=== PATIENT | male | born 1950 | race Caucasian/White ===

== ENCOUNTER 2016-12-01 10:43 | Emergency (ER) | payer OTHER ==
[~2016-12-01] VITALS: Ht 172.7 cm; Wt 110.0 kg
[~2016-12-01 10:43] MED LIST: ASCO250C3 PO; ASPI-232 PO; ATOR-26 PO; CARV6.252 PO; DILT120C PO; FOLI1TAB7 PO; FRS/40 PO; GLYB5TAB8 PO; INSUINJ12 SQ; LOSA50TA6 PO; MAGN400T6 PO; METF1000 PO; POTA20TA16 PO; SPIR25TA89 PO; THIA100T11 PO
[2016-12-01 10:53] VITALS: TEMP 36.8; Ht 172.7 cm; Wt 110.0 kg
[2016-12-01 11:17] VITALS: O2SAT 93
[2016-12-01] MEDS ORDERED: INSDGI SC (11:22)
[2016-12-01 11:32] LABS: ISTAT CREATININE 1.3 mg/dl (0.6-1.3); ISTAT HEMOGLOBIN 15.6 g/dl (14.0-18.0); ISTAT IONIZED CALCIUM 1.16 mmol/l (1.12-1.32)
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
[2016-12-01] MEDS ORDERED: KETOROLAC TROMETHAMINE 30 MG/ML VIAL IV STA (13:02)
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
[2016-12-01 13:41] VITALS: BP 159/108; PULSE 108; O2SAT 92
== END 2016-12-01 13:45 | disposition home or self-care (01) ==
LOC: C.EDB 10:44 → C.EDA 13:45
DX: S20.20XA Contusion of thorax, unspecified, initial encounter (principal); V86.59XA Driver of other special all-terrain or other off-road motor vehicle injured in nontraffic accident, initial encounter; I25.10 Atherosclerotic heart disease of native coronary artery without angina pectoris; N18.3 Chronic kidney disease, stage 3 (moderate); E11.9 Type 2 diabetes mellitus without complications; E78.5 Hyperlipidemia, unspecified; I10 Essential (primary) hypertension; E66.9 Obesity, unspecified; Z82.49 Family history of ischemic heart disease and other diseases of the circulatory system; Z79.82 Long term (current) use of aspirin; Z79.4 Long term (current) use of insulin

== ENCOUNTER 2017-02-07 16:11 | Inpatient (IN) | payer OTHER ==
[2017-02-07] VITALS (7 sets, daily range): BP systolic 129–165; BP diastolic 88–108; PULSE 109–112; TEMP 36.5; O2SAT 93–98; Ht 172.7 cm; Wt 101.0 kg
[~2017-02-07] VITALS: Ht 172.7 cm; Wt 101.0 kg
[~2017-02-07 16:11] MED LIST changes: +INSDGI SC; -INSUINJ12 SQ
[2017-02-07] MEDS ORDERED: SODIUM CHLORIDE 0.9% 1000ML 2,000 ML IV STA ×2 (16:22→18:49)
--- NOTE | 2017-02-07 16:57 | EMERGENCY ROOM VISIT NOTE ---
History Report prepared by Kar: An Julien Under the Supervision of: Dr. J Carlos Max D.O. First contact with patient: 16:11 Chief Complaint: HYPERGLYCEMIA Stated Complaint: AMS, HYPERGLYCEMIA History of Present Illness The patient is a 66 year old male who presents to the Emergency Room with complaints of constant altered mental status beginning today. Per EMS, the patient lives with his brother and was found today laying sideways on his bed with altered mental status. They report that he was covered in stool and after testing his blood sugar it said that it was "high". They note that the patient had a doctors appointment recently that he skipped because he was not feeling well. The patient complains of increasing weakness, right toe necrosis, and right foot redness that began a couple of days ago. He denies any abdominal pain and chest pain. Source of History: patient Onset: today Position: other (global) Quality: other (AMS) Timing: constant Associated Symptoms: + weakness, No chest pain, No abdominal pain Note: The patient complains of right toe necrosis and right foot redness that began a couple of days ago. Review of Systems See HPI for pertinent positives & negatives. A total of 10 systems reviewed and were otherwise negative. Past Medical & Surgical Medical Problems: (1) CAD (coronary artery disease) (2) CKD (chronic kidney disease) stage 3, GFR 30-59 ml/min (3) Decubitus ulcer (4) Diabetes mellitus type 2 in obese (5) Dyslipidemia (6) H/O CHF (7) HTN (hypertension) (8) Obesity (9) Pancreatitis Surgical Problems: (1) H/O pericardiectomy (2) History of total knee arthroplasty (3) S/P CABG x 4 Family History No pertinent family history stated. Social History Marital Status: single Housing Status: lives with family Current/Historical Medications Scheduled Ascorbic Acid (Vitamin C), 250 MG PO DAILY Aspirin (Aspir-81), 2 TAB PO DAILY Atorvastatin (Lipitor), 80 MG PO DAILY Carvedilol (Coreg), 3.125 MG PO Q12 Diltiazem Hcl Coated Beads (Diltiazem Hcl Er), 60 MG PO UD Folic Acid (Folvite), 1 MG PO DAILY Furosemide (Lasix), 120 MG PO DAILY Glyburide (Micronase), 10 MG PO BID Insulin Glargine (Lantus), 50 UNIT SC QPM Losartan Potassium (Cozaar), 50 MG PO DAILY Magnesium Oxide (Mag-Ox), 400 MG PO DAILY Metformin Hcl (Glucophage), 1,000 MG PO BID Potassium Ext Rel (Klor-Con), 20 MEQ PO DAILY Spironolactone (Aldactone), 25 MG PO DAILY Thiamine Hcl (Vitamin B-1), 100 MG PO DAILY Allergies Coded Allergies: JET Inhibitors (Verified Allergy, Unknown, 02/07/17) Penicillins (Verified Allergy, Unknown, RASH A CHILD, 02/07/17) Physical Exam Vital Signs Date Time Temp Pulse Resp B/P (MAP) Pulse Ox O2 Delivery O2 Flow Rate FiO2 02/07/17 20:01 110 22 140/101 94 Room Air 02/07/17 19:53 Room Air 02/07/17 19:34 114 20 146/103 96 Room Air 02/07/17 19:01 167 24 130/101 94 02/07/17 18:56 166 24 95 02/07/17 18:51 168 21 95 02/07/17 18:46 175 12 95 02/07/17 18:41 119 18 94 02/07/17 18:36 170 12 96 02/07/17 18:31 169 22 126/91 94 02/07/17 18:30 118/93 02/07/17 18:26 117 23 96 02/07/17 18:21 142 25 02/07/17 17:56 114 21 96 02/07/17 17:51 116 22 96 02/07/17 17:46 172 21 97 02/07/17 17:41 115 22 98 02/07/17 17:38 148/107 02/07/17 17:36 114 22 02/07/17 17:31 116 02/07/17 17:31 116 21 02/07/17 16:39 36.5 121 20 132/94 96 Room Air 02/07/17 16:14 132/94 Physical Exam GENERAL: stool covered, ill appearing, laying in bed, disheveled EYE EXAM: normal conjunctiva OROPHARYNX: no exudate, no erythema, lips, buccal mucosa, and tongue normal and mucous membranes are moist NECK: supple, no nuchal rigidity, no adenopathy, non-tender LUNGS: Clear to auscultation. Normal chest wall mechanics HEART: tachycardic, no murmurs, S1 normal and S2 normal ABDOMEN: abdomen soft, non-tender, normo-active bowel sounds, no masses, no rebound or guarding. BACK: Back is symmetrical on inspection and there is no deformity, no midline tenderness, no CVA tenderness. SKIN: no rashes and no bruising UPPER EXTREMITIES: upper extremities are grossly normal. LOWER EXTREMITIES: Erythema in right lower extremity tracking through the ankle , blanching, necrotic second digit with purulent discharge underneath, purulent drainage from the medial aspect of the third digit. Ulcer at the base of the first MTP, fluid filled with black necrotic area underneath. Abrasion to the left williamson, abrasion to the distal knee. NEURO EXAM: Awake, alert, oriented, following commands, no focal deficit. Medical Decision & Procedures ER Provider Diagnostic Interpretation: Radiology results as stated below per my review and the radiologist's interpretation: CHEST ONE VIEW PORTABLE FINDINGS: Cardiac silhouette is mildly enlarged. Prior median sternotomy. No pneumothorax, pleural effusion or focal airspace consolidation. There is improved aeration of the right lung base. The bones are grossly intact. IMPRESSION: No acute cardiopulmonary process. The above report was generated using voice recognition software. It may contain grammatical, syntax or spelling errors. Electronically signed by: Lan García M.D. 02/07/2017 5:45 PM Dictated Date/Time: 02/07/2017 5:44 PM HEAD WITHOUT CONTRAST (CT) FINDINGS: No acute intracranial hemorrhage, midline shift, mass, large territorial ischemia or abnormal extra-axial collection. Mild atrophy with ex vacuo ventriculomegaly and mild background chronic microvascular ischemic changes The calvarium is intact. The paranasal sinuses, mastoid air cells, and middle ear cavities are clear. IMPRESSION: No acute intracranial abnormality. The above report was generated using voice recognition software. It may contain grammatical, syntax or spelling errors. Electronically signed by: Lan García M.D. 02/07/2017 6:25 PM Dictated Date/Time: 02/07/2017 6:23 PM Laboratory Results 02/07/17 17:07 Red Blood Count 4.57, Mean Corpuscular Volume 94.1, Mean Corpuscular Hemoglobin 31.1, Mean Corpuscular Hemoglobin Concent 33.0, Mean Platelet Volume 9.9, Neutrophils (%) (Auto) 91.5, Lymphocytes (%) (Auto) 5.3, Monocytes (%) (Auto) 2.4, Eosinophils (%) (Auto) 0.0, Basophils (%) (Auto) 0.1, Neutrophils # (Auto) 25.98, Lymphocytes # (Auto) 1.49, Monocytes # (Auto) 0.67, Eosinophils # (Auto) 0.00, Basophils # (Auto) 0.03 02/07/17 17:09 Test 02/07/17 17:04 02/07/17 17:07 02/07/17 17:09 02/07/17 17:10 Bedside Hemoglobin 15.0 g/dl (14.0-18.0) Bedside Hematocrit 44 % (42-52) Bedside Sodium 134 mEq/L (135-144) Bedside Potassium 5.1 mEq/L (3.3-5.0) Bedside Chloride 107 mEq/L (101-112) Bedside Total CO2 10 mEq/l (24-31) Bedside Blood Urea Nitrogen 47 mg/dl (7-18) Bedside Creatinine 2.1 mg/dl (0.6-1.3) Bedside Glucose (other) 681 mg/dl (70-99) Bedside Ionized Calcium (Marta) 1.03 mmol/l (1.12-1.32) White Blood Count 28.36 K/uL (4.8-10.8) Red Blood Count 4.57 M/uL (4.7-6.1) Hemoglobin 14.2 g/dL (14.0-18.0) Hematocrit 43.0 % (42-52) Mean Corpuscular Volume 94.1 fL (80-100) Mean Corpuscular Hemoglobin 31.1 pg (25-34) Mean Corpuscular Hemoglobin Concent 33.0 g/dl (32-36) Platelet Count 728 K/uL (130-400) Mean Platelet Volume 9.9 fL (7.4-10.4) Neutrophils (%) (Auto) 91.5 % Lymphocytes (%) (Auto) 5.3 % Monocytes (%) (Auto) 2.4 % Eosinophils (%) (Auto) 0.0 % Basophils (%) (Auto) 0.1 % Neutrophils # (Auto) 25.98 K/uL (1.4-6.5) Lymphocytes # (Auto) 1.49 K/uL (1.2-3.4) Monocytes # (Auto) 0.67 K/uL (0.11-0.59) Eosinophils # (Auto) 0.00 K/uL (0-0.5) Basophils # (Auto) 0.03 K/uL (0-0.2) RDW Standard Deviation 47.6 fL (36.4-46.3) RDW Coefficient of Variation 13.9 % (11.5-14.5) Immature Granulocyte % (Auto) 0.7 % Immature Granulocyte # (Auto) 0.19 K/uL (0.00-0.02) Prothrombin Time 16.4 SECONDS (9.0-12.0) Prothromb Time International Ratio 1.5 (0.9-1.1) Venous Blood pH 7.26 (7.36-7.41) Venous Blood Partial Pressure CO2 28 mmHg (38.0-50.0) Venous Blood Partial Pressure O2 42 mmHg Venous Blood HCO3 12 mmol/L Venous Blood Oxygen Saturation 69.4 % Venous Blood Base Excess -13.2 mEq/L Anion Gap 25.0 mmol/L (3-11) Est Creatinine Clear Calc Drug Dose 32.5 ml/min Estimated GFR () 27.6 Estimated GFR (Non- 23.8 BUN/Creatinine Ratio 18.7 (10-20) Calcium Level 9.9 mg/dl (8.5-10.1) Magnesium Level 2.8 mg/dl (1.8-2.4) Total Bilirubin 0.5 mg/dl (0.2-1) Direct Bilirubin 0.2 mg/dl (0-0.2) Aspartate Amino Transf (AST/SGOT) 19 U/L (15-37) Alanine Aminotransferase (ALT/SGPT) 13 U/L (12-78) Alkaline Phosphatase 146 U/L (45-117) Total Protein 8.7 gm/dl (6.4-8.2) Albumin 2.1 gm/dl (3.4-5.0) Beta-Hydroxybutyric Acid 116.18 mg/dL (0.2-2.81) Bedside Lactic Acid Venous 2.67 mmol/L (0.90-1.70) Test 02/07/17 19:19 02/07/17 19:41 Hepatitis C Antibody Screen NEG (NEG) Bedside Glucose 582 mg/dl (70-99) Laboratory results per my review. Medications Administered Medications (Trade) Dose Ordered Sig/Estee Route Start Time Stop Time Status Last Admin Dose Admin Sodium Chloride 2,000 ml @ 999 mls/hr Q2H1M STAT IV 02/07/17 16:22 02/07/17 18:22 DC 02/07/17 16:22 999 MLS/HR Miscellaneous (Insulin Protocol Severe Stress) 1 ea ONE ONCE N/A 02/07/17 17:15 02/07/17 17:18 DC 02/07/17 17:15 1 EA Ceftriaxone Sodium (Rocephin Inj) 1 gm NOW STAT IV 02/07/17 17:15 02/07/17 17:18 DC 02/07/17 17:15 1 GM Vancomycin HCl 2000 mg/Sodium Chloride 540 ml @ 200 mls/hr NOW STAT IV 02/07/17 17:30 02/07/17 20:11 DC 02/07/17 19:00 200 MLS/HR Insulin Human Regular 250 units/ Sodium Chloride 252.5 ml @ 0 mls/hr DAILY@1130 IV 02/07/17 17:56 02/08/17 11:29 02/07/17 18:26 4 MLS/HR Insulin Human Regular (novoLIN-R U-100 PER UNIT) 4 units STK-MED ONCE .ROUTE 02/07/17 17:54 02/07/17 17:55 DC 02/07/17 18:00 4 UNITS Sodium Chloride 2,000 ml @ 999 mls/hr Q2H1M STAT IV 02/07/17 18:49 02/07/17 20:50 DC 02/07/17 18:49 999 MLS/HR ECG Indication: altered mental status Rate (beats per minute): 116 Rhythm: sinus tachycardia Findings: 1st degree AV block, Q waves (Inferior), RBBB, left axis deviation Change: EKG #2: Wide complex tachycardia, 116, RBBB, Left [place], Inferior Q Waves. ED Course ED COURSE: Vital signs were reviewed and showed tachycardia The patients medical record was reviewed The above diagnostic studies were performed and reviewed. ED treatments and interventions as stated above. 1611: The patient was evaluated in room B2. A complete history and physical examination was performed. 1622: Sodium Chloride 2000 ml @ 999 mls/hr IV. 1713: I reevaluated and updated the patient. 1715: Rocephin Inj 1gm IV, Insulin Protocol Severe Stress 1 ea N/A, Insulin Protocol DKA Goal Range 1 ea N/A. 1720: Insulin Human Regular 1 ea N/A. 1730: Vancomycin HCl 2000mg/Sodium Chloride 540 ml @ 200mls.hr IV. 1754: Insulin Human Regular 4 units. 1756: Insulin Human Regular 250 units/Sodium Chloride 252.5 ml @ 0mls/hr IV. 1800: Glucagon 1 mg PRN SQ hypoglycemia protocol, Dextrose 50ml PRN IV hypoglycemia protocol, Glucose 1 tab PRN PO. 1849: Sodium Chloride 2000 ml @ 999 mls/hr IV. 1900: Insulin Aspart Sliding Scale SC. 190: I reviewed the patient's case with Dr. Cunha of [facility]. He will evaluate the patient for further management. 1923: Upon reevaluation, the patient is doing well.I discussed my findings with the patient and he understands and agrees with the treatment plan. Based on the patients age, coexisting illnesses, exam and lab findings the decision to treat as an inpatient was made. The patient remained stable while under my care. The patient will be evaluated for further management. 2001: The patient's insulin was increased to 6 units per hour. Medical Decision Differential diagnoses includes but is not limited to toxic, metabolic, infectious, traumatic, cardiac, neurologic, hematologic, psychiatric and inflammatory etiologies. Patient is a 66-year-old male who presents to ER brought in by ALS who I took medical command call for altered mental status. He was brought in covered in stool. He is slightly confused. Labs were obtained and show a leukocytosis of 28,000. Blood sugar was 700 with a bicarbonate of 10. Patient is in DKA likely subsequent to sepsis from his right lower extremity which has a necrotic toe and surrounding cellulitis. Troponin was elevated at 2.7 which I favor is demand. INR was 1.5. PH was 7.26. Chest x-ray was unremarkable. Patient was given 3 L normal saline. IV Rocephin and vancomycin was given secondary to the infection in his right lower leg. CT head was negative. Patient was placed on the insulin drip and bolus. Insulin drip was titrated up from 4 to 6. Discussed with internal medicine who discussed case with the supervisor fabrication. Medication Reconcilliation Current Medication List: was personally reviewed by me Blood Pressure Screening Patient's blood pressure: Elevated blood pressure Blood pressure disposition: Elevated BP felt to be situational Consults Time Called: 1899 Consulting Physician: Dr. Alphonse Ellis Returned Call: 1905 I reviewed the patient's case with Dr. Childress. He will evaluate the patient for further management. Impression Primary Impression: Sepsis Additional Impression: DKA (diabetic ketoacidoses) Critical Care I have personally spent 75 minutes of critical care time in the direct management of this patient. This includes bedside care, interpretation of diagnostic studies, and testing, discussion with consultants, patient, and family members, and other required patient management activities. This 75 minutes is in excess of all separately billable procedures. Scribe Attestation The scribe's documentation has been prepared under my direction and personally reviewed by me in its entirety. I confirm that the note above accurately reflects all work, treatment, procedures, and medical decision making performed by me. Departure Information Dispostion Being Evaluated By Hospitalist Patient Instructions My [facility] Problem Qualifiers Primary Impression: Sepsis Sepsis type: sepsis due to unspecified organism Qualified Codes: A41.9 - Sepsis, unspecified organism Additional Impression: DKA (diabetic ketoacidoses) Diabetes mellitus type: other specified (including THOMAS) Diabetes mellitus complication detail: without coma Qualified Codes: E13.10 - Other specified diabetes mellitus with ketoacidosis without coma
[2017-02-07] MEDS ORDERED: VANCOMYCIN INJ 2,000 MG in SODIUM CHLORIDE 0.9% 250ML 250 ML IV STA (17:15)
[2017-02-07] MEDS ORDERED: CEFTRIAXONE SOD INJ 1 GM ADDVIAL IV STA (17:15)
[2017-02-07] MEDS ORDERED: INSULIN IV INFUSION PROTOCOL STA ×2 (17:15→19:43)
[2017-02-07] MEDS ORDERED: SEVERE STRESS LEVEL ONE ×2 (17:15→19:45)
[2017-02-07] MEDS ORDERED: DKA GOAL RANGE 150-250 mg/dl 1 EA ONE ×2 (17:15→19:45)
[2017-02-07 17:18] LABS: ISTAT CREATININE 2.1 mg/dl (0.6-1.3); ISTAT IONIZED CALCIUM 1.03 mmol/l (1.12-1.32)
[2017-02-07 17:18] LABS: MEAN CELL VOLUME 94.1 fL (80-100); MEAN CORPUSCULAR HEMOGLOBIN 31.1 pg (25-34); MEAN PLATELET VOLUME 9.9 fL (7.4-10.4); PLATELET COUNT 728 K/uL (130-400); RED BLOOD COUNT 4.57 M/uL (4.7-6.1); WHITE BLOOD COUNT 28.36 K/uL (4.8-10.8)
[2017-02-07] MEDS ORDERED: INSULIN IV INFUSION PROTOCOL SCH (17:20)
[2017-02-07 17:21] LABS: VEN BLD GAS O2 SATURATION 69.4 %; VEN BLOOD GAS BASE EXCESS -13.2 mEq/L
[2017-02-07 17:26] LABS: INR 1.5 (0.9-1.1); PROTHROMBIN TIME (PATIENT) 16.4 SECONDS (9.0-12.0)
[2017-02-07] MEDS ORDERED: VANCOMYCIN INJ 2,000 MG in SODIUM CHLORIDE 0.9% 500ML 500 ML IV STA (17:30)
[2017-02-07 17:42] LABS: BASO % 0.1 %; BASO ABS # 0.03 K/uL (0-0.2); COMPLETE YES; IG% 0.7 %; LYMPH % 5.3 %; LYMPH ABS # 1.49 K/uL (1.2-3.4); MONO % 2.4 %; NEUT % 91.5 %
[2017-02-07 17:44] LABS: BUN/CREATININE RATIO 18.7 (10-20); CALCIUM 9.9 mg/dl (8.5-10.1); CKMB/CK RATIO 12.8 (0-3.0); CREATININE 2.7 mg/dl (0.60-1.40); MAGNESIUM 2.8 mg/dl (1.8-2.4); POTASSIUM 4.8 mmol/L (3.5-5.1)
--- NOTE | 2017-02-07 17:47 | DIAGNOSTIC IMAGING REPORT ---
CHEST ONE VIEW PORTABLE HISTORY: 66 years-old Male fever acute fever with altered mental status COMPARISON: Chest radiograph 12/01/2016 TECHNIQUE: Portable upright AP view of the chest FINDINGS: Cardiac silhouette is mildly enlarged. Prior median sternotomy. No pneumothorax, pleural effusion or focal airspace consolidation. There is improved aeration of the right lung base. The bones are grossly intact. IMPRESSION: No acute cardiopulmonary process. The above report was generated using voice recognition software. It may contain grammatical, syntax or spelling errors. Electronically signed by: Lan García M.D. 02/07/2017 5:45 PM Dictated Date/Time: 02/07/2017 5:44 PM
[2017-02-07] MEDS ORDERED: NovoLIN-R INSULIN PER UNIT CHARGE ONE (17:54)
[2017-02-07] MEDS ORDERED: GLUCOSE 10 TABS/TUBE PO PRN (18:00)
[2017-02-07] MEDS ORDERED: GLUCAGON FOR INJ 1 MG VIAL SQ PRN (18:00)
[2017-02-07] MEDS ORDERED: DEXTROSE 50% 50 ML SYR IV PRN (18:00)
[2017-02-07] MEDS ORDERED: GLUCOSE 40% GEL 15 GM TUBE PO PRN (18:00)
[2017-02-07] MEDS ORDERED: INSULIN HUMAN REGULAR IV BOLUS 4 UNIT in SYRINGE 0 ML IV SCH (18:00)
[2017-02-07 18:18] LABS: BETA-HYDROXYBUTYRATE 116.18 mg/dL (0.2-2.81)
[2017-02-07] MEDS: INSULIN REGULAR 250 UNITS in SODIUM CHLORIDE 0.9% 250ML 250 ML IV SCH ×2 (18:26→21:56)
--- NOTE | 2017-02-07 18:27 | DIAGNOSTIC IMAGING REPORT ---
HEAD WITHOUT CONTRAST (CT) CLINICAL HISTORY: 66 years-old Male with ams . Acute altered mental status with hyperglycemia TECHNIQUE: Multiple axial CT images of the head were obtained without contrast. A dose lowering technique was utilized adhering to the principles of ALARA. CT DOSE: 614.27 mGy.cm COMPARISON: CT head 12/01/2016. FINDINGS: No acute intracranial hemorrhage, midline shift, mass, large territorial ischemia or abnormal extra-axial collection. Mild atrophy with ex vacuo ventriculomegaly and mild background chronic microvascular ischemic changes The calvarium is intact. The paranasal sinuses, mastoid air cells, and middle ear cavities are clear. IMPRESSION: No acute intracranial abnormality. The above report was generated using voice recognition software. It may contain grammatical, syntax or spelling errors. Electronically signed by: Lan García M.D. 02/07/2017 6:25 PM Dictated Date/Time: 02/07/2017 6:23 PM
[2017-02-07] MEDS ORDERED: INSULIN ASPART 100 UNITS/ML 3 ML PEN SC SCH (19:00)
[2017-02-07] MEDS ORDERED: SODIUM CHLORIDE 0.9% 1000ML 1,000 ML IV SCH (19:43)
[2017-02-07] MEDS ORDERED: LORAZEPAM 2 MG/ML 1 ML VIAL IV PRN ×2 (19:45→20:15)
[2017-02-07] MEDS ORDERED: ONDANSETRON INJ 2 MG/ML 2 ML VIAL IV PRN (19:45)
[2017-02-07] MEDS ORDERED: CONSULT PHARMACY STA ×2 (20:11→20:27)
--- NOTE | 2017-02-07 20:41 | History and Physical ---
History & Physical Date & Time of Service: Feb 07, 2017 at 20:18 Chief Complaint: Ams, Hyperglycemia Primary Care Physician: Dionicio Emmanuel DO History of Present Illness Source: patient, clinic records, hospital records 66 yo alcoholic diabetic presents to the ER via EMS after he was found at home lying on his bed somewhat altered and covered in feces. Although the patient is able answer questions appropriately he cannot tell me what happened at home and has low stamina for answering questions at this time. Per records, the patient lives with his brother and was found by him appearing confused and prompting the 911 call. Per the records, the patient was complaining of weakness, R foot redness that began a couple of days ago. He was unable to give me the history of how long his foot has been a problem. He admits to being a beer drinker, cannot quantify amount. He otherwise denies any fevers, chills, chest pain, shortness of breath, abdominal pain, nausea, vomiting, diarrhea, numbness or pain in his R foot. He states that although he hasn't been eating much, he has been compliant with all of his PO meds and insulin. Past Medical/Surgical History Medical Problems: (1) Alcohol abuse Status: Chronic (2) Atrial fibrillation Status: Chronic (3) CAD (coronary artery disease) Permanent Comment: s/p CABG in 2011 Status: Chronic (4) CKD (chronic kidney disease) stage 3, GFR 30-59 ml/min Status: Chronic (5) Decubitus ulcer Permanent Comment: R buttock Status: Chronic (6) Diabetes mellitus type 2 in obese Status: Chronic (7) Dyslipidemia Status: Chronic (8) H/O CHF Permanent Comment: systolic 2* CAD Status: Chronic (9) HTN (hypertension) Status: Chronic (10) Obesity Status: Chronic (11) RBBB Status: Chronic Surgical Problems: (1) H/O pericardiectomy Permanent Comment: 2011 Status: Resolved (2) History of total knee arthroplasty Permanent Comment: Left Status: Resolved (3) S/P CABG x 4 Permanent Comment: 2011 Status: Resolved Family History FHx: heart disease Social History Smoking Status: Unknown if Ever Smoked Smokeless Tobacco Use: Unknown Alcohol Use: heavy Drug Use: none Marital Status: single Housing status: lives with family (lives wtih brother) Occupational Status: disabled Immunizations History of Influenza Vaccine: No Influenza Vaccine Date: Jul 01, 2011 History of Tetanus Vaccine?: No History of Pneumococcal: No Pneumococcal Date: Jul 01, 2011 History of Hepatitis B Vaccine: No Multi-Drug Resistant Organisms History of MDRO: No Allergies Coded Allergies: JET Inhibitors (Verified Allergy, Unknown, 02/07/17) Penicillins (Verified Allergy, Unknown, RASH A CHILD, 02/07/17) Home Medications Scheduled Ascorbic Acid (Vitamin C), 250 MG PO DAILY Aspirin (Aspir-81), 2 TAB PO DAILY Atorvastatin (Lipitor), 80 MG PO DAILY Carvedilol (Coreg), 3.125 MG PO Q12 Diltiazem Hcl Coated Beads (Diltiazem Hcl Er), 60 MG PO UD Folic Acid (Folvite), 1 MG PO DAILY Furosemide (Lasix), 120 MG PO DAILY Glyburide (Micronase), 10 MG PO BID Insulin Glargine (Lantus), 50 UNIT SC QPM Losartan Potassium (Cozaar), 50 MG PO DAILY Magnesium Oxide (Mag-Ox), 400 MG PO DAILY Metformin Hcl (Glucophage), 1,000 MG PO BID Potassium Ext Rel (Klor-Con), 20 MEQ PO DAILY Spironolactone (Aldactone), 25 MG PO DAILY Thiamine Hcl (Vitamin B-1), 100 MG PO DAILY Review of Systems History and ROS was somewhat limited 2/2 the patient's fatigue level and decreased stamina, however, at least ten systems were reviewed and negative except as otherwise indicated in HPI. Physical Exam Vital Signs Date Time Temp Pulse Resp B/P (MAP) Pulse Ox O2 Delivery O2 Flow Rate FiO2 02/07/17 20:01 110 22 140/101 94 Room Air 02/07/17 19:34 114 20 146/103 96 Room Air 02/07/17 19:01 167 24 130/101 94 02/07/17 18:56 166 24 95 02/07/17 18:51 168 21 95 02/07/17 18:46 175 12 95 02/07/17 18:41 119 18 94 02/07/17 18:36 170 12 96 02/07/17 18:31 169 22 126/91 94 02/07/17 18:30 118/93 02/07/17 18:26 117 23 96 02/07/17 18:21 142 25 02/07/17 17:56 114 21 96 02/07/17 17:51 116 22 96 02/07/17 17:46 172 21 97 02/07/17 17:41 115 22 98 02/07/17 17:38 148/107 02/07/17 17:36 114 22 02/07/17 17:31 116 02/07/17 17:31 116 21 02/07/17 16:39 36.5 121 20 132/94 96 Room Air 02/07/17 16:14 132/94 General Appearance: no apparent distress, + obese, + pertinent finding ( covered in feces-on face and everywhere. ) Head: normocephalic, atraumatic Eyes: normal inspection, PERRL, sclerae normal ENT: hearing grossly normal, pharynx normal Neck: supple, trachea midline Respiratory/Chest: lungs clear, normal breath sounds, no respiratory distress, no accessory muscle use Cardiovascular: regular rate, rhythm, no edema, no gallop, normal peripheral pulses, + systolic murmur Abdomen/GI: normal bowel sounds, non tender, soft Back: normal inspection Extremities/Musculoskelatal: + pertinent finding (RLE cellulitis with 2nd right toe completely necrotic. Entire foot is red and warm to touch. No draining wounds. Skin is dry and flaky, nails are unkempt.) Neurologic/Psych: no motor/sensory deficits, alert, normal mood/affect, + disoriented (disoriented to time) Skin: normal color, warm/dry, + pertinent finding (wound as above. ) Diagnostics Laboratory Results 02/07/17 17:07 Red Blood Count 4.57, Mean Corpuscular Volume 94.1, Mean Corpuscular Hemoglobin 31.1, Mean Corpuscular Hemoglobin Concent 33.0, Mean Platelet Volume 9.9, Neutrophils (%) (Auto) 91.5, Lymphocytes (%) (Auto) 5.3, Monocytes (%) (Auto) 2.4, Eosinophils (%) (Auto) 0.0, Basophils (%) (Auto) 0.1, Neutrophils # (Auto) 25.98, Lymphocytes # (Auto) 1.49, Monocytes # (Auto) 0.67, Eosinophils # (Auto) 0.00, Basophils # (Auto) 0.03 02/07/17 17:09 Test 02/07/17 17:04 02/07/17 17:07 02/07/17 17:09 02/07/17 17:10 Bedside Hemoglobin 15.0 g/dl (14.0-18.0) Bedside Hematocrit 44 % (42-52) Bedside Sodium 134 mEq/L (135-144) Bedside Potassium 5.1 mEq/L (3.3-5.0) Bedside Chloride 107 mEq/L (101-112) Bedside Total CO2 10 mEq/l (24-31) Bedside Blood Urea Nitrogen 47 mg/dl (7-18) Bedside Creatinine 2.1 mg/dl (0.6-1.3) Bedside Glucose (other) 681 mg/dl (70-99) Bedside Ionized Calcium (Marta) 1.03 mmol/l (1.12-1.32) White Blood Count 28.36 K/uL (4.8-10.8) Red Blood Count 4.57 M/uL (4.7-6.1) Hemoglobin 14.2 g/dL (14.0-18.0) Hematocrit 43.0 % (42-52) Mean Corpuscular Volume 94.1 fL (80-100) Mean Corpuscular Hemoglobin 31.1 pg (25-34) Mean Corpuscular Hemoglobin Concent 33.0 g/dl (32-36) Platelet Count 728 K/uL (130-400) Mean Platelet Volume 9.9 fL (7.4-10.4) Neutrophils (%) (Auto) 91.5 % Lymphocytes (%) (Auto) 5.3 % Monocytes (%) (Auto) 2.4 % Eosinophils (%) (Auto) 0.0 % Basophils (%) (Auto) 0.1 % Neutrophils # (Auto) 25.98 K/uL (1.4-6.5) Lymphocytes # (Auto) 1.49 K/uL (1.2-3.4) Monocytes # (Auto) 0.67 K/uL (0.11-0.59) Eosinophils # (Auto) 0.00 K/uL (0-0.5) Basophils # (Auto) 0.03 K/uL (0-0.2) RDW Standard Deviation 47.6 fL (36.4-46.3) RDW Coefficient of Variation 13.9 % (11.5-14.5) Immature Granulocyte % (Auto) 0.7 % Immature Granulocyte # (Auto) 0.19 K/uL (0.00-0.02) Prothrombin Time 16.4 SECONDS (9.0-12.0) Prothromb Time International Ratio 1.5 (0.9-1.1) Venous Blood pH 7.26 (7.36-7.41) Venous Blood Partial Pressure CO2 28 mmHg (38.0-50.0) Venous Blood Partial Pressure O2 42 mmHg Venous Blood HCO3 12 mmol/L Venous Blood Oxygen Saturation 69.4 % Venous Blood Base Excess -13.2 mEq/L Anion Gap 25.0 mmol/L (3-11) Est Creatinine Clear Calc Drug Dose 32.5 ml/min Estimated GFR () 27.6 Estimated GFR (Non- 23.8 BUN/Creatinine Ratio 18.7 (10-20) Calcium Level 9.9 mg/dl (8.5-10.1) Magnesium Level 2.8 mg/dl (1.8-2.4) Total Bilirubin 0.5 mg/dl (0.2-1) Direct Bilirubin 0.2 mg/dl (0-0.2) Aspartate Amino Transf (AST/SGOT) 19 U/L (15-37) Alanine Aminotransferase (ALT/SGPT) 13 U/L (12-78) Alkaline Phosphatase 146 U/L (45-117) Total Protein 8.7 gm/dl (6.4-8.2) Albumin 2.1 gm/dl (3.4-5.0) Beta-Hydroxybutyric Acid 116.18 mg/dL (0.2-2.81) Bedside Lactic Acid Venous 2.67 mmol/L (0.90-1.70) Test 02/07/17 19:19 02/07/17 21:04 02/07/17 21:05 02/07/17 21:30 Hepatitis C Antibody Screen NEG (NEG) Bedside Glucose 525 mg/dl (70-99) Lactic Acid Level 1.8 mmol/L (0.4-2.0) Total Creatine Kinase 132 U/L (39-308) Creatine Kinase MB 11.7 ng/ml (0.5-3.6) Creatine Kinase MB Ratio 8.9 (0-3.0) Troponin I 2.420 ng/ml (0-0.045) Date/Time Source Procedure Growth Status 02/07/17 21:19 Blood Blood Culture Pending Received 02/07/17 21:30 Nasal MRSA DNA Surveillance Screen Pending Received Results Past 24 Hours Test 02/07/17 16:22 02/07/17 16:29 02/07/17 17:00 02/07/17 17:04 Range/Units Bedside Glucose > 600 70-99 mg/dl Bedside Lactic Acid Venous 2.21 0.90-1.70 mmol/L Bedside Hemoglobin 15.0 14.0-18.0 g/dl Bedside Hematocrit 44 42-52 % Bedside Sodium 134 135-144 mEq/L Bedside Potassium 5.1 3.3-5.0 mEq/L Bedside Chloride 107 101-112 mEq/L Bedside Total CO2 10 24-31 mEq/l Anion Gap 24.0 16-25 mmol/L Bedside Blood Urea Nitrogen 47 7-18 mg/dl Bedside Creatinine 2.1 0.6-1.3 mg/dl Bedside Glucose (other) 681 70-99 mg/dl Bedside Ionized Calcium (Marta) 1.03 1.12-1.32 mmol/l Test 02/07/17 17:07 02/07/17 17:09 02/07/17 17:10 02/07/17 18:58 Range/Units White Blood Count 28.36 4.8-10.8 K/uL Red Blood Count 4.57 4.7-6.1 M/uL Hemoglobin 14.2 14.0-18.0 g/dL Hematocrit 43.0 42-52 % Mean Corpuscular Volume 94.1 80-100 fL Mean Corpuscular Hemoglobin 31.1 25-34 pg Mean Corpuscular Hemoglobin Concent 33.0 32-36 g/dl Platelet Count 728 130-400 K/uL Mean Platelet Volume 9.9 7.4-10.4 fL Neutrophils (%) (Auto) 91.5 % Lymphocytes (%) (Auto) 5.3 % Monocytes (%) (Auto) 2.4 % Eosinophils (%) (Auto) 0.0 % Basophils (%) (Auto) 0.1 % Neutrophils # (Auto) 25.98 1.4-6.5 K/uL Lymphocytes # (Auto) 1.49 1.2-3.4 K/uL Monocytes # (Auto) 0.67 0.11-0.59 K/uL Eosinophils # (Auto) 0.00 0-0.5 K/uL Basophils # (Auto) 0.03 0-0.2 K/uL RDW Standard Deviation 47.6 36.4-46.3 fL RDW Coefficient of Variation 13.9 11.5-14.5 % Immature Granulocyte % (Auto) 0.7 % Immature Granulocyte # (Auto) 0.19 0.00-0.02 K/uL Prothrombin Time 16.4 9.0-12.0 SECONDS Prothromb Time International Ratio 1.5 0.9-1.1 Venous Blood pH 7.26 7.36-7.41 Venous Blood Partial Pressure CO2 28 38.0-50.0 mmHg Venous Blood Partial Pressure O2 42 mmHg Venous Blood HCO3 12 mmol/L Venous Blood Oxygen Saturation 69.4 % Venous Blood Base Excess -13.2 mEq/L Sodium Level 135 136-145 mmol/L Potassium Level 4.8 3.5-5.1 mmol/L Chloride Level 98 98-107 mmol/L Carbon Dioxide Level 12 21-32 mmol/L Anion Gap 25.0 3-11 mmol/L Blood Urea Nitrogen 51 7-18 mg/dl Creatinine 2.70 0.60-1.40 mg/dl Est Creatinine Clear Calc Drug Dose 32.5 ml/min Estimated GFR () 27.6 Estimated GFR (Non- 23.8 BUN/Creatinine Ratio 18.7 10-20 Random Glucose 659 70-99 mg/dl Calcium Level 9.9 8.5-10.1 mg/dl Magnesium Level 2.8 1.8-2.4 mg/dl Total Bilirubin 0.5 0.2-1 mg/dl Direct Bilirubin 0.2 0-0.2 mg/dl Aspartate Amino Transf (AST/SGOT) 19 15-37 U/L Alanine Aminotransferase (ALT/SGPT) 13 12-78 U/L Alkaline Phosphatase 146 45-117 U/L Total Creatine Kinase 95 39-308 U/L Creatine Kinase MB 12.2 0.5-3.6 ng/ml Creatine Kinase MB Ratio 12.8 0-3.0 Troponin I 2.740 0-0.045 ng/ml Total Protein 8.7 6.4-8.2 gm/dl Albumin 2.1 3.4-5.0 gm/dl Beta-Hydroxybutyric Acid 116.18 0.2-2.81 mg/dL Bedside Lactic Acid Venous 2.67 0.90-1.70 mmol/L Bedside Glucose 599 70-99 mg/dl Test 02/07/17 19:19 02/07/17 19:41 Range/Units Bedside Glucose 582 70-99 mg/dl Microbiology Results 02/07/17 Blood Culture, Ordered Pending 02/07/17 Blood Culture, Ordered Pending Diagnostic Radiology HEAD WITHOUT CONTRAST (CT) CLINICAL HISTORY: 66 years-old Male with ams . Acute altered mental status with hyperglycemia TECHNIQUE: Multiple axial CT images of the head were obtained without contrast. A dose lowering technique was utilized adhering to the principles of ALARA. CT DOSE: 614.27 mGy.cm COMPARISON: CT head 12/01/2016. FINDINGS: No acute intracranial hemorrhage, midline shift, mass, large territorial ischemia or abnormal extra-axial collection. Mild atrophy with ex vacuo ventriculomegaly and mild background chronic microvascular ischemic changes The calvarium is intact. The paranasal sinuses, mastoid air cells, and middle ear cavities are clear. IMPRESSION: No acute intracranial abnormality. HEAD WITHOUT CONTRAST (CT) CLINICAL HISTORY: 66 years-old Male with ams . Acute altered mental status with hyperglycemia TECHNIQUE: Multiple axial CT images of the head were obtained without contrast. A dose lowering technique was utilized adhering to the principles of ALARA. CT DOSE: 614.27 mGy.cm COMPARISON: CT head 12/01/2016. FINDINGS: No acute intracranial hemorrhage, midline shift, mass, large territorial ischemia or abnormal extra-axial collection. Mild atrophy with ex vacuo ventriculomegaly and mild background chronic microvascular ischemic changes The calvarium is intact. The paranasal sinuses, mastoid air cells, and middle ear cavities are clear. IMPRESSION: No acute intracranial abnormality. EKG ST 116, LAD, RBBB--aside from tachycardia, not much change from prior EKGs on file. Impression Assessment and Plan 66 yo M with RLE wound including necrotic toe found altered 2/2 DKA and sepsis 1. Sepsis 2/2 RLE with area of necrosis-suspect osteomyelitis and need empiric coverage for pseudomonas in this diabetic wound. Broad spectrum abx with Vanc and Imipenem. CT scan of LE to look for abscess or osteo. Defer further imaging to Ortho who is consulted. Resuscitated with 3L IVF in the ER. Trend lactate. Admitted to ICU. Wound care also consulted. 2. DKA 2/2 sepsis and possible noncompliance with insulin-insulin drip, NSS, ICU admission. PRP q4h and adjust insulin drip based on hourly glucose monitoring. Cont per protocol overnight. Work on infection control. NPO. Home regimen including Lantus, Glyburide and Metformin all held while patient is NPO 3. Alcohol abuse-unknown habits regarding regular quantity of alcohol consumed. Thiamine given in preparation for poss D5 later tonight, cont daily ( and he takes it a home reportedly). [place] ativan use per protocol with more if needed. 4. CAD s/p stents and CABG in the past-reports compliance with ASA, Lipitor 80 , Coreg 3.125, Cozaar 50. Held as patient is currently NPO. Would add back when tolerating PO 5. HTN-controlled, in addition to Coreg and Cozaar above, he is also on spironolactone 25 daily and Lasix 120mg daily. NPO so these were held. Monitor pressure overnight. 6. CB likely 2/2 dehydration from DKA-cont with IVF and trending PRP. 7. Atrial fibrillation-was on coumadin in the past but was taken off 2/2 compliance issues. Rate control with diltiazem. DVT proph-heparin Full Code Dispo-to ICU, case was discussed with Dr. Lyman (ICU attending). Tried to contact brother but he was unavailable. Dorothy Amato DO [facility] Level of Care Critical Care Resuscitation Status FULL RESUSCITATION VTE Prophylaxis VTE Risk Assessment Done? Y/N: Yes Risk Level: High Given or contraindicated: Unfractionated heparin SQ
[2017-02-07] MEDS ORDERED: VANCOMYCIN CONSULT ACTIVE PRN (20:45)
[2017-02-07] MEDS ORDERED: IMIPENEM/CILASTATIN CONSULT ACTIVE PRN (20:45)
[2017-02-07] MEDS ORDERED: IMIPENEM/CILASTATIN IV 500 MG in D5W 100ML IV SCH (21:00)
[2017-02-07] MEDS ORDERED: THIAMINE HCL INJ 100 MG in SYRINGE 9 ML IV SCH (21:00)
[2017-02-07] MEDS: INSULIN ASPART 100 UNITS/ML 3 ML PEN SC SCH (21:00)
[2017-02-07] MEDS ORDERED: LORAZEPAM INJ 1 MG in SYRINGE 0.5 ML IV PRN (21:15)
--- NOTE | 2017-02-07 21:28 | Pharmacy Progress Note ---
Pharmacy Antibiotic Consult Date of Service: Feb 07, 2017. Pharmacy Dosing Scope Pharmacy is consulted to initiate vancomycin and imipenem IV dosing therapy, order appropriate labs and adjust drug dose/frequency. Subjective The patient is a 66 year old male admitted on Feb 07, 2017 at 20:10 with DKA, severe sepsis, probable diabetic foot infection. Objective Height (Feet): 5 Height (Inches): 8.00 Weight (Kilograms): 105.200 Lab Results (24hrs): Test 02/07/17 16:22 02/07/17 17:00 02/07/17 17:04 02/07/17 17:07 Bedside Lactic Acid Venous 2.21 mmol/L (0.90-1.70) Bedside Hemoglobin 15.0 g/dl (14.0-18.0) Bedside Hematocrit 44 % (42-52) Bedside Sodium 134 mEq/L (135-144) Bedside Potassium 5.1 mEq/L (3.3-5.0) Bedside Chloride 107 mEq/L (101-112) Bedside Total CO2 10 mEq/l (24-31) Anion Gap 24.0 mmol/L (16-25) Bedside Blood Urea Nitrogen 47 mg/dl (7-18) Bedside Creatinine 2.1 mg/dl (0.6-1.3) Bedside Glucose (other) 681 mg/dl (70-99) Bedside Ionized Calcium (Marta) 1.03 mmol/l (1.12-1.32) White Blood Count 28.36 K/uL (4.8-10.8) Red Blood Count 4.57 M/uL (4.7-6.1) Hemoglobin 14.2 g/dL (14.0-18.0) Hematocrit 43.0 % (42-52) Mean Corpuscular Volume 94.1 fL (80-100) Mean Corpuscular Hemoglobin 31.1 pg (25-34) Mean Corpuscular Hemoglobin Concent 33.0 g/dl (32-36) Platelet Count 728 K/uL (130-400) Mean Platelet Volume 9.9 fL (7.4-10.4) Neutrophils (%) (Auto) 91.5 % Lymphocytes (%) (Auto) 5.3 % Monocytes (%) (Auto) 2.4 % Eosinophils (%) (Auto) 0.0 % Basophils (%) (Auto) 0.1 % Neutrophils # (Auto) 25.98 K/uL (1.4-6.5) Lymphocytes # (Auto) 1.49 K/uL (1.2-3.4) Monocytes # (Auto) 0.67 K/uL (0.11-0.59) Eosinophils # (Auto) 0.00 K/uL (0-0.5) Basophils # (Auto) 0.03 K/uL (0-0.2) RDW Standard Deviation 47.6 fL (36.4-46.3) RDW Coefficient of Variation 13.9 % (11.5-14.5) Immature Granulocyte % (Auto) 0.7 % Immature Granulocyte # (Auto) 0.19 K/uL (0.00-0.02) Prothrombin Time 16.4 SECONDS (9.0-12.0) Prothromb Time International Ratio 1.5 (0.9-1.1) Venous Blood pH 7.26 (7.36-7.41) Venous Blood Partial Pressure CO2 28 mmHg (38.0-50.0) Venous Blood Partial Pressure O2 42 mmHg Venous Blood HCO3 12 mmol/L Venous Blood Oxygen Saturation 69.4 % Venous Blood Base Excess -13.2 mEq/L Test 02/07/17 17:09 02/07/17 17:10 02/07/17 18:58 02/07/17 19:19 Sodium Level 135 mmol/L (136-145) Potassium Level 4.8 mmol/L (3.5-5.1) Chloride Level 98 mmol/L (98-107) Carbon Dioxide Level 12 mmol/L (21-32) Anion Gap 25.0 mmol/L (3-11) Blood Urea Nitrogen 51 mg/dl (7-18) Creatinine 2.70 mg/dl (0.60-1.40) Est Creatinine Clear Calc Drug Dose 32.5 ml/min Estimated GFR () 27.6 Estimated GFR (Non- 23.8 BUN/Creatinine Ratio 18.7 (10-20) Random Glucose 659 mg/dl (70-99) Calcium Level 9.9 mg/dl (8.5-10.1) Magnesium Level 2.8 mg/dl (1.8-2.4) Total Bilirubin 0.5 mg/dl (0.2-1) Direct Bilirubin 0.2 mg/dl (0-0.2) Aspartate Amino Transf (AST/SGOT) 19 U/L (15-37) Alanine Aminotransferase (ALT/SGPT) 13 U/L (12-78) Alkaline Phosphatase 146 U/L (45-117) Total Creatine Kinase 95 U/L (39-308) Creatine Kinase MB 12.2 ng/ml (0.5-3.6) Creatine Kinase MB Ratio 12.8 (0-3.0) Troponin I 2.740 ng/ml (0-0.045) Total Protein 8.7 gm/dl (6.4-8.2) Albumin 2.1 gm/dl (3.4-5.0) Beta-Hydroxybutyric Acid 116.18 mg/dL (0.2-2.81) Bedside Lactic Acid Venous 2.67 mmol/L (0.90-1.70) Bedside Glucose 599 mg/dl (70-99) Test 02/07/17 19:41 02/07/17 21:05 Bedside Glucose 582 mg/dl (70-99) Micro Results: 02/07 blood x2 pending Recent Pertinent Medications Item Value Date Time Imipenem/ 110 ml @ 110 mls/hr 02/07/17 2100 Cilastatin Sodium TODAY@2100/IV 500 mg/Dextrose Vancomycin HCl 540 ml @ 200 mls/hr 02/07/17 1730 2000 mg/Sodium NOW STAT/IV 02/07/17 1900 Chloride Ceftriaxone Sodium 1 gm 02/07/17 1715 (Rocephin Inj) NOW STAT/IV 02/07/17 1715 Assessment & Plan Modified loading dose: vancomycin 2000 mg IV X 1 dose (~19 mg/kg) then: will check random vanco level in am, reassess renal function, and calculate ongoing dose. Goal trough level estimate: between 15-20 mcg/mL. Random level has been ordered for: 02/08/17 with am labs. Imipenem-cilastatin 500 mg x1 loading dose, then 250 mg q6h for CrCl 10-50 ml/ min Pharmacy will continue to follow and will adjust dose/frequency as necessary. Thank you
[2017-02-07] MEDS ORDERED: INFLUENZA VIRUS QUAD VACCINE 0.5 ML SYR IM. ONE (21:30)
[2017-02-07] MEDS ORDERED: PNEUMOCOCCAL ADMINISTRATION CHARGE ONE (21:30)
[2017-02-07] MEDS ORDERED: INFLUENZA ADMINISTRATION CHARGE ONE (21:30)
[2017-02-07] MEDS ORDERED: PNEUMOCOCCAL POLYSACCHARIDES 25 MCG/0.5 ML VIAL/SYR IM. ONE (21:30)
[2017-02-07 21:47] LABS: CKMB/CK RATIO 8.9 (0-3.0)
[2017-02-07 21:51] LABS: URINE APPEARANCE CLEAR (CLEAR); URINE BILIRUBIN NEG (NEG); URINE COLOR YELLOW; URINE NITRITE NEG (NEG); UROBILINOGEN NEG (NEG); ZZUR CULT IF INDIC CLEAN CATCH NO
[2017-02-07 21:57] LABS: MANUAL MICROSCOPIC REQUIRED? NO; REVIEW REQ? NO
[2017-02-07] MEDS: HEPARIN SOD 5000 UNIT/0.5 ML CARP SQ SCH (22:02)
[2017-02-07 22:18] LABS: BENZODIAZEPINE, URINE NEG (NEG); COCAINE,URINE NEG (NEG); PHENCYCLIDINE, URINE NEG (NEG)
[2017-02-07 23:58] LABS: VEN BLOOD GAS BASE EXCESS -3.6 mEq/L; VENOUS BLOOD GAS PCO2 43 mmHg (38.0-50.0); VENOUS BLOOD GAS PO2 32 mmHg
[2017-02-07 23:59] LABS: VEN BLD GAS O2 SATURATION < 60.0 %
[2017-02-08] VITALS (19 sets, daily range): BP systolic 101–143; BP diastolic 66–92; PULSE 96–171; TEMP 36.6–37; O2SAT 90–100
[2017-02-08] LABS: BUN/CREATININE RATIO 22.3 (10-20); CALCIUM 8.9 mg/dl (8.5-10.1); CREATININE 2.2 mg/dl (0.60-1.40)
[2017-02-08 00:25] LABS: BETA-HYDROXYBUTYRATE 36.84 mg/dL (0.2-2.81)
[2017-02-08 03:18] LABS: BASO % 0.1 %; BASO ABS # 0.02 K/uL (0-0.2); COMPLETE YES; EOS % 0.1 %; HEMATOCRIT 37.6 % (42-52); IG% 0.3 %; LYMPH % 5.2 %; LYMPH ABS # 0.96 K/uL (1.2-3.4); MEAN CELL VOLUME 90.2 fL (80-100); MEAN CORPUSCULAR HEMOGLOBIN 31.2 pg (25-34); MEAN CORPUSCULAR HGB CONC 34.6 g/dl (32-36); MEAN PLATELET VOLUME 9.3 fL (7.4-10.4); MONO % 4.4 %; NEUT % 89.9 %; PLATELET COUNT 593 K/uL (130-400); RED BLOOD COUNT 4.17 M/uL (4.7-6.1); WHITE BLOOD COUNT 18.48 K/uL (4.8-10.8)
[2017-02-08 03:24] LABS: VEN BLOOD GAS BASE EXCESS -0.3 mEq/L; VENOUS BLOOD GAS PCO2 46 mmHg (38.0-50.0); VENOUS BLOOD GAS PO2 30 mmHg
[2017-02-08 03:26] LABS: INR 1.5 (0.9-1.1); PROTHROMBIN TIME (PATIENT) 15.9 SECONDS (9.0-12.0); VEN BLD GAS O2 SATURATION < 60.0 %
[2017-02-08] MEDS ORDERED: D5NSS + 20MEQ KCL 1,000 ML IV SCH (03:30)
[2017-02-08] MEDS: IMIPENEM-CILASTATIN 250 MG in DEXTROSE 5% 100ML 100 ML IV SCH ×2 (03:36→12:03)
[2017-02-08 03:57] LABS: BUN/CREATININE RATIO 21.5 (10-20); CALCIUM 9.1 mg/dl (8.5-10.1); CKMB/CK RATIO 10.7 (0-3.0); CREATININE 2.1 mg/dl (0.60-1.40); MAGNESIUM 2.6 mg/dl (1.8-2.4); PHOSPHORUS 1.5 mg/dl (2.5-4.9); POTASSIUM 3.4 mmol/L (3.5-5.1)
[2017-02-08] MEDS ORDERED: DILTIAZEM HCL 5 MG/ML 5 ML VIAL ONE (04:11)
[2017-02-08] MEDS ORDERED: DILTIAZEM HCL 5 MG/ML 5 ML VIAL IV STA ×2 (04:12→05:03)
[2017-02-08] MEDS ORDERED: POTASSIUM PHOSPHATE INJ 30 MMOL in SODIUM CHLORIDE 0.9% 500ML 500 ML IV SCH ×2 (04:15→10:00)
[2017-02-08] MEDS ORDERED: DILTIAZEM BOLUS / DRIP IV STA (04:43)
[2017-02-08] MEDS ORDERED: DILTIAZEM HCL INJ 125 MG in DEXTROSE 5% 100ML IV PRN (05:00)
[2017-02-08] MEDS: HEPARIN SOD 5000 UNIT/0.5 ML CARP SQ SCH (06:49)
--- NOTE | 2017-02-08 07:24 | DIAGNOSTIC IMAGING REPORT ---
R LOWER EXTREMITY WITHOUT CLINICAL HISTORY: 66 years-old Male presenting with need to image lower leg and foot-abscess?osteo?. TECHNIQUE: Multidetector CT of the right ankle through the foot was performed without the use of intravenous contrast. IV contrast: None. A dose lowering technique was used consistent with the principles of ALARA (as low as reasonably achievable). COMPARISON: None. CT DOSE (mGy.cm): The estimated cumulative dose is 395.69 mGy.cm. FINDINGS: [employer] topogram: Unremarkable. Soft tissue emphysema noted along the second toe extending approximately along the plantar aspect of the second metatarsal and tracking along the plantar flexor compartment. Soft tissue emphysema extends along the flexor digitorum longus and flexor hallucis longus to the level of the ankle mortise. Extensive subcutaneous edema noted throughout the foot. Subcutaneous calcification noted along the distal anterior tibia may relate to prior injury or venous stasis. Gas noted within the distal and middle phalanges of the second toe extending to the proximal interphalangeal joint. No gas within the proximal phalanx of the second toe. Given the presence of intraosseous gas, evaluation for osseous erosion is difficult but suspected. No periosteal reaction. No sheryl evidence of a fracture plane. IMPRESSION: Findings highly concerning for necrotizing fasciitis of the second toe extending along the flexor compartment of the foot to the level of the ankle mortise tracking along the flexor tendons as described above. No focal fluid collection to suggest abscess. Intraosseous gas within the distal and middle phalanges of the second toe also highly concerning for gas-forming organisms within the bone/osteomyelitis. The report will be called/faxed according to standard departmental protocol. Electronically signed by: Taz Ruiz M.D. 02/08/2017 7:22 AM Dictated Date/Time: 02/08/2017 7:15 AM
[2017-02-08 07:28] LABS: VEN BLD GAS O2 SATURATION 62.2 %; VEN BLOOD GAS BASE EXCESS 0.5 mEq/L
[2017-02-08] MEDS: INSULIN ASPART 100 UNITS/ML 3 ML PEN SC SCH ×2 (07:51→12:00)
[2017-02-08] MEDS ORDERED: CLINDAMYCIN IV 600 MG in DEXTROSE 5% 50ML 50 ML IV SCH (08:15)
--- NOTE | 2017-02-08 08:19 | Progress Note ---
Internal Med Progress Note Date of Service: Feb 08, 2017. Provider Documentation: SUBJECTIVE: patient seen and examined in the ICU. he is awake and speaking in full sentences on room air. patient does not recall what happened at home before coming to hospital but is oriented that he is hospitalized. Denies chest pain or shortness of breath. Denies palpitations but had tachycardia in the hospital and on rate control with drip medications. Has midline scar in chest secondary to heart surgery according to documentation of medical history but patient does not recall the surgery type. Patient reports being off of home insulin for 3 days and is aware of the the blackened discoloration of second toe of right foot that he reports has been an ongoing problem for 2 to 3 weeks OBJECTIVE: Heart rate around 100 bpm General Appearance: no apparent distress, + obese Head: normocephalic, atraumatic Eyes: normal inspection, ENT: hearing grossly normal, pharynx normal Neck: supple, trachea midline Respiratory/Chest: lungs clear, normal breath sounds, no respiratory distress, no accessory muscle use Cardiovascular: regular rate, rhythm, no edema, no gallop, normal peripheral pulses Abdomen/GI: normal bowel sounds, non tender, soft Back: normal inspection Extremities: RLE cellulitis with 2nd right toe dark, black color, necrotic Neurologic: is able to move upper extremities well, lower extremities in soft boots and able to wiggle toes on left foot when asked but not able to move affected toe of right foot ASSESSMENT & PLAN: Sepsis 2/2 RLE with area of necrosis CT lower extremity, right leg "Findings highly concerning for necrotizing fasciitis of the second toe extending along the flexor compartment of the foot to the level of the ankle mortise tracking along the flexor tendons as described above. No focal fluid collection to suggest abscess. Intraosseous gas within the distal and middle phalanges of the second toe also highly concerning for gas-forming organisms within the bone/ osteomyelitis" - on imipenem and vancomycin - will need orthopedics to perform surgery such as amputation / debridement DKA 2/2 sepsis and possible noncompliance with insulin -insulin drip, NSS, ICU further management, PRP q4h and adjust insulin drip based on hourly glucose monitoring. Cont per protocol overnight. Work on infection control. NPO. Home regimen including Lantus, Glyburide and Metformin all held while patient is NPO Atrial fibrillation-was on coumadin in the past but was taken off 2/2 compliance issues. Rate control with diltiazem. On drip for rate control. heart rate this morning in 100 bpm -patient's rate control requirements may increase with potential surgery -defer to ICU physician for further management of heart rate CAD s/p stents and CABG in the past-reports compliance with ASA, Lipitor 80, Coreg 3.125, Cozaar 50. Was held as patient is currently NPO. restart when needed as per ICU physician HTN: home medication of Coreg and Cozaar, spironolactone 25 daily and Lasix 120mg daily. NPO so these were held. restart when needed as per ICU physician CB likely 2/2 dehydration from DKA-cont with IVF and trending PRP. Alcohol abuse - thiamine and benzodiazepines DISPOSITION in the care of medical ICU and likely will need surgery for necrotic toe on right foot Vital Signs: Date Time Temp Pulse Resp B/P (MAP) Pulse Ox O2 Delivery O2 Flow Rate FiO2 02/08/17 07:00 101 25 120/78 (92) 92 Oxymask 2.0 02/08/17 06:01 104 23 132/84 (100) 99 Oxymask 4.0 02/08/17 05:01 96 22 125/92 (103) 98 Oxymask 4.0 02/08/17 04:57 156 22 120/77 (91) 100 Oxymask 4.0 02/08/17 04:33 152 24 113/82 (92) 100 Oxymask 4.0 02/08/17 04:11 162 20 110/80 (90) 92 Room Air 02/08/17 04:02 170 34 109/74 (86) 90 Room Air 02/08/17 04:01 36.6 171 25 101/66 (78) Room Air 02/08/17 04:00 97 Oxymask 4.0 02/08/17 03:01 112 20 129/78 (95) 92 Room Air 02/08/17 02:01 107 19 141/84 (103) 95 Room Air 02/08/17 01:01 108 21 127/79 (95) 95 Room Air 02/08/17 00:01 36.8 107 17 134/88 (103) 97 Room Air 02/08/17 00:01 97 Room Air 02/07/17 23:01 109 21 130/93 (105) 93 Room Air 02/07/17 22:01 112 20 129/88 (102) 95 Room Air 02/07/17 21:01 109 18 153/108 (123) 96 Room Air 02/07/17 20:53 111 27 138/90 (106) Room Air 02/07/17 20:35 97 Room Air 02/07/17 20:32 109 20 157/101 (119) 97 Room Air 02/07/17 20:32 110 20 157/101 97 02/07/17 20:31 36.5 109 19 165/106 (125) 98 Room Air 02/07/17 20:01 110 22 140/101 94 Room Air 02/07/17 19:53 Room Air 02/07/17 19:34 114 20 146/103 96 Room Air 02/07/17 19:01 167 24 130/101 94 02/07/17 18:56 166 24 95 02/07/17 18:51 168 21 95 02/07/17 18:46 175 12 95 02/07/17 18:41 119 18 94 02/07/17 18:36 170 12 96 02/07/17 18:31 169 22 126/91 94 02/07/17 18:30 118/93 02/07/17 18:26 117 23 96 02/07/17 18:21 142 25 02/07/17 17:56 114 21 96 02/07/17 17:51 116 22 96 02/07/17 17:46 172 21 97 02/07/17 17:41 115 22 98 02/07/17 17:38 148/107 02/07/17 17:36 114 22 02/07/17 17:31 116 02/07/17 17:31 116 21 02/07/17 16:39 36.5 121 20 132/94 96 Room Air 02/07/17 16:14 132/94 Lab Results: Results Past 24 Hours Test 02/07/17 16:29 02/07/17 17:00 02/07/17 17:04 02/07/17 17:07 Range/Units Bedside Glucose > 600 70-99 mg/dl Bedside Lactic Acid Venous 2.21 0.90-1.70 mmol/L Bedside Hemoglobin 15.0 14.0-18.0 g/dl Bedside Hematocrit 44 42-52 % Bedside Sodium 134 135-144 mEq/L Bedside Potassium 5.1 3.3-5.0 mEq/L Bedside Chloride 107 101-112 mEq/L Bedside Total CO2 10 24-31 mEq/l Anion Gap 24.0 16-25 mmol/L Bedside Blood Urea Nitrogen 47 7-18 mg/dl Bedside Creatinine 2.1 0.6-1.3 mg/dl Bedside Glucose (other) 681 70-99 mg/dl Bedside Ionized Calcium (Marta) 1.03 1.12-1.32 mmol/l White Blood Count 28.36 4.8-10.8 K/uL Red Blood Count 4.57 4.7-6.1 M/uL Hemoglobin 14.2 14.0-18.0 g/dL Hematocrit 43.0 42-52 % Mean Corpuscular Volume 94.1 80-100 fL Mean Corpuscular Hemoglobin 31.1 25-34 pg Mean Corpuscular Hemoglobin Concent 33.0 32-36 g/dl Platelet Count 728 130-400 K/uL Mean Platelet Volume 9.9 7.4-10.4 fL Neutrophils (%) (Auto) 91.5 % Lymphocytes (%) (Auto) 5.3 % Monocytes (%) (Auto) 2.4 % Eosinophils (%) (Auto) 0.0 % Basophils (%) (Auto) 0.1 % Neutrophils # (Auto) 25.98 1.4-6.5 K/uL Lymphocytes # (Auto) 1.49 1.2-3.4 K/uL Monocytes # (Auto) 0.67 0.11-0.59 K/uL Eosinophils # (Auto) 0.00 0-0.5 K/uL Basophils # (Auto) 0.03 0-0.2 K/uL RDW Standard Deviation 47.6 36.4-46.3 fL RDW Coefficient of Variation 13.9 11.5-14.5 % Immature Granulocyte % (Auto) 0.7 % Immature Granulocyte # (Auto) 0.19 0.00-0.02 K/uL Prothrombin Time 16.4 9.0-12.0 SECONDS Prothromb Time International Ratio 1.5 0.9-1.1 Venous Blood pH 7.26 7.36-7.41 Venous Blood Partial Pressure CO2 28 38.0-50.0 mmHg Venous Blood Partial Pressure O2 42 mmHg Venous Blood HCO3 12 mmol/L Venous Blood Oxygen Saturation 69.4 % Venous Blood Base Excess -13.2 mEq/L Test 02/07/17 17:09 02/07/17 17:10 02/07/17 18:58 02/07/17 19:19 Range/Units Sodium Level 135 136-145 mmol/L Potassium Level 4.8 3.5-5.1 mmol/L Chloride Level 98 98-107 mmol/L Carbon Dioxide Level 12 21-32 mmol/L Anion Gap 25.0 3-11 mmol/L Blood Urea Nitrogen 51 7-18 mg/dl Creatinine 2.70 0.60-1.40 mg/dl Est Creatinine Clear Calc Drug Dose 32.5 ml/min Estimated GFR () 27.6 Estimated GFR (Non- 23.8 BUN/Creatinine Ratio 18.7 10-20 Random Glucose 659 70-99 mg/dl Calcium Level 9.9 8.5-10.1 mg/dl Magnesium Level 2.8 1.8-2.4 mg/dl Total Bilirubin 0.5 0.2-1 mg/dl Direct Bilirubin 0.2 0-0.2 mg/dl Aspartate Amino Transf (AST/SGOT) 19 15-37 U/L Alanine Aminotransferase (ALT/SGPT) 13 12-78 U/L Alkaline Phosphatase 146 45-117 U/L Total Creatine Kinase 95 39-308 U/L Creatine Kinase MB 12.2 0.5-3.6 ng/ml Creatine Kinase MB Ratio 12.8 0-3.0 Troponin I 2.740 0-0.045 ng/ml Total Protein 8.7 6.4-8.2 gm/dl Albumin 2.1 3.4-5.0 gm/dl Beta-Hydroxybutyric Acid 116.18 0.2-2.81 mg/dL Bedside Lactic Acid Venous 2.67 0.90-1.70 mmol/L Bedside Glucose 599 70-99 mg/dl Hepatitis C Antibody Screen NEG NEG Test 02/07/17 19:41 02/07/17 20:23 02/07/17 21:04 02/07/17 21:05 Range/Units Bedside Glucose 582 516 525 70-99 mg/dl Lactic Acid Level 1.8 0.4-2.0 mmol/L Total Creatine Kinase 132 39-308 U/L Creatine Kinase MB 11.7 0.5-3.6 ng/ml Creatine Kinase MB Ratio 8.9 0-3.0 Troponin I 2.420 0-0.045 ng/ml Test 02/07/17 21:30 02/07/17 22:11 02/07/17 23:02 02/07/17 23:18 Range/Units Urine Color YELLOW Urine Appearance CLEAR CLEAR Urine pH 5.0 4.5-7.5 Urine Specific [place] 1.010 1.000-1.030 Urine Protein 2+ NEG Urine Glucose (UA) 3+ NEG Urine Ketones 3+ NEG Urine Occult Blood 1+ NEG Urine Nitrite NEG NEG Urine Bilirubin NEG NEG Urine Urobilinogen NEG NEG Urine Leukocyte Esterase NEG NEG Urine WBC (Auto) 1-5 0-5 /hpf Urine RBC (Auto) 0-4 0-4 /hpf Urine Hyaline Casts (Auto) 5-10 0-5 /lpf Urine Epithelial Cells (Auto) 10-20 0-5 /lpf Urine Bacteria (Auto) NEG NEG Urine Opiates Screen NEG NEG Urine Methadone, Qualitative NEG NEG Urine Barbiturates NEG NEG Urine Phencyclidine (PCP) Level NEG NEG Ur Amphetamine/Methamphetamine NEG NEG MDMA (Ecstasy) Screen NEG NEG Urine Benzodiazepines Screen NEG NEG Urine Cocaine Metabolite NEG NEG Urine Marijuana (THC) NEG NEG Bedside Glucose 400 405 70-99 mg/dl Venous Blood pH 7.33 7.36-7.41 Venous Blood Partial Pressure CO2 43 38.0-50.0 mmHg Venous Blood Partial Pressure O2 32 mmHg Venous Blood HCO3 22 mmol/L Venous Blood Oxygen Saturation < 60.0 % Venous Blood Base Excess -3.6 mEq/L Sodium Level 145 136-145 mmol/L Potassium Level 4.0 3.5-5.1 mmol/L Chloride Level 111 98-107 mmol/L Carbon Dioxide Level 20 21-32 mmol/L Anion Gap 14.0 3-11 mmol/L Blood Urea Nitrogen 49 7-18 mg/dl Creatinine 2.20 0.60-1.40 mg/dl Est Creatinine Clear Calc Drug Dose 39.9 ml/min Estimated GFR () 35.4 Estimated GFR (Non- 30.5 BUN/Creatinine Ratio 22.3 10-20 Random Glucose 424 70-99 mg/dl Calcium Level 8.9 8.5-10.1 mg/dl Beta-Hydroxybutyric Acid 36.84 0.2-2.81 mg/dL Test 02/07/17 23:59 02/08/17 01:03 10/8/17 01:57 02/08/17 02:52 Range/Units Bedside Glucose 373 326 327 70-99 mg/dl White Blood Count 18.48 4.8-10.8 K/uL Red Blood Count 4.17 4.7-6.1 M/uL Hemoglobin 13.0 14.0-18.0 g/dL Hematocrit 37.6 42-52 % Mean Corpuscular Volume 90.2 80-100 fL Mean Corpuscular Hemoglobin 31.2 25-34 pg Mean Corpuscular Hemoglobin Concent 34.6 32-36 g/dl Platelet Count 593 130-400 K/uL Mean Platelet Volume 9.3 7.4-10.4 fL Neutrophils (%) (Auto) 89.9 % Lymphocytes (%) (Auto) 5.2 % Monocytes (%) (Auto) 4.4 % Eosinophils (%) (Auto) 0.1 % Basophils (%) (Auto) 0.1 % Neutrophils # (Auto) 16.62 1.4-6.5 K/uL Lymphocytes # (Auto) 0.96 1.2-3.4 K/uL Monocytes # (Auto) 0.81 0.11-0.59 K/uL Eosinophils # (Auto) 0.01 0-0.5 K/uL Basophils # (Auto) 0.02 0-0.2 K/uL RDW Standard Deviation 45.2 36.4-46.3 fL RDW Coefficient of Variation 13.7 11.5-14.5 % Immature Granulocyte % (Auto) 0.3 % Immature Granulocyte # (Auto) 0.06 0.00-0.02 K/uL Prothrombin Time 15.9 9.0-12.0 SECONDS Prothromb Time International Ratio 1.5 0.9-1.1 Venous Blood pH 7.36 7.36-7.41 Venous Blood Partial Pressure CO2 46 38.0-50.0 mmHg Venous Blood Partial Pressure O2 30 mmHg Venous Blood HCO3 26 mmol/L Venous Blood Oxygen Saturation < 60.0 % Venous Blood Base Excess -0.3 mEq/L Sodium Level 147 136-145 mmol/L Potassium Level 3.4 3.5-5.1 mmol/L Chloride Level 113 98-107 mmol/L Carbon Dioxide Level 25 21-32 mmol/L Anion Gap 9.0 3-11 mmol/L Blood Urea Nitrogen 45 7-18 mg/dl Creatinine 2.10 0.60-1.40 mg/dl Est Creatinine Clear Calc Drug Dose 41.8 ml/min Estimated GFR () 37.4 Estimated GFR (Non- 32.3 BUN/Creatinine Ratio 21.5 10-20 Random Glucose 281 70-99 mg/dl Calcium Level 9.1 8.5-10.1 mg/dl Phosphorus Level 1.5 2.5-4.9 mg/dl Magnesium Level 2.6 1.8-2.4 mg/dl Total Creatine Kinase 92 39-308 U/L Creatine Kinase MB 9.8 0.5-3.6 ng/ml Creatine Kinase MB Ratio 10.7 0-3.0 Troponin I 2.050 0-0.045 ng/ml Random Vancomycin Level 18.7 mcg/ml Test 02/08/17 03:00 02/08/17 04:19 02/08/17 05:20 02/08/17 06:20 Range/Units Bedside Glucose 240 242 236 211 70-99 mg/dl Test 02/08/17 07:07 Range/Units Venous Blood pH 7.37 7.36-7.41 Venous Blood Partial Pressure CO2 46 38.0-50.0 mmHg Venous Blood Partial Pressure O2 34 mmHg Venous Blood HCO3 26 mmol/L Venous Blood Oxygen Saturation 62.2 % Venous Blood Base Excess 0.5 mEq/L Microbiology Results 02/07/17 Blood Culture, Received Pending 02/07/17 Blood Culture, Received Pending 02/07/17 MRSA DNA Surveillance Screen - Final, Complete Specimen Negative for MRSA by DNA Probe
[2017-02-08 08:22] LABS: BLOOD UREA NITROGEN 37 mg/dl (7-18); BUN/CREATININE RATIO 20.7 (10-20); CALCIUM 9.4 mg/dl (8.5-10.1); CARBON DIOXIDE 26 mmol/L (21-32); CHLORIDE 113 mmol/L (98-107); GLUCOSE 219 mg/dl (70-99); PHOSPHORUS 2.3 mg/dl (2.5-4.9); SODIUM 146 mmol/L (136-145)
[2017-02-08] MEDS ORDERED: CLINDAMYCIN IV 900 MG in DEXTROSE 5% 100ML 100 ML IV STA (08:25)
--- NOTE | 2017-02-08 08:43 | Critical Care Consultation ---
Critical Care Consultation Date of Consultation: Feb 08, 2017. Attending Physician: Michi Hummel M.D. Reason for Consultation: DKA, necrotizing fasciitis of the foot History of Present Illness I personally examined this patient, and his clinical and laboratory data, to protect his chest x-ray, CT scan of the foot and for mood further plan of care. In summary, the patient is a 66 year old man with alcohol abuse, diabetes mellitus, atherosclerosis, CABG was found by his brother lethargic and covered with feces. Patient was brought to [facility]. He was Found to be in DKA. His right foot second toe was black with whole foot inflamed, swollen with malodorous smell. He denies having any shortness of breath, cough , fever, abdominal pain or chills Patient was given vancomycin, Rocephin and transferred critically ill to the surgical intensive care unit for further management. Past Medical/Surgical History ASCVD Status post PCI of the LAD with a bare metal stent in 2008. 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 Postoperative complications included anemia, atrial fibrillation, and urinary retention [place] [employer] Class III, AHA Stage C CHF with past LVEF of 35%, normalization of function on follow-up echocardiography Right bundle branch block CKD stage 3 Uncontrolled type II diabetes mellitus Paroxysmal atrial fibrillation observed in March 2015 while hospitalized with cellulitis Hypertension Dyslipidemia Iron deficiency anemia Gastric ulcer by endoscopy Morbid obesity Erectile dysfunction. External hemorrhoids Left total knee arthroplasty Diverticulosis Alcohol abuse Family History FHx: heart disease Social History Smoking Status: Unknown if Ever Smoked Smokeless Tobacco Use: Unknown Alcohol Use: heavy Drug Use: none Marital Status: single Housing Status: lives with family Occupation Status: disabled Allergies Coded Allergies: JET Inhibitors (Verified Allergy, Unknown, 02/07/17) Penicillins (Verified Allergy, Unknown, RASH A CHILD, 02/07/17) Home Medications Scheduled Ascorbic Acid (Vitamin C), 250 MG PO DAILY Aspirin (Aspir-81), 2 TAB PO DAILY Atorvastatin (Lipitor), 80 MG PO DAILY Carvedilol (Coreg), 3.125 MG PO Q12 Diltiazem Hcl Coated Beads (Diltiazem Hcl Er), 60 MG PO UD Folic Acid (Folvite), 1 MG PO DAILY Furosemide (Lasix), 120 MG PO DAILY Glyburide (Micronase), 10 MG PO BID Insulin Glargine (Lantus), 50 UNIT SC QPM Losartan Potassium (Cozaar), 50 MG PO DAILY Magnesium Oxide (Mag-Ox), 400 MG PO DAILY Metformin Hcl (Glucophage), 1,000 MG PO BID Potassium Ext Rel (Klor-Con), 20 MEQ PO DAILY Spironolactone (Aldactone), 25 MG PO DAILY Thiamine Hcl (Vitamin B-1), 100 MG PO DAILY Current Inpatient Medications Current Inpatient Medications Medications (Trade) Dose Ordered Sig/Estee Route Start Time Stop Time Status Last Admin Dose Admin Insulin Human Regular 250 units/ Sodium Chloride 252.5 ml @ 0 mls/hr DAILY@1130 IV 02/07/17 17:56 02/08/17 11:29 02/07/17 21:56 7.2 MLS/HR Glucose (Glucose 40% Gel) UD PRN PO 02/07/17 18:00 03/09/17 17:59 Glucose (Glucose Chew Tab) 1 tabs UD PRN PO 02/07/17 18:00 03/09/17 17:59 Dextrose (Dextrose 50% 50ML Syringe) 50 ml UD PRN IV 02/07/17 18:00 03/09/17 17:59 Glucagon (Glucagon Inj) 1 mg UD PRN SQ 02/07/17 18:00 03/09/17 17:59 Heparin Sodium (Porcine) (Heparin Sq 5000 Unit/0.5ml) 5,000 unit Q8H SQ 02/07/17 22:00 03/09/17 21:59 02/08/17 06:49 5,000 UNIT Lorazepam (Ativan Inj) 1 mg Q4H PRN IV 02/07/17 19:45 03/09/17 19:44 Ondansetron HCl (Zofran Inj) 4 mg Q6H PRN IV 02/07/17 19:45 03/09/17 19:44 Pantoprazole Sodium 40 mg/ Syringe 10 ml @ 5 mls/min DAILY IV 02/08/17 09:00 03/10/17 08:59 Insulin Human Regular 250 units/ Sodium Chloride 252.5 ml @ 0 mls/hr DAILY@1130 IV 02/08/17 11:30 03/10/17 11:29 Thiamine HCl 100 mg/Syringe 10 ml @ 2 mls/min Q24H IV 02/07/17 21:00 03/09/17 20:59 02/07/17 22:00 2 MLS/MIN Lorazepam (Ativan Inj) 1 mg ONE PRN IV 02/07/17 20:15 Insulin Aspart (novoLOG ASPART) SLIDING SCALE PCHS SC 02/07/17 21:00 03/09/17 20:59 Imipenem/ Cilastatin Sodium (Consult) 1 ea UD PRN N/A 02/07/17 20:45 03/09/17 20:44 Vancomycin HCl (Consult) 1 ea UD PRN N/A 02/07/17 20:45 03/09/17 20:44 Lorazepam 1 mg/ Syringe 1 ml @ 1 mls/min Q4H PRN IV 02/07/17 21:15 03/09/17 21:14 Imipenem/ Cilastatin Sodium 250 mg/Dextrose 110 ml @ 100 mls/hr Q6H IV 02/08/17 04:00 02/18/17 03:59 02/08/17 03:36 100 MLS/HR Potassium Chloride/Dextrose/ Sod Cl 1,000 ml @ 75 mls/hr [id number] IV 02/08/17 03:30 03/10/17 03:29 02/08/17 03:35 150 MLS/HR Potassium Phosphate 30 mmol/ Sodium Chloride 510 ml @ 125 mls/hr Q4H5M IV 02/08/17 04:15 02/08/17 08:19 02/08/17 04:30 125 MLS/HR Diltiazem HCl 125 mg/Dextrose 125 ml @ 0 mls/hr Q0M PRN IV 02/08/17 05:00 03/10/17 04:59 02/08/17 04:56 5 MLS/HR Review of Systems Constitutional: + fatigue Musculoskeletal: + problem reported (right lower extremity swelling, redness, malodorous smell, black second toe) Physical Exam Date Time Temp Pulse Resp B/P (MAP) Pulse Ox O2 Delivery O2 Flow Rate FiO2 02/08/17 06:01 104 23 132/84 (100) 99 Oxymask 4.0 02/08/17 05:01 96 22 125/92 (103) 98 Oxymask 4.0 02/08/17 04:57 156 22 120/77 (91) 100 Oxymask 4.0 02/08/17 04:33 152 24 113/82 (92) 100 Oxymask 4.0 02/08/17 04:11 162 20 110/80 (90) 92 Room Air 02/08/17 04:02 170 34 109/74 (86) 90 Room Air 02/08/17 04:01 36.6 171 25 101/66 (78) Room Air 02/08/17 04:00 97 Oxymask 4.0 02/08/17 03:01 112 20 129/78 (95) 92 Room Air 02/08/17 02:01 107 19 141/84 (103) 95 Room Air 02/08/17 01:01 108 21 127/79 (95) 95 Room Air 02/08/17 00:01 36.8 107 17 134/88 (103) 97 Room Air 02/08/17 00:01 97 Room Air 02/07/17 23:01 109 21 130/93 (105) 93 Room Air 02/07/17 22:01 112 20 129/88 (102) 95 Room Air 02/07/17 21:01 109 18 153/108 (123) 96 Room Air 02/07/17 20:53 111 27 138/90 (106) Room Air 02/07/17 20:35 97 Room Air 02/07/17 20:32 109 20 157/101 (119) 97 Room Air 02/07/17 20:32 110 20 157/101 97 02/07/17 20:31 36.5 109 19 165/106 (125) 98 Room Air 02/07/17 20:01 110 22 140/101 94 Room Air 02/07/17 19:53 Room Air 02/07/17 19:34 114 20 146/103 96 Room Air 02/07/17 19:01 167 24 130/101 94 02/07/17 18:56 166 24 95 02/07/17 18:51 168 21 95 02/07/17 18:46 175 12 95 02/07/17 18:41 119 18 94 02/07/17 18:36 170 12 96 02/07/17 18:31 169 22 126/91 94 02/07/17 18:30 118/93 02/07/17 18:26 117 23 96 02/07/17 18:21 142 25 02/07/17 17:56 114 21 96 02/07/17 17:51 116 22 96 02/07/17 17:46 172 21 97 02/07/17 17:41 115 22 98 02/07/17 17:38 148/107 02/07/17 17:36 114 22 02/07/17 17:31 116 02/07/17 17:31 116 21 02/07/17 16:39 36.5 121 20 132/94 96 Room Air 02/07/17 16:14 132/94 General Appearance: mild distress, obese Head: normocephalic, atraumatic Eyes: PERRLA, EOMI, sclerae normal, conjunctivae normal ENT: normal ear exam, normal nasal exam Neck: normal range of motion, no tenderness, trachea midline Respiratory: breath sounds normal, clear to auscultation Cardiovasular: regular rate/rhythm, normal S1S2, other (well-healed midsternotomy scar) Abdomen: non tender, normal bowel sounds, no rebound, no masses, no guarding, no organomegaly, normal rectal exam, no hemorrhoids Genitourinary - Male: external genitalia normal Back: normal inspection, no midline tenderness, no CVA tenderness Lower Extremities: other (right foot swollen, red, with malodorous smell and. The second toe is black.) Neuro: alert, oriented x 3, normal motor exam Psychiatric: normal affect Laboratory Results Last 24 Hours Test 02/07/17 16:29 02/07/17 17:00 02/07/17 17:04 02/07/17 17:07 Bedside Glucose > 600 mg/dl Bedside Lactic Acid Venous 2.21 mmol/L Bedside Hemoglobin 15.0 g/dl Bedside Hematocrit 44 % Bedside Sodium 134 mEq/L Bedside Potassium 5.1 mEq/L Bedside Chloride 107 mEq/L Bedside Total CO2 10 mEq/l Anion Gap 24.0 mmol/L Bedside Blood Urea Nitrogen 47 mg/dl Bedside Creatinine 2.1 mg/dl Bedside Glucose (other) 681 mg/dl Bedside Ionized Calcium (Marta) 1.03 mmol/l White Blood Count 28.36 K/uL Red Blood Count 4.57 M/uL Hemoglobin 14.2 g/dL Hematocrit 43.0 % Mean Corpuscular Volume 94.1 fL Mean Corpuscular Hemoglobin 31.1 pg Mean Corpuscular Hemoglobin Concent 33.0 g/dl Platelet Count 728 K/uL Mean Platelet Volume 9.9 fL Neutrophils (%) (Auto) 91.5 % Lymphocytes (%) (Auto) 5.3 % Monocytes (%) (Auto) 2.4 % Eosinophils (%) (Auto) 0.0 % Basophils (%) (Auto) 0.1 % Neutrophils # (Auto) 25.98 K/uL Lymphocytes # (Auto) 1.49 K/uL Monocytes # (Auto) 0.67 K/uL Eosinophils # (Auto) 0.00 K/uL Basophils # (Auto) 0.03 K/uL RDW Standard Deviation 47.6 fL RDW Coefficient of Variation 13.9 % Immature Granulocyte % (Auto) 0.7 % Immature Granulocyte # (Auto) 0.19 K/uL Prothrombin Time 16.4 SECONDS Prothromb Time International Ratio 1.5 Venous Blood pH 7.26 Venous Blood Partial Pressure CO2 28 mmHg Venous Blood Partial Pressure O2 42 mmHg Venous Blood HCO3 12 mmol/L Venous Blood Oxygen Saturation 69.4 % Venous Blood Base Excess -13.2 mEq/L Test 02/07/17 17:09 02/07/17 17:10 02/07/17 18:58 02/07/17 19:19 Sodium Level 135 mmol/L Potassium Level 4.8 mmol/L Chloride Level 98 mmol/L Carbon Dioxide Level 12 mmol/L Anion Gap 25.0 mmol/L Blood Urea Nitrogen 51 mg/dl Creatinine 2.70 mg/dl Est Creatinine Clear Calc Drug Dose 32.5 ml/min Estimated GFR () 27.6 Estimated GFR (Non- 23.8 BUN/Creatinine Ratio 18.7 Random Glucose 659 mg/dl Calcium Level 9.9 mg/dl Magnesium Level 2.8 mg/dl Total Bilirubin 0.5 mg/dl Direct Bilirubin 0.2 mg/dl Aspartate Amino Transf (AST/SGOT) 19 U/L Alanine Aminotransferase (ALT/SGPT) 13 U/L Alkaline Phosphatase 146 U/L Total Creatine Kinase 95 U/L Creatine Kinase MB 12.2 ng/ml Creatine Kinase MB Ratio 12.8 Troponin I 2.740 ng/ml Total Protein 8.7 gm/dl Albumin 2.1 gm/dl Beta-Hydroxybutyric Acid 116.18 mg/dL Bedside Lactic Acid Venous 2.67 mmol/L Bedside Glucose 599 mg/dl Hepatitis C Antibody Screen NEG Test 02/07/17 19:41 02/07/17 20:23 02/07/17 21:04 02/07/17 21:05 Bedside Glucose 582 mg/dl 516 mg/dl 525 mg/dl Lactic Acid Level 1.8 mmol/L Total Creatine Kinase 132 U/L Creatine Kinase MB 11.7 ng/ml Creatine Kinase MB Ratio 8.9 Troponin I 2.420 ng/ml Test 02/07/17 21:30 02/07/17 22:11 02/07/17 23:02 02/07/17 23:18 Urine Color YELLOW Urine Appearance CLEAR Urine pH 5.0 Urine Specific [place] 1.010 Urine Protein 2+ Urine Glucose (UA) 3+ Urine Ketones 3+ Urine Occult Blood 1+ Urine Nitrite NEG Urine Bilirubin NEG Urine Urobilinogen NEG Urine Leukocyte Esterase NEG Urine WBC (Auto) 1-5 /hpf Urine RBC (Auto) 0-4 /hpf Urine Hyaline Casts (Auto) 5-10 /lpf Urine Epithelial Cells (Auto) 10-20 /lpf Urine Bacteria (Auto) NEG Urine Opiates Screen NEG Urine Methadone, Qualitative NEG Urine Barbiturates NEG Urine Phencyclidine (PCP) Level NEG Ur Amphetamine/Methamphetamine NEG MDMA (Ecstasy) Screen NEG Urine Benzodiazepines Screen NEG Urine Cocaine Metabolite NEG Urine Marijuana (THC) NEG Bedside Glucose 400 mg/dl 405 mg/dl Venous Blood pH 7.33 Venous Blood Partial Pressure CO2 43 mmHg Venous Blood Partial Pressure O2 32 mmHg Venous Blood HCO3 22 mmol/L Venous Blood Oxygen Saturation < 60.0 % Venous Blood Base Excess -3.6 mEq/L Sodium Level 145 mmol/L Potassium Level 4.0 mmol/L Chloride Level 111 mmol/L Carbon Dioxide Level 20 mmol/L Anion Gap 14.0 mmol/L Blood Urea Nitrogen 49 mg/dl Creatinine 2.20 mg/dl Est Creatinine Clear Calc Drug Dose 39.9 ml/min Estimated GFR () 35.4 Estimated GFR (Non- 30.5 BUN/Creatinine Ratio 22.3 Random Glucose 424 mg/dl Calcium Level 8.9 mg/dl Beta-Hydroxybutyric Acid 36.84 mg/dL Test 02/07/17 23:59 02/08/17 01:03 02/08/17 01:57 02/08/17 02:52 Bedside Glucose 373 mg/dl 326 mg/dl 327 mg/dl White Blood Count 18.48 K/uL Red Blood Count 4.17 M/uL Hemoglobin 13.0 g/dL Hematocrit 37.6 % Mean Corpuscular Volume 90.2 fL Mean Corpuscular Hemoglobin 31.2 pg Mean Corpuscular Hemoglobin Concent 34.6 g/dl Platelet Count 593 K/uL Mean Platelet Volume 9.3 fL Neutrophils (%) (Auto) 89.9 % Lymphocytes (%) (Auto) 5.2 % Monocytes (%) (Auto) 4.4 % Eosinophils (%) (Auto) 0.1 % Basophils (%) (Auto) 0.1 % Neutrophils # (Auto) 16.62 K/uL Lymphocytes # (Auto) 0.96 K/uL Monocytes # (Auto) 0.81 K/uL Eosinophils # (Auto) 0.01 K/uL Basophils # (Auto) 0.02 K/uL RDW Standard Deviation 45.2 fL RDW Coefficient of Variation 13.7 % Immature Granulocyte % (Auto) 0.3 % Immature Granulocyte # (Auto) 0.06 K/uL Prothrombin Time 15.9 SECONDS Prothromb Time International Ratio 1.5 Venous Blood pH 7.36 Venous Blood Partial Pressure CO2 46 mmHg Venous Blood Partial Pressure O2 30 mmHg Venous Blood HCO3 26 mmol/L Venous Blood Oxygen Saturation < 60.0 % Venous Blood Base Excess -0.3 mEq/L Sodium Level 147 mmol/L Potassium Level 3.4 mmol/L Chloride Level 113 mmol/L Carbon Dioxide Level 25 mmol/L Anion Gap 9.0 mmol/L Blood Urea Nitrogen 45 mg/dl Creatinine 2.10 mg/dl Est Creatinine Clear Calc Drug Dose 41.8 ml/min Estimated GFR () 37.4 Estimated GFR (Non- 32.3 BUN/Creatinine Ratio 21.5 Random Glucose 281 mg/dl Calcium Level 9.1 mg/dl Phosphorus Level 1.5 mg/dl Magnesium Level 2.6 mg/dl Total Creatine Kinase 92 U/L Creatine Kinase MB 9.8 ng/ml Creatine Kinase MB Ratio 10.7 Troponin I 2.050 ng/ml Random Vancomycin Level 18.7 mcg/ml Test 02/08/17 03:00 02/08/17 04:19 02/08/17 05:20 02/08/17 06:20 Bedside Glucose 240 mg/dl 242 mg/dl 236 mg/dl 211 mg/dl Test 02/08/17 07:07 Venous Blood pH 7.37 Venous Blood Partial Pressure CO2 46 mmHg Venous Blood Partial Pressure O2 34 mmHg Venous Blood HCO3 26 mmol/L Venous Blood Oxygen Saturation 62.2 % Venous Blood Base Excess 0.5 mEq/L Assessment & Plan 1. Sepsis from foot infection. CT scan of the right foot revealed necrotizing fasciitis extending along the flexor compartment of the foot, second toe ostial myelitis with gas-forming bacteria. Patient was discussed with orthopedic surgery. We will obtain MRI of the foot urgently in order to determine the extent of surgical intervention. From ID perspective patient is already covered with imipenem and vancomycin. I will add clindamycin while awaiting for cultures. 2. DKA. We'll continue with aggressive volume resuscitation, titrate insulin for blood sugars 140-180, replace electrolytes appropriately. 3. Cardiovascular: History of coronary artery disease and CABGx 4 vessels. EKG revealed sinus tachycardia, left axis deviation, right bundle branch block which is chronic. Echocardiography from 08/17 revealed EF 40-45%, mild global hypokinesis, basal inferior wall akinesis. Troponin elevation is likely from demand ischemia in the setting of tachycardia and renal dysfunction. We repeat echocardiography and cardiology consultation as patient may require surgical intervention. We will change carvedilol to IV metoprolol, hold aspirin preoperatively. 4. Respiratory: Chest x-ray revealed clear lungs. 2 L oxygen requirement. Incense from it before atelectasis prevention. 5. Chronic kidney disease. Creatinine 1.8, mild hyponatremia. We'll change IV fluids to D5 lactated Ringer's we'll replace electrolytes including low phosphorus and potassium. 6. GI: Nothing by mouth for now. 7. Hematology: Thrombocytosis likely reactive. Coagulation profile in normal range. 8. Neurologically, metabolic encephalopathy improved significantly. Nonfocal exam. 9. Heparin subcutaneous prophylaxis. 10. Alcoholism. We'll watch for signs of alcohol withdrawal, thiamine and folic acid for nutritional deficiencies. P.S. No foot/ankle surgical aide was available for surgical treatment of necrotizing fasciitis, so patient will be transferred to [facility] on emergent basis. CCT 75 min.
--- NOTE | 2017-02-08 08:55 | Pharmacy Progress Note ---
Pharmacy Antibiotic Prog Note Date of Service Feb 08, 2017. Subjective The patient is currently receiving vancomycin prn levels. The patient is currently on day # 2 of vancomycin IV therapy. Objective Height (Feet): 5 Height (Inches): 8.00 Weight (Kilograms): 101.000 Lab Results (24hrs): Test 02/07/17 17:00 02/07/17 17:04 02/07/17 17:07 02/07/17 17:09 Bedside Lactic Acid Venous 2.21 mmol/L (0.90-1.70) Bedside Hemoglobin 15.0 g/dl (14.0-18.0) Bedside Hematocrit 44 % (42-52) Bedside Sodium 134 mEq/L (135-144) Bedside Potassium 5.1 mEq/L (3.3-5.0) Bedside Chloride 107 mEq/L (101-112) Bedside Total CO2 10 mEq/l (24-31) Bedside Blood Urea Nitrogen 47 mg/dl (7-18) Bedside Creatinine 2.1 mg/dl (0.6-1.3) Bedside Glucose (other) 681 mg/dl (70-99) Bedside Ionized Calcium (Marta) 1.03 mmol/l (1.12-1.32) White Blood Count 28.36 K/uL (4.8-10.8) Red Blood Count 4.57 M/uL (4.7-6.1) Hemoglobin 14.2 g/dL (14.0-18.0) Hematocrit 43.0 % (42-52) Mean Corpuscular Volume 94.1 fL (80-100) Mean Corpuscular Hemoglobin 31.1 pg (25-34) Mean Corpuscular Hemoglobin Concent 33.0 g/dl (32-36) Platelet Count 728 K/uL (130-400) Mean Platelet Volume 9.9 fL (7.4-10.4) Neutrophils (%) (Auto) 91.5 % Lymphocytes (%) (Auto) 5.3 % Monocytes (%) (Auto) 2.4 % Eosinophils (%) (Auto) 0.0 % Basophils (%) (Auto) 0.1 % Neutrophils # (Auto) 25.98 K/uL (1.4-6.5) Lymphocytes # (Auto) 1.49 K/uL (1.2-3.4) Monocytes # (Auto) 0.67 K/uL (0.11-0.59) Eosinophils # (Auto) 0.00 K/uL (0-0.5) Basophils # (Auto) 0.03 K/uL (0-0.2) RDW Standard Deviation 47.6 fL (36.4-46.3) RDW Coefficient of Variation 13.9 % (11.5-14.5) Immature Granulocyte % (Auto) 0.7 % Immature Granulocyte # (Auto) 0.19 K/uL (0.00-0.02) Prothrombin Time 16.4 SECONDS (9.0-12.0) Prothromb Time International Ratio 1.5 (0.9-1.1) Magnesium Level 2.8 mg/dl (1.8-2.4) Total Bilirubin 0.5 mg/dl (0.2-1) Direct Bilirubin 0.2 mg/dl (0-0.2) Aspartate Amino Transf (AST/SGOT) 19 U/L (15-37) Alanine Aminotransferase (ALT/SGPT) 13 U/L (12-78) Alkaline Phosphatase 146 U/L (45-117) Total Protein 8.7 gm/dl (6.4-8.2) Albumin 2.1 gm/dl (3.4-5.0) Beta-Hydroxybutyric Acid 116.18 mg/dL (0.2-2.81) Test 02/07/17 17:10 02/07/17 19:19 02/07/17 21:05 02/07/17 21:30 Bedside Lactic Acid Venous 2.67 mmol/L (0.90-1.70) Hepatitis C Antibody Screen NEG (NEG) Lactic Acid Level 1.8 mmol/L (0.4-2.0) Total Creatine Kinase 132 U/L (39-308) Creatine Kinase MB 11.7 ng/ml (0.5-3.6) Creatine Kinase MB Ratio 8.9 (0-3.0) Troponin I 2.420 ng/ml (0-0.045) Urine Color YELLOW Urine Appearance CLEAR (CLEAR) Urine pH 5.0 (4.5-7.5) Urine Specific [place] 1.010 (1.000-1.030) Urine Protein 2+ (NEG) Urine Glucose (UA) 3+ (NEG) Urine Ketones 3+ (NEG) Urine Occult Blood 1+ (NEG) Urine Nitrite NEG (NEG) Urine Bilirubin NEG (NEG) Urine Urobilinogen NEG (NEG) Urine Leukocyte Esterase NEG (NEG) Urine WBC (Auto) 1-5 /hpf (0-5) Urine RBC (Auto) 0-4 /hpf (0-4) Urine Hyaline Casts (Auto) 5-10 /lpf (0-5) Urine Epithelial Cells (Auto) 10-20 /lpf (0-5) Urine Bacteria (Auto) NEG (NEG) Urine Opiates Screen NEG (NEG) Urine Methadone, Qualitative NEG (NEG) Urine Barbiturates NEG (NEG) Urine Phencyclidine (PCP) Level NEG (NEG) Ur Amphetamine/Methamphetamine NEG (NEG) MDMA (Ecstasy) Screen NEG (NEG) Urine Benzodiazepines Screen NEG (NEG) Urine Cocaine Metabolite NEG (NEG) Urine Marijuana (THC) NEG (NEG) Test 02/07/17 23:18 02/08/17 02:52 02/08/17 06:20 02/08/17 07:07 Beta-Hydroxybutyric Acid 36.84 mg/dL (0.2-2.81) White Blood Count 18.48 K/uL (4.8-10.8) Red Blood Count 4.17 M/uL (4.7-6.1) Hemoglobin 13.0 g/dL (14.0-18.0) Hematocrit 37.6 % (42-52) Mean Corpuscular Volume 90.2 fL (80-100) Mean Corpuscular Hemoglobin 31.2 pg (25-34) Mean Corpuscular Hemoglobin Concent 34.6 g/dl (32-36) Platelet Count 593 K/uL (130-400) Mean Platelet Volume 9.3 fL (7.4-10.4) Neutrophils (%) (Auto) 89.9 % Lymphocytes (%) (Auto) 5.2 % Monocytes (%) (Auto) 4.4 % Eosinophils (%) (Auto) 0.1 % Basophils (%) (Auto) 0.1 % Neutrophils # (Auto) 16.62 K/uL (1.4-6.5) Lymphocytes # (Auto) 0.96 K/uL (1.2-3.4) Monocytes # (Auto) 0.81 K/uL (0.11-0.59) Eosinophils # (Auto) 0.01 K/uL (0-0.5) Basophils # (Auto) 0.02 K/uL (0-0.2) RDW Standard Deviation 45.2 fL (36.4-46.3) RDW Coefficient of Variation 13.7 % (11.5-14.5) Immature Granulocyte % (Auto) 0.3 % Immature Granulocyte # (Auto) 0.06 K/uL (0.00-0.02) Prothrombin Time 15.9 SECONDS (9.0-12.0) Prothromb Time International Ratio 1.5 (0.9-1.1) Venous Blood pH 7.36 (7.36-7.41) 7.37 (7.36-7.41) Venous Blood Partial Pressure CO2 46 mmHg (38.0-50.0) 46 mmHg (38.0-50.0) Venous Blood Partial Pressure O2 30 mmHg 34 mmHg Venous Blood HCO3 26 mmol/L 26 mmol/L Venous Blood Oxygen Saturation < 60.0 % 62.2 % Venous Blood Base Excess -0.3 mEq/L 0.5 mEq/L Sodium Level 147 mmol/L (136-145) 146 mmol/L (136-145) Chloride Level 113 mmol/L (98-107) 113 mmol/L (98-107) Carbon Dioxide Level 25 mmol/L (21-32) 26 mmol/L (21-32) Anion Gap 9.0 mmol/L (3-11) 6.0 mmol/L (3-11) Blood Urea Nitrogen 45 mg/dl (7-18) 37 mg/dl (7-18) Creatinine 2.10 mg/dl (0.60-1.40) 1.80 mg/dl (0.60-1.40) Est Creatinine Clear Calc Drug Dose 41.8 ml/min 47.8 ml/min Estimated GFR () 37.4 45.1 Estimated GFR (Non- 32.3 38.9 BUN/Creatinine Ratio 21.5 (10-20) 20.7 (10-20) Random Glucose 281 mg/dl (70-99) 219 mg/dl (70-99) Calcium Level 9.1 mg/dl (8.5-10.1) 9.4 mg/dl (8.5-10.1) Phosphorus Level 1.5 mg/dl (2.5-4.9) 2.3 mg/dl (2.5-4.9) Magnesium Level 2.6 mg/dl (1.8-2.4) Total Creatine Kinase 92 U/L (39-308) Creatine Kinase MB 9.8 ng/ml (0.5-3.6) Creatine Kinase MB Ratio 10.7 (0-3.0) Troponin I 2.050 ng/ml (0-0.045) Random Vancomycin Level 18.7 mcg/ml Bedside Glucose 211 mg/dl (70-99) Potassium Level mmol/L (3.5-5.1) Test 02/08/17 08:22 02/08/17 08:23 Bedside Glucose 169 mg/dl (70-99) Assessment & Plan Assessment * 66 yo M admitted 2nd AMS, diagnosed with sepsis 2nd foot infection and DKA * Patient remains in ICU * Imaging concerning for necrotizing fasciitis. * Rule out osteomyelitis. * Clindamycin added to regimen of imipenem and vancomycin for antitoxin effect. * ID consulted, recommendations pending. * Renal function rapidly improving * Baseline SCr ~ 1.1 mg/dL * SCr trending down rapidly, most recently 1.8 mg/dL * Goal vancomycin trough 15-20 mcg/mL * Random level of 18.7 mcg/mL this AM therapeutic (drawn 8 hr after 19 mg/kg loading dose) Plan * Vancomycin 2000 mg IV x1 now * Check SCr at 1500 to determine ongoing vancomycin plan Pharmacy will continue to follow and will adjust dose/frequency as necessary. Thank you
[2017-02-08] MEDS ORDERED: VANCOMYCIN INJ 2,000 MG in SODIUM CHLORIDE 0.9% 500ML 500 ML IV ONE (09:00)
[2017-02-08] MEDS ORDERED: PANTOprazole INJ 40 MG in SYRINGE 0 ML IV SCH (09:00)
[2017-02-08] MEDS ORDERED: POTASSIUM PHOS 3 MMOL/1 ML INFUSION IV STA (09:09)
--- NOTE | 2017-02-08 10:17 | ORTHOPEDIC CONSULTATION ---
DATE OF CONSULTATION: 02/08/2017 HISTORY OF PRESENT ILLNESS: The patient is a 66-year-old male who is diabetic and alcoholic. According to his history and physical, he was found at home lying on his bed in altered state, covered in feces. He apparently complained of right foot redness. He was admitted to the hospital in diabetic ketoacidosis. When I asked him about his right foot, he said he has been having this problem for a month now and when I asked him who is taking care of his foot and he said he is taking care of it himself. PAST MEDICAL HISTORY: Positive for alcohol abuse, atrial fibrillation, coronary artery disease, chronic kidney disease, chronic decubitus ulcer, diabetes mellitus type 2, obesity, dyslipidemia, CHF, hypertension, and right bundle branch block. PAST SURGICAL HISTORY: Pericardiectomy, total knee arthroplasty, and CABG x4. SOCIAL HISTORY: Lives with a brother and has heavy alcohol use. ALLERGIES: PENICILLIN, JET INHIBITORS. MEDICATIONS: On admission were vitamin C, aspirin, Lipitor, Coreg, diltiazem, folic acid, Lasix, Micronase, Lantus, Cozaar, magnesium oxide, Glucophage, potassium, Aldactone, and vitamin D. PHYSICAL EXAMINATION: GENERAL: Demonstrates that he is lying in ICU bed. EXTREMITIES: He has pillow boots on both of his feet for decubitus protection. His right foot demonstrates he has a necrotic second toe that extends up to the metatarsophalangeal joint and just slightly proximal to that. He has red erythematous type foot. He has good capillary refill in his big toe and on the other toes. He has some tenderness along the plantar fascia area of his foot. there is some purplish discoloration under first mcpj area possible early necrosis.He does not have any marked pain. I asked him if he could feel me touching his foot, he said he could feel me touching his foot, but he has better feeling in his opposite foot than his right foot at this time. RADIOLOGICAL FINDINGS: He has a CAT scan that I reviewed, which demonstrates around the necrotic second toe marked gas pattern around that toe and there is gas in the soft tissues extending up in what appears to be the flexor hallucis longus tendon sheath up to the posterior medial ankle, at the level of the ankle joint already. Radiologist reading was concerning for necrotizing fasciitis. ASSESSMENT AND PLAN: Gangrene second toe, serious foot infection, likely septic flexor tenosynovitis at least. He may have necrotizing fasciitis potentially. I discussed with the film vault supervisor that this is a serious infection which he is aware of and that an MRI done urgently would help to discern the extent of pus extending proximally; however, I think he is going to need an urgent below knee amputation to manage the condition. This needs to be performed by surgeon who does amputations on a regular basis and/or a foot and ankle specialist. Discussed with him, I tried to contact our foot and ankle specialist, but if he is not available then he is going to need to consult vascular surgery or transfer him to a tertiary care center today. JESSICA
--- NOTE | 2017-02-08 10:18 | CARDIOLOGY CONSULTATION ---
DATE OF CONSULTATION: 02/08/2017 CONSULTATION REQUESTED BY: Dr. Leblanc. REASON FOR CONSULTATION: Preop risk assessment. HISTORY OF PRESENT ILLNESS: Mr. Kwon is a very cardiovascularly complex 66-year-old gentleman who presented to [facility] on 02/07/2017 after being found by his brother to be semiconscious and covered in feces. The patient was subsequently found to be in DKA and appropriate treatment was started. He was then found to have a significantly gangrenous right toe with possible necrotizing fasciitis and it was decided the patient should undergo likely BKA. Cardiology was asked to see the patient due to his complex history and for preop risk assessment. Currently, the patient is awake and alert, responding appropriately and states that he does not have any problems at all. He denies any chest pain, shortness of breath, palpitations, lightheadedness, dizziness or syncope. However, the patient does not appear to be mentating appropriately and the remainder of the history was obtained through review of medical records. PAST SURGICAL HISTORY: 1. Coronary artery bypass grafting surgery x4 in 2011 with a BRINK to the LAD, vein graft to the posterior lateral, vein graft to the diagonal and vein graft to an OM with concomitant extensive pericardectomy. 2. PCI to the LAD with a bare metal stent in 2008. 3. Knee surgery. 4. Soft tumor excision. 5. Colonoscopy. 6. Circumcision. 7. Upper endoscopy. MEDICAL ILLNESSES: 1. Coronary artery disease, status post CABG and PCI. 2. Ischemic cardiomyopathy, EF between 35% and 45%. 3. Medical noncompliance. 4. Diabetes. 5. Atrial fibrillation. 6. Chronic right bundle branch block. 7. Chronic kidney disease. 8. Hypertension. 9. Dyslipidemia. 10. Anemia. 11. Morbid obesity. FAMILY HISTORY: Remarkable for both mother and father developed coronary artery disease. SOCIAL HISTORY: No tobacco use history. History of alcoholism. No recreational drug use. He lives at home with his brother. He does not work. 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 REVIEW OF SYSTEMS: As per HPI. All other review of systems reviewed and negative at this time. ALLERGIES: 1. JET INHIBITOR. 2. PENICILLIN. MEDICATIONS AN OUTPATIENT: 1. Aspirin 81 mg daily. 2. Losartan 50 mg daily. 3. Potassium chloride 20 mEq daily. 4. Lasix 40 mg 3 times a day. 5. Coreg 3.125 mg b.i.d. 6. Diltiazem 60 mg t.i.d. 7. Atorvastatin 80 mg daily. 8. Insulin as directed. 9. Metformin b.i.d. 10. Spironolactone 25 mg daily. PHYSICAL EXAMINATION: VITALS: Temperature 37, pulse 99, respiratory rate 12, and blood pressure 129/78. GENERAL: Awake, alert, and oriented x3, in no acute distress. HEENT: Normocephalic and atraumatic. Pupils equal, round, and reactive to light and accommodation. Extraocular muscles intact. Anicteric sclerae. Moist mucous membranes. NECK: No JVD and no bruit. CARDIOVASCULAR: Irregularly irregular. Unable to appreciate any murmurs, rubs or gallops. PULMONARY: Poor air movement bilaterally, but clear. No rales, rhonchi, or wheezing. ABDOMEN: Bowel sounds x4. Soft. No rebound, guarding, or tenderness. No organomegaly. EXTREMITIES: Chronic appearing right third toe, malodorous, gangrenous in appearance. +1 bilateral lower extremity pitting edema. Unable to appreciate pedal pulses. TEST RESULTS: A 12-lead EKG performed today independently reviewed at this time shows sinus tachycardia at 103 beats per minute with occasional premature atrial complexes, underlying right bundle branch block, old inferior and lateral infarct patterns. No significant change compared to previous studies. Most recent echocardiogram in August 2015 showed EF 40%-45% with the basal inferior wall being akinetic with otherwise mild global hypokinesis, moderate aortic valve sclerosis without stenosis, and severe left atrial enlargement. IMPRESSION: 1. Necrotizing fasciitis of the right lower extremity, necessitating amputation along with osteomyelitis. 2. Coronary artery disease and ischemic cardiomyopathy. 3. Paroxysmal atrial fibrillation, currently in normal sinus rhythm. 4. History of medical noncompliance. 5. Diabetes. 6. Morbid obesity. RECOMMENDATIONS: It is my pleasure to see Mr. Kwon in consultation today. I spoke to both the patient and his son and his brother, Walter by phone. I explained to both that given his longstanding cardiac history that I would place him at a high risk for any adverse perioperative cardiovascular event with his risk being greater than 5%. It was further explained that no further cardiac testing or intervention would further lower that risk and also that timing is of the essence given the findings of the CAT scan. They both state that they understand. They are accepting of that risk and wish to proceed with surgery at this point. He was on beta bubba as an outpatient and he has been switched from Coreg p.o. to Lopressor IV, which I agree with given the fact he is n.p.o. for surgery. No other medication changes will be made at this time. It will be my pleasure to follow him with you during his hospitalization. JESSICA
[2017-02-08] MEDS ORDERED: INSULIN REGULAR 250 UNITS in SODIUM CHLORIDE 0.9% 250ML 250 ML IV SCH (11:30)
--- NOTE | 2017-02-08 11:38 | Discharge Summary ---
Discharge Summary Date of Service Feb 08, 2017. Discharge Summary Admission Date: Feb 07, 2017 at 20:10 Discharge Date: Feb 08, 2017 Discharge Disposition: Acute care facility (transfer to [facility] in [place]) Principal Diagnosis: Diabetic ketoacidosis, atrial fibrillation with RVR, right lower extremity gangrene/osteomyelitis/necrotizing fascitis, coronary artery disease with history of coronary artery bypass Procedures: CHEST ONE VIEW PORTABLE HISTORY: 66 years-old Male fever acute fever with altered mental status COMPARISON: Chest radiograph 12/01/2016 TECHNIQUE: Portable upright AP view of the chest FINDINGS: Cardiac silhouette is mildly enlarged. Prior median sternotomy. No pneumothorax , pleural effusion or focal airspace consolidation. There is improved aeration of the right lung base. The bones are grossly intact. IMPRESSION: No acute cardiopulmonary process. HEAD WITHOUT CONTRAST (CT) CLINICAL HISTORY: 66 years-old Male with ams . Acute altered mental status with hyperglycemia TECHNIQUE: Multiple axial CT images of the head were obtained without contrast. A dose lowering technique was utilized adhering to the principles of ALARA. CT DOSE: 614.27 mGy.cm COMPARISON: CT head 12/01/2016. FINDINGS: No acute intracranial hemorrhage, midline shift, mass, large territorial ischemia or abnormal extra-axial collection. Mild atrophy with ex vacuo ventriculomegaly and mild background chronic microvascular ischemic changes The calvarium is intact. The paranasal sinuses, mastoid air cells, and middle ear cavities are clear. IMPRESSION: No acute intracranial abnormality. R LOWER EXTREMITY WITHOUT CLINICAL HISTORY: 66 years-old Male presenting with need to image lower leg and foot-abscess?osteo?. TECHNIQUE: Multidetector CT of the right ankle through the foot was performed without the use of intravenous contrast. IV contrast: None. A dose lowering technique was used consistent with the principles of ALARA (as low as reasonably achievable). COMPARISON: None. CT DOSE (mGy.cm): The estimated cumulative dose is 395.69 mGy.cm. FINDINGS: Video Game Producer topogram: Unremarkable. Soft tissue emphysema noted along the second toe extending approximately along the plantar aspect of the second metatarsal and tracking along the plantar flexor compartment. Soft tissue emphysema extends along the flexor digitorum longus and flexor hallucis longus to the level of the ankle mortise. Extensive subcutaneous edema noted throughout the foot. Subcutaneous calcification noted along the distal anterior tibia may relate to prior injury or venous stasis. Gas noted within the distal and middle phalanges of the second toe extending to the proximal interphalangeal joint. No gas within the proximal phalanx of the second toe. Given the presence of intraosseous gas, evaluation for osseous erosion is difficult but suspected. No periosteal reaction. No sheryl evidence of a fracture plane. IMPRESSION: Findings highly concerning for necrotizing fasciitis of the second toe extending along the flexor compartment of the foot to the level of the ankle mortise tracking along the flexor tendons as described above. No focal fluid collection to suggest abscess. Intraosseous gas within the distal and middle phalanges of the second toe also highly concerning for gas-forming organisms within the bone/ osteomyelitis. MRI lower extremity, reports pending Consultations: Orthopedics consulted: unable to perform procedure at [facility] Vascular Surgery unavailable General Surgery reports that area of left leg involvement is outside their expertise Cardiology RECOMMENDATIONS: high risk for any adverse perioperative cardiovascular event with his risk being greater than 5%. was on beta bubba as an outpatient and he has been switched from Coreg p.o. to Lopressor IV Admission Information HPI (per Admitting provider): 66 yo alcoholic diabetic presents to the ER via EMS after he was found at home lying on his bed somewhat altered and covered in feces. Although the patient is able answer questions appropriately he cannot tell me what happened at home and has low stamina for answering questions at this time. Per records, the patient lives with his brother and was found by him appearing confused and prompting the 911 call. Per the records, the patient was complaining of weakness, R foot redness that began a couple of days ago. He was unable to give me the history of how long his foot has been a problem. He admits to being a beer drinker, cannot quantify amount. He otherwise denies any fevers, chills, chest pain, shortness of breath, abdominal pain, nausea, vomiting, diarrhea, numbness or pain in his R foot. He states that although he hasn't been eating much, he has been compliant with all of his PO meds and insulin. Physical Exam (per Admitting): General Appearance: no apparent distress, + obese, + pertinent finding ( covered in feces-on face and everywhere. ) Head: normocephalic, atraumatic Eyes: normal inspection, PERRL, sclerae normal ENT: hearing grossly normal, pharynx normal Neck: supple, trachea midline Respiratory/Chest: lungs clear, normal breath sounds, no respiratory distress, no accessory muscle use Cardiovascular: regular rate, rhythm, no edema, no gallop, normal peripheral pulses, + systolic murmur Abdomen/GI: normal bowel sounds, non tender, soft Back: normal inspection Extremities/Musculoskelatal: + pertinent finding (RLE cellulitis with 2nd right toe completely necrotic. Entire foot is red and warm to touch. No draining wounds. Skin is dry and flaky, nails are unkempt.) Neurologic/Psych: no motor/sensory deficits, alert, normal mood/affect, + disoriented (disoriented to time) Skin: normal color, warm/dry, + pertinent finding (wound as above. ) Hospital Course INTERNAL MEDICINE ASSESSMENT AND PLAN IN THE AM of 02/08/17 "Sepsis 2/2 RLE with area of necrosis CT lower extremity, right leg "Findings highly concerning for necrotizing fasciitis of the second toe extending along the flexor compartment of the foot to the level of the ankle mortise tracking along the flexor tendons as described above. No focal fluid collection to suggest abscess. Intraosseous gas within the distal and middle phalanges of the second toe also highly concerning for gas-forming organisms within the bone/ osteomyelitis" - on imipenem and vancomycin - will need orthopedics to perform surgery such as amputation / debridement DKA 2/2 sepsis and possible noncompliance with insulin -insulin drip, NSS, ICU further management, PRP q4h and adjust insulin drip based on hourly glucose monitoring. Cont per protocol overnight. Work on infection control. NPO. Home regimen including Lantus, Glyburide and Metformin all held while patient is NPO Atrial fibrillation-was on coumadin in the past but was taken off 2/2 compliance issues. Rate control with diltiazem. On drip for rate control. heart rate this morning in 100 bpm -patient's rate control requirements may increase with potential surgery -defer to ICU physician for further management of heart rate CAD s/p stents and CABG in the past-reports compliance with ASA, Lipitor 80, Coreg 3.125, Cozaar 50. Was held as patient is currently NPO. restart when needed as per ICU physician HTN: home medication of Coreg and Cozaar, spironolactone 25 daily and Lasix 120mg daily. NPO so these were held. restart when needed as per ICU physician CB likely 2/2 dehydration from DKA-cont with IVF and trending PRP. Alcohol abuse - thiamine and benzodiazepines DISPOSITION in the care of medical ICU and likely will need surgery for necrotic toe on right foot" Subsequent assessment by ICU physician "1. Sepsis from foot infection. CT scan of the right foot revealed necrotizing fasciitis extending along the flexor compartment of the foot, second toe ostial myelitis with gas-forming bacteria. Patient was discussed with orthopedic surgery. We will obtain MRI of the foot urgently in order to determine the extent of surgical intervention. From ID perspective patient is already covered with imipenem and vancomycin. I will add clindamycin while awaiting for cultures. 2. DKA. We'll continue with aggressive volume resuscitation, titrate insulin for blood sugars 140-180, replace electrolytes appropriately. 3. Cardiovascular: History of coronary artery disease and CABGx 4 vessels. EKG revealed sinus tachycardia, left axis deviation, right bundle branch block which is chronic. Echocardiography from 08/17 revealed EF 40-45%, mild global hypokinesis, basal inferior wall akinesis. Troponin elevation is likely from demand ischemia in the setting of tachycardia and renal dysfunction. We repeat echocardiography and cardiology consultation as patient may require surgical intervention. We will change carvedilol to IV metoprolol, hold aspirin preoperatively. 4. Respiratory: Chest x-ray revealed clear lungs. 2 L oxygen requirement. Incense from it before atelectasis prevention. 5. Chronic kidney disease. Creatinine 1.8, mild hyponatremia. We'll change IV fluids to D5 lactated Ringer's we'll replace electrolytes including low phosphorus and potassium. 6. GI: Nothing by mouth for now. 7. Hematology: Thrombocytosis likely reactive. Coagulation profile in normal range. 8. Neurologically, metabolic encephalopathy improved significantly. Nonfocal exam. 9. Heparin subcutaneous prophylaxis. 10. Alcoholism. We'll watch for signs of alcohol withdrawal, thiamine and folic acid for nutritional deficiencies." Total time spent on discharge = 60 This includes examination of the patient, discharge planning, medication reconciliation, and communication with other providers. Discharge Instructions Transfer to [facility] in [place] under medicine service Dr. Llamas for SCU level of care and their orthopedic service Dr. Ospina also aware Transfer to this tertiary center unless patient disagrees
[2017-02-08] MEDS ORDERED: METOPROLOL TARTRATE 1 MG/ML VIAL IV. SCH (12:00)
--- NOTE | 2017-02-08 12:01 | Medical Consult ---
Consultation Date of Consultation: Feb 08, 2017. Attending Physician: Michi Hummel M.D. Reason for Consultation: Primaxin use History of Present Illness 66-year-old male with history of diabetes mellitus, coronary artery disease status post CABG, alcohol abuse, who was admitted after being found at home by his brother confused and lying in feces. He was found to have gangrenous right 2nd toe with foul-smelling drainage, and subsequent radiologic studies have suggested the presence of probable necrotizing fasciitis. Patient also with DKA. He has been started empirically on vancomycin, imipenem, and clindamycin. Plans are now for transfer [facility] management. No report of significant fever, chills, or other obvious systemic complaints. Past Medical/Surgical History Medical Problems: (1) Chest wall contusion Status: Acute (2) DKA (diabetic ketoacidoses) Status: Acute (3) Sepsis Status: Acute Medical Problems: (1) Alcohol abuse (2) Atrial fibrillation (3) CAD (coronary artery disease) (4) CKD (chronic kidney disease) stage 3, GFR 30-59 ml/min (5) Decubitus ulcer (6) Diabetes mellitus type 2 in obese (7) Dyslipidemia (8) H/O CHF (9) HTN (hypertension) (10) Obesity (11) Pancreatitis (12) RBBB Surgical Problems: (1) H/O pericardiectomy (2) History of total knee arthroplasty (3) S/P CABG x 4 Family History FHx: heart disease Social History Smoking Status: Unknown if Ever Smoked Smokeless Tobacco Use: Unknown Alcohol Use: heavy Drug Use: none Marital Status: single Housing Status: lives with family Occupation Status: disabled Allergies Coded Allergies: JET Inhibitors (Verified Allergy, Unknown, 02/07/17) Penicillins (Verified Allergy, Unknown, RASH A CHILD, 02/07/17) Current Inpatient Medications Current Inpatient Medications Medications (Trade) Dose Ordered Sig/Estee Route Start Time Stop Time Status Last Admin Dose Admin Glucose (Glucose 40% Gel) UD PRN PO 02/07/17 18:00 03/09/17 17:59 Glucose (Glucose Chew Tab) 1 tabs UD PRN PO 02/07/17 18:00 03/09/17 17:59 Dextrose (Dextrose 50% 50ML Syringe) 50 ml UD PRN IV 02/07/17 18:00 03/09/17 17:59 Glucagon (Glucagon Inj) 1 mg UD PRN SQ 02/07/17 18:00 03/09/17 17:59 Heparin Sodium (Porcine) (Heparin Sq 5000 Unit/0.5ml) 5,000 unit Q8H SQ 02/07/17 22:00 03/09/17 21:59 02/08/17 06:49 5,000 UNIT Lorazepam (Ativan Inj) 1 mg Q4H PRN IV 02/07/17 19:45 03/09/17 19:44 Ondansetron HCl (Zofran Inj) 4 mg Q6H PRN IV 02/07/17 19:45 03/09/17 19:44 Pantoprazole Sodium 40 mg/ Syringe 10 ml @ 5 mls/min DAILY IV 02/08/17 09:00 03/10/17 08:59 02/08/17 08:15 5 MLS/MIN Insulin Human Regular 250 units/ Sodium Chloride 252.5 ml @ 0 mls/hr DAILY@1130 IV 02/08/17 11:30 03/10/17 11:29 Thiamine HCl 100 mg/Syringe 10 ml @ 2 mls/min Q24H IV 02/07/17 21:00 03/09/17 20:59 02/07/17 22:00 2 MLS/MIN Lorazepam (Ativan Inj) 1 mg ONE PRN IV 02/07/17 20:15 Insulin Aspart (novoLOG ASPART) SLIDING SCALE [facility] 02/07/17 21:00 03/09/17 20:59 Imipenem/ Cilastatin Sodium (Consult) 1 ea UD PRN N/A 02/07/17 20:45 03/09/17 20:44 Vancomycin HCl (Consult) 1 ea UD PRN N/A 02/07/17 20:45 03/09/17 20:44 Lorazepam 1 mg/ Syringe 1 ml @ 1 mls/min Q4H PRN IV 02/07/17 21:15 03/09/17 21:14 Imipenem/ Cilastatin Sodium 250 mg/Dextrose 110 ml @ 100 mls/hr Q6H IV 02/08/17 04:00 02/18/17 03:59 02/08/17 03:36 100 MLS/HR Potassium Chloride/Dextrose/ Sod Cl 1,000 ml @ 75 mls/hr [id number] IV 02/08/17 03:30 03/10/17 03:29 02/08/17 03:35 150 MLS/HR Clindamycin Phosphate 900 mg/ Dextrose 106 ml @ 106 mls/hr Q8@0000,0800,1600 IV 02/08/17 16:00 02/10/17 15:59 Metoprolol Tartrate (Lopressor Iv) 2.5 mg Q4 IV. 02/08/17 12:00 03/10/17 11:59 Potassium Phosphate 30 mmol/ Sodium Chloride 510 ml @ 88 mls/hr TODAY@1000 IV 02/08/17 10:00 02/08/17 15:48 Review of Systems Constitutional: + weakness, No fever Eyes: No problem reported ENT: No problem reported Respiratory: No problem reported Cardiovascular: No problem reported Abdomen: No problem reported Musculoskeletal: + problem reported ( See HPI) Genitourinary - Male: No problem reported Neurologic: + weakness Psychiatric: No problem reported Endocrine: + fatigue Hematologic / Lymphatic: No problem reported Integumentary: + new/changing skin lesions Allergic / Immunologic: No problem reported Physical Exam Date Time Temp Pulse Resp B/P (MAP) Pulse Ox O2 Delivery O2 Flow Rate FiO2 02/08/17 09:00 99 23 129/78 (95) 98 Nasal Cannula 2.0 02/08/17 08:00 Nasal Cannula 02/08/17 08:00 97 Nasal Cannula 2.0 02/08/17 08:00 37.0 101 23 114/70 (85) 98 Oxymask 2.0 02/08/17 07:00 101 25 120/78 (92) 92 Oxymask 2.0 02/08/17 06:01 104 23 132/84 (100) 99 Oxymask 4.0 02/08/17 05:01 96 22 125/92 (103) 98 Oxymask 4.0 02/08/17 04:57 156 22 120/77 (91) 100 Oxymask 4.0 02/08/17 04:33 152 24 113/82 (92) 100 Oxymask 4.0 02/08/17 04:11 162 20 110/80 (90) 92 Room Air 02/08/17 04:02 170 34 109/74 (86) 90 Room Air 02/08/17 04:01 36.6 171 25 101/66 (78) Room Air 02/08/17 04:00 97 Oxymask 4.0 02/08/17 03:01 112 20 129/78 (95) 92 Room Air 02/08/17 02:01 107 19 141/84 (103) 95 Room Air 02/08/17 01:01 108 21 127/79 (95) 95 Room Air 02/08/17 00:01 36.8 107 17 134/88 (103) 97 Room Air 02/08/17 00:01 97 Room Air 02/07/17 23:01 109 21 130/93 (105) 93 Room Air 02/07/17 22:01 112 20 129/88 (102) 95 Room Air 02/07/17 21:01 109 18 153/108 (123) 96 Room Air 02/07/17 20:53 111 27 138/90 (106) Room Air 02/07/17 20:35 97 Room Air 02/07/17 20:32 109 20 157/101 (119) 97 Room Air 02/07/17 20:32 110 20 157/101 97 02/07/17 20:31 36.5 109 19 165/106 (125) 98 Room Air 02/07/17 20:01 110 22 140/101 94 Room Air 02/07/17 19:53 Room Air 02/07/17 19:34 114 20 146/103 96 Room Air 02/07/17 19:01 167 24 130/101 94 02/07/17 18:56 166 24 95 02/07/17 18:51 168 21 95 02/07/17 18:46 175 12 95 02/07/17 18:41 119 18 94 02/07/17 18:36 170 12 96 02/07/17 18:31 169 22 126/91 94 02/07/17 18:30 118/93 02/07/17 18:26 117 23 96 02/07/17 18:21 142 25 02/07/17 17:56 114 21 96 02/07/17 17:51 116 22 96 02/07/17 17:46 172 21 97 02/07/17 17:41 115 22 98 02/07/17 17:38 148/107 02/07/17 17:36 114 22 02/07/17 17:31 116 02/07/17 17:31 116 21 02/07/17 16:39 36.5 121 20 132/94 96 Room Air 02/07/17 16:14 132/94 General Appearance: WD/WN, + mild distress, + obese Head: normocephalic, atraumatic Eyes: normal inspection, EOMI, sclerae normal ENT: normal ENT inspection, pharynx normal Neck: supple, no adenopathy, thyroid normal, trachea midline Respiratory/Chest: chest non-tender, lungs clear, normal breath sounds, no respiratory distress Cardiovascular: regular rate, rhythm, no gallop, no murmur Abdomen/GI: normal bowel sounds, non tender, soft, no organomegaly Back: normal inspection, no CVA tenderness Extremities/Musculoskelatal: no calf tenderness, + inflammation ( right foot), + swelling ( right foot) Neurologic/Psych: alert, oriented x 3 Skin: normal color, no rash, + pertinent finding ( necrotic right 2nd toe with erythema and swelling of foot) Lymphatic: no adenopathy Laboratory Results Date/Time Source Procedure Growth Status 02/07/17 21:19 Blood Blood Culture Pending Received 02/07/17 21:05 Blood Blood Culture Pending Received 02/07/17 21:30 Nasal MRSA DNA Surveillance Screen - Final Specimen Negative for MRSA by DNA Probe Complete Last 24 Hours Test 02/07/17 16:29 02/07/17 17:00 02/07/17 17:04 02/07/17 17:07 Bedside Glucose > 600 mg/dl Bedside Lactic Acid Venous 2.21 mmol/L Bedside Hemoglobin 15.0 g/dl Bedside Hematocrit 44 % Bedside Sodium 134 mEq/L Bedside Potassium 5.1 mEq/L Bedside Chloride 107 mEq/L Bedside Total CO2 10 mEq/l Anion Gap 24.0 mmol/L Bedside Blood Urea Nitrogen 47 mg/dl Bedside Creatinine 2.1 mg/dl Bedside Glucose (other) 681 mg/dl Bedside Ionized Calcium (Marta) 1.03 mmol/l White Blood Count 28.36 K/uL Red Blood Count 4.57 M/uL Hemoglobin 14.2 g/dL Hematocrit 43.0 % Mean Corpuscular Volume 94.1 fL Mean Corpuscular Hemoglobin 31.1 pg Mean Corpuscular Hemoglobin Concent 33.0 g/dl Platelet Count 728 K/uL Mean Platelet Volume 9.9 fL Neutrophils (%) (Auto) 91.5 % Lymphocytes (%) (Auto) 5.3 % Monocytes (%) (Auto) 2.4 % Eosinophils (%) (Auto) 0.0 % Basophils (%) (Auto) 0.1 % Neutrophils # (Auto) 25.98 K/uL Lymphocytes # (Auto) 1.49 K/uL Monocytes # (Auto) 0.67 K/uL Eosinophils # (Auto) 0.00 K/uL Basophils # (Auto) 0.03 K/uL RDW Standard Deviation 47.6 fL RDW Coefficient of Variation 13.9 % Immature Granulocyte % (Auto) 0.7 % Immature Granulocyte # (Auto) 0.19 K/uL Prothrombin Time 16.4 SECONDS Prothromb Time International Ratio 1.5 Venous Blood pH 7.26 Venous Blood Partial Pressure CO2 28 mmHg Venous Blood Partial Pressure O2 42 mmHg Venous Blood HCO3 12 mmol/L Venous Blood Oxygen Saturation 69.4 % Venous Blood Base Excess -13.2 mEq/L Test 02/07/17 17:09 02/07/17 17:10 02/07/17 18:58 02/07/17 19:19 Sodium Level 135 mmol/L Potassium Level 4.8 mmol/L Chloride Level 98 mmol/L Carbon Dioxide Level 12 mmol/L Anion Gap 25.0 mmol/L Blood Urea Nitrogen 51 mg/dl Creatinine 2.70 mg/dl Est Creatinine Clear Calc Drug Dose 32.5 ml/min Estimated GFR () 27.6 Estimated GFR (Non- 23.8 BUN/Creatinine Ratio 18.7 Random Glucose 659 mg/dl Calcium Level 9.9 mg/dl Magnesium Level 2.8 mg/dl Total Bilirubin 0.5 mg/dl Direct Bilirubin 0.2 mg/dl Aspartate Amino Transf (AST/SGOT) 19 U/L Alanine Aminotransferase (ALT/SGPT) 13 U/L Alkaline Phosphatase 146 U/L Total Creatine Kinase 95 U/L Creatine Kinase MB 12.2 ng/ml Creatine Kinase MB Ratio 12.8 Troponin I 2.740 ng/ml Total Protein 8.7 gm/dl Albumin 2.1 gm/dl Beta-Hydroxybutyric Acid 116.18 mg/dL Bedside Lactic Acid Venous 2.67 mmol/L Bedside Glucose 599 mg/dl Hepatitis C Antibody Screen NEG Test 02/07/17 19:41 02/07/17 20:23 02/07/17 21:04 02/07/17 21:05 Bedside Glucose 582 mg/dl 516 mg/dl 525 mg/dl Lactic Acid Level 1.8 mmol/L Total Creatine Kinase 132 U/L Creatine Kinase MB 11.7 ng/ml Creatine Kinase MB Ratio 8.9 Troponin I 2.420 ng/ml Test 02/07/17 21:30 02/07/17 22:11 02/07/17 23:02 02/07/17 23:18 Urine Color YELLOW Urine Appearance CLEAR Urine pH 5.0 Urine Specific [place] 1.010 Urine Protein 2+ Urine Glucose (UA) 3+ Urine Ketones 3+ Urine Occult Blood 1+ Urine Nitrite NEG Urine Bilirubin NEG Urine Urobilinogen NEG Urine Leukocyte Esterase NEG Urine WBC (Auto) 1-5 /hpf Urine RBC (Auto) 0-4 /hpf Urine Hyaline Casts (Auto) 5-10 /lpf Urine Epithelial Cells (Auto) 10-20 /lpf Urine Bacteria (Auto) NEG Urine Opiates Screen NEG Urine Methadone, Qualitative NEG Urine Barbiturates NEG Urine Phencyclidine (PCP) Level NEG Ur Amphetamine/Methamphetamine NEG MDMA (Ecstasy) Screen NEG Urine Benzodiazepines Screen NEG Urine Cocaine Metabolite NEG Urine Marijuana (THC) NEG Bedside Glucose 400 mg/dl 405 mg/dl Venous Blood pH 7.33 Venous Blood Partial Pressure CO2 43 mmHg Venous Blood Partial Pressure O2 32 mmHg Venous Blood HCO3 22 mmol/L Venous Blood Oxygen Saturation < 60.0 % Venous Blood Base Excess -3.6 mEq/L Sodium Level 145 mmol/L Potassium Level 4.0 mmol/L Chloride Level 111 mmol/L Carbon Dioxide Level 20 mmol/L Anion Gap 14.0 mmol/L Blood Urea Nitrogen 49 mg/dl Creatinine 2.20 mg/dl Est Creatinine Clear Calc Drug Dose 39.9 ml/min Estimated GFR () 35.4 Estimated GFR (Non- 30.5 BUN/Creatinine Ratio 22.3 Random Glucose 424 mg/dl Calcium Level 8.9 mg/dl Beta-Hydroxybutyric Acid 36.84 mg/dL Test 02/07/17 23:59 02/08/17 01:03 02/08/17 01:57 02/08/17 02:52 Bedside Glucose 373 mg/dl 326 mg/dl 327 mg/dl White Blood Count 18.48 K/uL Red Blood Count 4.17 M/uL Hemoglobin 13.0 g/dL Hematocrit 37.6 % Mean Corpuscular Volume 90.2 fL Mean Corpuscular Hemoglobin 31.2 pg Mean Corpuscular Hemoglobin Concent 34.6 g/dl Platelet Count 593 K/uL Mean Platelet Volume 9.3 fL Neutrophils (%) (Auto) 89.9 % Lymphocytes (%) (Auto) 5.2 % Monocytes (%) (Auto) 4.4 % Eosinophils (%) (Auto) 0.1 % Basophils (%) (Auto) 0.1 % Neutrophils # (Auto) 16.62 K/uL Lymphocytes # (Auto) 0.96 K/uL Monocytes # (Auto) 0.81 K/uL Eosinophils # (Auto) 0.01 K/uL Basophils # (Auto) 0.02 K/uL RDW Standard Deviation 45.2 fL RDW Coefficient of Variation 13.7 % Immature Granulocyte % (Auto) 0.3 % Immature Granulocyte # (Auto) 0.06 K/uL Prothrombin Time 15.9 SECONDS Prothromb Time International Ratio 1.5 Venous Blood pH 7.36 Venous Blood Partial Pressure CO2 46 mmHg Venous Blood Partial Pressure O2 30 mmHg Venous Blood HCO3 26 mmol/L Venous Blood Oxygen Saturation < 60.0 % Venous Blood Base Excess -0.3 mEq/L Sodium Level 147 mmol/L Potassium Level 3.4 mmol/L Chloride Level 113 mmol/L Carbon Dioxide Level 25 mmol/L Anion Gap 9.0 mmol/L Blood Urea Nitrogen 45 mg/dl Creatinine 2.10 mg/dl Est Creatinine Clear Calc Drug Dose 41.8 ml/min Estimated GFR () 37.4 Estimated GFR (Non- 32.3 BUN/Creatinine Ratio 21.5 Random Glucose 281 mg/dl Calcium Level 9.1 mg/dl Phosphorus Level 1.5 mg/dl Magnesium Level 2.6 mg/dl Total Creatine Kinase 92 U/L Creatine Kinase MB 9.8 ng/ml Creatine Kinase MB Ratio 10.7 Troponin I 2.050 ng/ml Random Vancomycin Level 18.7 mcg/ml Test 02/08/17 03:00 02/08/17 04:19 02/08/17 05:20 02/08/17 06:20 Bedside Glucose 240 mg/dl 242 mg/dl 236 mg/dl 211 mg/dl Test 02/08/17 07:07 02/08/17 08:22 02/08/17 08:53 02/08/17 11:00 Venous Blood pH 7.37 Venous Blood Partial Pressure CO2 46 mmHg Venous Blood Partial Pressure O2 34 mmHg Venous Blood HCO3 26 mmol/L Venous Blood Oxygen Saturation 62.2 % Venous Blood Base Excess 0.5 mEq/L Sodium Level 146 mmol/L Potassium Level mmol/L 3.6 mmol/L Chloride Level 113 mmol/L Carbon Dioxide Level 26 mmol/L Anion Gap 6.0 mmol/L Blood Urea Nitrogen 37 mg/dl Creatinine 1.80 mg/dl Est Creatinine Clear Calc Drug Dose 47.8 ml/min Estimated GFR () 45.1 Estimated GFR (Non- 38.9 BUN/Creatinine Ratio 20.7 Random Glucose 219 mg/dl Calcium Level 9.4 mg/dl Phosphorus Level 2.3 mg/dl Bedside Glucose 169 mg/dl Patient Name: MERYL BURKS Unit Number: [id number] Dictated: 02/08/17714 Transcribed: 02/08/17714 PBS Printed Date/Time: [~ rep prt dt]/[~ rep prt tm] [~ rep ct labl] - [~ rep ct ivnm] [facility] Radiology Department [place] [id number] Dictated: 02/08/17714 Transcribed: 02/08/17714 PBS Printed Date/Time: [~ rep prt dt]/[~ rep prt tm] [~ rep ct labl] - [~ rep ct ivnm] [~ rep ct add3]] R LOWER EXTREMITY WITHOUT CLINICAL HISTORY: 66 years-old Male presenting with need to image lower leg and foot-abscess?osteo?. TECHNIQUE: Multidetector CT of the right ankle through the foot was performed without the use of intravenous contrast. IV contrast: None. A dose lowering technique was used consistent with the principles of ALARA (as low as reasonably achievable). COMPARISON: None. CT DOSE (mGy.cm): The estimated cumulative dose is 395.69 mGy.cm. 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 Soft tissue emphysema noted along the second toe extending approximately along the plantar aspect of the second metatarsal and tracking along the plantar flexor compartment. Soft tissue emphysema extends along the flexor digitorum longus and flexor hallucis longus to the level of the ankle mortise. Extensive subcutaneous edema noted throughout the foot. Subcutaneous calcification noted along the distal anterior tibia may relate to prior injury or venous stasis. Gas noted within the distal and middle phalanges of the second toe extending to the proximal interphalangeal joint. No gas within the proximal phalanx of the second toe. Given the presence of intraosseous gas, evaluation for osseous erosion is difficult but suspected. No periosteal reaction. No sheryl evidence of a fracture plane. IMPRESSION: Findings highly concerning for necrotizing fasciitis of the second toe extending along the flexor compartment of the foot to the level of the ankle mortise tracking along the flexor tendons as described above. No focal fluid collection to suggest abscess. Intraosseous gas within the distal and middle phalanges of the second toe also highly concerning for gas-forming organisms within the bone/osteomyelitis. The report will be called/faxed according to standard departmental protocol. Electronically signed by: Taz Ruiz M.D. 02/08/2017 7:22 AM Dictated Date/Time: 02/08/2017 7:15 AM The status of this report is Signed. Draft = Not yet reviewed or approved by Radiologist. Signed = Reviewed and approved by Radiologist. <AttendingPhy>Michi Hummel M.D.</AttendingPhy> <FamilyPhy>No Doctor, Assigned< /FamilyPhy> <PrimaryPhy>No Doctor, Assigned</PrimaryPhy> <UnitNumber>[id number]< /UnitNumber> <VisitNumber>[id number]</VisitNumber> <PatientName>VITALIYMERYL</PatientName> <DateOfBirth>1950</DateOfBirth> <Location>[facility]</ Location> <ServiceDate>02/07/17</ServiceDate> <MNE>ESINDI</MNE> <OrderingPhy> Dorothy Amato DO</OrderingPhy> <OrderingPhyMNE>f rep ord dr lucio</ OrderingPhyMNE> <DictatingPhyMNE>f rep dict dr lucio</DictatingPhyMNE> <CCListMNE> f rep ct khadijah</CCListMNE> <AdmittingPhyMNE>f pt admit dr lucio</AdmittingPhyMNE> < AttendingPhyMNE>f pt attend dr lucio</AttendingPhyMNE> <ConsultingPhyMNE>f pt consult dr lucio</ConsultingPhyMNE> <FamilyPhyMNE>f pt fam dr lucio</FamilyPhyMNE> <OtherPhyMNE>f pt other dr lucio</OtherPhyMNE> < PrimaryPhyMNE>f pt prim care dr lucio</PrimaryPhyMNE> <ReferringPhyMNE>f pt referring dr lucio</ReferringPhyMNE> Assessment & Plan necrotizing fasciitis of the right foot in the setting of diabetic ketoacidosis , with need for urgent surgical intervention and probable BKA. Agree with transfer to tertiary care center, current therapy with vancomycin, imipenem, and clindamycin appropriate for now.
--- NOTE | 2017-02-08 12:36 | DIAGNOSTIC IMAGING REPORT ---
R LOWER EXT NONJOINT W/O CLINICAL HISTORY: 66 years-old Male presenting with DKA, necrotizing fasciitis. TECHNIQUE: Multisequence, multiplanar MR imaging of the right foot was performed without the use of intravenous contrast. IV contrast: None. COMPARISON: CT performed earlier the same day. FINDINGS: Localizer images: Unremarkable. A soft tissue defect in the cutis is noted along the dorsum of the distal forefoot overlying the second metatarsophalangeal joint. Diffuse T2 hyperintensity of the flexor compartment with multifocal regions of susceptibility consistent with gas tracking along the second toe to the dorsum of the foot at the level of the metatarsophalangeal joints and the flexor compartment along the entire length of the foot to the level of the ankle mortise. T2 hyperintensity within the head of the second metatarsal with mild decreased T1 signal intensity in the marrow at this level. Similar changes evident at the base of the proximal phalanx of the second toe. The distal and middle phalanges of the second toe poorly evaluated secondary to the presence of gas within the bone. No other sites of bone marrow signal abnormality. IMPRESSION: Findings of extensive necrotizing fasciitis from the second toe to the ankle. Bone marrow signal intensity changes within the base of the proximal phalanx of the second toe and head of the second metatarsal concerning for osteomyelitis/septic arthritis. Intraosseous gas within the distal and middle phalanges of the second toe indicating infection better appreciated on prior CT. Electronically signed by: Taz Ruiz M.D. 02/08/2017 12:35 PM Dictated Date/Time: 02/08/2017 12:27 PM
--- NOTE | 2017-02-08 12:42 | DIAGNOSTIC IMAGING REPORT ---
LOWER EXT NONJOINT W/O CLINICAL HISTORY: 66 years-old Male presenting with r/o necrotizing faciitis . TECHNIQUE: Multisequence, multiplanar MR imaging of the right lower leg was performed without the use of intravenous contrast. IV contrast: None. COMPARISON: MR from 01/23/2013. FINDINGS: Localizer images: Unremarkable. T2 hyperintensity in the deep musculature and superficial soft tissues at the level of the ankle mortise primarily along the medial and posterior aspects correlating with the proximal extent of necrotizing fasciitis. T2 hyperintensity of the distal gastrocnemius as well as more proximally in the medial gastrocnemius noted. Interfascial T2 hyperintensity also noted both in the anterior and posterior compartments. Heterogeneity of bone marrow signal intensity within the posterior medial proximal tibial metaphysis may represent reactive changes. Minimal decreased T1 signal intensity in this region. Knee joint effusion noted. IMPRESSION: Evidence of myositis in the gastrocnemius. Interfascial edema in the anterior and posterior compartments of the lower leg could suggest proximal tracking of necrotizing fasciitis. The presence of gas is not well appreciated on MR. Minimal bone marrow signal intensity changes in the posterior medial tibia and the proximal metaphysis may be reactive bony edema given the presence of adjacent interfascial edema. No convincing evidence of osteomyelitis. Knee joint effusion. Electronically signed by: Taz Ruiz M.D. 02/08/2017 12:41 PM Dictated Date/Time: 02/08/2017 12:35 PM
[2017-02-08] MEDS ORDERED: CLINDAMYCIN IV 900 MG in DEXTROSE 5% 100ML 100 ML IV SCH (16:00)
== END 2017-02-08 13:56 | disposition short-term general hospital (02) | DRG 871 ==
LOC: EDBD 16:11 → C.EDB 16:15 → C.MSICU 20:10 → ENRESERV 20:16
PROVIDERS: ADMIT Hospitalist; ATTEND Hospitalist
DX: A41.9 Sepsis, unspecified organism (principal); M72.6 Necrotizing fasciitis; G93.41 Metabolic encephalopathy; E11.10 Type 2 diabetes mellitus with ketoacidosis without coma; M86.9 Osteomyelitis, unspecified; N17.9 Acute kidney failure, unspecified; E87.1 Hypo-osmolality and hyponatremia; E11.52 Type 2 diabetes mellitus with diabetic peripheral angiopathy with gangrene; I96 Gangrene, not elsewhere classified; E86.0 Dehydration; E83.30 Disorder of phosphorus metabolism, unspecified; E87.6 Hypokalemia; D47.3 Essential (hemorrhagic) thrombocythemia; E11.69 Type 2 diabetes mellitus with other specified complication; I12.9 Hypertensive chronic kidney disease with stage 1 through stage 4 chronic kidney disease, or unspecified chronic kidney disease; E11.22 Type 2 diabetes mellitus with diabetic chronic kidney disease; N18.9 Chronic kidney disease, unspecified; T38.3X6A Underdosing of insulin and oral hypoglycemic [antidiabetic] drugs, initial encounter; Z91.14 Patient's other noncompliance with medication regimen; I48.91 Unspecified atrial fibrillation; I45.10 Unspecified right bundle-branch block; I25.10 Atherosclerotic heart disease of native coronary artery without angina pectoris; F10.20 Alcohol dependence, uncomplicated; E66.01 Morbid (severe) obesity due to excess calories; Z68.35 Body mass index [BMI] 35.0-35.9, adult; Z95.1 Presence of aortocoronary bypass graft; Z95.5 Presence of coronary angioplasty implant and graft; Z96.652 Presence of left artificial knee joint; Z79.82 Long term (current) use of aspirin; Z79.4 Long term (current) use of insulin; Z79.899 Other long term (current) drug therapy

== ENCOUNTER 2017-02-19 17:11 | Emergency (ER) | payer OTHER ==
[~2017-02-19] VITALS: Ht 172.7 cm; Wt 103.8 kg
[2017-02-19 17:14] VITALS: TEMP 37.2; Ht 172.7 cm; Wt 103.8 kg
--- NOTE | 2017-02-19 17:46 | DIAGNOSTIC IMAGING REPORT ---
SINGLE VIEW CHEST CLINICAL HISTORY: Generalized abdominal pain. FINDINGS: An AP, portable, upright chest radiograph is compared to study dated 02/07/2017. The examination is degraded by portable technique, large body habitus, and patient rotation. A right PICC line is new from previous. The tip projects over the cavoatrial junction. The patient is status post midline sternotomy. The heart is enlarged. The pulmonary vasculature is noncongested. No airspace consolidation or large pleural effusion is seen. No pneumothorax is identified. The bony thorax is grossly intact. IMPRESSION: 1. Cardiomegaly with no acute cardiopulmonary abnormality. 2. A right-sided PICC line is new from previous. Electronically signed by: Kit Delong M.D. 02/19/2017 5:44 PM Dictated Date/Time: 02/19/2017 5:43 PM
--- NOTE | 2017-02-19 17:48 | DIAGNOSTIC IMAGING REPORT ---
RIGHT FOOT 3 VIEWS CLINICAL HISTORY: Right foot pain. FINDINGS: 3 portable views of the right foot are correlated with CT scan of the right foot dated 02/08/2017. The skeletal structures are osteopenic. There has been amputation of the second toe at the level of the distal metatarsal shaft. Overlying soft tissue edema is noted. No periostitis or bony erosion is seen. No acute fracture is identified. Mild arthritic change is present the first metatarsophalangeal joint. Large dorsal and plantar calcaneal enthesophytes are observed. Generalized spurring seen along the dorsal aspect of the tarsal bones. Diffuse soft tissue edema is present throughout the foot. Heterogeneous and possibly gas containing material at the resection margin marrow likely represents packing material. IMPRESSION: 1. Diffuse soft tissue edema with no acute bony abnormality seen in the right foot. 2. There has interval amputation of the second toe as compared to 02/08/2017. 3. Packing material is suggested at the resection site. Clinical correlation will be required. Electronically signed by: Kit Delong M.D. 02/19/2017 5:47 PM Dictated Date/Time: 02/19/2017 5:44 PM
--- NOTE | 2017-02-19 18:05 | EMERGENCY ROOM VISIT NOTE ---
History Report prepared by Kar: Taran Joshi Under the Supervision of: Dr. Anmol Urias D.O. First contact with patient: 17:13 Chief Complaint: OTHER COMPLAINT History of Present Illness The patient is a 66 year old male who presents to the Emergency Room with complaints of possible constant poor circulation to his second right toe that began two days ago. The patient states that he had his second toe on his right foot removed three days ago at [facility]. He reports that he currently resides at [facility], where he has been residing since his surgery, and they were worried that he was not getting enough circulation to his first right toe. 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 He was put on Rocephin through his PICC IV following surgery. The [facility] staff called [facility] due to their concerns of poor circulation and [facility] told them to bring the patient to the ED. The patient reports that he is currently not in any pain. He admits that he has a history of Diabetes Mellitus and an irregular heartbeat. The patient denies that he takes blood thinners and has a history of a heart murmur. Source of History: patient Onset: two days ago Position: toe(s) (right second toe) Quality: other (global) Timing: constant Modifying Factors (Worsening): other (global) Review of Systems See HPI for pertinent positives & negatives. A total of 10 systems reviewed and were otherwise negative. Past Medical & Surgical Medical Problems: (1) Alcohol abuse (2) Atrial fibrillation (3) CAD (coronary artery disease) (4) CKD (chronic kidney disease) stage 3, GFR 30-59 ml/min (5) Decubitus ulcer (6) Diabetes mellitus type 2 in obese (7) Dyslipidemia (8) H/O CHF (9) HTN (hypertension) (10) Obesity (11) Pancreatitis (12) RBBB Surgical Problems: (1) H/O pericardiectomy (2) History of total knee arthroplasty (3) S/P CABG x 4 Family History FHx: heart disease Social History Smoking Status: Unknown if Ever Smoked Alcohol Use: other Drug Use: none Marital Status: single Housing Status: lives with family Occupation Status: disabled Current/Historical Medications Scheduled Ascorbic Acid (Vitamin C), 250 MG PO DAILY Aspirin (Aspir-81), 2 TAB PO DAILY Atorvastatin (Lipitor), 80 MG PO DAILY Carvedilol (Coreg), 3.125 MG PO Q12 Ceftriaxone Sod (Rocephin), 1 GM IV DAILY Diltiazem Hcl Coated Beads (Diltiazem Hcl Er), 60 MG PO UD Folic Acid (Folvite), 1 MG PO DAILY Furosemide (Lasix), 40 MG PO DAILY Glyburide (Micronase), 10 MG PO BID Insulin Aspart (Novolog Flexpen), 8 UNITS SQ TIDM Insulin Glargine (Lantus), 35 UNIT SC QPM Losartan Potassium (Cozaar), 50 MG PO DAILY Magnesium Chloride (Slow-Mag Tab), 64 MG PO DAILY Metformin Hcl (Glucophage), 1,000 MG PO BID Metronidazole (Flagyl), 500 MG PO TID Potassium Ext Rel (Klor-Con), 20 MEQ PO DAILY Spironolactone (Aldactone), 25 MG PO DAILY Thiamine Hcl (Vitamin B-1), 100 MG PO DAILY Allergies Coded Allergies: JET Inhibitors (Verified Allergy, Unknown, 02/07/17) Penicillins (Verified Allergy, Unknown, RASH A CHILD, 02/07/17) Physical Exam Vital Signs Date Time Temp Pulse Resp B/P (MAP) Pulse Ox O2 Delivery O2 Flow Rate FiO2 02/20/17 00:30 79 20 123/84 98 Room Air 02/19/17 21:19 73 20 132/76 96 Room Air 02/19/17 20:45 77 16 141/79 95 Room Air 02/19/17 19:06 81 10 135/75 90 Room Air 02/19/17 17:14 37.2 79 15 133/76 94 Room Air Physical Exam GENERAL: Patient is awake, alert, and in no acute distress. Patient is resting comfortably and showing no signs of anxiety EYES: The conjunctivae are clear. The pupils are round and reactive. EARS, NOSE, MOUTH AND THROAT: The nose is without any evidence of any deformity. Mucous membranes are moist tongue is midline NECK: The neck is nontender and supple. RESPIRATORY: Normal respiratory effort is noted there is no evidence of wheezing rhonchi or rales CARDIOVASCULAR: Regular rate and rhythm noted. Systolic murmur noted. GASTROINTESTINAL: The abdomen is soft. Bowel sounds are present in all quadrants. Abdomen is nontender MUSCULOSKELETAL/EXTREMITIES: There is no evidence of gross deformity full range of motion is noted in the hips and shoulders SKIN: Surgical site of right second toe with recent second ray amputation. Skin is warm and dry. Capillary refill in right toe is delayed. Good healing noted over dorsum and plantar surface of the foot. Swelling noted. Groin pulses symmetric. Pedal edema noted bilaterally with the right greater than the left. NEUROLOGIC: Patient is awake alert and oriented x3. Medical Decision & Procedures ER Provider Diagnostic Interpretation: Radiology results as stated below per my review and radiologist interpretation: SINGLE VIEW CHEST CLINICAL HISTORY: Generalized abdominal pain. FINDINGS: An AP, portable, upright chest radiograph is compared to study dated 02/07/2017. The examination is degraded by portable technique, large body habitus, and patient rotation. A right PICC line is new from previous. The tip projects over the cavoatrial junction. The patient is status post midline sternotomy. The heart is enlarged. The pulmonary vasculature is noncongested. No airspace consolidation or large pleural effusion is seen. No pneumothorax is identified. The bony thorax is grossly intact. IMPRESSION: 1. Cardiomegaly with no acute cardiopulmonary abnormality. 2. A right-sided PICC line is new from previous. Electronically signed by: Kit Delong M.D. 02/19/2017 5:44 PM Dictated Date/Time: 02/19/2017 5:43 PM RIGHT FOOT 3 VIEWS CLINICAL HISTORY: Right foot pain. FINDINGS: 3 portable views of the right foot are correlated with CT scan of the right foot dated 02/08/2017. The skeletal structures are osteopenic. There has been amputation of the second toe at the level of the distal metatarsal shaft. Overlying soft tissue edema is noted. No periostitis or bony erosion is seen. No acute fracture is identified. Mild arthritic change is present the first metatarsophalangeal joint. Large dorsal and plantar calcaneal enthesophytes are observed. Generalized spurring seen along the dorsal aspect of the tarsal bones. Diffuse soft tissue edema is present throughout the foot. Heterogeneous and possibly gas containing material at the resection margin marrow likely represents packing material. IMPRESSION: 1. Diffuse soft tissue edema with no acute bony abnormality seen in the right foot. 2. There has interval amputation of the second toe as compared to 02/08/2017. 3. Packing material is suggested at the resection site. Clinical correlation will be required. Electronically signed by: Kit Delong M.D. 02/19/2017 5:47 PM Dictated Date/Time: 02/19/2017 5:44 PM RIGHT LOWER EXTREMITY ARTERIAL DOPPLER ULTRASOUND CLINICAL HISTORY: Right lower extremity swelling. COMPARISON STUDY: Right lower extremity arterial Doppler ultrasound January 23, 2013. FINDINGS: The right ankle to brachial index measures 1.33 when using posterior tibial artery and 1.16 when using the dorsalis pedis. The left ankle to brachial index measures 1.26 when using the posterior tibial artery and 1.17 when using the dorsalis pedis. Mild atherosclerotic plaque within the right lower extremity is noted. No elevated velocities were identified. There was biphasic and triphasic flow within the right common femoral, superficial femoral, popliteal, anterior tibial, posterior tibial, peroneal and dorsalis pedis vessels. IMPRESSION: 1. Mild atherosclerotic plaque within the right lower extremity without evidence of a hemodynamically significant stenosis. 2. Normal bilateral ankle to brachial indices. Electronically signed by: Nemesio Lopez M.D. 02/19/2017 7:13 PM Dictated Date/Time: 02/19/2017 7:11 PM ULTRASOUND RIGHT LOWER EXTREMITY VENOUS CLINICAL HISTORY: Right leg swelling. COMPARISON STUDY: Bilateral lower extremity venous ultrasound dated 03/02/2015. TECHNIQUE: Real-time, grayscale, and color Doppler sonography of the deep veins of the right lower extremity was performed from the inguinal crease to the calf. Compression and augmentation were utilized. FINDINGS: There is no sonographic evidence of deep venous thrombosis identified in the right lower extremity. The common femoral, superficial femoral, and popliteal veins are patent and normally compressible. The greater saphenous vein and the profunda femoris vein at the junction with the common femoral vein are clear. The visualized calf veins are patent. IMPRESSION: There is no sonographic evidence of deep venous thrombosis identified in the right lower extremity. Electronically signed by: Kit Delong M.D. 02/19/2017 7:07 PM Dictated Date/Time: 02/19/2017 7:06 PM Laboratory Results 02/19/17 17:58 Red Blood Count 3.67, Mean Corpuscular Volume 87.5, Mean Corpuscular Hemoglobin 30.0, Mean Corpuscular Hemoglobin Concent 34.3, Mean Platelet Volume 9.4, Neutrophils (%) (Auto) 81.8, Lymphocytes (%) (Auto) 11.1, Monocytes (%) (Auto) 5.5, Eosinophils (%) (Auto) 1.1, Basophils (%) (Auto) 0.2, Neutrophils # (Auto) 9.27, Lymphocytes # (Auto) 1.26, Monocytes # (Auto) 0.62, Eosinophils # (Auto) 0.12, Basophils # (Auto) 0.02 02/19/17 17:58 Test 02/19/17 17:58 White Blood Count 11.32 K/uL (4.8-10.8) Red Blood Count 3.67 M/uL (4.7-6.1) Hemoglobin 11.0 g/dL (14.0-18.0) Hematocrit 32.1 % (42-52) Mean Corpuscular Volume 87.5 fL (80-100) Mean Corpuscular Hemoglobin 30.0 pg (25-34) Mean Corpuscular Hemoglobin Concent 34.3 g/dl (32-36) Platelet Count 462 K/uL (130-400) Mean Platelet Volume 9.4 fL (7.4-10.4) Neutrophils (%) (Auto) 81.8 % Lymphocytes (%) (Auto) 11.1 % Monocytes (%) (Auto) 5.5 % Eosinophils (%) (Auto) 1.1 % Basophils (%) (Auto) 0.2 % Neutrophils # (Auto) 9.27 K/uL (1.4-6.5) Lymphocytes # (Auto) 1.26 K/uL (1.2-3.4) Monocytes # (Auto) 0.62 K/uL (0.11-0.59) Eosinophils # (Auto) 0.12 K/uL (0-0.5) Basophils # (Auto) 0.02 K/uL (0-0.2) RDW Standard Deviation 44.0 fL (36.4-46.3) RDW Coefficient of Variation 13.6 % (11.5-14.5) Immature Granulocyte % (Auto) 0.3 % Immature Granulocyte # (Auto) 0.03 K/uL (0.00-0.02) Prothrombin Time 13.0 SECONDS (9.0-12.0) Prothromb Time International Ratio 1.2 (0.9-1.1) Activated Partial Thromboplast Time 32.5 SECONDS (21.0-31.0) Partial Thromboplastin Ratio 1.3 Anion Gap 7.0 mmol/L (3-11) Est Creatinine Clear Calc Drug Dose 78.5 ml/min Estimated GFR () 80.9 Estimated GFR (Non- 69.8 BUN/Creatinine Ratio 6.9 (10-20) Calcium Level 8.0 mg/dl (8.5-10.1) Total Bilirubin 0.2 mg/dl (0.2-1) Direct Bilirubin < 0.1 mg/dl (0-0.2) Aspartate Amino Transf (AST/SGOT) 12 U/L (15-37) Alanine Aminotransferase (ALT/SGPT) 12 U/L (12-78) Alkaline Phosphatase 108 U/L (45-117) Total Creatine Kinase 58 U/L (39-308) Creatine Kinase MB 0.9 ng/ml (0.5-3.6) Creatine Kinase MB Ratio 1.6 (0-3.0) Troponin I 0.029 ng/ml (0-0.045) Total Protein 7.2 gm/dl (6.4-8.2) Albumin 1.5 gm/dl (3.4-5.0) Lipase 257 U/L (73-393) Laboratory results per my review. ECG Indication: other Rate (beats per minute): 79 Rhythm: normal sinus Findings: RBBB, no ectopy, other (No ST segments noted) Comparison ECG Date: 02/08/17 Change: no significant change ED Course 3: The patient was evaluated in room A11B. A complete history and physical examination were performed. 2047: I discussed the patient's case with Dr. Martin, [facility]. He suggest that the patient continues antibiotic therapy and follows up with him. 2200: Upon reevaluation, the patient is resting comfortably. I discussed the results and treatment plan with the patient. He verbalized agreement of the treatment plan. The patient was discharged home. Medical Decision Prior records reviewed and summarized above. Triage Nursing notes reviewed. Additional history obtained from the patient. The patient's history was concerning for swelling and pain in the leg. Differential diagnosis: Etiologies such as DVT, musculoskeletal, infection, joint effusion, trauma, lymphedema, idiopathic, CHF, as well as others were entertained.. The patient is a 66-year-old male who presented to the emergency department for an evaluation of right foot problems. The patient had a recent infection in his right foot which was felt to be significant and he was transferred to [facility]. He had resection of his second ray at that time. The patient was transferred back home on IV antibiotics which she continues to receive via PICC line. The patient started to have cyanosis to his right great toe. He was sent to the emergency department for further evaluation. At this time I do feel this could be from progression of his right foot infection. I discussed HIS laboratory radiographic studies with the orthopedic team at [facility]. The patient is currently scheduled for a follow-up of this foot infection and I do that he continue IV antibiotic therapy for pursuing any further surgical intervention. This plan was also outlined by the orthopedic group that I discussed his case with his. The patient was encouraged to continue all medications as prescribed. There are also encouraged at the skilled nursing to send patient back to our emergency department for any further recent symptoms such as fever severe pain redness drainage or if need arises. Medication Reconcilliation Current Medication List: was personally reviewed by me Blood Pressure Screening Patient's blood pressure: Elevated blood pressure Blood pressure disposition: Elevated BP felt to be situational Consults Time Called: 2047 Consulting Physician: Dr. Martin [facility] Returned Call: 2047 I discussed the patient's case with Dr[facility]. He suggest that the patient continues antibiotic therapy and follows up with him. Impression Primary Impression: Right foot infection Scribe Attestation The scribe's documentation has been prepared under my direction and personally reviewed by me in its entirety. I confirm that the note above accurately reflects all work, treatment, procedures, and medical decision making performed by me. Departure Information Dispostion Home / Self-Care Referrals No Doctor, Assigned (PCP) Forms HOME CARE DOCUMENTATION FORM, IMPORTANT VISIT INFORMATION, WORK / SCHOOL INSTRUCTIONS Patient Instructions Cellulitis Carlitos, My [facility] Additional Instructions Continue all medications as prescribed. Follow-up with the orthopedist from [facility] as scheduled. Continue to do wound dressings as scheduled.
[2017-02-19] MEDS ORDERED: METR-163 PO (18:07)
[2017-02-19] MEDS ORDERED: SLWMEC PO (18:07)
[2017-02-19] MEDS ORDERED: NVLGI/PEN SQ (18:07)
[2017-02-19] MEDS ORDERED: CEFT1INJ57 IV (18:07)
[2017-02-19 18:13] LABS: BASO % 0.2 %; BASO ABS # 0.02 K/uL (0-0.2); COMPLETE YES; EOS % 1.1 %; HEMATOCRIT 32.1 % (42-52); IG% 0.3 %; LYMPH % 11.1 %; LYMPH ABS # 1.26 K/uL (1.2-3.4); MEAN CELL VOLUME 87.5 fL (80-100); MEAN CORPUSCULAR HGB CONC 34.3 g/dl (32-36); MEAN PLATELET VOLUME 9.4 fL (7.4-10.4); MONO % 5.5 %; NEUT % 81.8 %; PLATELET COUNT 462 K/uL (130-400); RED BLOOD COUNT 3.67 M/uL (4.7-6.1); WHITE BLOOD COUNT 11.32 K/uL (4.8-10.8)
[2017-02-19 18:21] LABS: INR 1.2 (0.9-1.1); PARTIAL THROMBOPLASTIN RATIO 1.3
[2017-02-19 18:37] LABS: ALT/SGPT 12 U/L (12-78); AST/SGOT 12 U/L (15-37); BLOOD UREA NITROGEN 8 mg/dl (7-18); BUN/CREATININE RATIO 6.9 (10-20); CARBON DIOXIDE 28 mmol/L (21-32); CHLORIDE 101 mmol/L (98-107); CREATININE 1.11 mg/dl (0.60-1.40); GLUCOSE 208 mg/dl (70-99); POTASSIUM 3.6 mmol/L (3.5-5.1); SODIUM 136 mmol/L (136-145)
[2017-02-19 18:42] LABS: ALKALINE PHOSPHATASE 108 U/L (45-117); CKMB/CK RATIO 1.6 (0-3.0)
--- NOTE | 2017-02-19 19:08 | DIAGNOSTIC IMAGING REPORT ---
ULTRASOUND RIGHT LOWER EXTREMITY VENOUS CLINICAL HISTORY: Right leg swelling. COMPARISON STUDY: Bilateral lower extremity venous ultrasound dated 03/02/2015. TECHNIQUE: Real-time, grayscale, and color Doppler sonography of the deep veins of the right lower extremity was performed from the inguinal crease to the calf. Compression and augmentation were utilized. FINDINGS: There is no sonographic evidence of deep venous thrombosis identified in the right lower extremity. The common femoral, superficial femoral, and popliteal veins are patent and normally compressible. The greater saphenous vein and the profunda femoris vein at the junction with the common femoral vein are clear. The visualized calf veins are patent. IMPRESSION: There is no sonographic evidence of deep venous thrombosis identified in the right lower extremity. Electronically signed by: Kit Delong M.D. 02/19/2017 7:07 PM Dictated Date/Time: 02/19/2017 7:06 PM
--- NOTE | 2017-02-19 19:14 | DIAGNOSTIC IMAGING REPORT ---
RIGHT LOWER EXTREMITY ARTERIAL DOPPLER ULTRASOUND CLINICAL HISTORY: Right lower extremity swelling. COMPARISON STUDY: Right lower extremity arterial Doppler ultrasound January 23, 2013. FINDINGS: The right ankle to brachial index measures 1.33 when using posterior tibial artery and 1.16 when using the dorsalis pedis. The left ankle to brachial index measures 1.26 when using the posterior tibial artery and 1.17 when using the dorsalis pedis. Mild atherosclerotic plaque within the right lower extremity is noted. No elevated velocities were identified. There was biphasic and triphasic flow within the right common femoral, superficial femoral, popliteal, anterior tibial, posterior tibial, peroneal and dorsalis pedis vessels. IMPRESSION: 1. Mild atherosclerotic plaque within the right lower extremity without evidence of a hemodynamically significant stenosis. 2. Normal bilateral ankle to brachial indices. Electronically signed by: Nemesio Lopez M.D. 02/19/2017 7:13 PM Dictated Date/Time: 02/19/2017 7:11 PM
[2017-02-20 00:30] VITALS: BP 123/84; PULSE 79; O2SAT 98
== END 2017-02-20 01:39 | disposition home or self-care (01) ==
LOC: EDBD 17:11 → C.EDA 17:14
DX: L08.9 Local infection of the skin and subcutaneous tissue, unspecified (principal); E11.22 Type 2 diabetes mellitus with diabetic chronic kidney disease; N18.3 Chronic kidney disease, stage 3 (moderate); I12.9 Hypertensive chronic kidney disease with stage 1 through stage 4 chronic kidney disease, or unspecified chronic kidney disease; I48.91 Unspecified atrial fibrillation; F10.10 Alcohol abuse, uncomplicated; I25.10 Atherosclerotic heart disease of native coronary artery without angina pectoris; E78.5 Hyperlipidemia, unspecified; E66.9 Obesity, unspecified; I45.10 Unspecified right bundle-branch block; Z89.421 Acquired absence of other right toe(s); Z96.659 Presence of unspecified artificial knee joint; Z95.1 Presence of aortocoronary bypass graft; Z79.82 Long term (current) use of aspirin; Z79.4 Long term (current) use of insulin; Z79.84 Long term (current) use of oral hypoglycemic drugs

== ENCOUNTER 2017-04-10 11:55 | Inpatient (IN) | payer OTHER ==
[~2017-04-10] VITALS: Ht 172.7 cm; Wt 99.9 kg
[~2017-04-10 11:55] MED LIST changes: +CEFT1INJ57 IV; -FOLI1TAB7 PO; +FOLI1TAB8 PO; -MAGN400T6 PO; +METR-163 PO; +NVLGI/PEN SQ; +SLWMEC PO
[2017-04-10 13:00] LABS: BASO % 0.2 %; BASO ABS # 0.02 K/uL (0-0.2); EOS % 2.2 %; HEMOGLOBIN 12.8 g/dL (14.0-18.0); IG# 0.03 K/uL (0.00-0.02); LYMPH % 14.2 %; MEAN CELL VOLUME 86.1 fL (80-100); MEAN CORPUSCULAR HEMOGLOBIN 30.6 pg (25-34); MEAN CORPUSCULAR HGB CONC 35.6 g/dl (32-36); MEAN PLATELET VOLUME 9.2 fL (7.4-10.4); MONO % 8.5 %; MONO ABS # 0.78 K/uL (0.11-0.59); NEUT % 74.6 %; NEUT ABS # 6.85 K/uL (1.4-6.5); PLATELET COUNT 364 K/uL (130-400); RED CELL DISTRIBUTION WIDTH CV 14.4 % (11.5-14.5); RED CELL DISTRIBUTION WIDTH SD 45.5 fL (36.4-46.3); WHITE BLOOD COUNT 9.18 K/uL (4.8-10.8)
[2017-04-10 13:17] LABS: ALBUMIN 2.9 gm/dl (3.4-5.0); POTASSIUM 3.5 mmol/L (3.5-5.1)
[2017-04-10] MEDS ORDERED: ERGO500037 PO (13:23)
[2017-04-10] MEDS ORDERED: CHOL1000 PO (13:23)
[2017-04-10] MEDS ORDERED: NVLG SC (13:23)
[2017-04-10] MEDS ORDERED: GLIP10TA3 PO (13:23)
--- NOTE | 2017-04-10 13:40 | DIAGNOSTIC IMAGING REPORT ---
R FOOT MIN 3 VIEWS ROUTINE CLINICAL HISTORY: R foot infection. 2nd toe excision 3 weeks ago. COMPARISON: 02/19/2017 DISCUSSION: Evidence for resection of the phalanges of the second toe as well as the distal aspect of the second metatarsal. The residual proximal second metatarsal shows evidence for callus formation and potential early destructive changes involving the medial aspect of the residual distal shaft. Moderate soft tissue edema with radiopaque densities are identified overlying the first metatarsophalangeal joint. It well-defined obstructive process at that site is not seen. Components of this potentially relate to debris or antibiotic pellets in the bony space. Lateral projection appear to confirm this finding. The third fourth and fifth toes show no acute abnormality. IMPRESSION: 1. Postoperative changes second toe as described. 2. Potential early osteomyelitis involving the residual second metatarsal as discussed. 3. Plantar soft tissue ulceration with radiopaque densities within the wound as discussed above. This is immediately ventral to the first metatarsophalangeal joint The above report was generated using voice recognition software. It may contain grammatical, syntax or spelling errors. Electronically signed by: Ever Jovel M.D. 04/10/2017 1:39 PM Dictated Date/Time: 04/10/2017 1:36 PM
[2017-04-10] MEDS ORDERED: CEFEPIME IV 2,000 MG in SYRINGE 7.5 ML IV STA (13:55)
[2017-04-10] MEDS ORDERED: VANCOMYCIN INJ 2,250 MG in SODIUM CHLORIDE 0.9% 500ML 500 ML IV STA (13:56)
[2017-04-10] MEDS ORDERED: INSULIN HUMAN REGULAR PER UNIT 5 UNITS in SYRINGE 4.95 ML IV STA (13:59)
[2017-04-10] MEDS ORDERED: CLINDAMYCIN IV 900 MG in DEXTROSE 5% 100ML 100 ML IV STA (14:36)
[2017-04-10] MEDS ORDERED: GLUCOSE 10 TABS/TUBE PO PRN (15:30)
[2017-04-10] MEDS ORDERED: GLUCOSE 40% GEL 15 GM TUBE PO PRN (15:30)
[2017-04-10] MEDS ORDERED: GLUCAGON FOR INJ 1 MG VIAL SQ PRN (15:30)
[2017-04-10] MEDS ORDERED: ACETAMINOPHEN 325 MG TAB PO PRN (15:30)
[2017-04-10] MEDS ORDERED: DEXTROSE 50% 50 ML SYR IV PRN (15:30)
[2017-04-10] MEDS ORDERED: PHARMACY GLYCEMIC MGMT CONSULT PRN (15:37)
--- NOTE | 2017-04-10 15:58 | History and Physical ---
History & Physical Date & Time of Service: Apr 10, 2017 at 15:43 Chief Complaint: Bad Toe Primary Care Physician: Dionicio Emmanuel D.O. History of Present Illness Source: patient, clinic records, hospital records This is a 66yo M with a PMH of uncontrolled DM II, PVD, CAD (s/p CABG x 4 in 2011), paroxysmal A Fib, alcohol abuse, systolic HF and recently amputated R 2nd toe who presents for evaluation of R foot. Patient was transferred from [facility] to [facility] on 02/08-02/18 for amputation of right 2nd toe 2/2 necrotizing fasciitis and gangrene. Transferred to [facility] from 02/18-03/26 for IV antibiotics (rocephin and flagyl) and wound care. Was discharged home with brother and home health. Had a follow-up wound care appointment in [place] on 04/07 as well as an appt [place] the [place] on 04/08 and did not go to either appointment. Has not been changing dressing on his R foot. States that his foot has been discolored since the procedure in [place]. Was evaluated by home health today, who examined his wound and then sent him into ER for further evaluation. Denies any fever, chills, CP, SOB, abdominal pain, nausea, vomiting, LE swelling. Denies any numbness or pain in R foot. Denies any purulent drainage or odor. Has uncontrolled diabetes and has not been checking BS due to glucometer being out of batteries. Manages his own medications and ambulates without assistive devices. Is followed by [facility] case management and has recently been offered assisted living at [facility] and patient declined. Past Medical/Surgical History Medical Problems: (1) Alcohol abuse Status: Chronic (2) Atrial fibrillation Status: Chronic (3) CAD (coronary artery disease) Permanent Comment: s/p CABG in 2011 Status: Chronic (4) CKD (chronic kidney disease) stage 3, GFR 30-59 ml/min Status: Chronic (5) Decubitus ulcer Permanent Comment: R buttock Status: Chronic (6) Diabetes mellitus type 2 in obese Status: Chronic (7) Dyslipidemia Status: Chronic (8) H/O CHF Permanent Comment: systolic 2* CAD Status: Chronic (9) HTN (hypertension) Status: Chronic (10) Obesity Status: Chronic (11) RBBB Status: Chronic Surgical Problems: (1) H/O pericardiectomy Permanent Comment: 2012 Status: Resolved (2) History of total knee arthroplasty Permanent Comment: Left Status: Resolved (3) S/P CABG x 4 Permanent Comment: 2011 Status: Resolved Family History FH: HTN (hypertension) FH: diabetes mellitus FHx: heart disease Social History Smoking Status: Never Smoker Alcohol Use: heavy (H/o alcohol abuse. States that last drink was a week ago. ) Drug Use: none Marital Status: single Housing status: lives with family Occupational Status: disabled Immunizations History of Influenza Vaccine: No Influenza Vaccine Date: Jul 01, 2011 History of Tetanus Vaccine?: No History of Pneumococcal: No Pneumococcal Date: Jul 01, 2011 History of Hepatitis B Vaccine: No Multi-Drug Resistant Organisms History of MDRO: No Allergies Coded Allergies: JET Inhibitors (Verified Allergy, Unknown, 04/10/17) Penicillins (Verified Allergy, Unknown, RASH A CHILD, 04/10/17) Home Medications Scheduled Ascorbic Acid (Vitamin C), 250 MG PO BID Aspirin (Aspirin Chewable), 81 MG PO DAILY Atorvastatin (Lipitor), 80 MG PO DAILY Carvedilol (Coreg), 0.5 TAB PO BID Cholecalciferol (Vitamin D3), 1 TAB PO DAILY Diltiazem Hcl Coated Beads (Diltiazem Hcl Er), 60 MG PO Q8 Ergocalciferol (Vitamin D 51662 Unit), 50,000 UNIT PO Thursday Folic Acid (Folvite), 1 MG PO DAILY Furosemide (Lasix), 40 MG PO DAILY Glipizide (Glucotrol), 10 MG PO BID Insulin Aspart (Novolog Flexpen), 8 UNITS SQ LUNCH Insulin Aspart (Novolog), 10 UNITS SC BREAKFAST Insulin Glargine (Lantus), 40 UNITS SC HS Losartan Potassium (Cozaar), 50 MG PO DAILY Magnesium Chloride (Slow-Mag Tab), 535 MG PO DAILY Metformin Hcl (Glucophage), 1,000 MG PO BID Potassium Ext Rel (Klor-Con), 20 MEQ PO BID Spironolactone (Aldactone), 25 MG PO DAILY Thiamine Hcl (Vitamin B-1), 100 MG PO DAILY Review of Systems Ten systems reviewed and negative except as noted in the HPI. Physical Exam Vital Signs Date Time Temp Pulse Resp B/P (MAP) Pulse Ox O2 Delivery O2 Flow Rate FiO2 04/10/17 15:21 86 20 105/66 95 Room Air 04/10/17 13:49 78 20 166/74 96 Room Air 04/10/17 12:01 36.3 89 18 121/79 96 Room Air General Appearance: no apparent distress, + pertinent finding (disheveled appearance) Head: normocephalic, atraumatic Eyes: normal inspection, PERRL, sclerae normal ENT: normal ENT inspection, hearing grossly normal, pharynx normal Neck: supple, thyroid normal, trachea midline Respiratory/Chest: chest non-tender, lungs clear, normal breath sounds, no respiratory distress, no accessory muscle use Cardiovascular: regular rate, rhythm, normal peripheral pulses, + systolic murmur Abdomen/GI: non tender, soft, no organomegaly Back: normal inspection Extremities/Musculoskelatal: no calf tenderness, no pedal edema, + pertinent finding (R foot with eschar/necrosis on plantar aspect of great toe. Deeply ulcerated area of metatarsal near amputation site of 2nd toe. Purulant drainage. R foot erythematous, warm to touch. Bilateral LE with evidence of venous stasis, excoriated skin. ) Neurologic/Psych: no motor/sensory deficits, alert, normal mood/affect, oriented x 3, + depressed affect Skin: normal color, warm/dry Diagnostics Laboratory Results Results Past 24 Hours Test 04/10/17 12:39 04/10/17 13:07 04/10/17 15:21 Range/Units White Blood Count 9.18 4.8-10.8 K/uL Red Blood Count 4.18 4.7-6.1 M/uL Hemoglobin 12.8 14.0-18.0 g/dL Hematocrit 36.0 42-52 % Mean Corpuscular Volume 86.1 80-100 fL Mean Corpuscular Hemoglobin 30.6 25-34 pg Mean Corpuscular Hemoglobin Concent 35.6 32-36 g/dl Platelet Count 364 130-400 K/uL Mean Platelet Volume 9.2 7.4-10.4 fL Neutrophils (%) (Auto) 74.6 % Lymphocytes (%) (Auto) 14.2 % Monocytes (%) (Auto) 8.5 % Eosinophils (%) (Auto) 2.2 % Basophils (%) (Auto) 0.2 % Neutrophils # (Auto) 6.85 1.4-6.5 K/uL Lymphocytes # (Auto) 1.30 1.2-3.4 K/uL Monocytes # (Auto) 0.78 0.11-0.59 K/uL Eosinophils # (Auto) 0.20 0-0.5 K/uL Basophils # (Auto) 0.02 0-0.2 K/uL RDW Standard Deviation 45.5 36.4-46.3 fL RDW Coefficient of Variation 14.4 11.5-14.5 % Immature Granulocyte % (Auto) 0.3 % Immature Granulocyte # (Auto) 0.03 0.00-0.02 K/uL Sodium Level 133 136-145 mmol/L Potassium Level 3.5 3.5-5.1 mmol/L Chloride Level 97 98-107 mmol/L Carbon Dioxide Level 29 21-32 mmol/L Anion Gap 7.0 3-11 mmol/L Blood Urea Nitrogen 12 7-18 mg/dl Creatinine 1.00 0.60-1.40 mg/dl Est Creatinine Clear Calc Drug Dose 83.8 ml/min Estimated GFR () 91.8 Estimated GFR (Non- 79.2 BUN/Creatinine Ratio 12.0 10-20 Random Glucose 278 70-99 mg/dl Calcium Level 9.0 8.5-10.1 mg/dl Total Bilirubin 0.9 0.2-1 mg/dl Aspartate Amino Transf (AST/SGOT) 8 15-37 U/L Alanine Aminotransferase (ALT/SGPT) 13 12-78 U/L Alkaline Phosphatase 106 45-117 U/L Total Protein 8.0 6.4-8.2 gm/dl Albumin 2.9 3.4-5.0 gm/dl Globulin 5.1 2.5-4.0 gm/dl Albumin/Globulin Ratio 0.6 0.9-2 Bedside Lactic Acid Venous 1.21 0.90-1.70 mmol/L Microbiology Results 04/10/17 Blood Culture, Received Pending 04/10/17 Blood Culture, Received Pending 04/10/17 Gram Stain, Nesha Batch Pending 04/10/17 Wound Culture, Nesha Batch Pending Diagnostic Radiology R foot XR: IMPRESSION: 1. Postoperative changes second toe as described. 2. Potential early osteomyelitis involving the residual second metatarsal as discussed. 3. Plantar soft tissue ulceration with radiopaque densities within the wound as discussed above. This is immediately ventral to the first metatarsophalangeal joint CXR normal Impression Assessment and Plan This is a 66yo M with a PMH of uncontrolled DM II, PVD, CAD (s/p CABG x 4 in 2011), paroxysmal A Fib, alcohol abuse, systolic HF and recently amputated R 2nd toe who presents for evaluation of R foot. R foot osteomyelitis: -Foot XR with possible evolving osteo of residual 2nd metatarsal -S/p 2nd toe amputation 02/09 at [facility] 2/2 nec fasc/gangrene -Did not attend follow up appointments -Sent over by home health for evaluation of possible necrosis of R great toe -Ortho, ID, wound provider consulted -R foot MRI ordered -Blood and wound cultures pending -Broad spectrum abx coverage (cefepime, vancomycin, clindamycin) DM II: -Uncontrolled -Hgb a1c of 10.9 in Feb 2017 -BG 278 on arrival -Held home agents -Basal/bolus regimen initiated -Glycemic consult CAD (s/p CABG x 4 in 2011): -Stable. Denies CP, SOB -EKG pending - Cont aspirin, statin, coreg Chronic systolic HF: -Compensated -CXR wnl -Echo (2015) with EF 40-45%, septal motion consistent with conduction abn -Continue lasix, spironolactone, coreg, losartan H/o paroxysmal A Fib: -Sinus rhythm -EKG pending -Cont diltiazem H/o alcohol abuse: -Last reported drink 1 week ago -Withdrawal protocol ordered as a precaution -Cont home dose thiamine, folic acid DVT Ppx: Heparin SQ Code status: FULL PCP: Shunk Dispo: Admitted to [facility]. Discharge planning ordered due to patient receiving home health Patient seen in collaboration with Dr. Duarte. Please see addendum. ATTENDING ADDENDUM : pt seen and examined , care co ordinated with Dee Carias PA-C 66 yo male with multiple co morbidities including CAD s/p CABG , type 2 DM , poorly compliant presents with non healing diabetic foot /wound infection pt is s/p recent amputation of rt 2nd toe in [place] due to infected , gangrenous toe was in [facility] for [facility] briefly has not been following with wound care presents with foul smelling , large purulent open wound at rt 2nd inter digit space , Xray of rt foot shows osteomyelitis pt appears to be very indifferent regarding his disease process INFECTED DIABETIC FOOT WOUND : no evidence of sepsis -vitals stable, normal white count ,no fever wound and blood cultures ordered empiric Abx with Cefepime , vancomycin , Clindamycin -ID eval MRI Of rt foot with contrast wound care consult Ortho eval requested , pt may need transmetatarsal amputation TYPE 2 DM : poorly controlled BSG elevated in setting of infected wound /questionable compliance for diabetic meds insulin SSI /Lantus pharmacy consulted for glycemic management FULL CODE DVT PROPHYLAXIS : moderate to high risk sub q heparin please refer to documentation of Dee Carias PA-C for further discussion of other issues Samantha Duarte MD Level of Care Med/Surg Resuscitation Status FULL RESUSCITATION VTE Prophylaxis VTE Risk Assessment Done? Y/N: Yes Risk Level: Moderate Given or contraindicated: Unfractionated heparin SQ Social Service Consult Receiving Home Health
[2017-04-10] MEDS ORDERED: GABAPENTIN 600 MG TAB PO SCH (16:00)
[2017-04-10] MEDS ORDERED: LORAZEPAM 1 MG TAB PO PRN (16:00)
[2017-04-10 16:04] LABS: INR 1.1 (0.9-1.1); PTT PATIENT 29.6 SECONDS (21.0-31.0)
[2017-04-10] MEDS ORDERED: LOSA50TA6 PO (16:04)
[2017-04-10] MEDS ORDERED: ASPCH81X PO (16:04)
[2017-04-10] MEDS ORDERED: FURO40TA3 PO (16:04)
[2017-04-10] MEDS ORDERED: SLWMEC PO (16:04)
--- NOTE | 2017-04-10 16:41 | DIAGNOSTIC IMAGING REPORT ---
CHEST ONE VIEW PORTABLE CLINICAL HISTORY: History of congestive heart failure. COMPARISON STUDY: Chest radiograph February 19, 2017. FINDINGS: There are median sternotomy wires and clips from bypass grafting. There is no pneumothorax. Pulmonary vascularity is normal. No pleural effusion is identified. Moderate cardiomegaly is unchanged. No consolidation is identified to suggest pneumonia. IMPRESSION: No acute cardiopulmonary findings. Stable cardiomegaly without evidence of pulmonary edema. Electronically signed by: Nemesio Lopez M.D. 04/10/2017 4:39 PM Dictated Date/Time: 04/10/2017 4:37 PM
--- NOTE | 2017-04-10 17:54 | EMERGENCY ROOM VISIT NOTE ---
ED Visit Note First contact with patient: 17:50 I did evaluate and examine this patient myself. I did guide management for the patient. I agree with the APC's assessment as discussed. Please see the APC's dictation for further details. I did independently review the x-rays and blood work. The patient has osteomyelitis and will be admitted to the hospital.
[2017-04-10 18:15] VITALS: BP 121/71; PULSE 85; TEMP 36.5; O2SAT 96
[2017-04-10] MEDS ORDERED: CARV6.252 PO (18:33)
[2017-04-10] MEDS ORDERED: GABAPENTIN 1200MG LOADING DOSE PO SCH (20:00)
[2017-04-10] MEDS: INSULIN ASPART 100 UNITS/ML 3 ML PEN SC SCH ×2 (20:05→21:57)
--- NOTE | 2017-04-10 20:51 | EMERGENCY ROOM VISIT NOTE ---
History First contact with patient: 12:36 Chief Complaint: TOE PAIN, INJURY Stated Complaint: TOE OSTEOMYELITIS, RIGHT History of Present Illness The patient is a 66 year old male who presents to the Emergency Room via private vehicle referred by nurse with complaints of "bad toe". The patient states that he has diabetes, and recently had to have a extraction/surgical removal of the right second digit. This is of the foot. This is about 2-3 weeks ago performed at [facility]. He states that since then he notes the foot does not look any different but was evaluated today by a nurse who felt as though it may be infected therefore sent him here. There has been drainage. He has been walking on it unbandaged foot. He denies any fevers or chills. He denies any pain. Review of Systems A complete 10-point Review of Systems was discussed with the patient, with pertinent positives and negatives listed in the History of Present Illness. All remaining Review of Systems questions can be considered negative unless otherwise specified. Past Medical/Surgical History Medical Problems: (1) Alcohol abuse (2) Atrial fibrillation (3) CAD (coronary artery disease) (4) CKD (chronic kidney disease) stage 3, GFR 30-59 ml/min (5) Decubitus ulcer (6) Diabetes mellitus type 2 in obese (7) Dyslipidemia (8) H/O CHF (9) HTN (hypertension) (10) Obesity (11) RBBB Surgical Problems: (1) H/O pericardiectomy (2) History of total knee arthroplasty (3) S/P CABG x 4 Social History Problems: (1) Pancreatitis Family History FH: HTN (hypertension) FH: diabetes mellitus FHx: heart disease Social History Smoking Status: Never Smoker Alcohol Use: other Drug Use: none Marital Status: single Housing Status: lives with family Occupation Status: disabled Current/Historical Medications Scheduled Ascorbic Acid (Vitamin C), 250 MG PO BID Aspirin (Aspirin Chewable), 81 MG PO DAILY Atorvastatin (Lipitor), 80 MG PO DAILY Carvedilol (Coreg), 0.5 TAB PO BID Cholecalciferol (Vitamin D3), 1 TAB PO DAILY Diltiazem Hcl Coated Beads (Diltiazem Hcl Er), 60 MG PO Q8 Ergocalciferol (Vitamin D 70224 Unit), 50,000 UNIT PO Thursday Folic Acid (Folvite), 1 MG PO DAILY Furosemide (Lasix), 40 MG PO DAILY Glipizide (Glucotrol), 10 MG PO BID Insulin Aspart (Novolog Flexpen), 8 UNITS SQ LUNCH Insulin Aspart (Novolog), 10 UNITS SC BREAKFAST Insulin Glargine (Lantus), 40 UNITS SC HS Losartan Potassium (Cozaar), 50 MG PO DAILY Magnesium Chloride (Slow-Mag Tab), 535 MG PO DAILY Metformin Hcl (Glucophage), 1,000 MG PO BID Potassium Ext Rel (Klor-Con), 20 MEQ PO BID Spironolactone (Aldactone), 25 MG PO DAILY Thiamine Hcl (Vitamin B-1), 100 MG PO DAILY Physical Exam Vital Signs Date Time Temp Pulse Resp B/P (MAP) Pulse Ox O2 Delivery O2 Flow Rate FiO2 04/10/17 13:49 78 20 166/74 96 Room Air 04/10/17 12:01 36.3 89 18 121/79 96 Room Air Physical Exam VITAL SIGNS - Vital signs and nursing notes were reviewed. Stable. GENERAL - 66-year-old male appearing his stated age who is in no acute distress. Communicates well with provider and answers questions appropriately. SKIN - the right foot has a serious wound. There is black necrosis looking tissue overlying the lateral aspect of the right first/great toe, and in the region where the second toe was removed and there is a large divot of tissue exposing a yellowish brown discharge. This is foul-smelling. EXTREMITIES - No clubbing or peripheral cyanosis. No pretibial edema present. Skin noted above. Medical Decision & Procedures ER Provider Diagnostic Interpretation: R FOOT MIN 3 VIEWS ROUTINE CLINICAL HISTORY: R foot infection. 2nd toe excision 3 weeks ago. COMPARISON: 02/19/2017 DISCUSSION: Evidence for resection of the phalanges of the second toe as well as the distal aspect of the second metatarsal. The residual proximal second metatarsal shows evidence for callus formation and potential early destructive changes involving the medial aspect of the residual distal shaft. Moderate soft tissue edema with radiopaque densities are identified overlying the first metatarsophalangeal joint. It well-defined obstructive process at that site is not seen. Components of this potentially relate to debris or antibiotic pellets in the bony space. Lateral projection appear to confirm this finding. The third fourth and fifth toes show no acute abnormality. IMPRESSION: 1. Postoperative changes second toe as described. 2. Potential early osteomyelitis involving the residual second metatarsal as discussed. 3. Plantar soft tissue ulceration with radiopaque densities within the wound as discussed above. This is immediately ventral to the first metatarsophalangeal joint The above report was generated using voice recognition software. It may contain grammatical, syntax or spelling errors. Electronically signed by: Ever Jovel M.D. 04/10/2017 1:39 PM Dictated Date/Time: 04/10/2017 1:36 PM Laboratory Results Test 04/10/17 12:39 04/10/17 13:07 Immature Granulocyte % (Auto) 0.3 % White Blood Count 9.18 K/uL (4.8-10.8) Red Blood Count 4.18 M/uL (4.7-6.1) Hemoglobin 12.8 g/dL (14.0-18.0) Hematocrit 36.0 % (42-52) Mean Corpuscular Volume 86.1 fL (80-100) Mean Corpuscular Hemoglobin 30.6 pg (25-34) Mean Corpuscular Hemoglobin Concent 35.6 g/dl (32-36) Platelet Count 364 K/uL (130-400) Mean Platelet Volume 9.2 fL (7.4-10.4) Neutrophils (%) (Auto) 74.6 % Lymphocytes (%) (Auto) 14.2 % Monocytes (%) (Auto) 8.5 % Eosinophils (%) (Auto) 2.2 % Basophils (%) (Auto) 0.2 % Neutrophils # (Auto) 6.85 K/uL (1.4-6.5) Lymphocytes # (Auto) 1.30 K/uL (1.2-3.4) Monocytes # (Auto) 0.78 K/uL (0.11-0.59) Eosinophils # (Auto) 0.20 K/uL (0-0.5) Basophils # (Auto) 0.02 K/uL (0-0.2) Immature Granulocyte # (Auto) 0.03 K/uL (0.00-0.02) Prothrombin Time 11.3 SECONDS (9.0-12.0) Prothromb Time International Ratio 1.1 (0.9-1.1) Activated Partial Thromboplast Time 29.6 SECONDS (21.0-31.0) Partial Thromboplastin Ratio 1.1 Total Bilirubin 0.9 mg/dl (0.2-1) Aspartate Amino Transf (AST/SGOT) 8 U/L (15-37) Alanine Aminotransferase (ALT/SGPT) 13 U/L (12-78) Alkaline Phosphatase 106 U/L (45-117) Total Protein 8.0 gm/dl (6.4-8.2) Albumin 2.9 gm/dl (3.4-5.0) Globulin 5.1 gm/dl (2.5-4.0) Albumin/Globulin Ratio 0.6 (0.9-2) Bedside Lactic Acid Venous 1.21 mmol/L (0.90-1.70) Medications Administered Medications (Trade) Dose Ordered Sig/Estee Route Start Time Stop Time Status Last Admin Dose Admin Cefepime HCl 2000 mg/Syringe 20 ml @ 5 mls/min NOW STAT IV 04/10/17 13:55 04/10/17 13:58 DC 04/10/17 14:48 5 MLS/MIN Vancomycin HCl 2250 mg/Sodium Chloride 545 ml @ 200 mls/hr NOW STAT IV 04/10/17 13:56 04/10/17 16:39 DC 04/10/17 14:52 200 MLS/HR Insulin Human Regular 5 units/ Syringe 5 ml @ 30 mls/min NOW STAT IV 04/10/17 13:59 04/10/17 14:00 DC 04/10/17 14:50 30 MLS/MIN Clindamycin Phosphate 900 mg/ Dextrose 106 ml @ 100 mls/hr NOW STAT IV 04/10/17 14:36 04/10/17 15:39 DC 04/10/17 14:51 100 MLS/HR Medical Decision Patient was seen and evaluated as above. He presents to us today with questionable osteomyelitis of his right foot as verified by x-ray performed here today. He is well on exam however I am concerned that he potentially could be septic therefore blood cultures were drawn. This was based solely on the clinical picture of his foot which appears to be severely infected. He was given vancomycin, cefepime and clindamycin. There is no significant leukocytosis. Hemoglobin of 12.8. Coags normal. Patient's metabolic panel reveals hyponatremia, okay kidney function and hyperglycemia at 278. Insulin given. Patient case was discussed with the attending physician, and subsequently the hospitalist. Please refer to further documentation regarding his stay. In evaluation treatment this patient following differential diagnoses were entertained: Osteomyelitis, necrotizing fasciitis, sepsis, infection, among others. Impression Primary Impression: Toe osteomyelitis, right Additional Impression: Hyperglycemia Departure Information Dispostion Admitted as an inpatient Condition FAIR Referrals Dionicio Emmanuel D.O. (PCP) Forms WORK / SCHOOL INSTRUCTIONS, HOME CARE DOCUMENTATION FORM, IMPORTANT VISIT INFORMATION Patient Instructions [facility] Problem Qualifiers
[2017-04-10 21:00] VITALS: Ht 172.7 cm; Wt 99.9 kg
[2017-04-10] MEDS ORDERED: CARVEDILOL 6.25 MG TAB PO SCH (21:00)
[2017-04-10] MEDS ORDERED: CARVEDILOL 3.125 MG TAB PO SCH (21:00)
[2017-04-10] MEDS ORDERED: GADAVIST IV PRN (21:00)
[2017-04-10] MEDS ORDERED: INSULIN GLARGINE SOLOSTAR 100 UNITS/ML 3 ML PEN SC SCH (21:00)
[2017-04-10] MEDS: CARVEDILOL 6.25 MG TAB PO SCH (21:42)
[2017-04-10] MEDS: POTASSIUM CHLORIDE 20 MEQ TABCR PO SCH (21:44)
[2017-04-10] MEDS: DILTIAZEM HCL 60 MG TAB PO SCH (21:48)
[2017-04-10] MEDS: ASCORBIC ACID 500 MG TAB PO SCH (21:49)
--- NOTE | 2017-04-10 21:52 | DIAGNOSTIC IMAGING REPORT ---
LOWER EXT NONJOINT COMBO HISTORY: 66 years-old Male Osteomyelitis of R foot follow-up study in a patient with right second digit osteomyelitis COMPARISON: Right foot radiographs 02/19/2017 and 04/10/2017, right foot MRI and right foot CT 02/08/2017. TECHNIQUE: Multiplanar multisequence MRI of the right foot was obtained both with and without the use of 9.5 mL Gadavist. FINDINGS: Several of the sequences are severely motion degraded which limits the study. Postoperative changes compatible with prior amputation of the second digit at the level of the distal diaphyseal second metatarsal. Erosive changes with decreased T1 and increased T2/STIR signal of the second metatarsal are noted extending to the proximal metaphyseal portion of the metatarsal, 1.2 cm from the articular base as seen on image 15 series 3. Periostitis with cortical destruction noted within this distribution. Moderate periostitis is noted along the lateral margin of the first metatarsal as seen on image 25 series 8, also present on comparison radiographs of same day. There is moderate patchy bone marrow edema throughout the first metatarsal without evidence of cortical destruction or significant decreased T1 marrow signal at this time. Moderate bone marrow edema of the third metatarsal phalangeal joint, proximal and middle phalanges noted with mild periostitis noted along the medial margin of the third metatarsal near the distal metaphysis. Mild bone marrow edema of the fourth and fifth metatarsals and phalanges likely reactive. Scattered moderate bone marrow edema throughout the midfoot and hindfoot is also noted, likely reactive. Moderate muscular atrophy. There is severe intramuscular enhancing edema throughout the lower leg and foot. Moderate subcutaneous edema also noted. No definite acute fracture. Thickening of the proximal plantar fascia is only partially imaged suggesting chronic plantar fasciitis. There is a peripherally enhancing complex collection along the plantar surface of the foot at the level of the midshaft metatarsals extending from the first webspace to the fourth metatarsal measuring 5.1 x 3.4 x 1.4 cm nicely seen on image 37 series 9 and image 28 series 12. Mild fluid surrounding the adjacent flexor tendon suggests associated infectious tenosynovitis. Ulcer along the medial plantar surface of the first digit near the metatarsal phalangeal joint is noted with micrometallic artifact. IMPRESSION: 1. Prior partial amputation of the second digit at the level of the distal diaphyseal second metatarsal. There is now acute extensive osteomyelitis involving the majority of the second metatarsal extending within 1.2 cm of the metatarsal base. 2. Moderate bone marrow edema with periostitis involving the first and third metatarsals is noted in addition to moderate bone marrow edema of the first and third proximal middle and phalanges suggesting reactive changes or early acute osteomyelitis. Follow-up recommended. 3. Extensive cellulitis with severe and extensive diffuse myositis throughout the foot. Peripherally enhancing 5.1 cm collection along the plantar surface of the foot extending from the first webspace to the fourth metatarsal suggests abscess. 4. Medial plantar ulcer of the first digit adjacent to the metatarsal phalangeal joint is noted with associated micrometallic artifact correlating with radiodense debris noted on comparison radiographs. 5. Motion degraded study. The above report was generated using voice recognition software. It may contain grammatical, syntax or spelling errors. Electronically signed by: Lan García M.D. 04/10/2017 9:51 PM Dictated Date/Time: 04/10/2017 9:18 PM
[2017-04-10] MEDS: HEPARIN SOD 5000 UNIT/0.5 ML CARP SQ SCH (21:58)
[2017-04-10] MEDS: SPIRONOLACTONE 25 MG TAB PO SCH (22:24)
[2017-04-10] MEDS: THIAMINE HCL 100 MG TAB PO SCH (22:25)
[2017-04-10] MEDS: ATORVASTATIN 40 MG TAB PO SCH (22:25)
[2017-04-10 23:02] VITALS: BP 130/81; PULSE 96; TEMP 36.7; O2SAT 95
[2017-04-11] MEDS: GABAPENTIN 600MG Q6H DOSE PO SCH ×2 (02:29→09:10)
[2017-04-11 06:28] LABS: HEMATOCRIT 34.1 % (42-52); HEMOGLOBIN 11.8 g/dL (14.0-18.0); MEAN CELL VOLUME 87.7 fL (80-100); MEAN CORPUSCULAR HEMOGLOBIN 30.3 pg (25-34); MEAN CORPUSCULAR HGB CONC 34.6 g/dl (32-36); MEAN PLATELET VOLUME 9.3 fL (7.4-10.4); PLATELET COUNT 336 K/uL (130-400); RED CELL DISTRIBUTION WIDTH CV 14.5 % (11.5-14.5); RED CELL DISTRIBUTION WIDTH SD 46.1 fL (36.4-46.3); WHITE BLOOD COUNT 6.06 K/uL (4.8-10.8)
[2017-04-11 07:01] LABS: CALCIUM 8.5 mg/dl (8.5-10.1); CREATININE 0.88 mg/dl (0.60-1.40); POTASSIUM 3.1 mmol/L (3.5-5.1)
[2017-04-11 07:25] LABS: HEMOGLOBIN A1C 7.1 % (4.5-5.6)
[2017-04-11 07:57] VITALS: BP 115/72; PULSE 87; TEMP 37; O2SAT 91
[2017-04-11] MEDS ORDERED: INSULIN GLARGINE SOLOSTAR 100 UNITS/ML 3 ML PEN SC SCH (09:00)
[2017-04-11] MEDS ORDERED: CEFEPIME IV 2,000 MG in DEXTROSE 5% 100ML 100 ML IV SCH (09:00)
[2017-04-11] MEDS: CEFEPIME IV 2,000 MG in SYRINGE 7.5 ML IV SCH ×2 (09:11→21:25)
[2017-04-11] MEDS: SPIRONOLACTONE 25 MG TAB PO SCH (09:13)
[2017-04-11] MEDS: DILTIAZEM HCL 60 MG TAB PO SCH ×3 (09:13→20:59)
[2017-04-11] MEDS: CARVEDILOL 6.25 MG TAB PO SCH ×2 (09:15→21:01)
[2017-04-11] MEDS: LOSARTAN POTASSIUM 50 MG TAB PO SCH (09:15)
[2017-04-11] MEDS: ASPIRIN 81 MG ECTAB PO SCH (09:15)
[2017-04-11] MEDS: FUROSEMIDE 40 MG TAB PO SCH (09:16)
[2017-04-11] MEDS: POTASSIUM CHLORIDE 20 MEQ TABCR PO SCH ×2 (09:16→20:59)
[2017-04-11] MEDS: ATORVASTATIN 40 MG TAB PO SCH (09:16)
[2017-04-11] MEDS: MAGNESIUM CHLORIDE 64MG DELAYED REL TAB PO SCH (09:17)
[2017-04-11] MEDS: THIAMINE HCL 100 MG TAB PO SCH (09:17)
[2017-04-11] MEDS: CHOLECALCIFEROL 1000 INTER.UNIT TAB PO SCH (09:17)
[2017-04-11] MEDS: ASCORBIC ACID 500 MG TAB PO SCH ×2 (09:18→21:00)
[2017-04-11] MEDS: HEPARIN SOD 5000 UNIT/0.5 ML CARP SQ SCH (09:28)
[2017-04-11] MEDS: INSULIN ASPART 100 UNITS/ML 3 ML PEN SC SCH ×4 (09:29→21:19)
[2017-04-11] MEDS ORDERED: VANCOMYCIN INJ 2,000 MG in SODIUM CHLORIDE 0.9% 500ML 500 ML IV ONE (09:30)
[2017-04-11] MEDS ORDERED: VANCOMYCIN CONSULT ACTIVE PRN (09:45)
[2017-04-11] MEDS ORDERED: CLINDAMYCIN IV 300 MG in DEXTROSE 5% 50ML 50 ML IV SCH (12:00)
[2017-04-11 13:45] VITALS: BP 105/68; PULSE 74; TEMP 36.5; O2SAT 94
--- NOTE | 2017-04-11 14:00 | ORTHOPEDIC CONSULTATION ---
DATE OF CONSULTATION: 04/11/2017 HISTORY OF PRESENT ILLNESS: The patient is seen in consultation by request of Dr. Duarte and Dr. Leonardo for right foot osteomyelitis and gangrene. Apparently, the patient had a previous admission to [facility] in February with evaluation by Dr. Eli from orthopedics. CT scan positive for gas in the tissues of the second toe and foot with tracking into the flexor hallucis longus at the level of the ankle. The patient was transferred to [facility] for an amputation and partial ray resection of the second toe and partial metatarsal. He was treated for necrotizing fasciitis and gangrene. The patient was then discharged to [facility] from February 18 to March 26 for IV antibiotics, Rocephin, Flagyl, and wound care. He was discharged home with his brother and home health. The patient had a followup wound care appointment in [place] on March 08 and did not go to the appointment. The [place] the [place] 09 and did not go to that appointment. He has been changing his dressings on his right foot on his own. He states that the foot has been discolored since the procedure in [place]. Home health and agency nurse saw his wound and then sent him to the ER at [facility] for further evaluation. The patient denies any fevers, chills, nausea, vomiting, chest pain or any other constitutional symptoms. He has limited if any sensation that he can account for in his feet. He has had diabetes mellitus for approximately 5 years. He has been treated for approximately the last 3 years. PAST MEDICAL HISTORY: Diabetes mellitus type 2, peripheral vascular disease, coronary artery disease, paroxysmal AFib, alcohol abuse, systolic heart failure, recent amputation of his right second toe and partial second ray. Chronic kidney disease stage III, decubitus ulcer on his right buttock, dyslipidemia, history of CHF, hypertension, mild obesity, right bundle-branch block. PAST SURGICAL HISTORY: History of left total knee arthroplasty, history of pericardiectomy, CABG x4 in 2011, amputation of the right second toe with partial ray resection in February 2017. ALLERGIES: JET INHIBITORS, PENICILLIN. MEDICATIONS: Please note the extensive list provided in the medical record in addition to IV antibiotics as listed. 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 He denies cigarette use; however, he did use lip tobacco for many years. He quit when he had his CABG. He drinks alcohol regularly. Denies drug use. He is single, has no children, lives with his brother. PHYSICAL EXAMINATION: GENERAL: This is a 66-year-old gentleman lying supine in his hospital room bed. He is alert and oriented x3. His speech is clear and fluent. EXTREMITIES: Examination of the lower extremities demonstrates multiple excoriations in bilateral lower extremities. No calf tenderness. He has right foot with necrotic features and gangrene of the plantar and distal aspect of the right great toe. He has an open wound of the mid foot extending distally along the second ray at the site of previous partial ray resection. He has a foul odor and purulent discharge from the incision site and also the distal plantar foot. He has mild erythema on the right foot. He has bilateral venous stasis changes with palpable pulses 1+/4 bilaterally for dorsalis pedis and posterior tibial pulses. He has limited sensation from the hindfoot extending distally for both feet; however, it is more profoundly affected on the right and the left with diminished sensation on the right. He has scant hair growth in the bilateral lower extremities. The feet are in room temperature with palpation. LABORATORIES: Reviewed. Radiographs demonstrate partial second ray amputation, osteopenia and degenerative changes throughout the forefoot and midfoot. MRI demonstrates likely abscess collection in the plantar mid foot extending along the flexor tendon sheath of the flexor compartment with a partial second ray resection and features suggesting osteomyelitis or at least periostitis of the first metatarsophalangeal region as well as the residual second metatarsal. IMPRESSION: 1. Right great toe distal gangrene. 2. Plantar abscess, right foot with suppurative flexor tenosynovitis. 3. Possible osteomyelitis of the first ray and peripheral vascular disease and diabetic neuropathy. RECOMMENDATION: We will review arterial and venous Doppler studies of the right lower extremity with ankle brachial indices to determine if surgical course would be more appropriate for I&D with evacuation of abscess versus transmetatarsal amputation versus a below-knee amputation based upon vascular perfusion of the right lower extremity. We will follow with you, maintain nonweightbearing, maintain daily dressing changes. [facility]
[2017-04-11] MEDS ORDERED: VANCOMYCIN INJ 1,500 MG in SODIUM CHLORIDE 0.9% 500ML 500 ML IV SCH (14:45)
--- NOTE | 2017-04-11 15:29 | Pharmacy Progress Note ---
Pharmacy Glycemic Short Note 2 Date of Service Apr 11, 2017. OUTPATIENT ANTIDIABETIC REGIMEN: * Lantus 40 units SQ HS * Novolog 10 units with breakfast and 8 units with lunch * Glipizide 10 mg BID + metformin 1000 mg BID * A1c 7.1% (04/11/17) ASSESSMENT: * 66 yr old T2DM male admitted with right foot osteomyelitis and gangrene. * Patient takes basal insulin once daily at HS. Basal insulin was split into BID dosing yesterday for easier titration incase patient would require surgery. * Fasting BSG elevated today at 225 mg/dL (likely due to basal insulin deficiency) - will give a one time Lantus dose based on wt/stress 3 this morning. * Prandial BSGs are also elevated - will tighten CR/CR PLAN FOR INPATIENT GLYCEMIC CONTROL: * Hold outpatient oral diabetes medications * Basal insulin - increase * Lantus 25 units SQ this am, then 16-20 units SQ BID * 16 units for BSG less than 160 mg/dL * 20 units for BSG 160 mg/dl or more * Bolus insulin - tighten * NovoLog per scale ACHS or Q6hrs while NPO * Goal Range: Low 110 mg/dL - High 140 mg/dL * Correction Factor: 15 mg/dL/unit * Nutritional / Prandial insulin per carb ratio of 1 unit per 6 grams CHO consumed Thank you.
[2017-04-11 15:36] VITALS: BP 105/71; PULSE 67; TEMP 36.4; O2SAT 93
--- NOTE | 2017-04-11 16:48 | Pharmacy Progress Note ---
Pharmacy Abx Initial Consult Date of Service Apr 11, 2017. Pharmacy Dosing Scope Date of Consult: 04/11/17 Consultation requested by: Dr. Duarte Pharmacy is consulted to initiate Vancomycin IV dosing therapy, order appropriate labs and adjust drug dose/frequency. Subjective The patient is a 66 year old male admitted on Apr 10, 2017 at 15:16. Objective Height (Feet): 5 Height (Inches): 8.00 Weight (Kilograms): 95.900 Vital Signs (Past 12Hrs) Vital Signs Past 12 Hours Date Time Temp Pulse Resp B/P (MAP) Pulse Ox O2 Delivery O2 Flow Rate FiO2 04/11/17 15:36 36.4 67 16 105/71 (82) 93 Room Air 04/11/17 13:45 36.5 74 16 105/68 (80) 94 Room Air 04/11/17 08:00 Room Air 04/11/17 07:57 37.0 87 17 115/72 (86) 91 Room Air Lab Results (24Hrs) Item Value Date Time Creatinine 0.88 mg/dl 04/11/1731 Est Creatinine Clear Calc Drug Dose 95.2 ml/min 04/11/17 0531 Estimated GFR () 105.2 04/11/17 0531 Estimated GFR (Non- 90.8 04/11/17 0531 Laboratory Tests (24 Hours) Test 04/11/17 05:31 04/11/17 06:27 White Blood Count 6.06 K/uL (4.8-10.8) Erythrocyte Sedimentation Rate 70 mm/hr (0-14) H Lactic Acid Level 0.9 mmol/L (0.4-2.0) Procalcitonin < 0.05 ng/ml (0-0.5) Micro Results Date/Time Source Procedure Growth Status 04/10/17 12:56 Blood Blood Culture Pending Received 04/10/17 12:39 Blood Blood Culture Pending Received 04/10/17 14:00 Drainage - Surface Toe Right 2 Gram Stain - Final Resulted 04/10/17 14:00 Wound Culture - Preliminary Staphylococcus Aureus Group B Beta Strep Resulted Risk Factors for Resistance * Resident in a senior living or extended-care facility -Stay at [facility] for IV antibiotics (Rocephin/Flagyl) s/p amputation of r toe * Hospitalization for 48 hours or more within the past 90 days * Antimicrobial use within the last 90 days Assessment & Plan Assessment 66 year old male with a PMH of uncontrolled DM II, PVD, CAD (s/p CABG x 4 in 2011), paroxysmal A Fib, alcohol abuse, systolic HF and recently amputated R 2nd toe who presents for evaluation of R foot. R foot osteomyelitis: -Foot XR with possible evolving osteo of residual 2nd metatarsal -S/p 2nd toe amputation 02/09 at [facility] [place] 2/2 nec fasc/gangrene -Did not attend follow up appointments -Sent over by home health for evaluation of possible necrosis of R great toe -Ortho, ID, wound provider consulted -R foot MRI ordered -Blood and wound cultures pending -Broad spectrum abx coverage (cefepime, vancomycin, clindamycin) Plan Vancomycin for treatment of right toe wound with possible osteomyelitis. Patient received vancomycin 2,250mg IV x 1 in the ED 04/10/17 @14:52 which was 23.5mg/kg loading dose. More than a dosing interval had passed since loading dose so patient was given an additional loading dose of vancomycin 2,000mg IV x 1 04/11/17 @09:30 which was 20.8mg/kg. Patient is also receiving clindamycin 300mg IV q 8hrs and cefepime 2 grams IV q 12 hours. Pharmacy suggested clindamycin be increased to 600mg IV q 8 hrs. Vancomycin IV * Maintenance dose: 1500 mg IV (15.6 mg/kg) every 12 hours * Goal trough level for skin/soft tissue/osteomyeliltis : 15 to 20 mcg/mL * Trough/Random level ordered for 04/12/17 @ 09:30 * A less than traditional dose and/or extended dosing interval has/have been selected due to likelihood of drug accumulation in obese patient Pharmacy will continue to follow and will adjust dose/frequency as necessary. Thank you.
--- NOTE | 2017-04-11 17:21 | Progress Note ---
Medicine Progress Note Date & Time of Visit: Apr 11, 2017 at 15:10 . Subjective No fever. No foot pain. No chest pain. No cough or SOB. No nausea, vomiting, diarrhea. No urinary symptoms. . Objective Last 8 Hrs Date Time Temp Pulse Resp B/P (MAP) Pulse Ox O2 Delivery O2 Flow Rate FiO2 04/11/17 15:36 36.4 67 16 105/71 (82) 93 Room Air 04/11/17 13:45 36.5 74 16 105/68 (80) 94 Room Air Physical Exam: General- no distress Neck- no JVD Lungs- clear to auscultation; no respiratory distress Heart- RRR, IV/ systolic murmur at base, no gallop Abdomen- + BS, soft, nontender Extremities- no pretibial edema or calf tenderness; right foot bandaged Neuro- alert . Laboratory Results: Last 24 Hours Test 04/10/17 18:53 04/10/17 21:20 04/11/17 05:31 04/11/17 06:27 Bedside Glucose 177 mg/dl 191 mg/dl Ethyl Alcohol mg/dL < 3.0 mg/dl White Blood Count 6.06 K/uL Red Blood Count 3.89 M/uL Hemoglobin 11.8 g/dL Hematocrit 34.1 % Mean Corpuscular Volume 87.7 fL Mean Corpuscular Hemoglobin 30.3 pg Mean Corpuscular Hemoglobin Concent 34.6 g/dl RDW Standard Deviation 46.1 fL RDW Coefficient of Variation 14.5 % Platelet Count 336 K/uL Mean Platelet Volume 9.3 fL Sodium Level 137 mmol/L Potassium Level 3.1 mmol/L Chloride Level 102 mmol/L Carbon Dioxide Level 29 mmol/L Anion Gap 6.0 mmol/L Blood Urea Nitrogen 10 mg/dl Creatinine 0.88 mg/dl Est Creatinine Clear Calc Drug Dose 95.2 ml/min Estimated GFR () 105.2 Estimated GFR (Non- 90.8 BUN/Creatinine Ratio 11.8 Random Glucose 194 mg/dl Estimated Average Glucose 157 mg/dl Hemoglobin A1c 7.1 % Calcium Level 8.5 mg/dl Erythrocyte Sedimentation Rate 70 mm/hr Lactic Acid Level 0.9 mmol/L Procalcitonin < 0.05 ng/ml Test 04/11/17 08:07 04/11/17 11:58 Bedside Glucose 225 mg/dl 232 mg/dl Assessment & Plan OSTEOMYELITIS S/P amputation right second toe. MRI 04/10 demonstrated extensive osteomyelitis left second metatarsal, possible osteomyelitis first and third metatarsals, extensive cellulitis and myositis. Receiving IV vancomycin, clindamycin, cefepime. Wound culture from 04/10 growing Staph aureus and group B beta Strep. ID and Orthopedics consulted. CORONARY ARTERY DISEASE S/P PCI LAD 209 and subsequent CABG x 4 2011. No anginal symptoms. Continue aspirin, carvedilol, diltiazem, statin. CHF Chronic left ventricular systolic heart failure secondary to ischemic heart disease. LVEF 40-45% 08/23/15. Compensated. Continue losartan, carvedilol, furosemide, spironolactone. SYSTOLIC MURMUR Echo 08/23/15 demonstrated moderate aortic sclerosis without significant stenosis. PAROXYSMAL ATRIAL FIBRILLATION Currently in NSR. Continue carvedilol, diltiazem. HYPERTENSION Continue carvedilol, diltiazem. DM TYPE 2 Not well controlled, but Hgb A1C has improved from 10.9 on 02/07 to 7.1. Random glucose on admission was 278. Pharmacy consulted for glycemic management. Hold metformin during hospital stay. Lantus / NovoLog per protocol. FBS today = 225. ALCOHOL USE Patient states that last consumption was about 1 week ago. Monitor for symptoms / signs of withdrawal. VTE PROPHYLAXIS SQ heparin. DISPOSITION To be determined. Primary Care follow-up with Dr. Emmanuel. . Current Inpatient Medications: Current Inpatient Medications Medications (Trade) Dose Ordered Sig/Estee Route Start Time Stop Time Status Last Admin Dose Admin Acetaminophen (Tylenol Tab) 650 mg Q4H PRN PO 04/10/17 15:30 05/10/17 15:29 Heparin Sodium (Porcine) (Heparin Sq 5000 Unit/0.5ml) 5,000 unit Q12 SQ 04/10/17 21:00 05/10/17 20:59 04/11/17 09:28 5,000 UNIT Insulin Aspart (novoLOG ASPART) SLIDING SCALE If C... ACHS SC 04/10/17 16:00 05/10/17 15:59 04/11/17 13:13 18 UNITS Glucose (Glucose 40% Gel) 15-30 GRAMS 15 GRAMS... UD PRN PO 04/10/17 15:30 05/10/17 15:29 Glucose (Glucose Chew Tab) 4-8 Tablets 4 Tabl... UD PRN PO 04/10/17 15:30 05/10/17 15:29 Dextrose (Dextrose 50% 50ML Syringe) 25-50ML OF 50% DW IV FOR... UD PRN IV 04/10/17 15:30 05/10/17 15:29 Glucagon (Glucagon Inj) 1 mg UD PRN SQ 04/10/17 15:30 05/10/17 15:29 Miscellaneous Information (Consult Glycemic Management Pharmacy) 1 ea UD PRN N/A 04/10/17 15:37 05/10/17 15:36 Lorazepam (Ativan Tab) 1 mg ONE PRN PO 04/10/17 16:00 Aspirin (Ecotrin Tab) 81 mg DAILY PO 04/11/17 09:00 05/11/17 08:59 04/11/17 09:15 81 MG Atorvastatin Calcium (Lipitor Tab) 80 mg DAILY PO 04/11/17 09:00 05/11/17 08:59 04/11/17 09:16 80 MG Cholecalciferol (Vitamin D Tab) 1,000 inter.unit DAILY PO 04/11/17 09:00 05/11/17 08:59 04/11/17 09:17 1,000 INTER.UNIT Diltiazem HCl (Cardizem Tab) 60 mg TID PO 04/10/17 21:00 05/10/17 20:59 04/11/17 13:14 60 MG Folic Acid (Folvite Tab) 1 mg DAILY PO 04/11/17 09:00 05/11/17 08:59 04/11/17 09:15 1 MG Furosemide (Lasix Tab) 40 mg DAILY PO 04/11/17 09:00 05/11/17 08:59 04/11/17 09:16 40 MG Losartan Potassium (coZAAR TAB) 50 mg DAILY PO 04/11/17 09:00 05/11/17 08:59 04/11/17 09:15 50 MG Magnesium Chloride (Slow-Mag Tab) 512 mg DAILY PO 04/11/17 09:00 05/11/17 08:59 04/11/17 09:17 512 MG Potassium Chloride (Klor-Con Tab) 20 meq BID PO 04/10/17 21:00 1/7/18 20:59 04/11/17 09:16 20 MEQ Spironolactone (Aldactone Tab) 25 mg DAILY PO 04/11/17 09:00 05/11/17 08:59 04/11/17 09:13 25 MG Thiamine HCl (Vitamin B-1 Tab) 100 mg DAILY PO 04/11/17 09:00 05/11/17 08:59 04/11/17 09:17 100 MG Ascorbic Acid (Vitamin C Tab) 250 mg BID PO 04/10/17 21:00 05/10/17 20:59 04/11/17 09:18 250 MG Gabapentin (Neurontin Tab) 600 mg Q8H PO 04/11/17 16:00 04/12/17 08:01 Gabapentin (Neurontin Tab) 600 mg Q12H PO 04/12/17 20:00 04/13/17 08:01 Gabapentin (Neurontin Tab) 600 mg Q24H PO 04/13/17 20:00 04/13/17 20:01 Carvedilol (Coreg Tab) 3.125 mg BID PO 04/10/17 21:00 05/10/17 20:59 04/11/17 09:15 3.125 MG Gadobutrol (Gadavist) 9.5 mmol UD PRN IV 04/10/17 21:00 04/14/17 20:59 Clindamycin Phosphate 300 mg/ Dextrose 52 ml @ 100 mls/hr Q8H IV 04/11/17 12:00 04/21/17 11:59 04/11/17 13:14 100 MLS/HR Cefepime HCl 2000 mg/Syringe 20 ml @ 5 mls/min Q12 IV 04/11/17 08:30 04/21/17 08:29 04/11/17 09:11 5 MLS/MIN Vancomycin HCl (Consult) 1 ea UD PRN N/A 04/11/17 09:45 05/11/17 09:44 Vancomycin HCl 1500 mg/Sodium Chloride 530 ml @ 200 mls/hr Q12H IV 04/11/17 22:00 04/21/17 21:59 Insulin Glargine (Lantus Solostar Pen) SEE PROTOCOL TEXT Q12 SC 04/11/17 21:00 05/11/17 20:59
[2017-04-11] MEDS: GABAPENTIN 600MG Q8H DOSE PO SCH (17:22)
[2017-04-11] MEDS: CLINDAMYCIN IV 600 MG in DEXTROSE 5% 50ML 50 ML IV SCH (20:49)
--- NOTE | 2017-04-11 21:02 | Medical Consult ---
Consultation Date of Consultation: Apr 11, 2017. Attending Physician: Leo Leonardo M.D. Reason for Consultation: Osteomyelitis involving 2nd right metatarsal History of Present Illness 66-year-old male with history of diabetes mellitus, peripheral vascular disease , coronary artery disease, known to me from recent hospitalization when he presented with gangrene of his right 2nd toe. He was transferred to [facility] where he underwent partial amputation and was treated with course of IV antibiotics.He apparently was doing reasonably well, but was seen yesterday by his visiting nurse who felt wound was worsening and referred patient for admission to the hospital. He is found to have evidence of osteomyelitis in the surgical area on MRI scanning. He has been started empirically on vancomycin, cefepime, and clindamycin. Cultures are pending. Patient states the pain in his foot relatively minimal. Denies any fever or chills. Past Medical/Surgical History Medical Problems: (1) Chest wall contusion Status: Acute (2) Hyperglycemia Status: Acute (3) Right foot infection Status: Acute (4) Toe osteomyelitis, right Status: Acute Social History Problems: (1) DKA (diabetic ketoacidoses) Status: Acute Medical Problems: (1) Alcohol abuse (2) Atrial fibrillation (3) CAD (coronary artery disease) (4) CKD (chronic kidney disease) stage 3, GFR 30-59 ml/min (5) Decubitus ulcer (6) Diabetes mellitus type 2 in obese (7) Dyslipidemia (8) H/O CHF (9) HTN (hypertension) (10) Obesity (11) RBBB Surgical Problems: (1) H/O pericardiectomy (2) History of total knee arthroplasty (3) S/P CABG x 4 Social History Problems: (1) Pancreatitis Family History FH: HTN (hypertension) FH: diabetes mellitus FHx: heart disease Social History Smoking Status: Unknown if Ever Smoked Alcohol Use: heavy (H/o alcohol abuse. States that last drink was a week ago. ) Drug Use: none Marital Status: single Housing Status: lives with family Occupation Status: disabled Allergies Coded Allergies: JET Inhibitors (Verified Allergy, Unknown, 04/10/17) Penicillins (Verified Allergy, Unknown, RASH A CHILD, 04/10/17) Current Inpatient Medications Current Inpatient Medications Medications (Trade) Dose Ordered Sig/Estee Route Start Time Stop Time Status Last Admin Dose Admin Acetaminophen (Tylenol Tab) 650 mg Q4H PRN PO 04/10/17 15:30 05/10/17 15:29 Insulin Aspart (novoLOG ASPART) SLIDING SCALE If C... ACHS SC 04/10/17 16:00 05/10/17 15:59 04/11/17 18:43 13 UNITS Glucose (Glucose 40% Gel) 15-30 GRAMS 15 GRAMS... UD PRN PO 04/10/17 15:30 05/10/17 15:29 Glucose (Glucose Chew Tab) 4-8 Tablets 4 Tabl... UD PRN PO 04/10/17 15:30 05/10/17 15:29 Dextrose (Dextrose 50% 50ML Syringe) 25-50ML OF 50% DW IV FOR... UD PRN IV 04/10/17 15:30 05/10/17 15:29 Glucagon (Glucagon Inj) 1 mg UD PRN SQ 04/10/17 15:30 05/10/17 15:29 Miscellaneous Information (Consult Glycemic Management Pharmacy) 1 ea UD PRN N/A 04/10/17 15:37 05/10/17 15:36 Lorazepam (Ativan Tab) 1 mg ONE PRN PO 04/10/17 16:00 Aspirin (Ecotrin Tab) 81 mg DAILY PO 04/11/17 09:00 05/11/17 08:59 04/11/17 09:15 81 MG Atorvastatin Calcium (Lipitor Tab) 80 mg DAILY PO 04/11/17 09:00 05/11/17 08:59 04/11/17 09:16 80 MG Cholecalciferol (Vitamin D Tab) 1,000 inter.unit DAILY PO 04/11/17 09:00 05/11/17 08:59 04/11/17 09:17 1,000 INTER.UNIT Diltiazem HCl (Cardizem Tab) 60 mg TID PO 04/10/17 21:00 05/10/17 20:59 04/11/17 13:14 60 MG Folic Acid (Folvite Tab) 1 mg DAILY PO 04/11/17 09:00 05/11/17 08:59 04/11/17 09:15 1 MG Furosemide (Lasix Tab) 40 mg DAILY PO 04/11/17 09:00 05/11/17 08:59 04/11/17 09:16 40 MG Losartan Potassium (coZAAR TAB) 50 mg DAILY PO 04/11/17 09:00 05/11/17 08:59 04/11/17 09:15 50 MG Magnesium Chloride (Slow-Mag Tab) 512 mg DAILY PO 04/11/17 09:00 05/11/17 08:59 04/11/17 09:17 512 MG Potassium Chloride (Klor-Con Tab) 20 meq BID PO 04/10/17 21:00 05/10/17 20:59 04/11/17 09:16 20 MEQ Spironolactone (Aldactone Tab) 25 mg DAILY PO 04/11/17 09:00 05/11/17 08:59 04/11/17 09:13 25 MG Thiamine HCl (Vitamin B-1 Tab) 100 mg DAILY PO 04/11/17 09:00 05/11/17 08:59 04/11/17 09:17 100 MG Ascorbic Acid (Vitamin C Tab) 250 mg BID PO 04/10/17 21:00 05/10/17 20:59 04/11/17 09:18 250 MG Gabapentin (Neurontin Tab) 600 mg Q8H PO 04/11/17 16:00 04/12/17 08:01 04/11/17 17:22 600 MG Gabapentin (Neurontin Tab) 600 mg Q12H PO 04/12/17 20:00 04/13/17 08:01 Gabapentin (Neurontin Tab) 600 mg Q24H PO 04/13/17 20:00 04/13/17 20:01 Carvedilol (Coreg Tab) 3.125 mg BID PO 04/10/17 21:00 05/10/17 20:59 04/11/17 09:15 3.125 MG Gadobutrol (Gadavist) 9.5 mmol UD PRN IV 04/10/17 21:00 04/14/17 20:59 Cefepime HCl 2000 mg/Syringe 20 ml @ 5 mls/min Q12 IV 04/11/17 08:30 04/21/17 08:29 04/11/17 09:11 5 MLS/MIN Vancomycin HCl (Consult) 1 ea UD PRN N/A 04/11/17 09:45 05/11/17 09:44 Vancomycin HCl 1500 mg/Sodium Chloride 530 ml @ 200 mls/hr Q12H IV 04/11/17 22:00 04/21/17 21:59 Insulin Glargine (Lantus Solostar Pen) SEE PROTOCOL TEXT Q12 SC 04/11/17 21:00 05/11/17 20:59 Clindamycin Phosphate 600 mg/ Dextrose 54 ml @ 100 mls/hr Q8H IV 04/11/17 20:00 05/23/17 21:59 Enoxaparin Sodium (Lovenox Inj) 40 mg HS SQ 04/11/17 21:00 05/11/17 20:59 Review of Systems All systems were reviewed and are negative except as per HPI Physical Exam Date Time Temp Pulse Resp B/P (MAP) Pulse Ox O2 Delivery O2 Flow Rate FiO2 04/11/17 15:36 36.4 67 16 105/71 (82) 93 Room Air 04/11/17 13:45 36.5 74 16 105/68 (80) 94 Room Air 04/11/17 08:00 Room Air 04/11/17 07:57 37.0 87 17 115/72 (86) 91 Room Air 04/11/17 01:00 Room Air 04/10/17 23:02 36.7 96 17 130/81 (97) 95 Room Air 04/10/17 21:00 Room Air General Appearance: WD/WN, no apparent distress Head: normocephalic, atraumatic Eyes: normal inspection, EOMI, sclerae normal ENT: normal ENT inspection, hearing grossly normal, pharynx normal Neck: supple, no adenopathy, thyroid normal, trachea midline Respiratory/Chest: chest non-tender, lungs clear, normal breath sounds, no respiratory distress Cardiovascular: regular rate, rhythm, no gallop, + systolic murmur Abdomen/GI: normal bowel sounds, non tender, soft, no organomegaly Back: normal inspection, no CVA tenderness Extremities/Musculoskelatal: no calf tenderness, + slow capillary refill Neurologic/Psych: alert, oriented x 3 Skin: normal color, no rash, + pertinent finding (Ulceration right great toe, open wound at surgical site with purulent drainage, some surrounding erythema and increased warmth) Lymphatic: no adenopathy Laboratory Results RUN DATE: 04/11/17 [facility] LAB PAGE 1 RUN TIME: 1410 Specimen Inquiry PATIENT: MERYL BURKS LOC: [facility] U # : [id number] AGE/SX: 66/M ROOM: [facility] REG : 04/10/[address]: Leo Leonardo M.D. : 1950 BED: 2 DIS : STATUS: ADM IN TLOC: SPEC #: [id number] WINNIE: 04/10/17 STATUS: RES REQ #: [id number] RECD: 04/10/17-[address]: Aron Wilson PA -C SOURCE: DRAIN-SURF ENTR: 04/10/17-1525 [facility] DR: Jim Bowers D.O. SPDESC: TOE R2 David Fraser M.D. Martin, Jill ., P.ACarol Ann-Jennifer. Davis D.O. Shunk, Brian R., D.O. ORDERED: STEPHANIA BLANCO CU/RAVI COMMENTS: Has Specimen Been Obtained/Collected? Y Procedure Result Verified Site GRAM STAIN Final 04/11/17-50 RESULT MANY WBCs SEEN MANY GRAM POSITIVE COCCI SURFACE WOUND CULTURE Preliminary 04/11/17 Organism 1 STAPHYLOCOCCUS AUREUS QUANITY MANY SENS SENSITIVITY TO FOLLOW Organism 2 GROUP B BETA STREP QUANITY MODERATE SENS SENSITIVITY TO FOLLOW Last 24 Hours Test 04/10/17 21:20 04/11/17 05:31 04/11/17 06:27 04/11/17 08:07 Bedside Glucose 191 mg/dl 225 mg/dl White Blood Count 6.06 K/uL Red Blood Count 3.89 M/uL Hemoglobin 11.8 g/dL Hematocrit 34.1 % Mean Corpuscular Volume 87.7 fL Mean Corpuscular Hemoglobin 30.3 pg Mean Corpuscular Hemoglobin Concent 34.6 g/dl RDW Standard Deviation 46.1 fL RDW Coefficient of Variation 14.5 % Platelet Count 336 K/uL Mean Platelet Volume 9.3 fL Sodium Level 137 mmol/L Potassium Level 3.1 mmol/L Chloride Level 102 mmol/L Carbon Dioxide Level 29 mmol/L Anion Gap 6.0 mmol/L Blood Urea Nitrogen 10 mg/dl Creatinine 0.88 mg/dl Est Creatinine Clear Calc Drug Dose 95.2 ml/min Estimated GFR () 105.2 Estimated GFR (Non- 90.8 BUN/Creatinine Ratio 11.8 Random Glucose 194 mg/dl Estimated Average Glucose 157 mg/dl Hemoglobin A1c 7.1 % Calcium Level 8.5 mg/dl Erythrocyte Sedimentation Rate 70 mm/hr Lactic Acid Level 0.9 mmol/L Procalcitonin < 0.05 ng/ml Test 04/11/17 11:58 04/11/17 17:01 04/11/17 20:45 Bedside Glucose 232 mg/dl 139 mg/dl 257 mg/dl Patient Name: MERYL BURKS Unit Number: [id number] Dictated: 04/10/172117 Transcribed: 04/10/172123 JRB Printed Date/Time: [~ rep prt dt]/[~ rep prt tm] [~ rep ct labl] - [~ rep ct ivnm] [facility] [place] [place] [address] Dictated: 04/10/172117 Transcribed: 04/10/172123 JRB Printed Date/Time: [~ rep prt dt]/[~ rep prt tm] [~ rep ct labl] - [~ rep ct ivnm] LOWER EXT NONJOINT COMBO HISTORY: 66 years-old Male Osteomyelitis of R foot follow-up study in a patient with right second digit osteomyelitis COMPARISON: Right foot radiographs 02/19/2017 and 04/10/2017, right foot MRI and right foot CT 02/08/2017. TECHNIQUE: Multiplanar multisequence MRI of the right foot was obtained both with and without the use of 9.5 mL Gadavist. FINDINGS: Several of the sequences are severely motion degraded which limits the study. Postoperative changes compatible with prior amputation of the second digit at the level of the distal diaphyseal second metatarsal. Erosive changes with decreased T1 and increased T2/STIR signal of the second metatarsal are noted extending to the proximal metaphyseal portion of the metatarsal, 1.2 cm from the articular base as seen on image 15 series 3. Periostitis with cortical destruction noted within this distribution. Moderate periostitis is noted along the lateral margin of the first metatarsal as seen on image 25 series 8, also present on comparison radiographs of same day. There is moderate patchy bone marrow edema throughout the first metatarsal without evidence of cortical destruction or significant decreased T1 marrow signal at this time. Moderate bone marrow edema of the third metatarsal phalangeal joint, proximal and middle phalanges noted with mild periostitis noted along the medial margin of the third metatarsal near the distal metaphysis. Mild bone marrow edema of the fourth and fifth metatarsals and phalanges likely reactive. Scattered moderate bone marrow edema throughout the midfoot and hindfoot is also noted, likely reactive. Moderate muscular atrophy. There is severe intramuscular enhancing edema throughout the lower leg and foot. Moderate subcutaneous edema also noted. No definite acute fracture. Thickening of the proximal plantar fascia is only partially imaged suggesting chronic plantar fasciitis. There is a peripherally enhancing complex collection along the plantar surface of the foot at the level of the midshaft metatarsals extending from the first webspace to the fourth metatarsal measuring 5.1 x 3.4 x 1.4 cm nicely seen on image 37 series 9 and image 28 series 12. Mild fluid surrounding the adjacent flexor tendon suggests associated infectious tenosynovitis. Ulcer along the medial plantar surface of the first digit near the metatarsal phalangeal joint is noted with micrometallic artifact. IMPRESSION: 1. Prior partial amputation of the second digit at the level of the distal diaphyseal second metatarsal. There is now acute extensive osteomyelitis involving the majority of the second metatarsal extending within 1.2 cm of the metatarsal base. 2. Moderate bone marrow edema with periostitis involving the first and third metatarsals is noted in addition to moderate bone marrow edema of the first and third proximal middle and phalanges suggesting reactive changes or early acute osteomyelitis. Follow-up recommended. 3. Extensive cellulitis with severe and extensive diffuse myositis throughout the foot. Peripherally enhancing 5.1 cm collection along the plantar surface of the foot extending from the first webspace to the fourth metatarsal suggests abscess. 4. Medial plantar ulcer of the first digit adjacent to the metatarsal phalangeal joint is noted with associated micrometallic artifact correlating with radiodense debris noted on comparison radiographs. 5. Motion degraded study. The above report was generated using voice recognition software. It may contain grammatical, syntax or spelling errors. Electronically signed by: Lan García M.D. 04/10/2017 9:51 PM Dictated Date/Time: 04/10/2017 9:18 PM The status of this report is Signed. Draft = Not yet reviewed or approved by Radiologist. Signed = Reviewed and approved by Radiologist. <AttendingPhy>Leo Leonardo M.D.</AttendingPhy> <FamilyPhy>Dionicio Emmanuel D.O.</FamilyPhy> <PrimaryPhy>Dionicio Emmanuel D.O.</PrimaryPhy> <UnitNumber> [id number]</UnitNumber> <VisitNumber>[id number]</VisitNumber> <PatientName> MERYL BURKS</PatientName> <DateOfBirth>1950</DateOfBirth> <Location> [facility]</Location> <ServiceDate>04/10/17</ServiceDate> <MNE>ESINDI</MNE> < OrderingPhy>Dee Carias P.A.-C.</OrderingPhy> <OrderingPhyMNE>f rep ord dr lucio< /OrderingPhyMNE> <DictatingPhyMNE>f rep dict dr lucio</DictatingPhyMNE> <CCListMNE >f rep ct mne</CCListMNE> <AdmittingPhyMNE>f pt admit dr lucio</AdmittingPhyMNE> < AttendingPhyMNE>f pt attend dr lucio</AttendingPhyMNE> <ConsultingPhyMNE>f pt consult dr lucio</ConsultingPhyMNE> <FamilyPhyMNE>f pt fam dr lucio</FamilyPhyMNE> <OtherPhyMNE>f pt other dr lucio</OtherPhyMNE> < PrimaryPhyMNE>f pt prim care dr lucio</PrimaryPhyMNE> <ReferringPhyMNE>f pt referring dr lucio</ReferringPhyMNE> Assessment & Plan Probable residual osteomyelitis of the right foot involving the 2nd toe, with cultures positive for Staph aureus and group B Streptococcus. Current antibiotic therapy appropriate pending final culture results, likely can narrow if no g negatives identified. Patient will require further debridement and/or amputation. Will discuss with all involved. Will follow.
[2017-04-11] MEDS: INSULIN GLARGINE SOLOSTAR 100 UNITS/ML 3 ML PEN SC SCH (21:16)
[2017-04-11] MEDS: ENOXAPARIN 40 MG/0.4 ML SYR SQ SCH (21:20)
[2017-04-11] MEDS: VANCOMYCIN INJ 1,500 MG in SODIUM CHLORIDE 0.9% 500ML 500 ML IV SCH (21:25)
[2017-04-11] MEDS ORDERED: VANCOMYCIN INJ 1,500 MG in SODIUM CHLORIDE 0.9% 250ML 250 ML IV SCH (22:00)
[2017-04-11 22:56] VITALS: BP 114/73; PULSE 77; TEMP 36.5; O2SAT 97
[2017-04-12] VITALS (11 sets, daily range): BP systolic 100–175; BP diastolic 63–84; PULSE 69–115; TEMP 36.5–36.8; O2SAT 90–98
[2017-04-12] MEDS: GABAPENTIN 600MG Q8H DOSE PO SCH ×2 (00:08→08:00)
[2017-04-12] MEDS ORDERED: NURSING VERBAL MED ORDER ONE (00:45)
[2017-04-12] MEDS: INSULIN ASPART 100 UNITS/ML 3 ML PEN SC SCH ×5 (01:29→21:24)
[2017-04-12] MEDS: CLINDAMYCIN IV 600 MG in DEXTROSE 5% 50ML 50 ML IV SCH ×3 (04:03→20:52)
[2017-04-12] MEDS ORDERED: ONDANSETRON INJ 2 MG/ML 2 ML VIAL ONE (06:58)
[2017-04-12] MEDS ORDERED: MIDAZOLAM HCL 1 MG/ML 2ML VIAL ONE (06:58)
[2017-04-12] MEDS ORDERED: PROPOFOL IV EMULSION 10 MG/ML 20 ML VIAL IV ONE (06:58)
[2017-04-12] MEDS ORDERED: ROCURONIUM BROMIDE 10 MG/ML 5 ML VIAL IV ONE (06:58)
[2017-04-12] MEDS ORDERED: LIDOCAINE HCL 2% 2 ML VIAL (20MG/ML) ONE (06:58)
[2017-04-12] MEDS ORDERED: FENTANYL CITRATE INJ 50 MCG/1 ML 2 ML VIAL ONE ×2 (06:58→10:08)
[2017-04-12] MEDS ORDERED: VANCOMYCIN HCL 1000MG/20ML VIAL ONE ×2 (07:26→07:44)
[2017-04-12] MEDS ORDERED: BACITRACIN 50000 UNIT VIAL ONE (07:26)
[2017-04-12] MEDS ORDERED: GENTAMICIN SULFATE 40 MG/ML 2 ML VIAL ONE (07:26)
--- NOTE | 2017-04-12 08:00 | Orthopedic Progress Note ---
Orthopedic Progress Note Date of Service Apr 12, 2017. Subjective Reports: complaints (Right foot pain and odor. ), pain controlled w PO medications, Denies: chest pain, SOB, nausea / vomiting, light headedness, calf pain Objective calves soft nontender, A&O x3 Necrosis, gangrene great toe. Open wound dehiscence central dorsal second ray with purulent drainage. Necrosis and foul odor flexor sheath second ray. Foot swelling. Near complete loss of sensation stocking distribution bilateral feet. DP/PT 1+/4 B LE. Date Time Temp Pulse Resp B/P (MAP) Pulse Ox O2 Delivery O2 Flow Rate FiO2 04/12/17 06:24 36.5 69 15 100/63 (75) 90 Room Air 04/12/17 00:20 Room Air 04/11/17 22:56 36.5 77 16 114/73 (87) 97 Room Air 04/11/17 16:30 Room Air 04/11/17 15:36 36.4 67 16 105/71 (82) 93 Room Air 04/11/17 13:45 36.5 74 16 105/68 (80) 94 Room Air 04/11/17 08:00 Room Air 04/11/17 07:57 37.0 87 17 115/72 (86) 91 Room Air Assessment & Plan Assessment: Right foot great toe gangrene, Purulent abscess right foot with suppurative flexor tenosynovitis. Diabetic neuropathy right foot PVD Plan: NPO Consent on chart. To OR for I and D right foot and great toe. Possible TMA
[2017-04-12] MEDS: POTASSIUM CHLORIDE 20 MEQ TABCR PO SCH ×2 (08:18→21:13)
[2017-04-12] MEDS: SPIRONOLACTONE 25 MG TAB PO SCH (08:18)
[2017-04-12] MEDS: ASPIRIN 81 MG ECTAB PO SCH (08:18)
[2017-04-12] MEDS: CEFEPIME IV 2,000 MG in SYRINGE 7.5 ML IV SCH ×2 (08:18→21:16)
[2017-04-12] MEDS: DILTIAZEM HCL 60 MG TAB PO SCH ×3 (08:18→21:12)
[2017-04-12] MEDS: LOSARTAN POTASSIUM 50 MG TAB PO SCH (08:18)
[2017-04-12] MEDS: CARVEDILOL 6.25 MG TAB PO SCH ×2 (08:18→21:13)
[2017-04-12] MEDS: CHOLECALCIFEROL 1000 INTER.UNIT TAB PO SCH (08:19)
[2017-04-12] MEDS: INSULIN GLARGINE SOLOSTAR 100 UNITS/ML 3 ML PEN SC SCH ×2 (08:19→21:25)
[2017-04-12] MEDS: THIAMINE HCL 100 MG TAB PO SCH (08:19)
[2017-04-12] MEDS: ATORVASTATIN 40 MG TAB PO SCH (08:19)
[2017-04-12] MEDS: MAGNESIUM CHLORIDE 64MG DELAYED REL TAB PO SCH (08:19)
[2017-04-12] MEDS: FUROSEMIDE 40 MG TAB PO SCH (08:19)
[2017-04-12] MEDS: ASCORBIC ACID 500 MG TAB PO SCH ×2 (08:19→21:14)
[2017-04-12] MEDS ORDERED: SUCCINYLCHOLINE 100MG/5ML SYR IV ONE (08:20)
[2017-04-12] MEDS ORDERED: NEOSTIGMINE METHYLSULFATE 5 MG/5 ML SYR ONE (08:20)
[2017-04-12] MEDS ORDERED: ONDANSETRON INJ 2 MG/ML 2 ML VIAL IV PRN (09:15)
[2017-04-12] MEDS ORDERED: ATROPINE SULFATE 0.1 MG/ML 5ML SYR IV PRN (09:15)
[2017-04-12] MEDS ORDERED: EpHEDrine SULFATE INJ 50 MG/ML AMP IV PRN (09:15)
[2017-04-12] MEDS ORDERED: FENTANYL CITRATE INJ 50 MCG/1 ML 2 ML VIAL IV PRN (09:15)
[2017-04-12] MEDS ORDERED: BUPIVACAINE 0.5 % 5 MG/1 ML MPF 30ML VIAL ONE (09:22)
[2017-04-12] MEDS ORDERED: VANCOMYCIN TROUGH ONE (09:30)
[2017-04-12] MEDS ORDERED: GLYCOPYRROLATE INJ 0.2 MG/ML VIAL ONE (09:43)
[2017-04-12] MEDS: VANCOMYCIN INJ 1,500 MG in SODIUM CHLORIDE 0.9% 500ML 500 ML IV SCH ×2 (10:00→21:27)
--- NOTE | 2017-04-12 10:06 | [facility] Post Operative Brief Note ---
Immediate Operative Summary Operative Date Apr 12, 2017. Pre-Operative Diagnosis Right Foot Abcess, Necrotic Right Foot, Right Great Toe Osteomyelitis, Suppartive Flexor Tenosynovitis Flexor Digitorum Longus and Flexor Hallucis Longus, Peripherial Vascular Disease Post-Operative Diagnosis Right Foot Abcess, Necrotic Right Foot, Right Great Toe Osteomyelitis, Suppartive Flexor Tenosynovitis Flexor Digitorum Longus and Flexor Hallucis Longus, Peripherial Vascular Disease Procedure(s) Performed 1. Transmetatarsal Amputation 2. Incision and Drainage Right Foot Plantar Abcess 3. Debridement of Flexor Hallucis Longus and Flexor Digitorum Longus Tendons Surgeon Dr. Bowers Remotely Piloted Vehicle Controller Surgeon(s) Suhas Stein PA-C Estimated Blood Loss 4 ml Findings See dict Specimens A: Right foot transmetarsal amputation ( Right great toe, #3, #4, #5) Drains HV x 1 Anesthesia GLMA w/ partial ankle block Complication(s) None Disposition Recovery Room / PACU
--- NOTE | 2017-04-12 10:34 | Anesthesiology Progress Note ---
Anesthesia Post Op Note Date & Time Apr 12, 2017 at 10:34 Vital Signs Pain Intensity: 6 Vital Signs Past 12 Hours Date Time Temp Pulse Resp B/P (MAP) Pulse Ox O2 Delivery O2 Flow Rate FiO2 04/12/17 10:22 76 16 100 04/12/17 10:22 76 16 04/12/17 10:21 108/63 04/12/17 10:17 78 16 04/12/17 10:17 77 16 99 04/12/17 10:15 107/70 04/12/17 10:12 77 16 04/12/17 10:12 77 16 98 04/12/17 10:10 99/68 04/12/17 10:07 76 16 100 04/12/17 10:07 76 16 04/12/17 10:05 102/68 04/12/17 10:03 107/66 04/12/17 10:02 78 04/12/17 10:02 78 96 04/12/17 10:02 36.2 78 16 107/66 97 Oxymask 10 04/12/17 06:24 36.5 69 15 100/63 (75) 90 Room Air 04/12/17 00:20 Room Air 04/11/17 22:56 36.5 77 16 114/73 (87) 97 Room Air Notes Mental Status: alert / awake / arousable, participated in evaluation Pt Amnestic to Procedure: Yes Nausea / Vomiting: adequately controlled Pain: adequately controlled Airway Patency, RR, SpO2: stable & adequate BP & HR: stable & adequate Hydration State: stable & adequate Anesthetic Complications: no major complications apparent
--- NOTE | 2017-04-12 10:56 | DIAGNOSTIC IMAGING REPORT ---
R FOOT 2 VIEWS HISTORY: 66 years-old Male post-op postoperative exam. COMPARISON: Right foot radiographs 04/10/2017, right foot MRI 04/10/2017 TECHNIQUE: 2 views of the right foot FINDINGS: Fine bony detail is obscured by overlying casting material. Postoperative changes compatible with partial amputation of the forefoot at the level of the distal diaphyseal portions of the first through fifth metatarsals. The previously noted periostitis involving the first, second third metatarsals is now well-seen on this study. Expected postsurgical soft tissue swelling and deep tissue air about the surgical site. Joint space narrowing with marginal spurring of the talonavicular joint. Prominent spurring about the calcaneus with dystrophic calcifications of the plantar fascia. Peripheral vascular disease. Surgical drain in place. IMPRESSION: Status post partial amputation of the forefoot at the level of the distal diaphyseal metatarsals with expected postsurgical soft tissue swelling and deep tissue air with surgical drain in place. The above report was generated using voice recognition software. It may contain grammatical, syntax or spelling errors. Electronically signed by: Lan García M.D. 04/12/2017 10:54 AM Dictated Date/Time: 04/12/2017 10:50 AM
--- NOTE | 2017-04-12 11:46 | OPERATIVE REPORT ---
DATE OF OPERATION: 04/12/2017 PREOPERATIVE DIAGNOSES: 1. Right great toe osteomyelitis. 2. Suppurative flexor tenosynovitis of the flexor hallucis longus and flexor digitorum longus tendons. 3. Abscess, plantar right foot. 4. Necrosis of the right foot. 5. Peripheral vascular disease. POSTOPERATIVE DIAGNOSES: Same. PROCEDURE: 1. Right foot transmetatarsal amputation. 2. Incision and drainage, right foot plantar abscess. 3. Debridement of flexor hallucis longus and flexor digitorum longus tendons. SURGEON: Jim Bowers DO SHOP WORKER: Suhas Stein PA-C ANESTHESIA: General LMA with partial ankle block. SPECIMENS: Toes and residual forefoot of the right lower extremity. DRAINS: Hemovac x1. COMPLICATIONS: None. BLOOD LOSS: 4 mL PERTINENT HISTORY: This is a 66-year-old gentleman who had a history of abscess in the right foot with necrotizing fasciitis in February 2017. He was seen in [facility] and then transferred to [facility], at which point, he had a partial ray resection of his right second toe and right second metatarsal. He was then placed on IV antibiotics and [facility] where he continued to have IV antibiotics. He was then discharged home. Over the last several weeks, he has had difficulty with weightbearing and walking and increased swelling and pain, discharge, swelling and foul odor. Home-visiting wound care nurse then referred him to [facility] ER at which point he was admitted to the hospital and placed on IV antibiotics and orthopedics was consulted. He had a subsequent MRI, which demonstrated abscess deep within the foot as well as osteomyelitis of the great toe and appeared to be suppurative flexor tenosynovitis of the flexor hallucis longus and flexor digitorum longus. The patient was then scheduled for surgery as indicated. The patient also had referenced arterial brachial indices, venous Doppler and arterial Doppler, which suggested that he had peripheral vascular disease; however, would be able to support a transmetatarsal amputation. Surgical procedure was planned accordingly. All potential risks, benefits, complications, alternatives, rehab, potential for incomplete relief of symptoms, need for further surgery, DVT, PE, , persistent pain, swelling, scarring, weakness, neurovascular injury, wound complications and possibility of further amputation was discussed with the patient. The patient decided to proceed with this procedure as indicated with the initial understanding that it would be a minimum debridement and likely amputation of the great toe with possibility of further procedure including transmetatarsal amputation. The patient gave consent for the procedure. DESCRIPTION OF PROCEDURE: The patient was taken to the operative suite and placed supine on the operating room table. After review of the consent and identification of proper operative site, the patient was anesthetized, LMA was placed. Tourniquet was placed on the right thigh over cast padding. Right lower extremity was then sterilely prepped and draped in usual fashion, elevated and tourniquet inflated to 325 mmHg. There was no exsanguination performed due to the nature of the infection. Next, the 10-blade scalpel was then used to debride the necrotic tissue from the distal aspect of the great toe demonstrating through and through full thickness skin necrosis to the level of the bone. There was a dry gangrene of the flexor tendons all the way to the level of the interphalangeal joint of the great toe. At this point, there was noted also to be softening of the proximal phalanx of the great toe, thus confirming need for amputation of the great toe at the level of the first metatarsophalangeal joint. Next, based upon the wound necrosis and absence of a normal tissue flap due to the previous second ray resection with a central skin deficit and suppurative flexor tenosynovitis encountered in the flexor hallucis longus and the flexor digitorum longus, a decision was made to proceed with transmetatarsal amputation with a modified flap closure due to the skin loss and deficit of the central second ray and now the compromised noted and confirmed of the great toe with osteomyelitis. Next, the abscess was entered into the plantar aspect of the foot. This was adjacent to the flexor tendons. This was then evacuated and cleared with a curette. There was no significant wound necrosis on the plantar aspect of the foot. There was noted to be suppurative flexor tenosynovitis of the flexor hallucis longus and the flexor digitorum longus to the level of the distal mid foot. The tendons were then resected and debrided with a rongeur. Next, once this was cleared and there was no obvious necrotic tissue, a circumferential incision was made of the great toe preserving as much tissue as possible that needed to be rotated distally to cover the deficit in the second central ray. Next, the third, fourth and fifth toes were then incised dorsally at the distal extent of the tissue at the mid portion of the proximal phalanges to preserve as much tissue as possible and then a circumferential incision was made, preserving as much plantar tissues as possible. Next, the dissection was then deepened with a 10-blade scalpel through the extensor tendons and the dorsal capsule of the third, fourth and fifth toes. These were flexed plantarward and the collateral ligaments were sacrificed, 10-blade scalpel as well as the joint capsules. Next, the toes were then freed from the soft tissue envelope and passed off the third, fourth and fifth toes as a specimen. Next, the great toe was then further dissected into the first metatarsophalangeal joint. Dorsal extensor tendon was then incised and released as well as the collateral ligaments and the joint capsule flexed in the toe plantarward, amputation was then completed with a 10-blade scalpel cutting through the flexor tendons and the plantar plate resecting the sesamoid bones as well. These were passed off as specimen. A hemostat was used to grasp the flexor hallucis longus and then was dried distally out of the wound. There was noted to be some indication of tissue necrosis around the tendon. This was then transected and then the flexor tendon sheath was then opened and carefully debrided with a 10-blade scalpel and a rongeur. This was then followed by placing these flexor digitorum longus tendons on traction with a hemostat noting also necrosis and transecting the damaged portion of the tendons and allowed them to retract into the foot. The tendon sheath was opened and debrided with a rongeur. Next, the new 10-blade scalpel was then used to sharply debride the necrotic and questionable tissue in the distal aspect of the forefoot in the plantar pad thus resecting any necrotic tissue on the distal aspect of the right foot. Next, a fresh 10-blade scalpel then used to dissect around the distal aspect of the second, third and fourth metatarsals as well as around the first metatarsal. A sagittal saw was then used to perform a transmetatarsal amputation of the first, second, third, fourth and fifth metatarsals. The second metatarsal distal aspect had been noted to be softened and this damaged necrotic portion of the bone was then resected. After all debris and necrotic tissue had been excised from the foot, pulsatile lavage 6 liters of fluid with bacitracin was then used to cleanse the remaining foot. There was no evidence of purulence that were followed or noted. After this was completed, a 10-Mold[place] single lumen Hemovac drain was then placed deep within the foot and then exiting dorsolaterally through a small stab incision in the skin. It was then followed by tissue closure without tension using interrupted 3-0 nylon sutures. Well-approximated healthy appearing tissue was then noted to be well coapted with the sutures and then a partial ankle block was then performed with 0.5% Marcaine plain, approximately 30 mL. After this was completed, a sterile compressive dressing and a posterior Orthoglass splint was applied and held in neutral dorsiflexion. It was overwrapped with an Mark wrap. The tourniquet was released, the patient was awakened and taken to recovery in stable condition. I attest to the content of the Intraoperative Record and any orders documented therein. Any exception s are noted below.
[2017-04-12 12:06] LABS: HEMATOCRIT 34.6 % (42-52); HEMOGLOBIN 11.7 g/dL (14.0-18.0)
[2017-04-12 12:20] LABS: CALCIUM 8.9 mg/dl (8.5-10.1); CREATININE 0.95 mg/dl (0.60-1.40); POTASSIUM 3.9 mmol/L (3.5-5.1)
--- NOTE | 2017-04-12 13:29 | Pharmacy Progress Note ---
Pharmacy Glycemic Short Note 2 Date of Service Apr 12, 2017. OUTPATIENT ANTIDIABETIC REGIMEN: Lantus 40 units SQ HS * Novolog 10 units with breakfast and 8 units with lunch * Glipizide 10 mg BID + metformin 1000 mg BID * A1c 7.1% (04/11/17) ASSESSMENT: * 66 yr old T2DM male admitted with right foot osteomyelitis and gangrene. * Pt went to OR today for I&D of right foot abscess and transmetatarsal amputation. * Patient takes basal insulin once daily at HS. Basal insulin was split into BID dosing for easier titration. * Fasting BSG greatly improved * AM Lantus dose was omitted today because patient was off the floor, therefore partial dose of 10 units was ordered for lunchtime. * no futher changes to basal insulin today * Bolus insulin parameters were tightened yesterday. Prandial BSGs improved today. * Anticipate pt needing about 80-90 units of insulin per daily PLAN FOR INPATIENT GLYCEMIC CONTROL: * Hold outpatient oral diabetes medications * Basal insulin * Lantus 10 units SQ with lunch, then 16-20 units SQ BID * 16 units for BSG less than 160 mg/dL * 20 units for BSG 160 mg/dl or more * Bolus insulin * NovoLog per scale ACHS or Q6hrs while NPO * Goal Range: Low 110 mg/dL - High 140 mg/dL * Correction Factor: 15 mg/dL/unit (will change to 20 if BSG falls below 130 mg/dL) * Nutritional / Prandial insulin per carb ratio of 1 unit per 5 grams CHO consumed (will change to 7 if BSG falls below 130 mg/dL) PLAN FOR DISCHARGE: * Good outpatient glycemic control evidenced by A1c of 7.1 % * Recommend continuing outpatient regimen on discharge and titrate per PCP
[2017-04-12] MEDS ORDERED: INSULIN GLARGINE SOLOSTAR 100 UNITS/ML 3 ML PEN SC ONE (13:30)
--- NOTE | 2017-04-12 14:12 | Pharmacy Progress Note ---
Pharmacy Abx Dose Short Note Date of Service Apr 12, 2017. Assessment & Plan Assessment 66 year old male receiving Vancomycin, Cefepime and Clindamycin for treatment of right toe wound and osteomyelitis. Day # of antimicrobial therapy. Patient s/p OR Procedure: 1. Right foot transmetatarsal amputation. 2. Incision and drainage, right foot plantar abscess. 3. Debridement of flexor hallucis longus and flexor digitorum longus tendons. Vancomycin given during OR case and infusing when patient returned to the floor. Vancomycin trough on 04/12/17 @11:31 was drawn while antibiotic infusing therefore level of 39.5 is not a trough and is erroneous. Item Value Date Time Gram Stain - Final Resulted 04/10/17 1400 Drainage - Surface Toe Right 2 Blood Culture - Preliminary Resulted 04/10/17 1256 Blood NO GROWTH TO DATE. Blood Culture - Preliminary Resulted 04/10/17 1239 Blood NO GROWTH TO DATE. Staph aureus is reported as oxacillin sensitive from drainage culture. May consider narrowing coverage and discontinuing the vancomycin. Patient is receiving Clindamycin 600mg IV every 8 hours and Cefepime 2 grams IV every 12 hours. Plan Vancomycin * Trough level of 39.5 mcg/mL is erroneous drawn while drug infusing. * Continue dose of 1,500 mg IV every 12 hours * Goal trough level for Osteomyelitis : 15 to 20 mcg/mL * Trough level ordered for: 04/13/17 @ 09:30 Pharmacy will continue to follow and will adjust dose/frequency as necessary. Thank you.
--- NOTE | 2017-04-12 19:00 | Progress Note ---
Medicine Progress Note Date & Time of Visit: Apr 12, 2017 at 16:00 . Subjective Right transmetatarsal amputation performed this morning by Dr. Bowers. Doing well postoperatively. No chest pain. No cough or dyspnea. No nausea or vomiting. Postop pain well-controlled. . Objective Last 8 Hrs Date Time Temp Pulse Resp B/P (MAP) Pulse Ox O2 Delivery O2 Flow Rate FiO2 04/12/17 18:50 36.8 89 18 123/76 (92) 96 Nasal Cannula 2.0 04/12/17 16:30 Room Air 04/12/17 15:10 36.7 86 18 124/78 (93) 98 Nasal Cannula 2.0 04/12/17 14:22 82 18 113/77 (89) 04/12/17 12:58 36.5 85 18 108/69 (82) 97 Room Air 04/12/17 11:42 74 16 120/77 (91) 98 Nasal Cannula 3.0 Physical Exam: General- no distress Neck- no JVD Lungs- clear to auscultation; no respiratory distress Heart- RRR, IV/ systolic murmur at base, no gallop Abdomen- + BS, soft, nontender Extremities- no pretibial edema or calf tenderness; right foot bandaged Neuro- alert . Laboratory Results: Last 24 Hours Test 04/11/17 20:45 04/12/17 01:14 04/12/17 06:07 04/12/17 10:28 Bedside Glucose 257 mg/dl 164 mg/dl 101 mg/dl 134 mg/dl Test 04/12/17 11:31 04/12/17 12:02 04/12/17 17:05 04/12/17 17:30 Hemoglobin 11.7 g/dL Hematocrit 34.6 % Sodium Level 138 mmol/L Potassium Level 3.9 mmol/L Chloride Level 104 mmol/L Carbon Dioxide Level 29 mmol/L Anion Gap 6.0 mmol/L Blood Urea Nitrogen 12 mg/dl Creatinine 0.95 mg/dl Est Creatinine Clear Calc Drug Dose 88.2 ml/min Estimated GFR () 97.7 Estimated GFR (Non- 84.3 BUN/Creatinine Ratio 13.1 Random Glucose 130 mg/dl Calcium Level 8.9 mg/dl C-Reactive Protein 1.31 mg/dl Vancomycin Level Trough 39.5 mcg/ml Bedside Glucose 133 mg/dl 128 mg/dl Urine Color YELLOW Urine Appearance CLEAR Urine pH 5.0 Urine Specific [place] 1.019 Urine Protein 2+ Urine Glucose (UA) NEG Urine Ketones NEG Urine Occult Blood NEG Urine Nitrite NEG Urine Bilirubin NEG Urine Urobilinogen NEG Urine Leukocyte Esterase NEG Urine WBC (Auto) 1-5 /hpf Urine RBC (Auto) 0-4 /hpf Urine Hyaline Casts (Auto) 1-5 /lpf Urine Epithelial Cells (Auto) 20-30 /lpf Urine Bacteria (Auto) NEG Assessment & Plan OSTEOMYELITIS S/P amputation right second toe. MRI 04/10 demonstrated extensive osteomyelitis left second metatarsal, possible osteomyelitis first and third metatarsals, extensive cellulitis and myositis. Receiving IV vancomycin, clindamycin, cefepime. Wound culture from 04/10 growing Staph aureus (MSSA) and group B beta Strep. ID and Orthopedics consulted. Right transmetatarsal amputation performed. Continue IV antibiotics. CORONARY ARTERY DISEASE S/P PCI LAD 209 and subsequent CABG x 4 2011. No anginal symptoms. Continue aspirin, carvedilol, diltiazem, statin. CHF Chronic left ventricular systolic heart failure secondary to ischemic heart disease. LVEF 40-45% 08/23/15. Compensated. Continue losartan, carvedilol, furosemide, spironolactone. SYSTOLIC MURMUR Echo 08/23/15 demonstrated moderate aortic sclerosis without significant stenosis. PAROXYSMAL ATRIAL FIBRILLATION Currently in NSR. Continue carvedilol, diltiazem. HYPERTENSION Continue carvedilol, diltiazem. DM TYPE 2 Not well controlled, but Hgb A1C has improved from 10.9 on 02/07 to 7.1. Random glucose on admission was 278. Pharmacy consulted for glycemic management. Hold metformin during hospital stay. Lantus / NovoLog per protocol. FBS today = 101. ALCOHOL USE Patient states that last consumption was about 1 week ago. Monitor for symptoms / signs of withdrawal. VTE PROPHYLAXIS SQ heparin. DISPOSITION To be determined. Primary Care follow-up with Dr. Emmanuel. . Current Inpatient Medications: Current Inpatient Medications Medications (Trade) Dose Ordered Sig/Estee Route Start Time Stop Time Status Last Admin Dose Admin Acetaminophen (Tylenol Tab) 650 mg Q4H PRN PO 04/10/17 15:30 05/10/17 15:29 Glucose (Glucose 40% Gel) 15-30 GRAMS 15 GRAMS... UD PRN PO 04/10/17 15:30 05/10/17 15:29 Glucose (Glucose Chew Tab) 4-8 Tablets 4 Tabl... UD PRN PO 04/10/17 15:30 05/10/17 15:29 Dextrose (Dextrose 50% 50ML Syringe) 25-50ML OF 50% DW IV FOR... UD PRN IV 04/10/17 15:30 05/10/17 15:29 Glucagon (Glucagon Inj) 1 mg UD PRN SQ 04/10/17 15:30 05/10/17 15:29 Miscellaneous Information (Consult Glycemic Management Pharmacy) 1 ea UD PRN N/A 04/10/17 15:37 05/10/17 15:36 Lorazepam (Ativan Tab) 1 mg ONE PRN PO 04/10/17 16:00 Aspirin (Ecotrin Tab) 81 mg DAILY PO 04/11/17 09:00 05/11/17 08:59 04/11/17 09:15 81 MG Atorvastatin Calcium (Lipitor Tab) 80 mg DAILY PO 04/11/17 09:00 05/11/17 08:59 04/11/17 09:16 80 MG Cholecalciferol (Vitamin D Tab) 1,000 inter.unit DAILY PO 04/11/17 09:00 05/11/17 08:59 04/11/17 09:17 1,000 INTER.UNIT Diltiazem HCl (Cardizem Tab) 60 mg TID PO 04/10/17 21:00 05/10/17 20:59 04/12/17 13:12 60 MG Folic Acid (Folvite Tab) 1 mg DAILY PO 04/11/17 09:00 05/11/17 08:59 04/11/17 09:15 1 MG Furosemide (Lasix Tab) 40 mg DAILY PO 04/11/17 09:00 05/11/17 08:59 04/11/17 09:16 40 MG Losartan Potassium (coZAAR TAB) 50 mg DAILY PO 04/11/17 09:00 05/11/17 08:59 04/11/17 09:15 50 MG Magnesium Chloride (Slow-Mag Tab) 512 mg DAILY PO 04/11/17 09:00 05/11/17 08:59 04/11/17 09:17 512 MG Potassium Chloride (Klor-Con Tab) 20 meq BID PO 04/10/17 21:00 05/10/17 20:59 04/11/17 20:59 20 MEQ Spironolactone (Aldactone Tab) 25 mg DAILY PO 04/11/17 09:00 05/11/17 08:59 04/11/17 09:13 25 MG Thiamine HCl (Vitamin B-1 Tab) 100 mg DAILY PO 04/11/17 09:00 05/11/17 08:59 04/11/17 09:17 100 MG Ascorbic Acid (Vitamin C Tab) 250 mg BID PO 04/10/17 21:00 05/10/17 20:59 04/11/17 21:00 250 MG Gabapentin (Neurontin Tab) 600 mg Q12H PO 04/12/17 20:00 04/13/17 08:01 Gabapentin (Neurontin Tab) 600 mg Q24H PO 04/13/17 20:00 04/13/17 20:01 Carvedilol (Coreg Tab) 3.125 mg BID PO 04/10/17 21:00 05/10/17 20:59 04/11/17 21:01 3.125 MG Gadobutrol (Gadavist) 9.5 mmol UD PRN IV 04/10/17 21:00 04/14/17 20:59 Cefepime HCl 2000 mg/Syringe 20 ml @ 5 mls/min Q12 IV 04/11/17 08:30 04/21/17 08:29 04/11/17 21:25 5 MLS/MIN Vancomycin HCl (Consult) 1 ea UD PRN N/A 04/11/17 09:45 05/11/17 09:44 Vancomycin HCl 1500 mg/Sodium Chloride 530 ml @ 200 mls/hr Q12H IV 04/11/17 22:00 05/23/17 21:59 04/11/17 21:25 200 MLS/HR Insulin Glargine (Lantus Solostar Pen) SEE PROTOCOL TEXT Q12 SC 04/11/17 21:00 05/11/17 20:59 04/11/17 21:16 20 UNITS Clindamycin Phosphate 600 mg/ Dextrose 54 ml @ 100 mls/hr Q8H IV 04/11/17 20:00 05/23/17 21:59 04/12/17 13:12 100 MLS/HR Enoxaparin Sodium (Lovenox Inj) 40 mg HS SQ 04/11/17 21:00 05/11/17 20:59 04/11/17 21:20 40 MG Insulin Aspart (novoLOG ASPART) SLIDING SCALE If C... ACHS SC 04/12/17 17:15 05/12/17 17:14 04/12/17 18:23 10 UNITS
[2017-04-12] MEDS: GABAPENTIN 600MG Q12H DOSE PO SCH (21:15)
[2017-04-12] MEDS: ENOXAPARIN 40 MG/0.4 ML SYR SQ SCH (21:21)
[2017-04-13] VITALS (16 sets, daily range): BP systolic 87–140; BP diastolic 50–86; PULSE 57–116; TEMP 36.7–37.9; O2SAT 90–98
[2017-04-13] MEDS: CLINDAMYCIN IV 600 MG in DEXTROSE 5% 50ML 50 ML IV SCH (03:45)
[2017-04-13 06:12] LABS: HEMATOCRIT 33.7 % (42-52); HEMOGLOBIN 11.6 g/dL (14.0-18.0); MEAN CELL VOLUME 87.8 fL (80-100); MEAN CORPUSCULAR HEMOGLOBIN 30.2 pg (25-34); MEAN CORPUSCULAR HGB CONC 34.4 g/dl (32-36); MEAN PLATELET VOLUME 9.2 fL (7.4-10.4); PLATELET COUNT 343 K/uL (130-400); RED CELL DISTRIBUTION WIDTH CV 14.3 % (11.5-14.5); RED CELL DISTRIBUTION WIDTH SD 45.4 fL (36.4-46.3); WHITE BLOOD COUNT 9.45 K/uL (4.8-10.8)
[2017-04-13 06:52] LABS: CALCIUM 8.8 mg/dl (8.5-10.1); CREATININE 1.04 mg/dl (0.60-1.40); POTASSIUM 3.9 mmol/L (3.5-5.1)
[2017-04-13] MEDS: GABAPENTIN 600MG Q12H DOSE PO SCH (08:18)
[2017-04-13] MEDS: THIAMINE HCL 100 MG TAB PO SCH (08:19)
[2017-04-13] MEDS: LOSARTAN POTASSIUM 50 MG TAB PO SCH (08:19)
[2017-04-13] MEDS: ATORVASTATIN 40 MG TAB PO SCH (08:20)
[2017-04-13] MEDS: CARVEDILOL 6.25 MG TAB PO SCH ×2 (08:20→20:13)
[2017-04-13] MEDS: CHOLECALCIFEROL 1000 INTER.UNIT TAB PO SCH (08:20)
[2017-04-13] MEDS: ASPIRIN 81 MG ECTAB PO SCH (08:20)
[2017-04-13] MEDS: FUROSEMIDE 40 MG TAB PO SCH (08:21)
[2017-04-13] MEDS: DILTIAZEM HCL 60 MG TAB PO SCH ×3 (08:21→20:13)
[2017-04-13] MEDS: SPIRONOLACTONE 25 MG TAB PO SCH (08:22)
[2017-04-13] MEDS: POTASSIUM CHLORIDE 20 MEQ TABCR PO SCH ×2 (08:23→20:16)
[2017-04-13] MEDS: MAGNESIUM CHLORIDE 64MG DELAYED REL TAB PO SCH (08:24)
[2017-04-13] MEDS: ASCORBIC ACID 500 MG TAB PO SCH ×2 (08:25→20:15)
[2017-04-13] MEDS: CEFEPIME IV 2,000 MG in SYRINGE 7.5 ML IV SCH (08:29)
[2017-04-13] MEDS: INSULIN GLARGINE SOLOSTAR 100 UNITS/ML 3 ML PEN SC SCH ×2 (08:33→20:20)
[2017-04-13] MEDS: INSULIN ASPART 100 UNITS/ML 3 ML PEN SC SCH ×4 (08:34→20:19)
[2017-04-13] MEDS ORDERED: VANCOMYCIN TROUGH ONE (09:30)
--- NOTE | 2017-04-13 10:02 | Orthopedic Progress Note ---
Orthopedic Progress Note Date of Service Apr 13, 2017. Subjective Post OP Day: 1 Reports: feeling well, pain controlled w PO medications Additional Notes: Pt resting comfortably. No complaints presently. Pain controlled. Objective splint C/D/I, dressing C/D/I, A&O x3 Date Time Temp Pulse Resp B/P (MAP) Pulse Ox O2 Delivery O2 Flow Rate FiO2 04/13/17 09:48 36.7 103 24 122/72 (89) 95 Nasal Cannula 2.0 04/13/17 09:03 95 Nasal Cannula 2.0 04/13/17 08:55 37.9 109 24 140/82 (101) 95 Nasal Cannula 2.0 04/13/17 08:14 95 Nasal Cannula 2.0 04/13/17 08:10 37.7 111 24 136/86 (103) 90 Nasal Cannula 2.0 04/13/17 07:57 37.9 109 24 140/82 (101) 95 Nasal Cannula 2.0 04/13/17 03:37 37.3 116 18 134/81 (98) 92 Nasal Cannula 2.0 04/13/17 00:20 Room Air 04/12/17 22:51 36.8 108 18 153/84 (107) 96 Nasal Cannula 2.0 04/12/17 22:50 115 155/83 (107) 04/12/17 22:29 36.8 115 18 155/83 (107) 95 Nasal Cannula 2.0 04/12/17 21:00 85 175/67 (103) 04/12/17 18:50 36.8 89 18 123/76 (92) 96 Nasal Cannula 2.0 04/12/17 16:30 Room Air 04/12/17 15:10 36.7 86 18 124/78 (93) 98 Nasal Cannula 2.0 04/12/17 14:22 82 18 113/77 (89) 04/12/17 12:58 36.5 85 18 108/69 (82) 97 Room Air 04/12/17 11:42 74 16 120/77 (91) 98 Nasal Cannula 3.0 04/12/17 11:00 Nasal Cannula 3.0 04/12/17 11:00 36.5 71 16 111/72 (85) 93 Nasal Cannula 3.0 04/12/17 11:00 93 Nasal Cannula 3.0 04/12/17 10:51 77 16 1210/17 10:51 77 16 104/65 97 04/12/17 10:46 78 18 04/12/17 10:46 81 18 95 04/12/17 10:45 118/66 04/12/17 10:41 82 16 102/69 99 04/12/17 10:41 84 16 04/12/17 10:40 36.3 04/12/17 10:36 78 16 94 04/12/17 10:36 78 16 04/12/17 10:35 113/70 04/12/17 10:33 77 13 95 04/12/17 10:33 77 13 04/12/17 10:31 104/74 04/12/17 10:28 80 15 04/12/17 10:28 79 15 92 04/12/17 10:26 103/65 04/12/17 10:23 78 15 04/12/17 10:23 78 15 99 04/12/17 10:22 76 16 100 04/12/17 10:22 76 16 04/12/17 10:21 108/63 04/12/17 10:17 78 16 04/12/17 10:17 77 16 99 04/12/17 10:15 107/70 04/12/17 10:12 77 16 04/12/17 10:12 77 16 98 04/12/17 10:10 99/68 04/12/17 10:07 76 16 100 04/12/17 10:07 76 16 04/12/17 10:05 102/68 04/12/17 10:03 107/66 04/12/17 10:02 78 04/12/17 10:02 78 96 04/12/17 10:02 36.2 78 16 107/66 97 Oxymask 10 Laboratory Results 24 Hours: Test 04/12/17 11:31 04/13/17 05:54 Hematocrit 34.6 % 33.7 % Hemoglobin 11.7 g/dL 11.6 g/dL Additional Notes: RUN DATE: 04/12/17 [facility] LAB PAGE 1 RUN TIME: 1052 Specimen Inquiry PATIENT: MERYL BURKS LOC: [facility] U # : [id number] AGE/SX: 66/M ROOM: [facility] REG : 04/10/[address]: Leo Leonardo M.D. : 1950 BED: 2 DIS : STATUS: ADM IN TLOC: SPEC #: [id number] WINNIE: 04/10/17 STATUS: RES REQ #: [id number] RECD: 04/10/17-[address]: Aron Wilson PA -C SOURCE: DRAIN-SURF ENTR: 04/10/17 [facility] DR: Jim Bowers DCarol AnnOCarol Ann SPDESC: TOE R2 David Fraser M.D. Martin, Jill ., P.AJennifer. Jerome D.O. Shunk, Brian R., D.O. ORDERED: SURF WND [facility] COMMENTS: Has Specimen Been Obtained/Collected? Y Procedure Result Verified Site GRAM STAIN Final 04/11/17-8782 RESULT MANY WBCs SEEN MANY GRAM POSITIVE COCCI SURFACE WOUND CULTURE Preliminary 04/12/17-6860 Organism 1 STAPHYLOCOCCUS AUREUS QUANITY MANY SENS SENSITIVITY TO FOLLOW Organism 2 GROUP B BETA STREP QUANITY MODERATE SENS SENSITIVITY TO FOLLOW 1. STAPHYLOCOCCUS AUREUS Target Route Dose RX AB Cost M.I.C. IQ ------ ----- ------ -- ------ -------- - ------ TRIMET/SULFA S <=0.5/ 9.5 * OXACILLIN S <=0.25 VANCOMYCIN S 2 ERYTHROMYCIN S <=0.5 TETRACYCLINE S <=4 CLINDAMYCIN S <=0.5 DAPTOMYCIN S <=0.5 S = SENSITIVE I = INTERMEDIATE R = RESISTANT Assessment & Plan Assessment: POD 1 s/p 1. Transmetatarsal Amputation 2. Incision and Drainage Right Foot Plantar Abcess 3. Debridement of Flexor Hallucis Longus and Flexor Digitorum Longus Tendons Diabetic neuropathy right foot PVD Plan: Continue IV antibiotics Cx as noted above from wound surface Dressing change tomorrow May be up NWB on the affected extremity
--- NOTE | 2017-04-13 10:48 | Pharmacy Progress Note ---
Pharmacy Glycemic Short Note 2 Date of Service Apr 13, 2017. OUTPATIENT ANTIDIABETIC REGIMEN: * Lantus 40 units SQ HS * NovoLog with meals (8-10 units BIDM) * Glipizide 10mg PO BIDM * Metformin 1,000mg PO BIDM * A1c = 7.1% on 04/11/17 * Adequate degree of outpatient control. ASSESSMENT: * BSGs 101 - 182 mg/dl over the past 24hrs * Patient received 52 units of insulin over the past 24hrs * Lantus 10-16 units SQ BID * NovoLog ACHS per CF = 20 & CR = 7 * AM fasting BSG above goal range this AM at 182mg/dl * This is likely d/t basal insulin dose omitted prior to surgery yesterday AM. Reduced dose of basal insulin was given when patient returned from OR. AM fasting should improve with current dosing once Lantus re-reaches steady state. * Post-prandial BSGs are in goal range, no changes needed to CF/CR {was loosened yesterday} PLAN FOR INPATIENT GLYCEMIC CONTROL: * Hold outpatient oral diabetes medications * Basal insulin * Lantus 16-20 units SQ BID based on BSG/degree of hyperglycemia * Bolus insulin * NovoLog per scale ACHS or Q6hrs while NPO * Goal Range: Low 110 mg/dL - High 140 mg/dL * Correction Factor: 20 mg/dL/unit * Nutritional / Prandial insulin per carb ratio of 1 unit per 7 grams CHO consumed
[2017-04-13] MEDS ORDERED: MULTI-VITAMIN INFUSION INJ 10 ML, THIAMINE HCL INJ 100 MG, FoLIC ACID INJ 1 MG in SODIU... IV ONE (13:04)
[2017-04-13] MEDS ORDERED: LORAZEPAM 1 MG TAB PO PRN (13:15)
[2017-04-13] MEDS ORDERED: GABAPENTIN 600 MG TAB PO SCH (13:15)
[2017-04-13 13:58] LABS: ALBUMIN 2.5 gm/dl (3.4-5.0); TOTAL PROTEIN 7.3 gm/dl (6.4-8.2)
[2017-04-13] MEDS ORDERED: GABAPENTIN 1200MG LOADING DOSE PO SCH (14:00)
[2017-04-13 14:02] LABS: CKMB 0.6 ng/ml (0.5-3.6)
--- NOTE | 2017-04-13 14:07 | DIAGNOSTIC IMAGING REPORT ---
CHEST ONE VIEW PORTABLE CLINICAL HISTORY: fever COMPARISON STUDY: 04/10/2017 FINDINGS: There are postsurgical changes of a midline sternotomy. The heart remains enlarged. There is no failure. There is no focal pulmonary consolidation. There are no pleural effusions.[ IMPRESSION: Stable cardiomegaly. No acute findings. Electronically signed by: Stanley Salas M.D. 04/13/2017 2:06 PM Dictated Date/Time: 04/13/2017 2:05 PM
--- NOTE | 2017-04-13 14:52 | Infectious Disease Progress Nt ---
Progress Note Date of Service Apr 13, 2017. 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 Pain controlled. No fever. Cultures growing MSSA and group B Strep. Have changed to IV cefazolin. All Other Systems: Reviewed and Negative Medications Current Inpatient Medications Medications (Trade) Dose Ordered Sig/Estee Route Start Time Stop Time Status Last Admin Dose Admin Acetaminophen (Tylenol Tab) 650 mg Q4H PRN PO 04/10/17 15:30 05/10/17 15:29 04/13/17 08:19 650 MG Glucose (Glucose 40% Gel) 15-30 GRAMS 15 GRAMS... UD PRN PO 04/10/17 15:30 05/10/17 15:29 Glucose (Glucose Chew Tab) 4-8 Tablets 4 Tabl... UD PRN PO 04/10/17 15:30 05/10/17 15:29 Dextrose (Dextrose 50% 50ML Syringe) 25-50ML OF 50% DW IV FOR... UD PRN IV 04/10/17 15:30 05/10/17 15:29 Glucagon (Glucagon Inj) 1 mg UD PRN SQ 04/10/17 15:30 05/10/17 15:29 Miscellaneous Information (Consult Glycemic Management Pharmacy) 1 ea UD PRN N/A 04/10/17 15:37 05/10/17 15:36 Aspirin (Ecotrin Tab) 81 mg DAILY PO 04/11/17 09:00 05/11/17 08:59 04/13/17 08:20 81 MG Atorvastatin Calcium (Lipitor Tab) 80 mg DAILY PO 04/11/17 09:00 05/11/17 08:59 04/13/17 08:20 80 MG Cholecalciferol (Vitamin D Tab) 1,000 inter.unit DAILY PO 04/11/17 09:00 05/11/17 08:59 04/13/17 08:20 1,000 INTER.UNIT Diltiazem HCl (Cardizem Tab) 60 mg TID PO 04/10/17 21:00 05/10/17 20:59 04/13/17 14:33 60 MG Folic Acid (Folvite Tab) 1 mg DAILY PO 04/11/17 09:00 05/11/17 08:59 04/13/17 08:23 1 MG Furosemide (Lasix Tab) 40 mg DAILY PO 04/11/17 09:00 05/11/17 08:59 04/13/17 08:21 40 MG Losartan Potassium (coZAAR TAB) 50 mg DAILY PO 04/11/17 09:00 05/11/17 08:59 04/13/17 08:19 50 MG Magnesium Chloride (Slow-Mag Tab) 512 mg DAILY PO 04/11/17 09:00 05/11/17 08:59 04/13/17 08:24 512 MG Potassium Chloride (Klor-Con Tab) 20 meq BID PO 04/10/17 21:00 05/10/17 20:59 04/13/17 08:23 20 MEQ Spironolactone (Aldactone Tab) 25 mg DAILY PO 04/11/17 09:00 05/11/17 08:59 04/13/17 08:22 25 MG Thiamine HCl (Vitamin B-1 Tab) 100 mg DAILY PO 04/11/17 09:00 05/11/17 08:59 04/13/17 08:19 100 MG Ascorbic Acid (Vitamin C Tab) 250 mg BID PO 04/10/17 21:00 05/10/17 20:59 04/13/17 08:25 250 MG Gabapentin (Neurontin Tab) 600 mg Q24H PO 04/13/17 20:00 04/13/17 20:01 Carvedilol (Coreg Tab) 3.125 mg BID PO 04/10/17 21:00 05/10/17 20:59 04/13/17 08:20 3.125 MG Gadobutrol (Gadavist) 9.5 mmol UD PRN IV 04/10/17 21:00 04/14/17 20:59 Insulin Glargine (Lantus Solostar Pen) SEE PROTOCOL TEXT Q12 SC 04/11/17 21:00 05/11/17 20:59 04/13/17 08:33 20 UNITS Enoxaparin Sodium (Lovenox Inj) 40 mg HS SQ 04/11/17 21:00 05/11/17 20:59 04/12/17 21:21 40 MG Insulin Aspart (novoLOG ASPART) SLIDING SCALE If C... ACHS SC 04/12/17 17:15 05/12/17 17:14 04/13/17 12:46 5 UNITS Cefazolin Sodium 2000 mg/Syringe 10 ml @ 2.5 mls/min Q8 IV 04/13/17 14:00 05/25/17 13:59 Multivitamins 10 ml/Thiamine HCl 100 mg/Folic Acid 1 mg/Sodium Chloride 1,011.2 ml @ 250 mls/ hr Q4H3M ONCE IV 04/13/17 13:04 04/13/17 17:06 04/13/17 14:32 250 MLS/HR Lorazepam (Ativan Tab) PRN Dosing -Active Protocol UD PRN PO 04/13/17 13:15 05/13/17 13:14 Gabapentin (Neurontin Tab) 600 mg Q6H PO 04/13/17 20:00 04/14/17 02:01 Gabapentin (Neurontin Tab) 600 mg Q8H PO 04/14/17 14:00 04/15/17 06:01 Gabapentin (Neurontin Tab) 600 mg Q12H PO 04/15/17 18:00 04/16/17 06:01 Gabapentin (Neurontin Tab) 600 mg Q24H PO 04/17/17 06:00 04/17/17 06:01 Objective Vital Signs Date Time Temp Pulse Resp B/P (MAP) Pulse Ox O2 Delivery O2 Flow Rate FiO2 04/13/17 12:44 36.9 85 20 113/76 (88) 95 Nasal Cannula 2.0 04/13/17 12:00 97 Nasal Cannula 2.0 04/13/17 11:43 37.0 92 20 116/72 (87) 97 Nasal Cannula 2.0 04/13/17 11:21 36.7 103 24 95 2.0 04/13/17 09:48 36.7 103 24 122/72 (89) 95 Nasal Cannula 2.0 04/13/17 09:03 95 Nasal Cannula 2.0 04/13/17 08:55 37.9 109 24 140/82 (101) 95 Nasal Cannula 2.0 04/13/17 08:14 95 Nasal Cannula 2.0 04/13/17 08:10 37.7 111 24 136/86 (103) 90 Nasal Cannula 2.0 04/13/17 07:57 37.9 109 24 140/82 (101) 95 Nasal Cannula 2.0 04/13/17 07:30 Nasal Cannula 2.0 93 04/13/17 03:37 37.3 116 18 134/81 (98) 92 Nasal Cannula 2.0 04/13/17 00:20 Room Air 04/12/17 22:51 36.8 108 18 153/84 (107) 96 Nasal Cannula 2.0 04/12/17 22:50 115 155/83 (107) 04/12/17 22:29 36.8 115 18 155/83 (107) 95 Nasal Cannula 2.0 04/12/17 21:00 85 175/67 (103) 04/12/17 18:50 36.8 89 18 123/76 (92) 96 Nasal Cannula 2.0 04/12/17 16:30 Room Air 04/12/17 15:10 36.7 86 18 124/78 (93) 98 Nasal Cannula 2.0 Physical Exam General Appearance: WD/WN, no apparent distress Eyes: normal inspection, EOMI, sclerae normal ENT: normal ENT inspection, pharynx normal Neck: supple, no adenopathy, trachea midline Respiratory/Chest: chest non-tender, lungs clear, normal breath sounds, no respiratory distress Cardiovascular: regular rate, rhythm, no gallop, + systolic murmur Abdomen: normal bowel sounds, non tender, soft, no organomegaly Extremities: non-tender, no calf tenderness Neurologic/Psychiatric: alert, oriented x 3 Skin: normal color, no rash, + pertinent finding (dressing intact right foot) Lymphatic: no adenopathy Laboratory Results RUN DATE: 04/13/17 [facility] PAGE 1 RUN TIME: 1012 Specimen Inquiry PATIENT: MERYL BURKS LOC: IMMANUEL Zuñiga # : [id number] AGE/SX: 66/M ROOM: N383 REG : 04/10/[address]: Leo Leonardo M.D. : 1950 BED: 2 DIS : STATUS: ADM IN TLOC: SPEC #: [id number] WINNIE: 04/10/17 STATUS: COMP REQ #: [id number] RECD: 04/10/17-[address]: Aron Wilson PA -C SOURCE: DRAIN-SURF ENTR: 04/10/17-152 [facility] DR: Jim Bowers DEnio SPDESC: TOE R2 David Fraser M.D. Martin, Jill ., P.ACarol Ann-Jennifer. Davis D.O. Shunk, Brian R., D.O. ORDERED: SURF WND CU/RAVI COMMENTS: Has Specimen Been Obtained/Collected? Y Procedure Result Verified Site GRAM STAIN Final 04/11/17-0850 RESULT MANY WBCs SEEN MANY GRAM POSITIVE COCCI SURFACE WOUND CULTURE Final 04/13/17-1012 Organism 1 STAPHYLOCOCCUS AUREUS QUANITY MANY SENS SENSITIVITY TO FOLLOW Organism 2 GROUP B BETA STREP QUANITY MODERATE SENS SENSITIVITY TO FOLLOW STAPH AUR GBBS M.I.C. RX M.I.C. RX --------- ------ --------- ------ TRIMET/SULFA <=0.5/9.5 S AMPICILLIN 0.12 S * OXACILLIN <=0.25 S CEFOTAXIME <=0.25 S CEFTRIAXONE <=0.25 S CEFEPIME <=0.25 S CHLORAMPHENICOL 4 S VANCOMYCIN 2 S 0.5 S PENICILLIN 0.06 S ERYTHROMYCIN <=0.5 S 0.5 I TETRACYCLINE <=4 S CLINDAMYCIN <=0.5 S >0.5 R DAPTOMYCIN <=0.5 S AZITHROMYCIN >2 R 1. STAPHYLOCOCCUS AUREUS Target Route Dose RX AB Cost M.I.C. IQ ------ ----- ------ -- ------ -------- - ------ TRIMET/SULFA S <=0.5/ 9.5 * OXACILLIN S <=0.25 VANCOMYCIN S 2 ERYTHROMYCIN S <=0.5 TETRACYCLINE S <=4 CONTINUED ON NEXT PAGE RUN DATE: 04/13/17 [facility] PAGE 2 RUN TIME: 1012 Specimen Inquiry SPEC: [id number] PATIENT: MERYL BURKS [id number] ( Continued) Procedure Result Verified Site SURFACE WOUND CULTURE Final (continued) 04/13/17-1012 1. STAPHYLOCOCCUS AUREUS (continued) Target Route Dose RX AB Cost M.I.C. IQ ------ ----- ------ -- ------ -------- - ------ CLINDAMYCIN S <=0.5 DAPTOMYCIN S <=0.5 2. GROUP B BETA STREP Target Route Dose RX AB Cost M.I.C. IQ ------ ----- ------ -- ------ -------- - ------ AMPICILLIN S 0.12 CEFOTAXIME S <=0.25 CEFTRIAXONE S <=0.25 CEFEPIME S <=0.25 CHLORAMPHENICOL S 4 VANCOMYCIN S 0.5 PENICILLIN S 0.06 ERYTHROMYCIN I 0.5 CLINDAMYCIN R >0.5 AZITHROMYCIN R >2 S = SENSITIVE I = INTERMEDIATE R = RESISTANT Last 24 Hours Test 04/12/17 17:05 04/12/17 17:30 04/12/17 20:23 04/13/17 05:54 Bedside Glucose 128 mg/dl 155 mg/dl Urine Color YELLOW Urine Appearance CLEAR Urine pH 5.0 Urine Specific [place] 1.019 Urine Protein 2+ Urine Glucose (UA) NEG Urine Ketones NEG Urine Occult Blood NEG Urine Nitrite NEG Urine Bilirubin NEG Urine Urobilinogen NEG Urine Leukocyte Esterase NEG Urine WBC (Auto) 1-5 /hpf Urine RBC (Auto) 0-4 /hpf Urine Hyaline Casts (Auto) 1-5 /lpf Urine Epithelial Cells (Auto) 20-30 /lpf Urine Bacteria (Auto) NEG White Blood Count 9.45 K/uL Red Blood Count 3.84 M/uL Hemoglobin 11.6 g/dL Hematocrit 33.7 % Mean Corpuscular Volume 87.8 fL Mean Corpuscular Hemoglobin 30.2 pg Mean Corpuscular Hemoglobin Concent 34.4 g/dl RDW Standard Deviation 45.4 fL RDW Coefficient of Variation 14.3 % Platelet Count 343 K/uL Mean Platelet Volume 9.2 fL Sodium Level 135 mmol/L Potassium Level 3.9 mmol/L Chloride Level 100 mmol/L Carbon Dioxide Level 27 mmol/L Anion Gap 8.0 mmol/L Blood Urea Nitrogen 10 mg/dl Creatinine 1.04 mg/dl Est Creatinine Clear Calc Drug Dose 80.6 ml/min Estimated GFR () 87.5 Estimated GFR (Non- 75.5 BUN/Creatinine Ratio 9.7 Random Glucose 127 mg/dl Calcium Level 8.8 mg/dl Vancomycin Level Trough 24.2 mcg/ml Test 04/13/17 08:09 04/13/17 11:49 04/13/17 12:17 04/13/17 13:21 Bedside Glucose 182 mg/dl 229 mg/dl 213 mg/dl Magnesium Level 1.9 mg/dl Total Bilirubin 0.6 mg/dl Direct Bilirubin 0.2 mg/dl Aspartate Amino Transf (AST/SGOT) 14 U/L Alanine Aminotransferase (ALT/SGPT) 14 U/L Alkaline Phosphatase 89 U/L Ammonia 25.0 umol/L Total Creatine Kinase 24 U/L Creatine Kinase MB 0.6 ng/ml Creatine Kinase MB Ratio 2.5 Troponin I 0.060 ng/ml Total Protein 7.3 gm/dl Albumin 2.5 gm/dl Procalcitonin 0.16 ng/ml Test 04/13/17 13:22 04/13/17 14:29 Lactic Acid Level 1.2 mmol/L CLINICAL HISTORY: fever COMPARISON STUDY: 04/10/2017 FINDINGS: There are postsurgical changes of a midline sternotomy. The heart remains enlarged. There is no failure. There is no focal pulmonary consolidation. There are no pleural effusions.[ IMPRESSION: Stable cardiomegaly. No acute findings. Electronically signed by: Stanley Salas M.D. 04/13/2017 2:06 PM Dictated Date/Time: 04/13/2017 2:05 PM The status of this report is Signed. Draft = Not yet reviewed or approved by Radiologist. Signed = Reviewed and approved by Radiologist. <AttendingPhy>Leo Leonardo M.D.</AttendingPhy> <FamilyPhy>Dionicio Emmanuel D.O.</FamilyPhy> <PrimaryPhy>Dionicio Emmanuel D.O.</PrimaryPhy> <UnitNumber> [id number]</UnitNumber> <VisitNumber>[id number]</VisitNumber> <PatientName> VITALIY,MERYL</PatientName> <DateOfBirth>1950</DateOfBirth> <Location> C.2T</Location> <ServiceDate>04/10/17</ServiceDate> <MNE>ESINDI</MNE> < OrderingPhy>Leo Leonardo M.D.</OrderingPhy> <OrderingPhyMNE>f rep ord dr lucio</ OrderingPhyMNE> <DictatingPhyMNE>f rep dict dr lucio</DictatingPhyMNE> <CCListMNE> f rep ct khadijah</CCListMNE> <AdmittingPhyMNE>f pt admit dr lucio</AdmittingPhyMNE> < AttendingPhyMNE>f pt attend dr lucio</AttendingPhyMNE> <ConsultingPhyMNE>f pt consult dr lucio</ConsultingPhyMNE> <FamilyPhyMNE>f pt fam dr lucio</FamilyPhyMNE> <OtherPhyMNE>f pt other d Assessment and Plan Osteomyelitis of the right foot with plantar abscess s/p TMA, with cultures positive for Staph aureus and group B Streptococcus. Patient will be continued on IV cefazolin, with length of IV therapy to be determined by healing of surgical site. Will follow.
[2017-04-13] MEDS: CEFAZOLIN IV 2,000 MG in SYRINGE 0 ML IV SCH (18:17)
[2017-04-13 19:47] LABS: CKMB 0.7 ng/ml (0.5-3.6)
[2017-04-13] MEDS ORDERED: GABAPENTIN 600MG X1 DOSE PO SCH (20:00)
--- NOTE | 2017-04-13 20:08 | Progress Note ---
Medicine Progress Note Date & Time of Visit: Apr 13, 2017 at 10:30 . Subjective Low grade fever and tachycardia during the night. Had some tremors this morning. Received lorazepam per protocol. Somnolent at time of my assessment. Denies cough or SOB. No chest pain. No nausea, vomiting, diarrhea. No postop pain. . Objective Last 8 Hrs Date Time Temp Pulse Resp B/P (MAP) Pulse Ox O2 Delivery O2 Flow Rate FiO2 04/13/17 19:07 Nasal Cannula 2.0 04/13/17 16:00 98 Nasal Cannula 2.0 04/13/17 15:48 36.8 87 18 115/67 (83) 97 Nasal Cannula 2.0 04/13/17 12:44 36.9 85 20 113/76 (88) 95 Nasal Cannula 2.0 Physical Exam: General- no distress Neck- no JVD Lungs- clear to auscultation; no respiratory distress Heart- RRR, IV/ systolic murmur at base, no gallop Abdomen- + BS, soft, nontender Extremities- no pretibial edema or calf tenderness; right foot bandaged Neuro- somnolent . Laboratory Results: Last 24 Hours Test 04/12/17 20:23 04/13/17 05:54 04/13/17 08:09 04/13/17 11:49 Bedside Glucose 155 mg/dl 182 mg/dl 229 mg/dl White Blood Count 9.45 K/uL Red Blood Count 3.84 M/uL Hemoglobin 11.6 g/dL Hematocrit 33.7 % Mean Corpuscular Volume 87.8 fL Mean Corpuscular Hemoglobin 30.2 pg Mean Corpuscular Hemoglobin Concent 34.4 g/dl RDW Standard Deviation 45.4 fL RDW Coefficient of Variation 14.3 % Platelet Count 343 K/uL Mean Platelet Volume 9.2 fL Sodium Level 135 mmol/L Potassium Level 3.9 mmol/L Chloride Level 100 mmol/L Carbon Dioxide Level 27 mmol/L Anion Gap 8.0 mmol/L Blood Urea Nitrogen 10 mg/dl Creatinine 1.04 mg/dl Est Creatinine Clear Calc Drug Dose 80.6 ml/min Estimated GFR () 87.5 Estimated GFR (Non- 75.5 BUN/Creatinine Ratio 9.7 Random Glucose 127 mg/dl Calcium Level 8.8 mg/dl Vancomycin Level Trough 24.2 mcg/ml Test 04/13/17 12:17 04/13/17 13:21 04/13/17 13:22 04/13/17 14:45 Bedside Glucose 213 mg/dl Magnesium Level 1.9 mg/dl Total Bilirubin 0.6 mg/dl Direct Bilirubin 0.2 mg/dl Aspartate Amino Transf (AST/SGOT) 14 U/L Alanine Aminotransferase (ALT/SGPT) 14 U/L Alkaline Phosphatase 89 U/L Ammonia 25.0 umol/L Total Creatine Kinase 24 U/L Creatine Kinase MB 0.6 ng/ml Creatine Kinase MB Ratio 2.5 Troponin I 0.060 ng/ml Total Protein 7.3 gm/dl Albumin 2.5 gm/dl Procalcitonin 0.16 ng/ml Lactic Acid Level 1.2 mmol/L Urine Color YELLOW Urine Appearance CLEAR Urine pH 5.0 Urine Specific [place] 1.014 Urine Protein 1+ Urine Glucose (UA) NEG Urine Ketones NEG Urine Occult Blood NEG Urine Nitrite NEG Urine Bilirubin NEG Urine Urobilinogen NEG Urine Leukocyte Esterase NEG Urine WBC (Auto) 0 /hpf Urine RBC (Auto) 0-4 /hpf Urine Hyaline Casts (Auto) 0 /lpf Urine Epithelial Cells (Auto) 0-5 /lpf Urine Bacteria (Auto) NEG Test 04/13/17 16:23 04/13/17 19:12 Bedside Glucose 118 mg/dl Total Creatine Kinase 24 U/L Creatine Kinase MB 0.7 ng/ml Creatine Kinase MB Ratio 2.9 Troponin I 0.043 ng/ml Date/Time Source Procedure Growth Status 04/13/17 13:21 Blood Blood Culture Pending Received 04/13/17 13:15 Blood Blood Culture Pending Received Assessment & Plan OSTEOMYELITIS S/P prior amputation right second toe. MRI 04/10 demonstrated extensive osteomyelitis left second metatarsal, possible osteomyelitis first and third metatarsals, extensive cellulitis and myositis. Initially received IV vancomycin, clindamycin, cefepime. ID and Orthopedics consulted. Wound culture from 04/10 grew Staph aureus (MSSA) and group B beta Strep. Right transmetatarsal amputation performed 04/12. Antibiotic therapy changed to cefazolin per sensitivities. CORONARY ARTERY DISEASE S/P PCI LAD 209 and subsequent CABG x 4 2011. No anginal symptoms. Continue aspirin, carvedilol, diltiazem, statin. CHF Chronic left ventricular systolic heart failure secondary to ischemic heart disease. LVEF 40-45% 08/23/15. Compensated. Continue losartan, carvedilol, furosemide, spironolactone. SYSTOLIC MURMUR Echo 08/23/15 demonstrated moderate aortic sclerosis without significant stenosis. PAROXYSMAL ATRIAL FIBRILLATION Currently in NSR. Continue carvedilol, diltiazem. HYPERTENSION Continue carvedilol, diltiazem. DM TYPE 2 Not well controlled, but Hgb A1C has improved from 10.9 on 02/07 to 7.1. Random glucose on admission was 278. Pharmacy consulted for glycemic management. Hold metformin during hospital stay. FBS today = 182. Lantus / NovoLog per protocol. ALCOHOL USE Patient states that last consumption was about 1 week ago, but suspect that history may not be accurate. Appears to be having alcohol withdrawal symptoms. Alcohol withdrawal protocol initiated. Continue thiamine, MVI, etc. FEVER T max last night was 37.9. Check chest x-ray, UA, blood cultures. Incentive spirometry. VTE PROPHYLAXIS -S-Q- -j-v-n-a-r-i-n-.- SQ enoxaparin [error QUINTIN corrected 04/14/17 @ 02:56] DISPOSITION To be determined. Anticipated need for skilled care or rehab. Primary Care follow-up with Dr. Emmanuel. . Current Inpatient Medications: Current Inpatient Medications Medications (Trade) Dose Ordered Sig/Estee Route Start Time Stop Time Status Last Admin Dose Admin Acetaminophen (Tylenol Tab) 650 mg Q4H PRN PO 04/10/17 15:30 05/10/17 15:29 04/13/17 08:19 650 MG Glucose (Glucose 40% Gel) 15-30 GRAMS 15 GRAMS... UD PRN PO 04/10/17 15:30 05/10/17 15:29 Glucose (Glucose Chew Tab) 4-8 Tablets 4 Tabl... UD PRN PO 04/10/17 15:30 05/10/17 15:29 Dextrose (Dextrose 50% 50ML Syringe) 25-50ML OF 50% DW IV FOR... UD PRN IV 04/10/17 15:30 05/10/17 15:29 Glucagon (Glucagon Inj) 1 mg UD PRN SQ 04/10/17 15:30 05/10/17 15:29 Miscellaneous Information (Consult Glycemic Management Pharmacy) 1 ea UD PRN N/A 04/10/17 15:37 05/10/17 15:36 Aspirin (Ecotrin Tab) 81 mg DAILY PO 04/11/17 09:00 05/11/17 08:59 04/13/17 08:20 81 MG Atorvastatin Calcium (Lipitor Tab) 80 mg DAILY PO 04/11/17 09:00 05/11/17 08:59 04/13/17 08:20 80 MG Cholecalciferol (Vitamin D Tab) 1,000 inter.unit DAILY PO 04/11/17 09:00 05/11/17 08:59 04/13/17 08:20 1,000 INTER.UNIT Diltiazem HCl (Cardizem Tab) 60 mg TID PO 04/10/17 21:00 05/10/17 20:59 04/13/17 14:33 60 MG Folic Acid (Folvite Tab) 1 mg DAILY PO 04/11/17 09:00 05/11/17 08:59 04/13/17 08:23 1 MG Furosemide (Lasix Tab) 40 mg DAILY PO 04/11/17 09:00 05/11/17 08:59 04/13/17 08:21 40 MG Losartan Potassium (coZAAR TAB) 50 mg DAILY PO 04/11/17 09:00 05/11/17 08:59 04/13/17 08:19 50 MG Magnesium Chloride (Slow-Mag Tab) 512 mg DAILY PO 04/11/17 09:00 05/11/17 08:59 04/13/17 08:24 512 MG Potassium Chloride (Klor-Con Tab) 20 meq BID PO 04/10/17 21:00 05/10/17 20:59 04/13/17 08:23 20 MEQ Spironolactone (Aldactone Tab) 25 mg DAILY PO 04/11/17 09:00 05/11/17 08:59 04/13/17 08:22 25 MG Thiamine HCl (Vitamin B-1 Tab) 100 mg DAILY PO 04/11/17 09:00 05/11/17 08:59 04/13/17 08:19 100 MG Ascorbic Acid (Vitamin C Tab) 250 mg BID PO 04/10/17 21:00 05/10/17 20:59 04/13/17 08:25 250 MG Carvedilol (Coreg Tab) 3.125 mg BID PO 04/10/17 21:00 05/10/17 20:59 04/13/17 08:20 3.125 MG Gadobutrol (Gadavist) 9.5 mmol UD PRN IV 04/10/17 21:00 04/14/17 20:59 Insulin Glargine (Lantus Solostar Pen) SEE PROTOCOL TEXT Q12 SC 04/11/17 21:00 05/11/17 20:59 04/13/17 08:33 20 UNITS Enoxaparin Sodium (Lovenox Inj) 40 mg HS SQ 04/11/17 21:00 05/11/17 20:59 04/12/17 21:21 40 MG Insulin Aspart (novoLOG ASPART) SLIDING SCALE If C... ACHS SC 04/12/17 17:15 05/12/17 17:14 04/13/17 18:22 6 UNITS Cefazolin Sodium 2000 mg/Syringe 10 ml @ 2.5 mls/min Q8 IV 04/13/17 14:00 05/25/17 13:59 04/13/17 18:17 2.5 MLS/MIN Lorazepam (Ativan Tab) PRN Dosing -Active Protocol UD PRN PO 04/13/17 13:15 05/13/17 13:14 Gabapentin (Neurontin Tab) 600 mg Q6H PO 04/13/17 20:00 04/14/17 02:01 Gabapentin (Neurontin Tab) 600 mg Q8H PO 04/14/17 14:00 04/15/17 06:01 Gabapentin (Neurontin Tab) 600 mg Q12H PO 04/15/17 18:00 04/16/17 06:01 Gabapentin (Neurontin Tab) 600 mg Q24H PO 04/17/17 06:00 04/17/17 06:01
[2017-04-13] MEDS: GABAPENTIN 600MG Q6H DOSE PO SCH (20:14)
[2017-04-13] MEDS: ENOXAPARIN 40 MG/0.4 ML SYR SQ SCH (21:47)
[2017-04-14] VITALS (7 sets, daily range): BP systolic 103–130; BP diastolic 64–82; PULSE 71–92; TEMP 36.7–36.9; O2SAT 90–96
[2017-04-14] MEDS: CEFAZOLIN IV 2,000 MG in SYRINGE 0 ML IV SCH ×4 (01:43→22:01)
[2017-04-14] MEDS: GABAPENTIN 600MG Q6H DOSE PO SCH (01:44)
[2017-04-14 06:44] LABS: HEMATOCRIT 33.1 % (42-52); MEAN CORPUSCULAR HEMOGLOBIN 29.6 pg (25-34); MEAN CORPUSCULAR HGB CONC 33.2 g/dl (32-36); PLATELET COUNT 304 K/uL (130-400); RED CELL DISTRIBUTION WIDTH CV 14.5 % (11.5-14.5); RED CELL DISTRIBUTION WIDTH SD 47.5 fL (36.4-46.3); WHITE BLOOD COUNT 7.25 K/uL (4.8-10.8)
[2017-04-14 07:10] LABS: CALCIUM 8.9 mg/dl (8.5-10.1); CREATININE 0.91 mg/dl (0.60-1.40); POTASSIUM 4.1 mmol/L (3.5-5.1)
[2017-04-14] MEDS ORDERED: FoLIC ACID TAB 400 MCG TAB PO SCH (09:00)
[2017-04-14] MEDS: INSULIN ASPART 100 UNITS/ML 3 ML PEN SC SCH ×6 (09:51→23:54)
[2017-04-14] MEDS: ASCORBIC ACID 500 MG TAB PO SCH ×2 (09:52→22:00)
[2017-04-14] MEDS: MAGNESIUM CHLORIDE 64MG DELAYED REL TAB PO SCH (09:53)
[2017-04-14] MEDS: CHOLECALCIFEROL 1000 INTER.UNIT TAB PO SCH (09:54)
[2017-04-14] MEDS: POTASSIUM CHLORIDE 20 MEQ TABCR PO SCH ×2 (09:54→22:00)
[2017-04-14] MEDS: SPIRONOLACTONE 25 MG TAB PO SCH (09:54)
[2017-04-14] MEDS: THIAMINE HCL 100 MG TAB PO SCH (09:55)
[2017-04-14] MEDS: DILTIAZEM HCL 60 MG TAB PO SCH ×3 (09:56→22:01)
[2017-04-14] MEDS: FUROSEMIDE 40 MG TAB PO SCH (09:56)
[2017-04-14] MEDS: ATORVASTATIN 40 MG TAB PO SCH (09:56)
[2017-04-14] MEDS: CARVEDILOL 6.25 MG TAB PO SCH ×2 (09:57→22:01)
[2017-04-14] MEDS: ASPIRIN 81 MG ECTAB PO SCH (09:57)
[2017-04-14] MEDS: LOSARTAN POTASSIUM 50 MG TAB PO SCH (09:58)
[2017-04-14] MEDS: MULTIVITAMIN TAB PO SCH (10:02)
--- NOTE | 2017-04-14 11:19 | Pharmacy Progress Note ---
Pharmacy Glycemic Short Note 2 Date of Service Apr 14, 2017. OUTPATIENT ANTIDIABETIC REGIMEN: * Lantus 40 units SQ HS * NovoLog with meals (8-10 units BIDM) * Glipizide 10mg PO BIDM * Metformin 1,000mg PO BIDM * A1c = 7.1% on 04/11/17 (was 10.9% on 02/07/17) * Adequate degree of outpatient control. ASSESSMENT: * BSGs 04/13: 182, 231, 118, 198 * BSGs 04/14: 184 * Patient received 63 units of insulin over the past 24hrs * Lantus 20 units SQ BID (total dose of 40 units) * NovoLog ACHS per CF = 20 & CR = 7 (total dose of 23 units) * Patient with significant A1c improvement on outpatient regimen since February. Patient take Lantus once daily at HS but is ordered Lantus BID in house secondary to NPO status/OR on 02/12. Will start working back to Q24hrs dosing. * Total daily dose of insulin likely needs increased for better control while outpatient orals are on hold. However, working Lantus back to Q24hr dosing so there will be some overlapping of dosing. Will consider increasing dosing once new steady state is reached. PLAN FOR INPATIENT GLYCEMIC CONTROL: * Hold outpatient oral diabetes medications * Basal insulin: work back to Lantus 40 units SQ HS * Lantus 30 units SQ x 1 today with Lunch + Lantus 10 units SQ HS x 1 dose today. Then, * Lantus 40 units SQ x 1 dose tomorrow with dinner * Resume Lantus 40 units SQ HS 12/14 PM * Bolus insulin: tighten slightly for better post-prandial control * NovoLog per scale ACHS or Q6hrs while NPO * Goal Range: Low 110 mg/dL - High 140 mg/dL * Correction Factor: 20 mg/dL/unit * Nutritional / Prandial insulin per carb ratio of -1- -u-n-i-t- -p-e-r- -7- -g-r-a-m-s- -C-H-O- -o-g-q-s-u-m-e-d- - - ->- 1 unit per 6 grams CHO consumed
[2017-04-14] MEDS ORDERED: INSULIN GLARGINE SOLOSTAR 100 UNITS/ML 3 ML PEN SC SCH (12:00)
[2017-04-14] MEDS: GABAPENTIN 600MG Q8H DOSE PO SCH ×2 (12:33→22:01)
--- NOTE | 2017-04-14 13:09 | Orthopedic Progress Note ---
Orthopedic Progress Note Date of Service Apr 14, 2017. Subjective Post OP Day: 2 Reports: feeling well, Denies: complaints Additional Notes: No complaints at present time. No overt pain from the right foot. Moved to PCU last night. Objective dressings removed. Wound edges moist. One area of maceration near the central area of the wound/foot. Moderate drainage on dressing. Mild erythema noted. No purulent drainage. Moderate neuropathy. Date Time Temp Pulse Resp B/P (MAP) Pulse Ox O2 Delivery O2 Flow Rate FiO2 04/14/17 11:48 36.7 92 19 123/82 (96) 92 Room Air 04/14/17 08:00 90 Room Air 04/14/17 07:38 36.7 88 20 124/80 (95) 90 Room Air 04/14/17 04:00 Nasal Cannula 2.0 04/14/17 03:38 36.8 84 20 116/73 (87) 96 Nasal Cannula 2.0 04/14/17 00:01 Nasal Cannula 2.0 04/13/17 23:43 36.8 77 21 106/67 (80) 95 Nasal Cannula 2.0 04/13/17 20:11 98/60 (73) 04/13/17 20:02 36.7 57 20 88/50 (63) 97 Nasal Cannula 2.0 87/57 (67) 04/13/17 19:07 Nasal Cannula 2.0 04/13/17 16:00 98 Nasal Cannula 2.0 04/13/17 15:48 36.8 87 18 115/67 (83) 97 Nasal Cannula 2.0 Laboratory Results 24 Hours: Test 04/14/17 06:16 Hematocrit 33.1 % Hemoglobin 11.0 g/dL Additional Notes: RUN DATE: 04/13/17 [facility] PAGE 1 RUN TIME: 1012 Specimen Inquiry PATIENT: MERYL BURKS LOC: IMMANUEL Zuñiga # : [id number] AGE/SX: 66/M ROOM: N383 REG : 04/10/[address]: Leo Leonardo M.D. : 1950 BED: 2 DIS : STATUS: ADM IN TLOC: SPEC #: [id number] WINNIE: 04/10/17 STATUS: COMP REQ #: [id number] RECD: 04/10/17-[address]: Aron Wilson PA -C SOURCE: DRAIN-SURF ENTR: 04/10/17-[address] [facility] [address]: Jim Bowers DCarol AnnOCarol Ann SPDESC: TOE R2 David Fraser M.D. Martin, Jill ., P.ACarol Ann-Jennifer. Davis D.O. Shunk, Brian R., D.O. ORDERED: SURF [facility] COMMENTS: Has Specimen Been Obtained/Collected? Y Procedure Result Verified Site GRAM STAIN Final 04/11/17-0850 RESULT MANY WBCs SEEN MANY GRAM POSITIVE COCCI SURFACE WOUND CULTURE Final 04/13/17-1012 Organism 1 STAPHYLOCOCCUS AUREUS QUANITY MANY SENS SENSITIVITY TO FOLLOW Organism 2 GROUP B BETA STREP QUANITY MODERATE SENS SENSITIVITY TO FOLLOW STAPH AUR GBBS M.I.C. RX M.I.C. RX --------- ------ --------- ------ TRIMET/SULFA <=0.5/9.5 S AMPICILLIN 0.12 S * OXACILLIN <=0.25 S CEFOTAXIME <=0.25 S CEFTRIAXONE <=0.25 S CEFEPIME <=0.25 S CHLORAMPHENICOL 4 S VANCOMYCIN 2 S 0.5 S PENICILLIN 0.06 S ERYTHROMYCIN <=0.5 S 0.5 I TETRACYCLINE <=4 S CLINDAMYCIN <=0.5 S >0.5 R DAPTOMYCIN <=0.5 S AZITHROMYCIN >2 R 1. STAPHYLOCOCCUS AUREUS Target Route Dose RX AB Cost M.I.C. IQ ------ ----- ------ -- ------ -------- - ------ TRIMET/SULFA S <=0.5/ 9.5 * OXACILLIN S <=0.25 VANCOMYCIN S 2 ERYTHROMYCIN S <=0.5 TETRACYCLINE S <=4 CONTINUED ON NEXT PAGE RUN DATE: 04/13/17 [facility] PAGE 2 RUN TIME: 1012 Specimen Inquiry SPEC: [id number] PATIENT: MERYL BURKS [id number] ( Continued) Procedure Result Verified Site SURFACE WOUND CULTURE Final (continued) 04/13/17-1012 1. STAPHYLOCOCCUS AUREUS (continued) Target Route Dose RX AB Cost M.I.C. IQ ------ ----- ------ -- ------ -------- - ------ CLINDAMYCIN S <=0.5 DAPTOMYCIN S <=0.5 2. GROUP B BETA STREP Target Route Dose RX AB Cost M.I.C. IQ ------ ----- ------ -- ------ -------- - ------ AMPICILLIN S 0.12 CEFOTAXIME S <=0.25 CEFTRIAXONE S <=0.25 CEFEPIME S <=0.25 CHLORAMPHENICOL S 4 VANCOMYCIN S 0.5 PENICILLIN S 0.06 ERYTHROMYCIN I 0.5 CLINDAMYCIN R >0.5 AZITHROMYCIN R >2 S = SENSITIVE I = INTERMEDIATE R = RESISTANT Assessment & Plan Assessment: POD 2 s/p 1. Transmetatarsal Amputation 2. Incision and Drainage Right Foot Plantar Abcess 3. Debridement of Flexor Hallucis Longus and Flexor Digitorum Longus Tendons Diabetic neuropathy right foot PVD Plan: Continue IV antibiotics Cx as noted above from wound surface Dressing change daily May be up NWB on the affected extremity Inhouse Planning Pain Management: PO Tylenol
--- NOTE | 2017-04-14 15:54 | Progress Note ---
Medicine Progress Note Date & Time of Visit: Apr 14, 2017 at 14:12. Subjective 66 yoM presented with osteomyelitis of the R foot requiring further surgical amputation performed on 04/12. -pt reports no issues today -denies confusion (reported by nurse), pain, shortness of breath -tolerating PO and says he has a good appetite -continues to be NWB and has not gotten out of bed today -moving off telemetry as has been stable overnight and today -gabapentin protocol started yesterday to manage withdrawal symptoms. Objective Last 8 Hrs Date Time Temp Pulse Resp B/P (MAP) Pulse Ox O2 Delivery O2 Flow Rate FiO2 04/14/17 11:48 36.7 92 19 123/82 (96) 92 Room Air 04/14/17 08:00 90 Room Air 04/14/17 07:38 36.7 88 20 124/80 (95) 90 Room Air Physical Exam: GEN: WNWD, in no acute distress, alert and appropriate HEENT: NC/AT, normal sclerae, MMM CARDIO: reg rate, S1/2 heard without m/g/r LUNGS: CTA bilaterally, no crackles, rales or wheezes, good diaphragmatic excursion ABD: soft, non-tender, non-distended, no rebound or guarding, +BS EXTREMITY: extremities are warm and well-perfused, sensation intact, R midfoot amputation-this area is wrapped in JET wrap-no hemovac in place. NEURO: CN 2-12 grossly intact, sensation intact throughout, no asterixis or tremulous noted. MUSC: 5/5 strength throughout, no gross focal deficits SKIN: warm and dry Laboratory Results: 04/14/17 06:16 04/14/17 06:16 Test 04/10/17 12:39 04/10/17 13:07 04/10/17 18:53 04/11/17 05:31 Immature Granulocyte % (Auto) 0.3 % White Blood Count 9.18 K/uL (4.8-10.8) Red Blood Count 4.18 M/uL (4.7-6.1) Hemoglobin 12.8 g/dL (14.0-18.0) Hematocrit 36.0 % (42-52) Mean Corpuscular Volume 86.1 fL (80-100) Mean Corpuscular Hemoglobin 30.6 pg (25-34) Mean Corpuscular Hemoglobin Concent 35.6 g/dl (32-36) Platelet Count 364 K/uL (130-400) Mean Platelet Volume 9.2 fL (7.4-10.4) Neutrophils (%) (Auto) 74.6 % Lymphocytes (%) (Auto) 14.2 % Monocytes (%) (Auto) 8.5 % Eosinophils (%) (Auto) 2.2 % Basophils (%) (Auto) 0.2 % Neutrophils # (Auto) 6.85 K/uL (1.4-6.5) Lymphocytes # (Auto) 1.30 K/uL (1.2-3.4) Monocytes # (Auto) 0.78 K/uL (0.11-0.59) Eosinophils # (Auto) 0.20 K/uL (0-0.5) Basophils # (Auto) 0.02 K/uL (0-0.2) Immature Granulocyte # (Auto) 0.03 K/uL (0.00-0.02) Prothrombin Time 11.3 SECONDS (9.0-12.0) Prothromb Time International Ratio 1.1 (0.9-1.1) Activated Partial Thromboplast Time 29.6 SECONDS (21.0-31.0) Partial Thromboplastin Ratio 1.1 Globulin 5.1 gm/dl (2.5-4.0) Albumin/Globulin Ratio 0.6 (0.9-2) Bedside Lactic Acid Venous 1.21 mmol/L (0.90-1.70) Ethyl Alcohol mg/dL < 3.0 mg/dl (0-3) Estimated Average Glucose 157 mg/dl Hemoglobin A1c 7.1 % (4.5-5.6) Test 04/11/17 06:27 04/12/17 11:31 04/13/17 05:54 04/13/17 13:21 Erythrocyte Sedimentation Rate 70 mm/hr (0-14) C-Reactive Protein 1.31 mg/dl (0-0.29) Vancomycin Level Trough 24.2 mcg/ml (SEE COMMENT) Magnesium Level 1.9 mg/dl (1.8-2.4) Total Bilirubin 0.6 mg/dl (0.2-1) Direct Bilirubin 0.2 mg/dl (0-0.2) Aspartate Amino Transf (AST/SGOT) 14 U/L (15-37) Alanine Aminotransferase (ALT/SGPT) 14 U/L (12-78) Alkaline Phosphatase 89 U/L (45-117) Ammonia 25.0 umol/L (11-32) Total Protein 7.3 gm/dl (6.4-8.2) Albumin 2.5 gm/dl (3.4-5.0) Procalcitonin 0.16 ng/ml (0-0.5) Test 04/13/17 13:22 04/13/17 14:45 04/13/17 19:12 04/14/17 06:16 Lactic Acid Level 1.2 mmol/L (0.4-2.0) Urine Color YELLOW Urine Appearance CLEAR (CLEAR) Urine pH 5.0 (4.5-7.5) Urine Specific [place] 1.014 (1.000-1.030) Urine Protein 1+ (NEG) Urine Glucose (UA) NEG (NEG) Urine Ketones NEG (NEG) Urine Occult Blood NEG (NEG) Urine Nitrite NEG (NEG) Urine Bilirubin NEG (NEG) Urine Urobilinogen NEG (NEG) Urine Leukocyte Esterase NEG (NEG) Urine WBC (Auto) 0 /hpf (0-5) Urine RBC (Auto) 0-4 /hpf (0-4) Urine Hyaline Casts (Auto) 0 /lpf (0-5) Urine Epithelial Cells (Auto) 0-5 /lpf (0-5) Urine Bacteria (Auto) NEG (NEG) Total Creatine Kinase 24 U/L (39-308) Creatine Kinase MB 0.7 ng/ml (0.5-3.6) Creatine Kinase MB Ratio 2.9 (0-3.0) Troponin I 0.043 ng/ml (0-0.045) Red Blood Count 3.72 M/uL (4.7-6.1) Mean Corpuscular Volume 89.0 fL (80-100) Mean Corpuscular Hemoglobin 29.6 pg (25-34) Mean Corpuscular Hemoglobin Concent 33.2 g/dl (32-36) RDW Standard Deviation 47.5 fL (36.4-46.3) RDW Coefficient of Variation 14.5 % (11.5-14.5) Mean Platelet Volume 9.0 fL (7.4-10.4) Anion Gap 8.0 mmol/L (3-11) Est Creatinine Clear Calc Drug Dose 94.0 ml/min Estimated GFR () 102.9 Estimated GFR (Non- 88.8 BUN/Creatinine Ratio 13.8 (10-20) Calcium Level 8.9 mg/dl (8.5-10.1) Test 04/14/17 11:33 Bedside Glucose 181 mg/dl (70-99) Date/Time Source Procedure Growth Status 04/13/17 13:21 Blood Blood Culture Pending Received 04/10/17 14:00 Drainage - Surface Toe Right 2 Gram Stain - Final Complete 04/10/17 14:00 Wound Culture - Final Staphylococcus Aureus Group B Beta Strep Complete Last 24 Hours Test 04/13/17 14:45 04/13/17 16:23 04/13/17 19:12 04/13/17 20:00 Urine Color YELLOW Urine Appearance CLEAR Urine pH 5.0 Urine Specific [place] 1.014 Urine Protein 1+ Urine Glucose (UA) NEG Urine Ketones NEG Urine Occult Blood NEG Urine Nitrite NEG Urine Bilirubin NEG Urine Urobilinogen NEG Urine Leukocyte Esterase NEG Urine WBC (Auto) 0 /hpf Urine RBC (Auto) 0-4 /hpf Urine Hyaline Casts (Auto) 0 /lpf Urine Epithelial Cells (Auto) 0-5 /lpf Urine Bacteria (Auto) NEG Bedside Glucose 118 mg/dl 198 mg/dl Total Creatine Kinase 24 U/L Creatine Kinase MB 0.7 ng/ml Creatine Kinase MB Ratio 2.9 Troponin I 0.043 ng/ml Test 04/14/17 06:16 04/14/17 06:20 04/14/17 11:33 White Blood Count 7.25 K/uL Red Blood Count 3.72 M/uL Hemoglobin 11.0 g/dL Hematocrit 33.1 % Mean Corpuscular Volume 89.0 fL Mean Corpuscular Hemoglobin 29.6 pg Mean Corpuscular Hemoglobin Concent 33.2 g/dl RDW Standard Deviation 47.5 fL RDW Coefficient of Variation 14.5 % Platelet Count 304 K/uL Mean Platelet Volume 9.0 fL Sodium Level 137 mmol/L Potassium Level 4.1 mmol/L Chloride Level 102 mmol/L Carbon Dioxide Level 27 mmol/L Anion Gap 8.0 mmol/L Blood Urea Nitrogen 13 mg/dl Creatinine 0.91 mg/dl Est Creatinine Clear Calc Drug Dose 94.0 ml/min Estimated GFR () 102.9 Estimated GFR (Non- 88.8 BUN/Creatinine Ratio 13.8 Random Glucose 167 mg/dl Calcium Level 8.9 mg/dl Bedside Glucose 184 mg/dl 181 mg/dl Assessment & Plan 66 yoM presented with osteomyelitis of the R foot requiring further surgical amputation performed on 04/12. 1. Osteomyelitis-prior amputation of the R second toe. MRI on 04/10 showed extensive OM. He was initially on IV vancomycin, clindamycin, and cefepime. ID and Ortho were consulted. Wound cultures grew MSSA and GBS. Abx changed to Cefazolin. R transmetatarsal amputation performed 04/12. Pt is recovering well. Had some low grade fever yesterday and was moved to telemetry but has been very stable all day today, so moving him back to the third floor where the focus of his treatment will be post-op recovery. 2. h/o alcohol abuse-concern for withdrawal symptoms yesterday so patient was moved to telemetry and started on the gabapentin protocol for withdrawal management. He is currently doing well, alert and appropriate. Cont thiamine. 3. CAD s/p CABG and stents-denies chest pain or dyspnea. Cont medical management with ASA, carvedilol, statin 4. Chronic systolic heart failure 2/2 ischemic disease-compensated. Cont medical management with losartan, carvedilol, spironolactone and Lasix. 5. PAF- Cont carvedilol and diltiazem for rate control. 6. HTN-controlled, cont current meds. 7. DMII -around inpatient goals. Apprec glycemic pharmacist input. Holding metformin. Cont ISS with carb coverage and glargine. 8. Urinary incontinence-pt reports no issue unless he can't reach his urinal. UA was normal yesterday. DVT proph-Lovenox. Full Code Dispo-uncertain at this time. For now, he is NWB and will need to pass a trial of ambulation. Apprec Ortho recs as patient continues through the recovery process. DO Sydney Hairston Hospitalist Consultants: Ortho-Dr. Bowers Current Inpatient Medications: Current Inpatient Medications Medications (Trade) Dose Ordered Sig/Estee Route Start Time Stop Time Status Last Admin Dose Admin Acetaminophen (Tylenol Tab) 650 mg Q4H PRN PO 04/10/17 15:30 05/10/17 15:29 04/13/17 08:19 650 MG Glucose (Glucose 40% Gel) 15-30 GRAMS 15 GRAMS... UD PRN PO 04/10/17 15:30 05/10/17 15:29 Glucose (Glucose Chew Tab) 4-8 Tablets 4 Tabl... UD PRN PO 04/10/17 15:30 05/10/17 15:29 Dextrose (Dextrose 50% 50ML Syringe) 25-50ML OF 50% DW IV FOR... UD PRN IV 04/10/17 15:30 05/10/17 15:29 Glucagon (Glucagon Inj) 1 mg UD PRN SQ 04/10/17 15:30 05/10/17 15:29 Miscellaneous Information (Consult Glycemic Management Pharmacy) 1 ea UD PRN N/A 04/10/17 15:37 05/10/17 15:36 Aspirin (Ecotrin Tab) 81 mg DAILY PO 04/11/17 09:00 05/11/17 08:59 04/14/17 09:57 81 MG Atorvastatin Calcium (Lipitor Tab) 80 mg DAILY PO 04/11/17 09:00 05/11/17 08:59 04/14/17 09:56 80 MG Cholecalciferol (Vitamin D Tab) 1,000 inter.unit DAILY PO 04/11/17 09:00 05/11/17 08:59 04/14/17 09:54 1,000 INTER.UNIT Diltiazem HCl (Cardizem Tab) 60 mg TID PO 04/10/17 21:00 05/10/17 20:59 04/14/17 09:56 60 MG Folic Acid (Folvite Tab) 1 mg DAILY PO 04/11/17 09:00 05/11/17 08:59 04/14/17 09:55 1 MG Furosemide (Lasix Tab) 40 mg DAILY PO 04/11/17 09:00 05/11/17 08:59 04/14/17 09:56 40 MG Losartan Potassium (coZAAR TAB) 50 mg DAILY PO 04/11/17 09:00 05/11/17 08:59 04/14/17 09:58 50 MG Magnesium Chloride (Slow-Mag Tab) 512 mg DAILY PO 04/11/17 09:00 05/11/17 08:59 04/14/17 09:53 512 MG Potassium Chloride (Klor-Con Tab) 20 meq BID PO 04/10/17 21:00 05/10/17 20:59 04/14/17 09:54 20 MEQ Spironolactone (Aldactone Tab) 25 mg DAILY PO 04/11/17 09:00 05/11/17 08:59 04/14/17 09:54 25 MG Thiamine HCl (Vitamin B-1 Tab) 100 mg DAILY PO 04/11/17 09:00 05/11/17 08:59 04/14/17 09:55 100 MG Ascorbic Acid (Vitamin C Tab) 250 mg BID PO 04/10/17 21:00 05/10/17 20:59 04/14/17 09:52 250 MG Carvedilol (Coreg Tab) 3.125 mg BID PO 04/10/17 21:00 05/10/17 20:59 04/14/17 09:57 3.125 MG Gadobutrol (Gadavist) 9.5 mmol UD PRN IV 04/10/17 21:00 04/14/17 20:59 Enoxaparin Sodium (Lovenox Inj) 40 mg HS SQ 04/11/17 21:00 05/11/17 20:59 04/13/17 21:47 40 MG Insulin Aspart (novoLOG ASPART) SLIDING SCALE If C... ACHS SC 04/12/17 17:15 05/12/17 17:14 04/14/17 12:32 7 UNITS Cefazolin Sodium 2000 mg/Syringe 10 ml @ 2.5 mls/min Q8 IV 04/13/17 14:00 05/25/17 13:59 04/14/17 09:52 2.5 MLS/MIN Lorazepam (Ativan Tab) PRN Dosing -Active Protocol UD PRN PO 04/13/17 13:15 05/13/17 13:14 Gabapentin (Neurontin Tab) 600 mg Q8H PO 04/14/17 14:00 04/15/17 06:01 04/14/17 12:33 600 MG Gabapentin (Neurontin Tab) 600 mg Q12H PO 04/15/17 18:00 04/16/17 06:01 Gabapentin (Neurontin Tab) 600 mg Q24H PO 04/17/17 06:00 04/17/17 06:01 Multivitamins (Multivitamin Tab) 1 tab QAM PO 04/14/17 09:00 05/14/17 08:59 04/14/17 10:02 1 TAB Insulin Glargine (Lantus Solostar Pen) see protocol text TODAY@2100 ONCE [place] 04/14/17 21:00 04/14/17 21:01 Insulin Glargine (Lantus Solostar Pen) 40 units [facility] 04/15/17 16:45 05/15/17 16:44 Insulin Aspart (novoLOG ASPART) SLIDING SCALE If C... TODAY@0000,0400 [place] 04/15/17 00:00 04/15/17 04:01
[2017-04-14] MEDS ORDERED: INSULIN GLARGINE SOLOSTAR 100 UNITS/ML 3 ML PEN SC ONE (21:00)
[2017-04-14] MEDS: ENOXAPARIN 40 MG/0.4 ML SYR SQ SCH (22:02)
[2017-04-15] VITALS (9 sets, daily range): BP systolic 101–132; BP diastolic 64–90; PULSE 75–99; TEMP 36.4–36.9; O2SAT 90–98
[2017-04-15] MEDS: INSULIN ASPART 100 UNITS/ML 3 ML PEN SC SCH ×5 (03:39→21:47)
[2017-04-15] MEDS: CEFAZOLIN IV 2,000 MG in SYRINGE 0 ML IV SCH ×3 (05:45→21:48)
[2017-04-15] MEDS: GABAPENTIN 600MG Q8H DOSE PO SCH (05:46)
[2017-04-15 06:16] LABS: HEMATOCRIT 33.2 % (42-52); HEMOGLOBIN 11.4 g/dL (14.0-18.0); MEAN CELL VOLUME 88.1 fL (80-100); MEAN CORPUSCULAR HEMOGLOBIN 30.2 pg (25-34); MEAN CORPUSCULAR HGB CONC 34.3 g/dl (32-36); MEAN PLATELET VOLUME 9.2 fL (7.4-10.4); PLATELET COUNT 359 K/uL (130-400); RED CELL DISTRIBUTION WIDTH CV 14.2 % (11.5-14.5); RED CELL DISTRIBUTION WIDTH SD 45.5 fL (36.4-46.3); WHITE BLOOD COUNT 7.76 K/uL (4.8-10.8)
[2017-04-15 06:46] LABS: CALCIUM 9.1 mg/dl (8.5-10.1); CREATININE 0.89 mg/dl (0.60-1.40)
[2017-04-15] MEDS: SPIRONOLACTONE 25 MG TAB PO SCH (08:59)
[2017-04-15] MEDS: DILTIAZEM HCL 60 MG TAB PO SCH ×3 (09:00→21:43)
[2017-04-15] MEDS: LOSARTAN POTASSIUM 50 MG TAB PO SCH (09:01)
[2017-04-15] MEDS: CARVEDILOL 6.25 MG TAB PO SCH ×2 (09:01→21:43)
[2017-04-15] MEDS: POTASSIUM CHLORIDE 20 MEQ TABCR PO SCH ×2 (09:02→21:45)
[2017-04-15] MEDS: ASPIRIN 81 MG ECTAB PO SCH (09:02)
[2017-04-15] MEDS: FUROSEMIDE 40 MG TAB PO SCH (09:03)
[2017-04-15] MEDS: ATORVASTATIN 40 MG TAB PO SCH (09:03)
[2017-04-15] MEDS: MULTIVITAMIN TAB PO SCH (09:03)
[2017-04-15] MEDS: MAGNESIUM CHLORIDE 64MG DELAYED REL TAB PO SCH (09:04)
[2017-04-15] MEDS: CHOLECALCIFEROL 1000 INTER.UNIT TAB PO SCH (09:05)
[2017-04-15] MEDS: ASCORBIC ACID 500 MG TAB PO SCH ×2 (09:05→21:45)
[2017-04-15] MEDS: THIAMINE HCL 100 MG TAB PO SCH (09:05)
--- NOTE | 2017-04-15 13:11 | Progress Note ---
Medicine Progress Note Date & Time of Visit: Apr 15, 2017 at 13:06. Subjective 66 yoM presented with osteomyelitis of the R foot requiring further surgical amputation performed on 04/12. Pt is lying supine in bed in no acute distress, mentating well. Reports no complaints. Per Ortho, there was some wetness to the wound. They will be back to re-eval and redress later this afternoon. May require repeat washout. Otherwise, pt is tolerating PO and reports no pain. Objective Last 8 Hrs Date Time Temp Pulse Resp B/P (MAP) Pulse Ox O2 Delivery O2 Flow Rate FiO2 04/15/17 12:08 36.4 89 16 114/74 (87) 90 Room Air 04/15/17 08:58 99 117/78 (91) 04/15/17 08:25 91 Room Air 04/15/17 07:57 98 Room Air 04/15/17 07:33 36.9 86 17 106/68 (81) 90 Room Air 04/15/17 07:10 Room Air Physical Exam: GEN: WNWD, in no acute distress, alert and appropriate HEENT: NC/AT, normal sclerae, MMM CARDIO: reg rate, S1/2 heard without m/g/r LUNGS: CTA bilaterally, no crackles, rales or wheezes, good diaphragmatic excursion ABD: soft, non-tender, non-distended, no rebound or guarding, +BS EXTREMITY: extremities are warm and well-perfused, sensation intact, R midfoot amputation-this area is wrapped in JET wrap-no hemovac in place. NEURO: CN 2-12 grossly intact, sensation intact throughout, no tremulousness or anxiety noted. MUSC: 5/5 strength throughout, no gross focal deficits SKIN: warm and dry Laboratory Results: 04/15/17 05:36 04/15/17 05:36 Test 04/10/17 12:39 04/10/17 13:07 04/10/17 18:53 04/11/17 05:31 Immature Granulocyte % (Auto) 0.3 % White Blood Count 9.18 K/uL (4.8-10.8) Red Blood Count 4.18 M/uL (4.7-6.1) Hemoglobin 12.8 g/dL (14.0-18.0) Hematocrit 36.0 % (42-52) Mean Corpuscular Volume 86.1 fL (80-100) Mean Corpuscular Hemoglobin 30.6 pg (25-34) Mean Corpuscular Hemoglobin Concent 35.6 g/dl (32-36) Platelet Count 364 K/uL (130-400) Mean Platelet Volume 9.2 fL (7.4-10.4) Neutrophils (%) (Auto) 74.6 % Lymphocytes (%) (Auto) 14.2 % Monocytes (%) (Auto) 8.5 % Eosinophils (%) (Auto) 2.2 % Basophils (%) (Auto) 0.2 % Neutrophils # (Auto) 6.85 K/uL (1.4-6.5) Lymphocytes # (Auto) 1.30 K/uL (1.2-3.4) Monocytes # (Auto) 0.78 K/uL (0.11-0.59) Eosinophils # (Auto) 0.20 K/uL (0-0.5) Basophils # (Auto) 0.02 K/uL (0-0.2) Immature Granulocyte # (Auto) 0.03 K/uL (0.00-0.02) Prothrombin Time 11.3 SECONDS (9.0-12.0) Prothromb Time International Ratio 1.1 (0.9-1.1) Activated Partial Thromboplast Time 29.6 SECONDS (21.0-31.0) Partial Thromboplastin Ratio 1.1 Globulin 5.1 gm/dl (2.5-4.0) Albumin/Globulin Ratio 0.6 (0.9-2) Bedside Lactic Acid Venous 1.21 mmol/L (0.90-1.70) Ethyl Alcohol mg/dL < 3.0 mg/dl (0-3) Estimated Average Glucose 157 mg/dl Hemoglobin A1c 7.1 % (4.5-5.6) Test 04/11/17 06:27 04/12/17 11:31 04/13/17 05:54 04/13/17 13:21 Erythrocyte Sedimentation Rate 70 mm/hr (0-14) C-Reactive Protein 1.31 mg/dl (0-0.29) Vancomycin Level Trough 24.2 mcg/ml (SEE COMMENT) Magnesium Level 1.9 mg/dl (1.8-2.4) Total Bilirubin 0.6 mg/dl (0.2-1) Direct Bilirubin 0.2 mg/dl (0-0.2) Aspartate Amino Transf (AST/SGOT) 14 U/L (15-37) Alanine Aminotransferase (ALT/SGPT) 14 U/L (12-78) Alkaline Phosphatase 89 U/L (45-117) Ammonia 25.0 umol/L (11-32) Total Protein 7.3 gm/dl (6.4-8.2) Albumin 2.5 gm/dl (3.4-5.0) Procalcitonin 0.16 ng/ml (0-0.5) Test 04/13/17 13:22 04/13/17 14:45 04/13/17 19:12 04/15/17 05:36 Lactic Acid Level 1.2 mmol/L (0.4-2.0) Urine Color YELLOW Urine Appearance CLEAR (CLEAR) Urine pH 5.0 (4.5-7.5) Urine Specific Harriet 1.014 (1.000-1.030) Urine Protein 1+ (NEG) Urine Glucose (UA) NEG (NEG) Urine Ketones NEG (NEG) Urine Occult Blood NEG (NEG) Urine Nitrite NEG (NEG) Urine Bilirubin NEG (NEG) Urine Urobilinogen NEG (NEG) Urine Leukocyte Esterase NEG (NEG) Urine WBC (Auto) 0 /hpf (0-5) Urine RBC (Auto) 0-4 /hpf (0-4) Urine Hyaline Casts (Auto) 0 /lpf (0-5) Urine Epithelial Cells (Auto) 0-5 /lpf (0-5) Urine Bacteria (Auto) NEG (NEG) Total Creatine Kinase 24 U/L (39-308) Creatine Kinase MB 0.7 ng/ml (0.5-3.6) Creatine Kinase MB Ratio 2.9 (0-3.0) Troponin I 0.043 ng/ml (0-0.045) Red Blood Count 3.77 M/uL (4.7-6.1) Mean Corpuscular Volume 88.1 fL (80-100) Mean Corpuscular Hemoglobin 30.2 pg (25-34) Mean Corpuscular Hemoglobin Concent 34.3 g/dl (32-36) RDW Standard Deviation 45.5 fL (36.4-46.3) RDW Coefficient of Variation 14.2 % (11.5-14.5) Mean Platelet Volume 9.2 fL (7.4-10.4) Anion Gap 5.0 mmol/L (3-11) Est Creatinine Clear Calc Drug Dose 96.1 ml/min Estimated GFR () 104.7 Estimated GFR (Non- 90.4 BUN/Creatinine Ratio 15.2 (10-20) Calcium Level 9.1 mg/dl (8.5-10.1) Test 04/15/17 12:00 Bedside Glucose 220 mg/dl (70-99) Date/Time Source Procedure Growth Status 04/13/17 13:21 Blood Blood Culture - Preliminary NO GROWTH TO DATE. Resulted 04/10/17 14:00 Drainage - Surface Toe Right 2 Gram Stain - Final Complete 04/10/17 14:00 Wound Culture - Final Staphylococcus Aureus Group B Beta Strep Complete Last 24 Hours Test 04/14/17 15:59 04/14/17 17:15 04/14/17 21:03 04/14/17 23:45 Bedside Glucose 179 mg/dl 176 mg/dl 238 mg/dl 151 mg/dl Test 04/15/17 03:36 04/15/17 05:36 04/15/17 08:13 04/15/17 12:00 Bedside Glucose 133 mg/dl 127 mg/dl 220 mg/dl White Blood Count 7.76 K/uL Red Blood Count 3.77 M/uL Hemoglobin 11.4 g/dL Hematocrit 33.2 % Mean Corpuscular Volume 88.1 fL Mean Corpuscular Hemoglobin 30.2 pg Mean Corpuscular Hemoglobin Concent 34.3 g/dl RDW Standard Deviation 45.5 fL RDW Coefficient of Variation 14.2 % Platelet Count 359 K/uL Mean Platelet Volume 9.2 fL Sodium Level 134 mmol/L Potassium Level 4.0 mmol/L Chloride Level 100 mmol/L Carbon Dioxide Level 29 mmol/L Anion Gap 5.0 mmol/L Blood Urea Nitrogen 14 mg/dl Creatinine 0.89 mg/dl Est Creatinine Clear Calc Drug Dose 96.1 ml/min Estimated GFR () 104.7 Estimated GFR (Non- 90.4 BUN/Creatinine Ratio 15.2 Random Glucose 122 mg/dl Calcium Level 9.1 mg/dl Assessment & Plan 66 yoM presented with osteomyelitis of the R foot requiring further surgical amputation performed on 04/12. Pt is lying supine in bed in no acute distress, mentating well. Reports no complaints. Per Ortho, there was some wetness to the wound. They will be back to re-eval and redress later this afternoon. May require repeat washout. Otherwise, pt is tolerating PO and reports no pain. 1. Osteomyelitis-prior amputation of the R second toe. MRI on 04/10 showed extensive OM. He was initially on IV vancomycin, clindamycin, and cefepime. ID and Ortho were consulted. Wound cultures grew MSSA and GBS. Abx changed to Cefazolin. R transmetatarsal amputation performed 04/12. Pt is recovering well. Had some low grade fever and was moved to telemetry out of concern for developing sepsis vs withdrawal. However, he was stable and moved back to the floor on 04/14 and has been doing well. Wound as above and Ortho to cont to re- evaluate. May need repeat washout. Pt denies pain at this time. PT/OT ordered with NWB to that foot. 2. h/o alcohol abuse--concern for ETOH withdrawal. On gabapentin protocol and doing very well on this. 3. CAD s/p CABG and stents-denies chest pain or dyspnea. Cont medical management with ASA, carvedilol, statin 4. Chronic systolic heart failure 2/2 ischemic disease-compensated. Cont medical management with losartan, carvedilol, spironolactone and Lasix. 5. PAF- Cont carvedilol and diltiazem for rate control. 6. HTN-controlled, cont current meds. 7. DMII -around inpatient goals. Apprec glycemic pharmacist input. Holding metformin. Cont ISS with carb coverage and glargine. 8. Urinary incontinence-pt reports no issue unless he can't reach his urinal. UA was normal yesterday. DVT proph-Lovenox. Full Code Dispo-uncertain at this time. For now, he is NWB and will need to pass a trial of ambulation. Apprec Ortho recs as patient continues through the recovery process. DO Sydney Hairston Hospitalist Consultants: Ortho-Dr. Bowers Current Inpatient Medications: Current Inpatient Medications Medications (Trade) Dose Ordered Sig/Estee Route Start Time Stop Time Status Last Admin Dose Admin Acetaminophen (Tylenol Tab) 650 mg Q4H PRN PO 04/10/17 15:30 05/10/17 15:29 12/11/17 08:19 650 MG Glucose (Glucose 40% Gel) 15-30 GRAMS 15 GRAMS... UD PRN PO 04/10/17 15:30 05/10/17 15:29 Glucose (Glucose Chew Tab) 4-8 Tablets 4 Tabl... UD PRN PO 04/10/17 15:30 05/10/17 15:29 Dextrose (Dextrose 50% 50ML Syringe) 25-50ML OF 50% DW IV FOR... UD PRN IV 04/10/17 15:30 05/10/17 15:29 Glucagon (Glucagon Inj) 1 mg UD PRN SQ 04/10/17 15:30 05/10/17 15:29 Miscellaneous Information (Consult Glycemic Management Pharmacy) 1 ea UD PRN N/A 04/10/17 15:37 05/10/17 15:36 Aspirin (Ecotrin Tab) 81 mg DAILY PO 04/11/17 09:00 05/11/17 08:59 04/15/17 09:02 81 MG Atorvastatin Calcium (Lipitor Tab) 80 mg DAILY PO 04/11/17 09:00 05/11/17 08:59 04/15/17 09:03 80 MG Cholecalciferol (Vitamin D Tab) 1,000 inter.unit DAILY PO 04/11/17 09:00 05/11/17 08:59 04/15/17 09:05 1,000 INTER.UNIT Diltiazem HCl (Cardizem Tab) 60 mg TID PO 04/10/17 21:00 05/10/17 20:59 04/15/17 09:00 60 MG Folic Acid (Folvite Tab) 1 mg DAILY PO 04/11/17 09:00 05/11/17 08:59 04/15/17 09:02 1 MG Furosemide (Lasix Tab) 40 mg DAILY PO 04/11/17 09:00 05/11/17 08:59 04/15/17 09:03 40 MG Losartan Potassium (coZAAR TAB) 50 mg DAILY PO 04/11/17 09:00 05/11/17 08:59 04/15/17 09:01 50 MG Magnesium Chloride (Slow-Mag Tab) 512 mg DAILY PO 04/11/17 09:00 05/11/17 08:59 04/15/17 09:04 512 MG Potassium Chloride (Klor-Con Tab) 20 meq BID PO 04/10/17 21:00 05/10/17 20:59 04/15/17 09:02 20 MEQ Spironolactone (Aldactone Tab) 25 mg DAILY PO 04/11/17 09:00 05/11/17 08:59 04/15/17 08:59 25 MG Thiamine HCl (Vitamin B-1 Tab) 100 mg DAILY PO 04/11/17 09:00 05/11/17 08:59 04/15/17 09:05 100 MG Ascorbic Acid (Vitamin C Tab) 250 mg BID PO 04/10/17 21:00 05/10/17 20:59 04/15/17 09:05 250 MG Carvedilol (Coreg Tab) 3.125 mg BID PO 04/10/17 21:00 05/10/17 20:59 04/15/17 09:01 3.125 MG Enoxaparin Sodium (Lovenox Inj) 40 mg HS SQ 04/11/17 21:00 05/11/17 20:59 04/14/17 22:02 40 MG Insulin Aspart (novoLOG ASPART) SLIDING SCALE If C... ACHS SC 04/12/17 17:15 05/12/17 17:14 04/15/17 09:09 9 UNITS Cefazolin Sodium 2000 mg/Syringe 10 ml @ 2.5 mls/min Q8 IV 04/13/17 14:00 05/25/17 13:59 04/15/17 05:45 2.5 MLS/MIN Lorazepam (Ativan Tab) PRN Dosing -Active Protocol UD PRN PO 04/13/17 13:15 05/13/17 13:14 Gabapentin (Neurontin Tab) 600 mg Q12H PO 04/15/17 18:00 04/16/17 06:01 Gabapentin (Neurontin Tab) 600 mg Q24H PO 04/17/17 06:00 04/17/17 06:01 Multivitamins (Multivitamin Tab) 1 tab QAM PO 04/14/17 09:00 05/14/17 08:59 04/15/17 09:03 1 TAB Insulin Glargine (Lantus Solostar Pen) 40 units HS SC 04/15/17 16:45 05/15/17 16:44
--- NOTE | 2017-04-15 14:34 | Orthopedic Progress Note ---
Orthopedic Progress Note Date of Service Apr 15, 2017. Subjective Reports: feeling well, pain controlled w PO medications, Denies: complaints Objective Dressing removed. A little less erythema today but continues to have most of that around the wound edges. Wound with less maceration today. Some area of demarcation on the dorsal wound. Redressed. Date Time Temp Pulse Resp B/P (MAP) Pulse Ox O2 Delivery O2 Flow Rate FiO2 04/15/17 13:48 79 101/64 (76) 04/15/17 12:08 36.4 89 16 114/74 (87) 90 Room Air 04/15/17 08:58 99 117/78 (91) 04/15/17 08:25 91 Room Air 04/15/17 07:57 98 Room Air 04/15/17 07:33 36.9 86 17 106/68 (81) 90 Room Air 04/15/17 07:10 Room Air 04/14/17 23:40 Room Air 04/14/17 23:15 36.8 82 18 130/82 (98) 94 Room Air 04/14/17 22:26 83 123/78 (93) 04/14/17 17:00 Room Air 04/14/17 15:35 Room Air 04/14/17 15:21 36.9 71 18 103/64 (77) 94 Room Air Laboratory Results 24 Hours: Test 04/15/17 05:36 Hematocrit 33.2 % Hemoglobin 11.4 g/dL Assessment & Plan Assessment: POD 3 s/p 1. Transmetatarsal Amputation 2. Incision and Drainage Right Foot Plantar Abcess 3. Debridement of Flexor Hallucis Longus and Flexor Digitorum Longus Tendons Diabetic neuropathy right foot PVD Plan: Continue IV antibiotics Cx as noted above from wound surface Dressing change daily May be up NWB on the affected extremity Inhouse Planning Pain Management: PO Tylenol
[2017-04-15] MEDS: INSULIN GLARGINE SOLOSTAR 100 UNITS/ML 3 ML PEN SC SCH (15:37)
[2017-04-15] MEDS: GABAPENTIN 600MG Q12H DOSE PO SCH (18:28)
[2017-04-15] MEDS: ENOXAPARIN 40 MG/0.4 ML SYR SQ SCH (21:46)
[2017-04-16] MEDS: CEFAZOLIN IV 2,000 MG in SYRINGE 0 ML IV SCH ×3 (05:49→21:27)
[2017-04-16] MEDS: GABAPENTIN 600MG Q12H DOSE PO SCH (05:50)
[2017-04-16 07:12] VITALS: BP 116/76; PULSE 83; TEMP 36.4; O2SAT 94
[2017-04-16] MEDS: POTASSIUM CHLORIDE 20 MEQ TABCR PO SCH ×2 (08:12→21:28)
[2017-04-16] MEDS: CARVEDILOL 6.25 MG TAB PO SCH ×2 (08:13→21:31)
[2017-04-16] MEDS: MULTIVITAMIN TAB PO SCH (08:14)
[2017-04-16] MEDS: LOSARTAN POTASSIUM 50 MG TAB PO SCH (08:14)
[2017-04-16] MEDS: ASPIRIN 81 MG ECTAB PO SCH (08:14)
[2017-04-16] MEDS: CHOLECALCIFEROL 1000 INTER.UNIT TAB PO SCH (08:15)
[2017-04-16] MEDS: ATORVASTATIN 40 MG TAB PO SCH (08:15)
[2017-04-16] MEDS: DILTIAZEM HCL 60 MG TAB PO SCH ×3 (08:15→21:29)
[2017-04-16] MEDS: SPIRONOLACTONE 25 MG TAB PO SCH (08:16)
[2017-04-16] MEDS: ASCORBIC ACID 500 MG TAB PO SCH ×2 (08:17→21:28)
[2017-04-16] MEDS: MAGNESIUM CHLORIDE 64MG DELAYED REL TAB PO SCH (08:19)
[2017-04-16] MEDS: THIAMINE HCL 100 MG TAB PO SCH (08:19)
[2017-04-16] MEDS: FUROSEMIDE 40 MG TAB PO SCH (08:20)
[2017-04-16] MEDS: INSULIN ASPART 100 UNITS/ML 3 ML PEN SC SCH ×4 (08:29→21:26)
--- NOTE | 2017-04-16 13:09 | Pharmacy Progress Note ---
Pharmacy Glycemic Short Note 2 Date of Service Apr 16, 2017. OUTPATIENT ANTIDIABETIC REGIMEN: * Lantus 40 units qHS plus Novolog 10 units with breakfast and 8 units with lunch; glipizide 10 mg PO BID; metformin 1000 mg PO BID ASSESSMENT: * Mr Kwon is a 66 y/o M with a toe infection s/p I&D POD 4 currently on Ancef IV push. Yesterday, the patient received around 83 units of insulin (40 units of basal) and his blood sugars ranged from 127-276 mg/dL. I believe this is due to the spacing of Lantus the prior day. Fasting today is 103 mg/dL ( compared to 127 mg/dL). Continue Lantus 40 units daily which is now at bedtime. * For post-prandial blood sugars, it appears that even with a Lantus deficiency , the current parameters provided adequate coverage. Blood sugars were 220-276 ( when the effects of Lantus would have been the least)- 249 mg/dL. Tightened correctional insulin slightly this morning to reflect a total daily dose around 80-85 units. May tighten further today if blood sugars continue to climb. Since the lunch blood sugar was extremely elevated, tightened carbohydrate coverage but not correctional in a bid to not overcorrect. Tightened correction factor after lunch. PLAN FOR INPATIENT GLYCEMIC CONTROL: * Basal insulin * Lantus 40 units SQ in the evening * Bolus insulin * NovoLog per scale ACHS or Q6hrs while NPO * Goal Range: Low 110 mg/dL - High 140 mg/dL * Correction Factor: 15 mg/dL/unit * Nutritional / Prandial insulin per carb ratio of 1 unit per 5 grams CHO consumed PLAN FOR DISCHARGE: * see note from 04/12/17
[2017-04-16 15:15] VITALS: BP 98/63; PULSE 73; TEMP 36.5; O2SAT 93
--- NOTE | 2017-04-16 18:20 | Progress Note ---
Medicine Progress Note Date & Time of Visit: Apr 16, 2017 at 18:12. Subjective 66 yoM presented with osteomyelitis of the R foot requiring further surgical amputation performed on 04/12. Pt is lying supine in bed in no acute distress, mentating well. Reports no complaints. Per Ortho, there was some wetness to the wound. they will plan to continue frequent dressing changes and plan for IV antibiotics for 2-4 weeks. PICC line was placed in preparation for this. Touched base with ID who is on board and will follow labwork and his progression through rehab. Plan for dc in am to [facility]. Per patient he is feeling well today with no pain. He is somewhat fatigued and this is likely 2/2 gabapentin from the ETOH withdrawal protocol so we will stop this now. The patient reports no PT or OT today yet. Tolerating PO, Afebrile, denies chest pain or SOB. Objective Last 8 Hrs Date Time Temp Pulse Resp B/P (MAP) Pulse Ox O2 Delivery O2 Flow Rate FiO2 04/16/17 15:15 36.5 73 16 98/63 (75) 93 Room Air Physical Exam: GEN: WNWD, in no acute distress, alert and appropriate, fatigued. HEENT: NC/AT, normal sclerae, MMM CARDIO: reg rate, 3/6 BREE LUNGS: CTA bilaterally, no crackles, rales or wheezes, good diaphragmatic excursion ABD: soft, non-tender, non-distended, no rebound or guarding, +BS EXTREMITY: extremities are warm and well-perfused, sensation intact, R midfoot amputation-this area is wrapped in JET wrap NEURO: CN 2-12 grossly intact, sensation intact throughout, no tremulousness or anxiety noted. MUSC: 5/5 strength throughout, no gross focal deficits SKIN: warm and dry Laboratory Results: 04/15/17 05:36 04/15/17 05:36 Test 04/10/17 12:39 04/10/17 13:07 04/10/17 18:53 04/11/17 05:31 Immature Granulocyte % (Auto) 0.3 % White Blood Count 9.18 K/uL (4.8-10.8) Red Blood Count 4.18 M/uL (4.7-6.1) Hemoglobin 12.8 g/dL (14.0-18.0) Hematocrit 36.0 % (42-52) Mean Corpuscular Volume 86.1 fL (80-100) Mean Corpuscular Hemoglobin 30.6 pg (25-34) Mean Corpuscular Hemoglobin Concent 35.6 g/dl (32-36) Platelet Count 364 K/uL (130-400) Mean Platelet Volume 9.2 fL (7.4-10.4) Neutrophils (%) (Auto) 74.6 % Lymphocytes (%) (Auto) 14.2 % Monocytes (%) (Auto) 8.5 % Eosinophils (%) (Auto) 2.2 % Basophils (%) (Auto) 0.2 % Neutrophils # (Auto) 6.85 K/uL (1.4-6.5) Lymphocytes # (Auto) 1.30 K/uL (1.2-3.4) Monocytes # (Auto) 0.78 K/uL (0.11-0.59) Eosinophils # (Auto) 0.20 K/uL (0-0.5) Basophils # (Auto) 0.02 K/uL (0-0.2) Immature Granulocyte # (Auto) 0.03 K/uL (0.00-0.02) Prothrombin Time 11.3 SECONDS (9.0-12.0) Prothromb Time International Ratio 1.1 (0.9-1.1) Activated Partial Thromboplast Time 29.6 SECONDS (21.0-31.0) Partial Thromboplastin Ratio 1.1 Globulin 5.1 gm/dl (2.5-4.0) Albumin/Globulin Ratio 0.6 (0.9-2) Bedside Lactic Acid Venous 1.21 mmol/L (0.90-1.70) Ethyl Alcohol mg/dL < 3.0 mg/dl (0-3) Estimated Average Glucose 157 mg/dl Hemoglobin A1c 7.1 % (4.5-5.6) Test 04/11/17 06:27 04/12/17 11:31 04/13/17 05:54 04/13/17 13:21 Erythrocyte Sedimentation Rate 70 mm/hr (0-14) C-Reactive Protein 1.31 mg/dl (0-0.29) Vancomycin Level Trough 24.2 mcg/ml (SEE COMMENT) Magnesium Level 1.9 mg/dl (1.8-2.4) Total Bilirubin 0.6 mg/dl (0.2-1) Direct Bilirubin 0.2 mg/dl (0-0.2) Aspartate Amino Transf (AST/SGOT) 14 U/L (15-37) Alanine Aminotransferase (ALT/SGPT) 14 U/L (12-78) Alkaline Phosphatase 89 U/L (45-117) Ammonia 25.0 umol/L (11-32) Total Protein 7.3 gm/dl (6.4-8.2) Albumin 2.5 gm/dl (3.4-5.0) Procalcitonin 0.16 ng/ml (0-0.5) Test 04/13/17 13:22 04/13/17 14:45 04/13/17 19:12 04/15/17 05:36 Lactic Acid Level 1.2 mmol/L (0.4-2.0) Urine Color YELLOW Urine Appearance CLEAR (CLEAR) Urine pH 5.0 (4.5-7.5) Urine Specific Rod[place] 1.014 (1.000-1.030) Urine Protein 1+ (NEG) Urine Glucose (UA) NEG (NEG) Urine Ketones NEG (NEG) Urine Occult Blood NEG (NEG) Urine Nitrite NEG (NEG) Urine Bilirubin NEG (NEG) Urine Urobilinogen NEG (NEG) Urine Leukocyte Esterase NEG (NEG) Urine WBC (Auto) 0 /hpf (0-5) Urine RBC (Auto) 0-4 /hpf (0-4) Urine Hyaline Casts (Auto) 0 /lpf (0-5) Urine Epithelial Cells (Auto) 0-5 /lpf (0-5) Urine Bacteria (Auto) NEG (NEG) Total Creatine Kinase 24 U/L (39-308) Creatine Kinase MB 0.7 ng/ml (0.5-3.6) Creatine Kinase MB Ratio 2.9 (0-3.0) Troponin I 0.043 ng/ml (0-0.045) Red Blood Count 3.77 M/uL (4.7-6.1) Mean Corpuscular Volume 88.1 fL (80-100) Mean Corpuscular Hemoglobin 30.2 pg (25-34) Mean Corpuscular Hemoglobin Concent 34.3 g/dl (32-36) RDW Standard Deviation 45.5 fL (36.4-46.3) RDW Coefficient of Variation 14.2 % (11.5-14.5) Mean Platelet Volume 9.2 fL (7.4-10.4) Anion Gap 5.0 mmol/L (3-11) Est Creatinine Clear Calc Drug Dose 96.1 ml/min Estimated GFR () 104.7 Estimated GFR (Non- 90.4 BUN/Creatinine Ratio 15.2 (10-20) Calcium Level 9.1 mg/dl (8.5-10.1) Test 04/16/17 17:09 Bedside Glucose 193 mg/dl (70-99) Date/Time Source Procedure Growth Status 04/13/17 13:21 Blood Blood Culture - Preliminary NO GROWTH TO DATE. Resulted 04/10/17 14:00 Drainage - Surface Toe Right 2 Gram Stain - Final Complete 04/10/17 14:00 Wound Culture - Final Staphylococcus Aureus Group B Beta Strep Complete Last 24 Hours Test 04/15/17 21:01 04/16/17 08:06 04/16/17 11:57 04/16/17 17:09 Bedside Glucose 249 mg/dl 103 mg/dl 311 mg/dl 193 mg/dl Assessment & Plan 66 yoM presented with osteomyelitis of the R foot requiring further surgical amputation performed on 04/12. Pt is lying supine in bed in no acute distress, mentating well. Reports no complaints. Per Ortho, there was some wetness to the wound. they will plan to continue frequent dressing changes and plan for IV antibiotics for 2-4 weeks. PICC line was placed in preparation for this. Touched base with ID who is on board and will follow labwork and his progression through rehab. Plan for dc in am to [facility]. Per patient he is feeling well today with no pain. He is somewhat fatigued and this is likely 2/2 gabapentin from the ETOH withdrawal protocol so we will stop this now. The patient reports no PT or OT today yet. Tolerating PO, Afebrile, denies chest pain or SOB. 1. Osteomyelitis-prior amputation of the R second toe. MRI on 04/10 showed extensive OM. He was initially on IV vancomycin, clindamycin, and cefepime. ID and Ortho were consulted. Wound cultures grew MSSA and GBS. Abx changed to Cefazolin. R transmetatarsal amputation performed 04/12. Pt is recovering well. Ortho plan for 2-4 weeks f IV abx. 2. h/o alcohol abuse--initial concern for ETOH withdrawal. On gabapentin protocol but because of fatigue will stop this now. 3. CAD s/p CABG and stents-denies chest pain or dyspnea. Cont medical management with ASA, carvedilol, statin 4. Chronic systolic heart failure 2/2 ischemic disease-compensated. Cont medical management with losartan, carvedilol, spironolactone and Lasix. 5. PAF- Cont carvedilol and diltiazem for rate control. 6. HTN-controlled, cont current meds. 7. DMII -around inpatient goals. Apprec glycemic pharmacist input. Holding metformin. Cont ISS with carb coverage and glargine. 8. 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 DVT proph-Lovenox. Full Code Dispo-To rehab tomorrow, and will need 2-4 weeks of IV abx with weekly labwork sent to Dr. Gilbert. Will confer with Case Management in am. DO Sydney Hairston Hospitalist Consultants: Jerry Bowers Current Inpatient Medications: Current Inpatient Medications Medications (Trade) Dose Ordered Sig/Estee Route Start Time Stop Time Status Last Admin Dose Admin Acetaminophen (Tylenol Tab) 650 mg Q4H PRN PO 04/10/17 15:30 05/10/17 15:29 04/13/17 08:19 650 MG Glucose (Glucose 40% Gel) 15-30 GRAMS 15 GRAMS... UD PRN PO 04/10/17 15:30 05/10/17 15:29 Glucose (Glucose Chew Tab) 4-8 Tablets 4 Tabl... UD PRN PO 04/10/17 15:30 05/10/17 15:29 Dextrose (Dextrose 50% 50ML Syringe) 25-50ML OF 50% DW IV FOR... UD PRN IV 04/10/17 15:30 05/10/17 15:29 Glucagon (Glucagon Inj) 1 mg UD PRN SQ 04/10/17 15:30 05/10/17 15:29 Miscellaneous Information (Consult Glycemic Management Pharmacy) 1 ea UD PRN N/A 04/10/17 15:37 05/10/17 15:36 Aspirin (Ecotrin Tab) 81 mg DAILY PO 04/11/17 09:00 05/11/17 08:59 04/16/17 08:14 81 MG Atorvastatin Calcium (Lipitor Tab) 80 mg DAILY PO 04/11/17 09:00 05/11/17 08:59 04/16/17 08:15 80 MG Cholecalciferol (Vitamin D Tab) 1,000 inter.unit DAILY PO 04/11/17 09:00 05/11/17 08:59 04/16/17 08:15 1,000 INTER.UNIT Diltiazem HCl (Cardizem Tab) 60 mg TID PO 04/10/17 21:00 05/10/17 20:59 04/16/17 13:42 60 MG Folic Acid (Folvite Tab) 1 mg DAILY PO 04/11/17 09:00 05/11/17 08:59 04/16/17 08:20 1 MG Furosemide (Lasix Tab) 40 mg DAILY PO 04/11/17 09:00 05/11/17 08:59 04/16/17 08:20 40 MG Losartan Potassium (coZAAR TAB) 50 mg DAILY PO 04/11/17 09:00 05/11/17 08:59 04/16/17 08:14 50 MG Magnesium Chloride (Slow-Mag Tab) 512 mg DAILY PO 04/11/17 09:00 05/11/17 08:59 04/16/17 08:19 512 MG Potassium Chloride (Klor-Con Tab) 20 meq BID PO 04/10/17 21:00 05/10/17 20:59 04/16/17 08:12 20 MEQ Spironolactone (Aldactone Tab) 25 mg DAILY PO 04/11/17 09:00 05/11/17 08:59 04/16/17 08:16 25 MG Thiamine HCl (Vitamin B-1 Tab) 100 mg DAILY PO 04/11/17 09:00 05/11/17 08:59 04/16/17 08:19 100 MG Ascorbic Acid (Vitamin C Tab) 250 mg BID PO 04/10/17 21:00 05/10/17 20:59 04/16/17 08:17 250 MG Carvedilol (Coreg Tab) 3.125 mg BID PO 04/10/17 21:00 05/10/17 20:59 04/16/17 08:13 3.125 MG Enoxaparin Sodium (Lovenox Inj) 40 mg HS SQ 04/11/17 21:00 05/11/17 20:59 04/15/17 21:46 40 MG Insulin Aspart (novoLOG ASPART) SLIDING SCALE If C... ACHS SC 04/12/17 17:15 05/12/17 17:14 04/16/17 13:02 19 UNITS Cefazolin Sodium 2000 mg/Syringe 10 ml @ 2.5 mls/min Q8 IV 04/13/17 14:00 05/25/17 13:59 04/16/17 13:41 2.5 MLS/MIN Lorazepam (Ativan Tab) PRN Dosing -Active Protocol UD PRN PO 04/13/17 13:15 05/13/17 13:14 Multivitamins (Multivitamin Tab) 1 tab QAM PO 04/14/17 09:00 05/14/17 08:59 04/16/17 08:14 1 TAB Insulin Glargine (Lantus Solostar Pen) 40 units HS SC 04/15/17 16:45 05/15/17 16:44 04/15/17 15:37 40 UNITS Heparin Sodium (Porcine) (Heparin 10 Unit/ ml 5 ml Flush) 5 ml PRN PRN FLUSH 04/16/17 17:15 05/16/17 17:14
--- NOTE | 2017-04-16 18:55 | Orthopedic Progress Note ---
Orthopedic Progress Note Date of Service Apr 16, 2017. Subjective Post OP Day: 4 Reports: feeling well, Denies: complaints Objective Dressings removed. Wound appears clean. No purulence. Some bloody drainage noted. Mild erythema. Date Time Temp Pulse Resp B/P (MAP) Pulse Ox O2 Delivery O2 Flow Rate FiO2 04/16/17 15:15 36.5 73 16 98/63 (75) 93 Room Air 04/16/17 08:15 Room Air 04/16/17 07:12 36.4 83 16 116/76 (89) 94 Room Air 04/16/17 00:35 Room Air 04/15/17 22:55 36.4 75 16 121/77 (92) 97 Room Air 04/15/17 21:45 80 132/90 (104) Assessment & Plan Assessment: POD 4 s/p 1. Transmetatarsal Amputation 2. Incision and Drainage Right Foot Plantar Abcess 3. Debridement of Flexor Hallucis Longus and Flexor Digitorum Longus Tendons Diabetic neuropathy right foot PVD Plan: Continue IV antibiotics Cx as noted above from wound surface Dressing change daily May be up NWB on the affected extremity No further surgery planned currently. As per Med Service. Inhouse Planning Pain Management: PO Tylenol
[2017-04-16 19:21] VITALS: O2SAT 98
[2017-04-16] MEDS: INSULIN GLARGINE SOLOSTAR 100 UNITS/ML 3 ML PEN SC SCH (21:26)
[2017-04-16] MEDS: ENOXAPARIN 40 MG/0.4 ML SYR SQ SCH (21:27)
[2017-04-16 21:31] VITALS: BP 139/95; PULSE 70
[2017-04-16 23:05] VITALS: BP 108/69; PULSE 81; TEMP 37.1; O2SAT 97
[2017-04-17] MEDS: CEFAZOLIN IV 2,000 MG in SYRINGE 0 ML IV SCH ×2 (05:42→13:34)
[2017-04-17] MEDS ORDERED: GABAPENTIN 600MG X1 DOSE PO SCH (06:00)
[2017-04-17 07:47] VITALS: BP 138/84; PULSE 81; TEMP 36.9; O2SAT 94
[2017-04-17] MEDS: SPIRONOLACTONE 25 MG TAB PO SCH (08:39)
[2017-04-17] MEDS: CARVEDILOL 6.25 MG TAB PO SCH (08:40)
[2017-04-17] MEDS: DILTIAZEM HCL 60 MG TAB PO SCH ×2 (08:40→13:34)
[2017-04-17] MEDS: LOSARTAN POTASSIUM 50 MG TAB PO SCH (08:41)
[2017-04-17] MEDS: ASPIRIN 81 MG ECTAB PO SCH (08:41)
[2017-04-17] MEDS: POTASSIUM CHLORIDE 20 MEQ TABCR PO SCH (08:42)
[2017-04-17] MEDS: FUROSEMIDE 40 MG TAB PO SCH (08:43)
[2017-04-17] MEDS: MULTIVITAMIN TAB PO SCH (08:44)
[2017-04-17] MEDS: ATORVASTATIN 40 MG TAB PO SCH (08:44)
[2017-04-17] MEDS: MAGNESIUM CHLORIDE 64MG DELAYED REL TAB PO SCH (08:46)
[2017-04-17] MEDS: THIAMINE HCL 100 MG TAB PO SCH (08:46)
[2017-04-17] MEDS: CHOLECALCIFEROL 1000 INTER.UNIT TAB PO SCH (08:47)
[2017-04-17] MEDS: ASCORBIC ACID 500 MG TAB PO SCH (08:47)
[2017-04-17 09:17] VITALS: O2SAT 94
[2017-04-17] MEDS: INSULIN ASPART 100 UNITS/ML 3 ML PEN SC SCH ×2 (09:34→12:56)
--- NOTE | 2017-04-17 11:07 | Orthopedic Progress Note ---
Orthopedic Progress Note Date of Service Apr 17, 2017. Subjective Post OP Day: 5 Reports: feeling well, Denies: complaints Objective Dressing removed. Nursing staff removed dressing and stated that there was some blood noted on the kerlix wrap distally. Wound with bloody drainage noted at the central portion of the wound. No purulence noted. Mild erythema noted. Redressed. Date Time Temp Pulse Resp B/P (MAP) Pulse Ox O2 Delivery O2 Flow Rate FiO2 04/17/17 09:17 94 Room Air 04/17/17 07:47 36.9 81 16 138/84 (102) 94 Room Air 04/17/17 00:00 Room Air 04/16/17 23:05 37.1 81 16 108/69 (82) 97 Room Air 04/16/17 21:31 70 139/95 (110) 04/16/17 19:21 98 Room Air 04/16/17 17:00 Room Air 04/16/17 15:15 36.5 73 16 98/63 (75) 93 Room Air Assessment & Plan Assessment: POD 4 s/p 1. Transmetatarsal Amputation 2. Incision and Drainage Right Foot Plantar Abcess 3. Debridement of Flexor Hallucis Longus and Flexor Digitorum Longus Tendons Diabetic neuropathy right foot PVD Plan: Pt apparently placing weight on his foot which would likely cause him to have increased drainage. Discussed that he needs to maintain NWB status as not to injury his wound closure. Continue IV antibiotics Cx as noted above from wound surface Dressing change daily May be up NWB on the affected extremity No further surgery planned currently. As per Med Service. Inhouse Planning Pain Management: PO Tylenol
--- NOTE | 2017-04-17 11:54 | Pharmacy Progress Note ---
Pharmacy Glycemic Short Note 2 Date of Service Apr 17, 2017. OUTPATIENT ANTIDIABETIC REGIMEN: * Lantus 40 units SQ HS * NovoLog with meals (8-10 units BIDM) * Glipizide 10mg PO BIDM * Metformin 1,000mg PO BIDM * A1c = 7.1% on 04/11/17 (was 10.9% on 02/07/17) * Adequate degree of outpatient control. ASSESSMENT: * BSGs 04/16: 103, 311, 193, 208 * BSGs 04/17: 149 * AM fasting BSG in goal range with outpatient dosing of basal insulin. * Post-prandial BSGs are elevated - more NovoLog CR needed. Will tighten orders accordingly PLAN FOR INPATIENT GLYCEMIC CONTROL: * Hold outpatient oral diabetes medications * Basal insulin * Lantus 40 units SQ HS {outpatient dosing} * Bolus insulin * NovoLog per scale ACHS or Q6hrs while NPO * Goal Range: Low 110 mg/dL - High 140 mg/dL * Correction Factor: 15 mg/dL/unit * TIGHTEN Nutritional / Prandial insulin per carb ratio of 1 unit per 4 grams CHO consumed PLAN FOR DISCHARGE: * No changes needed to outpatient regimen. A1c decreased from 10.9% to 7.1% over the past 2 months
[2017-04-17 11:56] VITALS: BP 114/76; PULSE 86; TEMP 36.6; O2SAT 93
--- NOTE | 2017-04-17 12:52 | Discharge Summary ---
Discharge Summary Date of Service Apr 17, 2017. Discharge Summary Admission Date: Apr 10, 2017 at 15:16 Discharge Date: Apr 17, 2017 Discharge Disposition: Rehab Principal Diagnosis: Osteomyelitis of R foot s/p forefoot amputation h/o alcohol abuse CAD s/p CABG and stents Chronic systolic heart failure 2/2 ischemic disease PAF HTN DMII Systolic murmur Procedures: 04/12: 1. Transmetatarsal Amputation 2. Incision and Drainage Right Foot Plantar Abcess 3. Debridement of Flexor Hallucis Longus and Flexor Digitorum Longus Tendons Vaccinations: None. Consultations: Ortho-Dr. Bowers Pending Studies/Follow-Up: see instructions below. Medication Reconciliation Continued Medications: Ascorbic Acid (Vitamin C) 250 Mg Chw 250 MG PO BID Aspirin (Aspirin Chewable) 81 Mg Chew 81 MG PO DAILY, TAB Atorvastatin (Lipitor) 80 Mg Tab 80 MG PO DAILY, TAB Carvedilol (Coreg) 6.25 Mg Tab 0.5 TAB PO BID for 90 Days, #90 TAB 1 Refill Cholecalciferol (Vitamin D3) 1,000 Unit Tab 1 TAB PO DAILY, TAB Diltiazem Hcl Coated Beads (Diltiazem Hcl Er) 120 Mg Cap 60 MG PO Q8, CAP Ergocalciferol (Vitamin D 83427 Unit) 50,000 Unit Cap 97848 UNIT PO Thursday, CAP Folic Acid (Folvite) 1 Mg Tab 1 MG PO DAILY, TAB Furosemide (Lasix) 40 Mg Tab 40 MG PO DAILY, TAB Glipizide (Glucotrol) 10 Mg Tab 10 MG PO BID, TAB Insulin Aspart (Novolog Flexpen) 100 Units/Ml Inj 8 UNITS SQ LUNCH Insulin Aspart (Novolog) 100 Units/Ml Inj 10 UNITS SC BREAKFAST Insulin Glargine (Lantus) 100 Unit/Ml Inj 40 UNITS SC HS, VIAL Losartan Potassium (Cozaar) 50 Mg Tab 50 MG PO DAILY, TAB Magnesium Chloride (Slow-Mag Tab) 64 Mg Tabcr 535 MG PO DAILY, TAB Metformin Hcl (Glucophage) 1,000 Mg Tab 1000 MG PO BID, TAB Potassium Ext Rel (Klor-Con) 20 Meq Tabcr 20 MEQ PO BID, TAB Spironolactone (Aldactone) 25 Mg Tab 25 MG PO DAILY, TAB Thiamine Hcl (Vitamin B-1) 100 Mg Tab 100 MG PO DAILY, TAB Admission Information HPI (per Admitting provider): This is a 66yo M with a PMH of uncontrolled DM II, PVD, CAD (s/p CABG x 4 in 2012), paroxysmal A Fib, alcohol abuse, systolic HF and recently amputated R 2nd toe who presents for evaluation of R foot. Patient was [place] from [facility] [place] [facility] amputation of right 2nd toe 2/2 necrotizing fasciitis and gangrene. Transferred to [facility] from 02/18-03/26 for IV antibiotics (rocephin and flagyl) and wound care. Was discharged home with brother and home health. Had a follow-up wound care appointment in [place] on 04/07 as well as an appt at the [place] on 04/08 and did not go to either appointment. Has not been changing dressing on his R foot. States that his foot has been discolored since the procedure in [place]. Was evaluated by home health today, who examined his wound and then sent him into ER for further evaluation. Denies any fever, chills, CP, SOB, abdominal pain, nausea, vomiting, LE swelling. Denies any numbness or pain in R foot. Denies any purulent drainage or odor. Has uncontrolled diabetes and has not been checking BS due to glucometer being out of batteries. Manages his own medications and ambulates without assistive devices. Is followed by [facility] case management and has recently been offered assisted living at [facility] and patient declined. Physical Exam (per Admitting): General Appearance: no apparent distress, + pertinent finding (disheveled appearance) Head: normocephalic, atraumatic Eyes: normal inspection, PERRL, sclerae normal ENT: normal ENT inspection, hearing grossly normal, pharynx normal Neck: supple, thyroid normal, trachea midline Respiratory/Chest: chest non-tender, lungs clear, normal breath sounds, no respiratory distress, no accessory muscle use Cardiovascular: regular rate, rhythm, normal peripheral pulses, + systolic murmur Abdomen/GI: non tender, soft, no organomegaly Back: normal inspection Extremities/Musculoskelatal: no calf tenderness, no pedal edema, + pertinent finding (R foot with eschar/necrosis on plantar aspect of great toe. Deeply ulcerated area of metatarsal near amputation site of 2nd toe. Purulant drainage. R foot erythematous, warm to touch. Bilateral LE with evidence of venous stasis, excoriated skin. ) Neurologic/Psych: no motor/sensory deficits, alert, normal mood/affect, oriented x 3, + depressed affect Skin: normal color, warm/dry Hospital Course 66 yo diabetic man with PVD who presented for evaluation of his R foot after evaluation by Home Health who noted that he was not keeping up with dressing changes and had been noncompliant with wound care appointments. In the ER he was afebrile and hemodynamically stable An MRI was ordered revealing extensive osteomyelitis, extensive cellulitis with extensive diffuse myositis throughout the foot, a peripherally enhancing 5.1cm collection along the plantar surface of the foot extending from the first webspace to the fourth metatarsal suggesting abscess, and a medial plantar ulcer of the first digit with associated micrometallic artifact. He was placed on Vancomycin, cefepime and clindamycin and ID and Ortho were consulted. He subsequently had a right foot transmetatarsal amputation with I&D of R foot plantar abscess and debridement of the flexor hallicis longus and flexor digitorum longus tendons on 04/12. Hemovac was applied and was in place for the next few days. Wound cultures were consistent with MSSA and GBS and the abx were switched to IV cefazolin. Based on the need for 2-4 more weeks of IV antibiotics, a PICC line was placed the day prior to discharge and this was continued with follow-up with ID, Dr. Gilbert and Ortho, Dr. Bowers recommended within 2 weeks. Of note, the patient also has a history of alcohol abuse and shortly after his operation was thought to be exhibiting signs/symptoms of alcohol withdrawal so was moved to telemetry and was placed on a gabapentin protocol for alcohol withdrawal. He was better the following day and was moved back to the floor, remaining afebrile and hemodynamically stable throughout the remainder of his hospitalization. Physical exam was unremarkable the day of discharge. He was mentating at baseline and was tolerating PO. HE was NWB on his foot. He was discharged to rehab in stable condition. Total time spent on discharge = 60 minutes This includes examination of the patient, discharge planning, medication reconciliation, and communication with other providers. Discharge Instructions [address] [place] [address] Discharge Medical Patient Name: Bobby Kwon Unit Number: [id number] Date of : 1950 Patient Status: Admitted Inpatient Attending Doctor: Dorothy Amato DO DI: Medical v4 Discharge Instructions Date of Service Apr 17, 2017. Admission Reason for Admission: Toe Osteomyelitis, Right Discharge Discharge Diagnosis / Problem: R foot osteomyelitis s/p amputation Discharge Goals Goal(s): Improve function, Increase independence, Prevent Disease Progression Activity Recommendations Activity Limitations: per Instructions/Follow-up section . Instructions / Follow-Up Instructions / Follow-Up Please continue all medications as instructed. You will be receiving 2-4 weeks of IV antibiotics for continued treatment of your foot infection. This is a medication you need every 8 hours. If you leave rehab and are still requiring IV antibiotics, please work with Dr. Prosper Gilbert ([facility]) on changing you to a once daily antibiotic for ease of administration at home. Weekly bloodwork will be sent to Dr. Gilbert's office for monitoring while you are on the antibiotics, and you will need a follow-up appointment in 4 weeks with his office. Please continue with all post-op care and activity instructions as per the Orthopedic team including a daily wound dressing change. It is recommended that you follow-up with your primary care physician within one week of discharge from rehab for follow-up from this hospitalization. It was a pleasure taking care of you! Call if you have any questions or problems. You can reach a [facility] hospitalist on duty at [facility] 24 hours a day by calling [phone]. Take care of yourself. Dorothy Amato DO [facility] Hospitalist Current Hospital Diet Patient's current hospital diet: Diabetes Type 2 Diet, AHA Diet (Heart Healthy) Discharge Diet Recommended Diet: AHA Diet (Heart Healthy), Diabetes Type 2 Diet Procedures Procedures Performed: 1. Transmetatarsal Amputation 2. Incision and Drainage Right Foot Plantar Abcess 3. Debridement of Flexor Hallucis Longus and Flexor Digitorum Longus Tendons Pending Studies Studies pending at discharge: no Laboratory Results Hemoglobin A1c Test 04/11/17 05:31 Range/Units Estimated Average Glucose 157 mg/dl Hemoglobin A1c 7.1 H 4.5-5.6 % Medical Emergencies . Who to Call and When: Medical Emergencies: If at any time you feel your situation is an emergency, please call [phone] immediately. . Non-Emergent Contact Non-Emergency issues call your: Primary Care Provider . . "Provider Documentation" section prepared by Dorothy Amato. . VTE Core Measure Inpt VTE Proph given/why not?: Enoxaparin (Lovenox)SQ Additional Copies To Dionicio Emmanuel D.O.
[2017-04-17 13:55] VITALS: BP 114/76; PULSE 86; TEMP 36.6; O2SAT 93
== END 2017-04-17 15:45 | DRG 475 ==
LOC: C.EDB 11:56 → C.MSN 15:16 → ENRESERV 16:17 → C.2T 04-13 11:19 → ENRESERV 04-13 11:22 → C.MSW 04-14 17:01
PROVIDERS: ADMIT Hospitalist; ATTEND Hospitalist
PROC: 0Y6M0ZF Detachment at Right Foot, Partial 5th Ray, Open Approach (ICD-10-PCS; principal; 2017-04-12 07:30)
PROC: 0Y9M0ZZ Drainage of Right Foot, Open Approach (ICD-10-PCS; principal; 2017-04-12 07:30)
PROC: 0LBV0ZZ Excision of Right Foot Tendon, Open Approach (ICD-10-PCS; principal; 2017-04-12 07:30)
DX: M86.9 Osteomyelitis, unspecified (principal); I50.22 Chronic systolic (congestive) heart failure; L02.611 Cutaneous abscess of right foot; I48.0 Paroxysmal atrial fibrillation; I25.10 Atherosclerotic heart disease of native coronary artery without angina pectoris; N18.3 Chronic kidney disease, stage 3 (moderate); E78.5 Hyperlipidemia, unspecified; E66.9 Obesity, unspecified; I12.9 Hypertensive chronic kidney disease with stage 1 through stage 4 chronic kidney disease, or unspecified chronic kidney disease; E11.69 Type 2 diabetes mellitus with other specified complication; I73.9 Peripheral vascular disease, unspecified; F10.10 Alcohol abuse, uncomplicated; Z79.4 Long term (current) use of insulin; Z79.82 Long term (current) use of aspirin

== ENCOUNTER → 2017-05-11 | Outpatient (CLI) | payer OTHER ==
[~2017-05-11] MED LIST changes: +ASPCH81X PO; -ASPI-232 PO; -CEFT1INJ57 IV; +CHOL1000 PO; +ERGO500037 PO; -FRS/40 PO; +FURO40TA3 PO; +GLIP10TA3 PO; -GLYB5TAB8 PO; -METR-163 PO; +NVLG SC
[2017-05-11 08:20] LABS: BASO % 0.5 %; BASO ABS # 0.04 K/uL (0-0.2); EOS % 3.8 %; HEMATOCRIT 33.6 % (42-52); HEMOGLOBIN 11.4 g/dL (14.0-18.0); IG# 0.02 K/uL (0.00-0.02); LYMPH % 19.7 %; LYMPH ABS # 1.55 K/uL (1.2-3.4); MEAN CELL VOLUME 88.2 fL (80-100); MEAN CORPUSCULAR HEMOGLOBIN 29.9 pg (25-34); MEAN CORPUSCULAR HGB CONC 33.9 g/dl (32-36); MEAN PLATELET VOLUME 9.4 fL (7.4-10.4); MONO % 8.3 %; MONO ABS # 0.65 K/uL (0.11-0.59); NEUT % 67.4 %; NEUT ABS # 5.29 K/uL (1.4-6.5); PLATELET COUNT 241 K/uL (130-400); RED CELL DISTRIBUTION WIDTH CV 13.8 % (11.5-14.5); RED CELL DISTRIBUTION WIDTH SD 44.5 fL (36.4-46.3); WHITE BLOOD COUNT 7.85 K/uL (4.8-10.8)
[2017-05-11 08:32] LABS: ALT/SGPT 25 U/L (12-78); AST/SGOT 15 U/L (15-37); BLOOD UREA NITROGEN 30 mg/dl (7-18); CALCIUM 9.1 mg/dl (8.5-10.1); CARBON DIOXIDE 25 mmol/L (21-32); CHOLESTEROL 104 mg/dl (0-200); CREATININE 1.01 mg/dl (0.60-1.40); GLUCOSE 109 mg/dl (70-99); POTASSIUM 3.9 mmol/L (3.5-5.1); SODIUM 139 mmol/L (136-145)
[2017-05-11 08:41] LABS: ALKALINE PHOSPHATASE 97 U/L (45-117); LDL CHOLESTEROL CALCULATED 49 mg/dl; TOTAL PROTEIN 7.2 gm/dl (6.4-8.2); TRANSFERRIN 204 mg/dl (200-360)
== END ==
LOC: C.LABCC 08:10
PROVIDERS: ATTEND Internal Medicine
DX: D64.9 Anemia, unspecified (principal); M86.9 Osteomyelitis, unspecified; I48.91 Unspecified atrial fibrillation; E11.9 Type 2 diabetes mellitus without complications; F10.21 Alcohol dependence, in remission; I25.10 Atherosclerotic heart disease of native coronary artery without angina pectoris; I10 Essential (primary) hypertension; E55.9 Vitamin D deficiency, unspecified

== ENCOUNTER 2017-11-26 13:28 | Inpatient (IN) | payer OTHER ==
[~2017-11-26] VITALS: Ht 172.7 cm; Wt 88.7 kg
[~2017-11-26 13:28] MED LIST changes: +DILT-213 PO; -DILT120C PO; -ERGO500037 PO; -GLIP10TA3 PO; +POTA-639 PO; -POTA20TA16 PO; -SLWMEC PO; +SPIR25TA5 PO; -SPIR25TA89 PO; +THIA100T10 PO; -THIA100T11 PO
[2017-11-26] MEDS ORDERED: SODIUM CHLORIDE 0.9% 1000ML 1,000 ML IV STA ×2 (14:38)
[2017-11-26 15:01] LABS: BASO % 0.2 %; BASO ABS # 0.02 K/uL (0-0.2); EOS % 1.1 %; EOS ABS # 0.12 K/uL (0-0.5); HEMATOCRIT 41.7 % (42-52); HEMOGLOBIN 14.2 g/dL (14.0-18.0); IG# 0.02 K/uL (0.00-0.02); LYMPH % 14.3 %; LYMPH ABS # 1.54 K/uL (1.2-3.4); MEAN CELL VOLUME 88.3 fL (80-100); MEAN CORPUSCULAR HEMOGLOBIN 30.1 pg (25-34); MEAN CORPUSCULAR HGB CONC 34.1 g/dl (32-36); MEAN PLATELET VOLUME 10.8 fL (7.4-10.4); MONO ABS # 0.65 K/uL (0.11-0.59); NEUT % 78.2 %; PLATELET COUNT 233 K/uL (130-400); RED CELL DISTRIBUTION WIDTH CV 13.6 % (11.5-14.5); RED CELL DISTRIBUTION WIDTH SD 43.1 fL (36.4-46.3); WHITE BLOOD COUNT 10.75 K/uL (4.8-10.8)
--- NOTE | 2017-11-26 15:02 | DIAGNOSTIC IMAGING REPORT ---
CHEST ONE VIEW PORTABLE CLINICAL HISTORY: Hypotension. Altered mental status. COMPARISON STUDY: Chest radiograph November 14, 2017. FINDINGS: There are median sternotomy wires and mediastinal surgical clips. No pneumothorax or pleural effusion is identified. Linear bilateral opacities suggest atelectasis or scarring. Moderate cardiomegaly is noted without evidence for pulmonary edema. No consolidation is identified. IMPRESSION: No acute cardiopulmonary findings. Moderate cardiomegaly without evidence for pulmonary edema. Electronically signed by: Nemesio Lopez M.D. 11/26/2017 3:01 PM Dictated Date/Time: 11/26/2017 2:58 PM
--- NOTE | 2017-11-26 15:06 | EMERGENCY ROOM VISIT NOTE ---
History Report prepared by Kar: Norman Perez Under the Supervision of: Dr. Toro Szymanski M.D. First contact with patient: 14:26 Chief Complaint: BLEEDING Stated Complaint: BLEEDING ABD PICC LINE/L FOOT SORE, [facility] Nursing Triage Summary: Lovenox site on the abdomen with continuos bleeding of bright red. History of Present Illness The patient is a 67 year old male who presents to the Emergency Room after referral from [facility] with constant bleeding from the patients abdomen and left foot that was noticed today. Per department nursing staff the patient's nurses at [facility] note that he had an amputation of toes to the left foot in 2017, and had a recent I&D procedure performed. This area is now bleeding uncontrollably. The patient also received a Lovenox shot at 0600 this morning 8.5 hours ago and there is blood oozing from the injection site as well. The patient has a history of atrial fibrillation and is on Lovenox and Coumadin anticoagulation therapy. The patient is unable to say why he is in [facility]. The patient denies any pain at this time, and he is unsure of how long the bleeding has been present. He notes that the I&D procedure was performed 1 months ago. Source of History: nursing staff Onset: Noticed today Position: abdomen (RLQ), foot (left) Quality: other (bleeding) Timing: constant Associated Symptoms: No chest pain, No abdominal pain Review of Systems See HPI for pertinent positives and negatives. A total of ten systems were reviewed and were otherwise negative. Past Medical & Surgical Medical Problems: (1) CB (acute kidney injury) (2) Alcohol abuse (3) Altered mental status (4) Atrial fibrillation (5) Atrial fibrillation with RVR (6) CAD (coronary artery disease) (7) CKD (chronic kidney disease) stage 3, GFR 30-59 ml/min (8) Decubitus ulcer (9) Diabetes mellitus type 2 in obese (10) DKA (diabetic ketoacidoses) (11) Dyslipidemia (12) Gangrene (13) H/O CHF (14) HTN (hypertension) (15) Hyperglycemia (16) Myocardial infarction (17) Obesity (18) RBBB (19) ST segment elevation (20) Toe osteomyelitis, right Surgical Problems: (1) H/O pericardiectomy (2) History of total knee arthroplasty (3) Hx of foot surgery (4) S/P CABG x 4 Social History Problems: (1) Pancreatitis Family History FH: HTN (hypertension) FH: diabetes mellitus FHx: heart disease Social History Smoking Status: Never Smoker Alcohol Use: other Drug Use: none Marital Status: single Housing Status: lives with family Occupation Status: disabled Current/Historical Medications Scheduled Amoxicillin & Pot Clavulanate (Augmentin 875-125 mg), 875 MG PO BID Ascorbic Acid (Vitamin C), 250 MG PO BID Aspirin (Aspirin Chewable), 81 MG PO DAILY Atorvastatin (Lipitor), 80 MG PO DAILY Cholecalciferol (Vitamin D3), 1 TAB PO DAILY Enoxaparin (Lovenox), 1 ML SC BID Folic Acid (Folvite), 1 MG PO DAILY Furosemide (Lasix), 40 MG PO DAILY Glyburide (Diabeta), 2 TAB PO DAILY Insulin Aspart (Novolog Flexpen), 1 UNITS SQ UD Insulin Glargine (Lantus), 35 UNITS SC HS Losartan Potassium (Cozaar), 50 MG PO DAILY Magnesium Chloride (Slow-Mag Tab), 64 MG PO DAILY Metoprolol Succ (Toprol Xl) (Toprol-Xl ), 100 MG PO DAILY Multiple Vitamin (Multivitamin), 1 TAB PO DAILY Potassium Ext Rel (Klor-Con), 20 MEQ PO BID Silver Sulfadiazine (Silvadene), 1 APPLN TOP DAILY Spironolactone (Aldactone), 25 MG PO DAILY Thiamine Hcl (Vitamin B-1), 100 MG PO DAILY Warfarin Sod (Coumadin), 7.5 MG PO DAILY Scheduled PRN Oxycodone HCl (Oxycodone HCl), 1 TAB PO Q4 PRN for Pain Allergies Coded Allergies: JET Inhibitors (Verified Allergy, Unknown, 04/10/17) Penicillins (Verified Allergy, Unknown, RASH A CHILD, 04/10/17) Lisinopril (Verified Adverse Reaction, Mild, RASH, 07/31/17) Physical Exam Vital Signs Date Time Temp Pulse Resp B/P (MAP) Pulse Ox O2 Delivery O2 Flow Rate FiO2 11/26/17 18:26 91 18 126/88 96 Room Air 11/26/17 17:52 82 11/26/17 17:27 90 12 118/90 95 Room Air 11/26/17 16:39 93 20 112/71 94 Room Air 11/26/17 14:57 86 22 110/74 95 Room Air 11/26/17 14:30 87 17 106/79 93 Room Air 11/26/17 14:20 85 20 94/52 96 Room Air 11/26/17 14:13 95 Room Air 11/26/17 13:59 90 11/26/17 13:48 88 20 97/67 95 Room Air 11/26/17 13:28 36.5 84 20 85/61 95 Room Air Physical Exam Physical Exam GENERAL: He is oriented to person, place, and time. He appears well-developed and well-nourished. He does not appear distressed. HENT: Exam performed. Head: Normocephalic and atraumatic. Right Ear: External ear normal. No mastoid tenderness. Left Ear: External ear normal. No mastoid tenderness. Mouth/Throat: The oropharynx is clear and moist. No trismus in the jaw. No dental abscesses or uvula swelling. No oropharyngeal exudate or tonsillar abscesses. EYES: Conjunctivae and EOM are normal. Pupils are equal, round, and reactive to light. Right eye exhibits no discharge. Left eye exhibits no discharge. No scleral icterus. NECK: Normal range of motion. Neck supple. No JVD present. No spinous process tenderness present. No carotid bruit present. No rigidity. No tracheal deviation and normal range of motion present. No Brudzinski's sign and no Kernig 's sign noted. CV: Normal rate, regular rhythm, normal heart sounds and intact distal pulses. There is no peripheral edema. Palpable radial pulses bue. PULM/CHEST: Effort normal and breath sounds normal. No respiratory distress. No stridor. He has no wheezes. He has no rales. Chest Wall: He exhibits no tenderness. ABD: The abdomen is soft. Bowel sounds are normal. He has no distension. No mass is present. There is no tenderness. There is no rebound, no guarding, no Ross's sign and no tenderness at McBurney's point. Rovsig negative. There is small oozing wound on the anterior abdominal wall. There is ecchymosis over the right lower abdominal quadrant. MUSC/SKEL: Normal range of motion. There is no peripheral edema, tenderness. LYMPH: No cervical adenopathy. NEURO: He is alert and oriented to person, place, and time. He has normal strength. No cranial nerve deficit or sensory deficit. Coordination and gait normal. GCS eye subscore is 4. GCS verbal subscore is 5. GCS motor subscore is 6. Cerebellar tests wnl. SKIN: He is not diaphoretic. There is a Samia skin infection over the bilateral inguinal folds and scrotal area. 6x5 cm wound over the left dorsal foot, down to the tendons. Mild oozing from the wound. There is small oozing wound on the anterior abdominal wall. There is ecchymosis over the right lower abdominal quadrant. PSYCH: He has a normal mood and affect. Behavior is normal. Judgment and thought content normal. : There is mild oozing from the urethral meatus with a healing urethral tear. Medical Decision & Procedures ER Provider Diagnostic Interpretation: Radiology results as stated below per my review and radiologist interpretation: CT ABD/PELVIS IV CONTRAST ONLY CLINICAL HISTORY: Generalized abdominal pain and gastrointestinal bleeding COMPARISON STUDY: March 02, 2015 TECHNIQUE: Following the IV administration of 94 mL of Optiray-320, CT scan of the abdomen and pelvis was performed from the lung bases to the proximal femurs. Images are reviewed in the axial, sagittal, and coronal planes. IV contrast was administered without complication. A dose lowering technique was utilized adhering to the principles of ALARA. CT DOSE: 862.67 mGy.cm FINDINGS: Lower chest: The heart is enlarged. There are basilar opacities, likely atelectatic. There is a small right pleural effusion and trace left pleural effusion. Liver: The contrast-enhanced liver is normal in size, contour, and attenuation. There is no intrahepatic biliary ductal dilatation. The hepatic veins and portal veins are patent. Gallbladder: Cholelithiasis Spleen: Mildly enlarged measuring 14.4 cm Pancreas: Unremarkable. Adrenal glands: Unremarkable. Kidneys: There is a 6 mm left renal cyst. There is no hydronephrosis. Bowel: There are no transition zones to indicate bowel obstruction. The appendix appears normal. There is no acute diverticulitis. There is scattered stool present throughout the colon. Peritoneum: There is no intraperitoneal free air or abdominal ascites. Vasculature: The abdominal aorta is normal in course and caliber. Adenopathy: Common iliac lymph nodes remain at the upper limits of normal in size. Pelvic viscera: There is bladder wall thickening. There is small fat-containing left inguinal hernia. Skeletal structures: There is mild infiltration of the anterior abdominal wall fat. There are few scattered air bubbles present. While nonspecific the findings are likely related to prior injection sites. IMPRESSION: 1. No evidence of bowel obstruction. No evidence of free air 2. Normal appendix. No evidence of acute diverticulitis 3. Cholelithiasis 4. Cardiomegaly, small right pleural effusion, and trace left pleural effusion. Basilar opacities likely atelectatic. 5. Bladder wall thickening Electronically signed by: Stanley Salas M.D. 11/26/2017 4:26 PM Laboratory Results 11/26/17 14:45 Red Blood Count 4.72, Mean Corpuscular Volume 88.3, Mean Corpuscular Hemoglobin 30.1, Mean Corpuscular Hemoglobin Concent 34.1, Mean Platelet Volume 10.8, Neutrophils (%) (Auto) 78.2, Lymphocytes (%) (Auto) 14.3, Monocytes (%) (Auto) 6.0, Eosinophils (%) (Auto) 1.1, Basophils (%) (Auto) 0.2, Neutrophils # (Auto) 8.40, Lymphocytes # (Auto) 1.54, Monocytes # (Auto) 0.65, Eosinophils # (Auto) 0.12, Basophils # (Auto) 0.02 11/26/17 14:45 Test 11/26/17 14:45 11/26/17 14:47 11/26/17 14:55 White Blood Count 10.75 K/uL (4.8-10.8) Red Blood Count 4.72 M/uL (4.7-6.1) Hemoglobin 14.2 g/dL (14.0-18.0) Hematocrit 41.7 % (42-52) Mean Corpuscular Volume 88.3 fL (80-100) Mean Corpuscular Hemoglobin 30.1 pg (25-34) Mean Corpuscular Hemoglobin Concent 34.1 g/dl (32-36) Platelet Count 233 K/uL (130-400) Mean Platelet Volume 10.8 fL (7.4-10.4) Neutrophils (%) (Auto) 78.2 % Lymphocytes (%) (Auto) 14.3 % Monocytes (%) (Auto) 6.0 % Eosinophils (%) (Auto) 1.1 % Basophils (%) (Auto) 0.2 % Neutrophils # (Auto) 8.40 K/uL (1.4-6.5) Lymphocytes # (Auto) 1.54 K/uL (1.2-3.4) Monocytes # (Auto) 0.65 K/uL (0.11-0.59) Eosinophils # (Auto) 0.12 K/uL (0-0.5) Basophils # (Auto) 0.02 K/uL (0-0.2) RDW Standard Deviation 43.1 fL (36.4-46.3) RDW Coefficient of Variation 13.6 % (11.5-14.5) Immature Granulocyte % (Auto) 0.2 % Immature Granulocyte # (Auto) 0.02 K/uL (0.00-0.02) Prothrombin Time 34.9 SECONDS (9.0-12.0) Prothromb Time International Ratio 3.4 (0.9-1.1) Activated Partial Thromboplast Time 44.6 SECONDS (21.0-31.0) Partial Thromboplastin Ratio 1.7 Est Creatinine Clear Calc Drug Dose 54.2 ml/min Estimated GFR () 52.4 Estimated GFR (Non- 45.2 BUN/Creatinine Ratio 10.6 (10-20) Calcium Level 8.3 mg/dl (8.5-10.1) Magnesium Level 1.7 mg/dl (1.8-2.4) Total Bilirubin 0.5 mg/dl (0.2-1) Direct Bilirubin 0.2 mg/dl (0-0.2) Aspartate Amino Transf (AST/SGOT) 73 U/L (15-37) Alanine Aminotransferase (ALT/SGPT) 274 U/L (12-78) Alkaline Phosphatase 214 U/L (45-117) Ammonia 35.3 umol/L (11-32) Troponin I 1.550 ng/ml (0-0.045) Total Protein 7.1 gm/dl (6.4-8.2) Albumin 2.0 gm/dl (3.4-5.0) Lipase 240 U/L (73-393) Venous Blood pH 7.47 (7.36-7.41) Venous Blood Partial Pressure CO2 54 mmHg (38.0-50.0) Venous Blood Partial Pressure O2 33 mmHg Venous Blood HCO3 39 mmol/L Venous Blood Oxygen Saturation 62.2 % Venous Blood Base Excess 12.9 mEq/L Bedside Hemoglobin 14.6 g/dl (14.0-18.0) Bedside Hematocrit 43 % (42-52) Bedside Sodium 136 mEq/L (135-144) Bedside Potassium 3.0 mEq/L (3.3-5.0) Bedside Chloride 84 mEq/L (101-112) Bedside Total CO2 37 mEq/l (24-31) Anion Gap 19.0 mmol/L (16-25) Bedside Blood Urea Nitrogen 17 mg/dl (7-18) Bedside Creatinine 1.5 mg/dl (0.6-1.3) Bedside Glucose (other) 306 mg/dl (70-99) Bedside Ionized Calcium (Marta) 0.99 mmol/l (1.12-1.32) Laboratory results reviewed by me Medications Administered Medications (Trade) Dose Ordered Sig/Estee Route Start Time Stop Time Status Last Admin Dose Admin Sodium Chloride 1,000 ml @ 999 mls/hr Q1H1M STAT IV 11/26/17 14:38 11/26/17 15:38 DC 11/26/17 14:55 999 MLS/HR Sodium Chloride 1,000 ml @ 100 mls/hr Q10H STAT IV 11/26/17 14:38 11/26/17 20:22 DC 11/26/17 14:57 100 MLS/HR Phytonadione (Mephyton Tab) 5 mg NOW STAT PO 11/26/17 15:26 11/26/17 15:28 DC 11/26/17 18:23 5 MG Magnesium Sulfate 100 ml @ 100 mls/hr NOW STAT IV 11/26/17 16:52 11/26/17 17:51 DC 11/26/17 17:23 100 MLS/HR Potassium Chloride (Klor-Con M10) 40 meq NOW STAT PO 11/26/17 16:58 11/26/17 16:59 DC 11/26/17 17:23 40 MEQ ECG Per My Interpretation Indication: other (infection) Rate (beats per minute): 88 Rhythm: sinus rhythm Findings: PVC, RBBB, other (MN interval 196, QRS 166, QTC 590, No ARTURO/STD, ) Comparison ECG Date: 11/14/2017 Change: no significant change ED Course 1427: The patient was evaluated in room A9. A complete history and physical exam was performed. 2 large-bore IVs were established. 500 cc bolus ordered. 1438: Ordered Sodium Chloride 1000 mL @ 100 mL/hr IV, Sodium Chloride 1000 mL @ 999 mL/hr IV 1500: Prior records of the patient were obtained from [facility] laboratory studies show an INR of 1.56, Hemoglobin of 13.8, creatinine of 1.3 and potassium of 2.9. Records show that the patient had a right transmetatarsal removal secondary to Necrotizing Fasciitis in the fall. The patient later presented to the ED with infection in the left foot. On this visit he went into A-fib with RVR which was believed to be secondary to the Nec Fasc. His troponin was elevated as well. The patient was transferred to [facility] where he had an amputation performed. The patient received 81 mg of Aspirin today at 0930, 100 mg of SubQ Lovenox at 0600. KCL 20 meq at 0930 and 7.5 mg of Coumadin at 2130. 1526: Ordered Phytonadione 5 mg PO 1529: The patient's blood pressure is 110/74 at this time. He is resting comfortably. 1648: Vital signs stable. Hemoglobin stable. Potassium of 3.0. Lactic acid 2.1. Troponin elevated at 1.5. Patient denies any chest pain or difficulty breathing. I discussed the case with Janna Holcomb - [facility] Hospitalist ZAFAR. I discussed giving Vitamin K due to bleeding. She states that given elevated Troponin she will evaluated the patient and decide. She will evaluate the patient for further intervention. The patient has an elevated troponin with an INR elevation and blood oozing from several areas. The CT of the abdomen and pelvis is negative. Medical Decision 1427: The patient was evaluated in room A9. A complete history and physical exam was performed. 2 large-bore IVs were established. 500 cc bolus ordered. 1438: Ordered Sodium Chloride 1000 mL @ 100 mL/hr IV, Sodium Chloride 1000 mL @ 999 mL/hr IV 1500: Prior records of the patient were obtained from [facility] laboratory studies show an INR of 1.56, Hemoglobin of 13.8, creatinine of 1.3 and potassium of 2.9. Records show that the patient had a right transmetatarsal removal secondary to Necrotizing Fasciitis in the Fall of 2016. The patient later presented to the ED with infection in the left foot. On this visit he went into A-fib with RVR which was believed to be secondary to the Nec Fasc. His troponin was elevated as well. The patient was transferred to [facility] where he had an amputation performed. The patient received 81 mg of Aspirin today at 0930, 100 mg of SubQ Lovenox at 0600. KCL 20 meq at 0930 and 7.5 mg of Coumadin at 2130. 1526: Ordered Phytonadione 5 mg PO 1529: The patient's blood pressure is 110/74 at this time. He is resting comfortably. 1648: Vital signs stable. Hemoglobin stable. Potassium of 3.0. Lactic acid 2.1. Troponin elevated at 1.5. Patient denies any chest pain or difficulty breathing. [facility]. I discussed giving Vitamin K due to bleeding. She states that given elevated Troponin she will evaluated the patient and decide. She will evaluate the patient for further intervention. The patient has an elevated troponin with an INR elevation and blood oozing from several areas. The CT of the abdomen and pelvis is negative. Medication Reconcilliation Current Medication List: was personally reviewed by me Blood Pressure Screening Patient's blood pressure: Low blood pressure Consults Time Called: 1644 Consulting Physician: Janna Ventura PA-C Returned Call: 1647 I discussed the case with Janna Ventura PA-C. I discussed giving Vitamin K due to bleeding. She states that given elevated Troponin she will evaluated the patient and decide. Impression Primary Impression: Elevated troponin Additional Impressions: Lactic acidemia Hypotension Wound of foot Post-op bleeding Critical Care I have personally spent greater than 45 minutes of critical care time in the direct management of this patient. This includes bedside care, interpretation of diagnostic studies, and testing, discussion with consultants, patient, and family members, and other required patient management activities. This 45 minutes is in excess of all separately billable procedures. Scribe Attestation The scribe's documentation has been prepared under my direction and personally reviewed by me in its entirety. I confirm that the note above accurately reflects all work, treatment, procedures, and medical decision making performed by me. The chart was completed utilizing [employer] Speech voice recognition software. Grammatical errors, random word insertions, pronoun errors, and incomplete sentences are an occasional consequence of this system due to software limitations, ambient noise, and hardware issues. Any formal questions or concerns about the content, text, or information contained within the body of this dictation should be directly addressed to the physician for clarification. Departure Information Dispostion Being Evaluated By Hospitalist Referrals No Doctor, Assigned (PCP) Patient Instructions My [facility] Problem Qualifiers
[2017-11-26 15:17] LABS: INR 3.4 (0.9-1.1); PTT PATIENT 44.6 SECONDS (21.0-31.0)
[2017-11-26] MEDS ORDERED: PHYTONADIONE 5 MG TAB PO STA (15:26)
[2017-11-26] MEDS ORDERED: OPTIRAY 320 IV PRN (15:30)
[2017-11-26 15:36] LABS: CALCIUM 8.3 mg/dl (8.5-10.1); CREATININE 1.58 mg/dl (0.60-1.40); TOTAL PROTEIN 7.1 gm/dl (6.4-8.2)
--- NOTE | 2017-11-26 16:27 | DIAGNOSTIC IMAGING REPORT ---
CT ABD/PELVIS IV CONTRAST ONLY CLINICAL HISTORY: Generalized abdominal pain and gastrointestinal bleeding COMPARISON STUDY: March 02, 2015 TECHNIQUE: Following the IV administration of 94 mL of Optiray-320, CT scan of the abdomen and pelvis was performed from the lung bases to the proximal femurs. Images are reviewed in the axial, sagittal, and coronal planes. IV contrast was administered without complication. A dose lowering technique was utilized adhering to the principles of ALARA. CT DOSE: 862.67 mGy.cm FINDINGS: Lower chest: The heart is enlarged. There are basilar opacities, likely atelectatic. There is a small right pleural effusion and trace left pleural effusion. Liver: The contrast-enhanced liver is normal in size, contour, and attenuation. There is no intrahepatic biliary ductal dilatation. The hepatic veins and portal veins are patent. Gallbladder: Cholelithiasis Spleen: Mildly enlarged measuring 14.4 cm Pancreas: Unremarkable. Adrenal glands: Unremarkable. Kidneys: There is a 6 mm left renal cyst. There is no hydronephrosis. Bowel: There are no transition zones to indicate bowel obstruction. The appendix appears normal. There is no acute diverticulitis. There is scattered stool present throughout the colon. Peritoneum: There is no intraperitoneal free air or abdominal ascites. Vasculature: The abdominal aorta is normal in course and caliber. Adenopathy: Common iliac lymph nodes remain at the upper limits of normal in size. Pelvic viscera: There is bladder wall thickening. There is small fat-containing left inguinal hernia. Skeletal structures: There is mild infiltration of the anterior abdominal wall fat. There are few scattered air bubbles present. While nonspecific the findings are likely related to prior injection sites. IMPRESSION: 1. No evidence of bowel obstruction. No evidence of free air 2. Normal appendix. No evidence of acute diverticulitis 3. Cholelithiasis 4. Cardiomegaly, small right pleural effusion, and trace left pleural effusion. Basilar opacities likely atelectatic. 5. Bladder wall thickening Electronically signed by: Stanley Salas M.D. 11/26/2017 4:26 PM Dictated Date/Time: 11/26/2017 4:19 PM
[2017-11-26 16:37] LABS: ISTAT CREATININE 1.5 mg/dl (0.6-1.3); ISTAT IONIZED CALCIUM 0.99 mmol/l (1.12-1.32)
[2017-11-26] MEDS ORDERED: POTASSIUM CHLORIDE 20 MEQ TABCR PO STA (16:52)
[2017-11-26] MEDS ORDERED: MAGNESIUM SULFATE 1GM / D5W 100 ML IV STA (16:52)
[2017-11-26] MEDS ORDERED: POTASSIUM CHLORIDE 10 MEQ TABCR PO STA (16:58)
--- NOTE | 2017-11-26 18:14 | DIAGNOSTIC IMAGING REPORT ---
HEAD CT NONCONTRAST CT DOSE: 537.48 mGy.cm HISTORY: Altered mental status. r/o bleed TECHNIQUE: Multiaxial CT images of the head were performed without the use of intravenous contrast. Automated exposure control was utilized for this study. A dose lowering technique was utilized adhering to the principles of ALARA. Comparison: Head CT 02/07/2017. Findings: The paranasal sinuses and mastoid air cells are clear. The calvarium and skull base are intact. Mild motion artifact at the high convexity. Mild atrophy and microvascular ischemic changes are again noted. This remains unchanged. There is no midline shift. Focal hypodense area within the right occipital lobe which measures 3.2 cm. This favors a subacute infarct. There is a small amount of linear hyperdensity at this location which raises the possibility of hemorrhagic transformation. Impression: Focal hypodense area within the right occipital lobe which measures 3.2 cm. This favors a subacute infarct. There is a small amount of linear hyperdensity at this location which raises the possibility of hemorrhagic transformation. Brain MRI is recommended for further evaluation. Electronically signed by: Bill Erazo M.D. 11/26/2017 6:12 PM Dictated Date/Time: 11/26/2017 6:02 PM
[2017-11-26] MEDS ORDERED: PHYTONADIONE 5 MG TAB ONE (18:23)
[2017-11-26] MEDS ORDERED: POLYETHYLENE (MIRALAX) 17 GM PACK PO PRN (18:45)
[2017-11-26] MEDS ORDERED: NITROGLYCERIN 0.4 MG SL PER TAB CHARGE SL PRN (18:45)
[2017-11-26] MEDS ORDERED: PHARMACIST DISCHARGE MED REC CONSULT PRN (18:45)
[2017-11-26] MEDS ORDERED: MULTTAB58 PO (19:06)
[2017-11-26] MEDS ORDERED: CMD5 PO (19:06)
[2017-11-26] MEDS ORDERED: METO100T44 PO (19:06)
[2017-11-26] MEDS ORDERED: GLY/5 PO (19:06)
[2017-11-26] MEDS ORDERED: SILV1CRE73 TOP (19:06)
[2017-11-26] MEDS ORDERED: SLWMEC PO (19:06)
[2017-11-26] MEDS ORDERED: ENOX100I SC (19:06)
[2017-11-26] MEDS ORDERED: OXYC-609 PO (19:12)
[2017-11-26] MEDS ORDERED: GLUCAGON FOR INJ 1 MG VIAL SQ PRN (19:15)
[2017-11-26] MEDS ORDERED: GLUCOSE 10 TABS/TUBE PO PRN (19:15)
[2017-11-26] MEDS ORDERED: DEXTROSE 50% 50 ML SYR IV PRN (19:15)
[2017-11-26] MEDS ORDERED: AMOX875T PO (19:19)
[2017-11-26 20:15] VITALS: BP 129/88; PULSE 90; TEMP 36.5; O2SAT 22; BMI 33.2
--- NOTE | 2017-11-26 20:26 | DIAGNOSTIC IMAGING REPORT ---
ULTRASOUND OF THE CAROTID ARTERIES CLINICAL HISTORY: Stroke COMPARISON STUDY: None. TECHNIQUE: Real-time, grayscale, and color Doppler sonography of the carotid arteries was performed. Imaging reviewed in the transverse and longitudinal planes. NASCET criteria was utilized for stenosis calcification. FINDINGS: There is mild atherosclerotic plaque present . The peak systolic velocity within the right internal carotid artery is 53 cm/sec. The systolic velocity ratio of right internal to common carotid artery is 1.0. The peak systolic velocity within the left internal carotid artery is 42 cm/sec. The systolic velocity ratio left internal to common carotid artery is 0.7. Antegrade flow is seen in the vertebral arteries. The external carotid arteries are patent. IMPRESSION: No evidence of hemodynamically significant carotid stenosis. Electronically signed by: Stanley Salas M.D. 11/26/2017 8:24 PM Dictated Date/Time: 11/26/2017 8:23 PM
--- NOTE | 2017-11-26 20:33 | History and Physical ---
History & Physical Date & Time of Service: Nov 26, 2017 at 19:06 Chief Complaint: Bleeding Abd Picc Line/L Foot Sore, [facility] Primary Care Physician: Dionicio Emmanuel D.O. History of Present Illness Source: patient, clinic records, hospital records Pt is 67 y/o M with PMH DM II, paroxysmal atrial fibrillation, CAD S/P CABG, ischemic cardiomyopathy EF: 20-24%, PVD, hx necrotizing fascitis of RLE with amputation in 2017, and others listed below presented to ER from [facility] with complaint of bleeding from left foot surgical site and from abdomen location of Lovenox injection. Patient is poor historian. Patient initially seen in ER 11/14/17 and was transferred to [facility] for left fifth toe gangrene, A. fib RVR, DKA, possible and STEMI, hypoxic respiratory failure and was discharged from there to [facility] on 11/23/17. Had echo 11/16/17: EF: 20-24%, diffuse hypokinesis to akinesis. Right ventricular systolic function is reduced. Moderate to severe aortic stenosis suspected. Cardiac cath and AICD were deferred during hospitalization. he was discharged with his Cardizem was changed to metoprolol. Pt had I&D of L forefoot with partial 5th toe resection by Dr Dean for osteomyelitis, necrotizing fascitis with culture of proteus. discharged on Augmentin and finished on 11/25/17. He was d/c with daily dressing changes to LLE with 1/2 strength Dakin's moistened gauze and silvadene daily to R foot ulcer. Instructions for 4inche jet wrap from toe to ankle and 6inch JET wrap from ankle to knee on BLE and flat [facility] shoes with planned wound care surgeon f/u in 2 weeks. He was taken off of metformin and Patient was started on Coumadin has been receiving Lovenox until INR therapeutic. Last INR reported was 1.58 on 11/24/17. Patient had Lovenox dose this morning and it is reported that since has had blood oozing from injection site. It is also reported that patient has had blood oozing from left foot from surgical site. When asked patient he is unsure when bleeding started. Patient is denying any complaints and is poor historian. Denies any current or recent headache however states "maybe going to get a headache, but I'm fine". He states he has been eating and drinking normally. he is unsure what his BSG have been running. He thinks he may have had some hematuria today, denies dysuria. Pt denies urinary or fecal incontinence however it is noted he is wearing incontinence brief. Pt is denying any pain to surgical site or pain any other location. Denies fever/chills, diaphoresis, N/V/D/C, melena, hematochezia. dizziness, syncope, vision changes, vision loss, neck pain, CP, SOB, orthopnea, palpitations, cough, sore throat, choking, otalgia, rhinorrhea, abdominal pain, paresthesias, extremity edema, extremity weakness, rashes, weight changes. Family History FH: HTN (hypertension) FH: diabetes mellitus FHx: heart disease Social History Smoking Status: Never Smoker Smokeless Tobacco Use: No Alcohol Use: hx ETOH use. No ETOH for 2 weeks Drug Use: none Marital Status: single Housing status: other (currently at [facility]) Occupational Status: disabled Immunizations History of Influenza Vaccine: No Influenza Vaccine Date: Jul 01, 2011 History of Tetanus Vaccine?: No History of Pneumococcal: No Pneumococcal Date: Jul 01, 2011 History of Hepatitis B Vaccine: No Allergies Coded Allergies: JET Inhibitors (Verified Allergy, Unknown, 04/10/17) Penicillins (Verified Allergy, Unknown, RASH A CHILD recent tolerated Augmentin, 11/26/17) Lisinopril (Verified Adverse Reaction, Mild, RASH, 07/31/17) Home Medications Scheduled Amoxicillin & Pot Clavulanate (Augmentin 875-125 mg), 875 MG PO BID Ascorbic Acid (Vitamin C), 250 MG PO BID Aspirin (Aspirin Chewable), 81 MG PO DAILY Atorvastatin (Lipitor), 80 MG PO DAILY Cholecalciferol (Vitamin D3), 1 TAB PO DAILY Enoxaparin (Lovenox), 1 ML SC BID Folic Acid (Folvite), 1 MG PO DAILY Furosemide (Lasix), 40 MG PO DAILY Glyburide (Diabeta), 2 TAB PO DAILY Insulin Aspart (Novolog Flexpen), 1 UNITS SQ UD Insulin Glargine (Lantus), 35 UNITS SC HS Losartan Potassium (Cozaar), 50 MG PO DAILY Magnesium Chloride (Slow-Mag Tab), 64 MG PO DAILY Metoprolol Succ (Toprol Xl) (Toprol-Xl ), 100 MG PO DAILY Multiple Vitamin (Multivitamin), 1 TAB PO DAILY Potassium Ext Rel (Klor-Con), 20 MEQ PO BID Silver Sulfadiazine (Silvadene), 1 APPLN TOP DAILY Spironolactone (Aldactone), 25 MG PO DAILY Thiamine Hcl (Vitamin B-1), 100 MG PO DAILY Warfarin Sod (Coumadin), 7.5 MG PO DAILY Scheduled PRN Oxycodone HCl (Oxycodone HCl), 1 TAB PO Q4 PRN for Pain Review of Systems See HPI for pertinent positives & negatives. All other systems reviewed and were otherwise negative Physical Exam Vital Signs Date Time Temp Pulse Resp B/P (MAP) Pulse Ox O2 Delivery O2 Flow Rate FiO2 11/26/17 18:26 91 18 126/88 96 Room Air 11/26/17 17:52 82 11/26/17 17:27 90 12 118/90 95 Room Air 11/26/17 16:39 93 20 112/71 94 Room Air 11/26/17 14:57 86 22 110/74 95 Room Air 11/26/17 14:30 87 17 106/79 93 Room Air 11/26/17 14:20 85 20 94/52 96 Room Air 11/26/17 14:13 95 Room Air 11/26/17 13:59 90 11/26/17 13:48 88 20 97/67 95 Room Air 11/26/17 13:28 36.5 84 20 85/61 95 Room Air General Appearance: no apparent distress, + pertinent finding (appears older than stated age) Head: normocephalic, atraumatic Eyes: normal inspection, PERRL, EOMI, sclerae normal ENT: hearing grossly normal, pharynx normal, + pertinent finding (mucous membranes moist) Neck: supple, trachea midline Respiratory/Chest: lungs clear, normal breath sounds, no respiratory distress Cardiovascular: regular rate, rhythm, no murmur Abdomen/GI: normal bowel sounds, non tender, soft, + pertinent finding (right lower abdomen with venous blood oozing from puncture site. +ecchymosis noted to lower abdomen) Extremities/Musculoskelatal: no calf tenderness, no pedal edema, + pertinent finding (right foot +ulcer, no bleeding. left foot +deep wound without purulent discharge, +venous bleeding. ) Neurologic/Psych: alert, + pertinent finding (Pt with flat affect. He is somewhat uncooperative. Pt alert to person, he is unsure where he is living, knows he is in the hospital now, unsure on date, knows year. (unsure of pt's baseline). strength bilateral upper and lower extremities equal) Skin: warm/dry, + pertinent finding (see above) Diagnostics Laboratory Results Results Past 24 Hours Test 11/26/17 14:45 11/26/17 14:47 11/26/17 14:55 Range/Units White Blood Count 10.75 4.8-10.8 K/uL Red Blood Count 4.72 4.7-6.1 M/uL Hemoglobin 14.2 14.0-18.0 g/dL Hematocrit 41.7 42-52 % Mean Corpuscular Volume 88.3 80-100 fL Mean Corpuscular Hemoglobin 30.1 25-34 pg Mean Corpuscular Hemoglobin Concent 34.1 32-36 g/dl Platelet Count 233 130-400 K/uL Mean Platelet Volume 10.8 7.4-10.4 fL Neutrophils (%) (Auto) 78.2 % Lymphocytes (%) (Auto) 14.3 % Monocytes (%) (Auto) 6.0 % Eosinophils (%) (Auto) 1.1 % Basophils (%) (Auto) 0.2 % Neutrophils # (Auto) 8.40 1.4-6.5 K/uL Lymphocytes # (Auto) 1.54 1.2-3.4 K/uL Monocytes # (Auto) 0.65 0.11-0.59 K/uL Eosinophils # (Auto) 0.12 0-0.5 K/uL Basophils # (Auto) 0.02 0-0.2 K/uL RDW Standard Deviation 43.1 36.4-46.3 fL RDW Coefficient of Variation 13.6 11.5-14.5 % Immature Granulocyte % (Auto) 0.2 % Immature Granulocyte # (Auto) 0.02 0.00-0.02 K/uL Prothrombin Time 34.9 9.0-12.0 SECONDS Prothromb Time International Ratio 3.4 0.9-1.1 Activated Partial Thromboplast Time 44.6 21.0-31.0 SECONDS Partial Thromboplastin Ratio 1.7 Sodium Level 133 136-145 mmol/L Potassium Level 3.0 3.5-5.1 mmol/L Chloride Level 90 98-107 mmol/L Carbon Dioxide Level 35 21-32 mmol/L Anion Gap 8.0 19.0 16-25 mmol/L Creatinine 1.58 0.60-1.40 mg/dl Est Creatinine Clear Calc Drug Dose 54.2 ml/min Estimated GFR () 52.4 Estimated GFR (Non- 45.2 BUN/Creatinine Ratio 10.6 10-20 Random Glucose 292 70-99 mg/dl Lactic Acid Level 2.1 0.4-2.0 mmol/L Calcium Level 8.3 8.5-10.1 mg/dl Magnesium Level 1.7 1.8-2.4 mg/dl Total Bilirubin 0.5 0.2-1 mg/dl Direct Bilirubin 0.2 0-0.2 mg/dl Aspartate Amino Transf (AST/SGOT) 73 15-37 U/L Alanine Aminotransferase (ALT/SGPT) 274 12-78 U/L Alkaline Phosphatase 214 45-117 U/L Ammonia 35.3 11-32 umol/L Troponin I 1.550 0-0.045 ng/ml Total Protein 7.1 6.4-8.2 gm/dl Albumin 2.0 3.4-5.0 gm/dl Lipase 240 73-393 U/L Venous Blood pH 7.47 7.36-7.41 Venous Blood Partial Pressure CO2 54 38.0-50.0 mmHg Venous Blood Partial Pressure O2 33 mmHg Venous Blood HCO3 39 mmol/L Venous Blood Oxygen Saturation 62.2 % Venous Blood Base Excess 12.9 mEq/L Bedside Hemoglobin 14.6 14.0-18.0 g/dl Bedside Hematocrit 43 42-52 % Bedside Sodium 136 135-144 mEq/L Bedside Potassium 3.0 3.3-5.0 mEq/L Bedside Chloride 84 101-112 mEq/L Bedside Total CO2 37 24-31 mEq/l Bedside Blood Urea Nitrogen 17 7-18 mg/dl Bedside Creatinine 1.5 0.6-1.3 mg/dl Bedside Glucose (other) 306 70-99 mg/dl Bedside Ionized Calcium (Marta) 0.99 1.12-1.32 mmol/l Diagnostic Radiology CXR: IMPRESSION: No acute cardiopulmonary findings. Moderate cardiomegaly without evidence for pulmonary edema. CT ABD/PELVIS: IMPRESSION: 1. No evidence of bowel obstruction. No evidence of free air 2. Normal appendix. No evidence of acute diverticulitis 3. Cholelithiasis 4. Cardiomegaly, small right pleural effusion, and trace left pleural effusion. Basilar opacities likely atelectatic. 5. Bladder wall thickening CT HEAD: Impression: Focal hypodense area within the right occipital lobe which measures 3.2 cm. This favors a subacute infarct. There is a small amount of linear hyperdensity at this location which raises the possibility of hemorrhagic transformation. Brain MRI is recommended for further evaluation. EKG EKG: sinus rhythm, RBBB, PVCs Read by carrot buncher: When compared with ECG of 14-NOV-2017 22:37, Premature ventricular complexes are now Present Vent. rate has decreased BY [address] less elevated in Anterolateral leads ... Impression Assessment and Plan Pt is 67 y/o M with PMH DM II, paroxysmal atrial fibrillation, CAD S/P CABG, ischemic cardiomyopathy EF: 20-24%, PVD, hx necrotizing fascitis of RLE with amputation in 2016, presented to ER from [facility] with complaint of bleeding from left foot surgical site and from abdomen location of Lovenox injection. Patient with recent hospitalization at [facility] for I&D of L forefoot with partial 5th toe resection by Dr Dean for osteomyelitis, necrotizing fascitis with culture of proteus. discharged on Augmentin and finished on 11/25/17. Also had A. fib RVR, DKA, possible and STEMI, hypoxic respiratory failure and was discharged from there to [facility] on 11/23/17. SUPRATHERAPEUTIC INR BLEEDING LEFT FOOT PREVIOUS SURGICAL SITE Patient was started on Coumadin has been receiving Lovenox until INR therapeutic. Today in ER INR: 3.4 and pt with bleeding to puncture site from lovenox and L foot surgical site. Hgb: 14. Vitamin K po given. -INR in am -pressure dressing -monitor H&H HYPOTENSION Pt arrived to ER and BP was 85/61 up to 112/71 after 1L NSS. Hgb: 14. Pt denies dizziness, syncope, CP, SOB. -will hold on further IVF at this time with pt's hx CHF -monitor closely -hold losartan, lasix, spironolactone for now, reevaluate volume status and BP in am WOUND TO LEFT FOOT/WOUND RIGHT FOOT Pt at [facility] for I&D of L forefoot with partial 5th toe resection by Dr Dean for osteomyelitis, necrotizing fascitis with culture of proteus on 11/15/17. Was d/c on Augmentin and finished on 11/25/17. Pt had He was d/c with daily dressing changes to LLE with 1/2 strength Dakin's moistened gauze and silvadene daily to R foot ulcer. Instructions for 4inche jet wrap from toe to ankle and 6inch JET wrap from ankle to knee on BLE and flat [facility] shoes with planned wound care surgeon f/u in 2 weeks. -In ER pt afebrile, no leukocytosis. lactic acid: 2.1. was given 1L NSS -continue silvadene to right foot ulcer daily -unasyn -trend lactic acid -wound consult -ortho consult STROKE Pt denies any falls, ACSTILLO, vision changes, extremity weakness/paresthesias. it was noted on exam in ER that pt was not oriented and somewhat confused and unsure of his baseline. CT head: Focal hypodense area within the right occipital lobe which measures 3.2 cm. This favors a subacute infarct. There is a small amount of linear hyperdensity at this location which raises the possibility of hemorrhagic transformation. Hx echo 11/16/17: EF: 20-24%, diffuse hypokinesis to akinesis. Right ventricular systolic function is reduced. Moderate to severe aortic stenosis suspected. -Tele to monitor for arrhythmias -lipids in AM -MRI without contrast pending -U/S carotids pending -PT/OT consult -continue statin -holding ASA for now -neurology consult - spoke with lieutenant colonel, recommend MRI and repeat CT head in morning -Repeat CT head in the morning ELEVATED TROPONIN Hx CAD S/P CABG RECENT POSSIBLE AND STEMI ISCHEMIC CARDIOMYOPATHY 11/14/17 troponin: 30, patient was transferred to [facility]. No heparin treatment at that time. Had echo 11/16/17: EF: 20-24%, diffuse hypokinesis to akinesis. Right ventricular systolic function is reduced. Moderate to severe aortic stenosis suspected. Cardiac cath and AICD were deferred during hospitalization. he was discharged with Cardizem discontinued and was changed to metoprolol. -In ER today troponin: 1.5. Patient denies any CP, SOB, palpitations, dizziness. Troponin may still be elevated from previous -Continue metoprolol with holding parameters -Holding aspirin at this time -continue -Cardiology consult CHRONIC SYSTOLIC HEART FAILURE Patient does not appear fluid overloaded at this time. Initially was hypotensive in the ER and was given 1L NSS -I&O and daily weight -Monitor closely -Holding Lasix, spironolactone at this time. Reevaluate volume status in morning PROLONGED QTC QTc: 590 -repeat EKG in am -avoid QTc prolonging agents HYPOKALEMIA K: 3.0. Pt is on diuretics. Pt given 40meq po K -monitor -will resume pt's home K 20 yvonne BID, change as appropriate HYPOMAGNESIA magnesium 1.7. Pt given magnesium 1gm -monitor and replace as appropriate ELEVATED LIVER ENZYMES ALT increased from previous -repeat liver functions in am HISTORY OF PAROXYSMAL ATRIAL FIBRILLATION ON COUMADIN Current sinus rhythm. -holding coumadin currently with pt's bleeding wound, INR of 3.4. Vit K 5mg po was given. -monitor INR DM II A1c: 11.1 on 11/15/17 -hold glyburide -BSG AC HS -basal bolus insulin per protocol RENAL INSUFFICIENCY Cr: 1.58. Was 1.5 upon d/c [facility] -monitor renal functions -avoid nephrotoxic agents when possible HISTORY OF ETOH ABUSE Last drink approximately 2 weeks ago per pt, patient has been hospitalized since 11/14/17 and discharged to [facility] -Continue folate and thiamine DVT Prophylaxis -SCD Admit tele Full Code as per discussion with pt Follows with Dr Dionicio Emmanuel [facility] for routine care Pt was seen with Dr Wilson. See addendum ADDENDUM: This is a 67 year old male with a past medical history of paroxysmal atrial fibrillation on long-term anticoagulation, uncontrolled, insulin dependent DM2, recent history of CAD and likely STEMI managed medically, recent hx. of gangrenous R foot s/p amputation, wound ulcerations on the L foot - presents with excessive bleeding from site of Lovenox injection and L foot wound. He had been on a Lovenox to Coumadin bridge because of low INR. Was sent over from [facility]. Patient was very confused on admission and a Head CT was performed showing a subacute infarct with possible hemorrhagic conversion. Plan: Reverse INR with Vitamin K Brain MRI to be performed Neurology consulted wound care and orthopedics surgery consulted for the L foot wound ulcer Unasyn started for abx. coverage Given 1L of fluids in the ER; no further fluids due to EF of ~25%, monitor for overload Recent STEMI; troponin on 11/14 was >30, now down to 1; likely trending down. Resuscitation Status VTE Prophylaxis Will order VTE Prophylaxis: Yes Additional Copies To Dionicio Emmanuel D.O.
--- NOTE | 2017-11-26 21:24 | DIAGNOSTIC IMAGING REPORT ---
MRI OF THE BRAIN WITHOUT CONTRAST CLINICAL HISTORY: Cerebral infarct. Confusion. COMPARISON STUDY: Noncontrast head CT dated 11/26/2017 FINDINGS: Sagittal T1, axial diffusion, proton density and T2 weighted axial, coronal FLAIR, and axial T1-weighted images were acquired. The examination is limited from a technical standpoint. The patient was screaming and ultrasound of the head coil. Repeat images were not possible to acquire. No intra or extra-axial mass lesions are visualized There is a 4.2 cm focus of restricted water diffusion within the right occipital lobe consistent with infarct. Also evident is a 8 mm focus of restricted water diffusion within the right frontal lobe, likely representing a second infarct. Foci of increased signal in the temporal lobes peripherally on diffusion-weighted images are felt to be artifactual. There is mild particular dilatation likely secondary to volume loss. Proton density T2-weighted and FLAIR images reveal scattered foci of increased T2 signal within the white matter, likely on a small vessel basis. In addition there is increased T2 and FLAIR signal within the right occipital lobe consistent with acute/subacute infarct. There are no abnormal flow voids. IMPRESSION: 1. Technically limited study secondary to motion artifact 2. 4 cm acute/subacute infarct within the right occipital lobe 3. Probable 8 mm acute/subacute infarct in the right frontal lobe Electronically signed by: Stanley Salas M.D. 11/26/2017 9:22 PM Dictated Date/Time: 11/26/2017 9:17 PM
[2017-11-26] MEDS ORDERED: NSS + 20MEQ KCL 1000ML 1,000 ML IV SCH (22:00)
[2017-11-26] MEDS: POTASSIUM CHLR 10 MEQ / WTR 100 ML IV SCH ×2 (22:12→22:13)
[2017-11-26] MEDS: AMPICILLIN/SULBACTAM SOD INJ 3,000 MG in SODIUM CHLORIDE 0.9% 100ML 100 ML IV SCH (22:13)
[2017-11-26] MEDS: POTASSIUM CHLORIDE 20 MEQ TABCR PO SCH (22:13)
[2017-11-26] MEDS: INSULIN ASPART 100 UNITS/ML 3 ML PEN SC SCH (22:15)
[2017-11-26] MEDS: INSULIN GLARGINE SOLOSTAR 100 UNITS/ML 3 ML PEN SC SCH (22:16)
[2017-11-26 22:18] LABS: HEMATOCRIT 42.7 % (42-52); HEMOGLOBIN 14.7 g/dL (14.0-18.0)
[2017-11-27] VITALS (8 sets, daily range): BP systolic 91–118; BP diastolic 63–86; PULSE 73–106; TEMP 36.3–37.2; O2SAT 91–99; BMI 33.5
[2017-11-27] MEDS: AMPICILLIN/SULBACTAM SOD INJ 3,000 MG in SODIUM CHLORIDE 0.9% 100ML 100 ML IV SCH ×4 (04:20→21:28)
--- NOTE | 2017-11-27 06:52 | DIAGNOSTIC IMAGING REPORT ---
HEAD WITHOUT CONTRAST (CT) CLINICAL HISTORY: 67 years-old Male with stroke, r/o bleed. Acute strokelike symptoms TECHNIQUE: Multiple axial CT images of the head were obtained without contrast. A dose lowering technique was utilized adhering to the principles of ALARA. CT DOSE: 537.48 mGy.cm COMPARISON: CT head 11/26/2017. FINDINGS: There is mild evolution of the acute to subacute appearing infarction of the right occipital lobe measuring up to 4.0 cm with additional acute subacute appearing infarct of the right frontal lobe also again noted measuring approximately 1 cm. Slightly increased cytotoxic edema within these distributions. No definite intracranial hemorrhage, midline shift or abnormal extra-axial collections. Age-related involutional changes with ex vacuo ventriculomegaly. Suggested chronic microvascular ischemic changes. No calvarial fracture. The mastoid air cells and middle ear cavities are clear. The soft tissues and orbits are within normal limits.. IMPRESSION: Mild evolution of the acute to subacute infarct of the right occipital lobe measuring up to 4.0 cm with smaller ill-defined acute to subacute 1.0 cm infarct of the right frontal lobe with slightly increased amount of cytotoxic edema. No definite intracranial hemorrhage, significant mass effect or midline shift. The above report was generated using voice recognition software. It may contain grammatical, syntax or spelling errors. Electronically signed by: Lan García M.D. 11/27/2017 6:50 AM Dictated Date/Time: 11/27/2017 6:43 AM
[2017-11-27] MEDS: INSULIN ASPART 100 UNITS/ML 3 ML PEN SC SCH ×4 (07:00→21:23)
[2017-11-27 07:30] LABS: BASO % 0.3 %; BASO ABS # 0.03 K/uL (0-0.2); EOS % 1.1 %; EOS ABS # 0.13 K/uL (0-0.5); HEMATOCRIT 37.6 % (42-52); HEMOGLOBIN 12.6 g/dL (14.0-18.0); IG# 0.02 K/uL (0.00-0.02); LYMPH % 16.6 %; LYMPH ABS # 1.93 K/uL (1.2-3.4); MEAN CELL VOLUME 88.1 fL (80-100); MEAN CORPUSCULAR HEMOGLOBIN 29.5 pg (25-34); MEAN CORPUSCULAR HGB CONC 33.5 g/dl (32-36); MEAN PLATELET VOLUME 10.3 fL (7.4-10.4); MONO % 5.2 %; NEUT % 76.6 %; NEUT ABS # 8.89 K/uL (1.4-6.5); PLATELET COUNT 236 K/uL (130-400); RED CELL DISTRIBUTION WIDTH CV 13.8 % (11.5-14.5); RED CELL DISTRIBUTION WIDTH SD 43.3 fL (36.4-46.3)
[2017-11-27 07:38] LABS: INR 1.7 (0.9-1.1)
[2017-11-27] MEDS: INSULIN GLARGINE SOLOSTAR 100 UNITS/ML 3 ML PEN SC SCH (08:02)
--- NOTE | 2017-11-27 08:02 | Clinical Documentation Query ---
CLINICAL DOCUMENTATION QUERY H&P stated renal insufficiency. Documenting the stage of CKD will improve data integrity and will help clarify vague terms such as "renal insufficiency" or "chronic renal failure." In your clinical opinion is this patient being managed for: (+ ) Chronic kidney disease, stage 3 (moderate) ( ) Not Agree ( ) Other explanation of clinical findings (No explanation is considered a No Response) ( ) Unable to determine ( ) Need to Discuss (Phone CDS or qliq) (No discussion is considered a No Response) The medical record reflects the following clinical findings, treatment, and risk factors. Clinical Indicators: As above. Creatinine 1.58 GFR 45.2. Treatment: IVF's, daily PRP's, Risk Factors: Age, home diuretic therapy Please clarify and document your clinical opinion in the progress notes and discharge summary. Terms such as "probable", "suspected", "likely", "questionable", "possible", or "still to be ruled out" are acceptable. IF IN AGREEMENT, YOU MUST DOCUMENT ABOVE DIAGNOSTIC STATEMENT IN DAILY PROGRESS NOTES AND DISCHARGE SUMMARY. This document is not part of the patient's record. The stages of CKD according to the [employer] are as follows: Stage I: GFR >90 Stage II: GFR 60-89 Stage III: GFR 30-59 Stage IV: GFR 15-29 Stage V: GFR < Thank You, Hu Quinn, RN [phone] & via qlicCONNECT
[2017-11-27 08:06] LABS: CALCIUM 7.9 mg/dl (8.5-10.1); CREATININE 1.12 mg/dl (0.60-1.40); TOTAL PROTEIN 6.4 gm/dl (6.4-8.2)
[2017-11-27] MEDS ORDERED: NURSING VERBAL MED ORDER ONE ×2 (08:15→10:30)
[2017-11-27] MEDS ORDERED: POTASSIUM CHLORIDE 20 MEQ TABCR PO STA (08:43)
[2017-11-27] MEDS ORDERED: SILVER SULFADIAZINE 1% CR 50 GM JAR EXT SCH (09:00)
[2017-11-27] MEDS: MULTIVITAMIN TAB PO SCH (09:01)
[2017-11-27] MEDS: CHOLECALCIFEROL 1000 INTER.UNIT TAB PO SCH (09:01)
[2017-11-27] MEDS: THIAMINE HCL 100 MG TAB PO SCH (09:01)
[2017-11-27] MEDS: METOPROLOL SUCC 50MG EXT REL TAB PO SCH (09:07)
[2017-11-27] MEDS: ATORVASTATIN 20 MG TAB PO SCH (09:07)
[2017-11-27] MEDS: POTASSIUM CHLORIDE 20 MEQ TABCR PO SCH ×2 (09:08→19:48)
[2017-11-27] MEDS: CLOTRIMAZOLE 1% CR 15 GM TUBE EXT SCH ×2 (09:12→19:48)
--- NOTE | 2017-11-27 15:37 | Neurology Consultation ---
Neurology Consultation Date of Consultation: Nov 27, 2017. Attending Physician: Radha Cunha M.D. Primary Care Physician: Dionicio Emmanuel D.O. Reason for Consultation: stroke History of Present Illness Source: patient Bobby is a 67 year old PMH DM II, paroxysmal afib, CAD S/P CABG, ischemic cardiomyopathy EF: 20-24%, PVD, hx necrotizing fascitis of RLE with amputation in 2017 with complaint of bleeding from left foot surgical site and from abdomen location of Lovenox injection. On 11/14/17 and was transferred to [facility] [place] for left fifth toe gangrene, A. fib RVR, DKA, possible and STEMI, hypoxic respiratory failure and was discharged from there to [facility] on 11/23/17. He was started on Coumadin has been receiving Lovenox until INR therapeutic. Last INR reported was 1.58 on 11/24/17. Past Medical/Surgical History Medical Problems: (1) Chest wall contusion Status: Acute (2) Elevated troponin Status: Acute (3) Hypotension Status: Acute (4) Lactic acidemia Status: Acute (5) Post-op bleeding Status: Acute (6) Right foot infection Status: Acute (7) Wound of foot Status: Acute Social History Problems: (1) DKA (diabetic ketoacidoses) Status: Acute Family History Grandmother: HTN, heart disease, diabetes, cancer Social History Smoking Status: Never smoker Smokeless Tobacco Use: No Alcohol Use: hx ETOH use. No ETOH for 2 weeks Drug Use: none Marital Status: single Housing Status: lives with family Occupation Status: disabled Allergies Coded Allergies: JET Inhibitors (Verified Allergy, Unknown, 04/10/17) Penicillins (Verified Allergy, Unknown, RASH A CHILD recent tolerated Augmentin, 11/26/17) Lisinopril (Verified Adverse Reaction, Mild, RASH, 07/31/17) Current Inpatient Medications Current Inpatient Medications Medications (Trade) Dose Ordered Sig/Estee Route Start Time Stop Time Status Last Admin Dose Admin Ioversol (Optiray 320) 111 ml UD PRN IV 11/26/17 15:30 11/30/17 15:29 Acetaminophen (Tylenol Tab) 650 mg Q4H PRN PO 11/26/17 18:45 12/26/17 18:44 Nitroglycerin (Nitrostat Tab) 0.4 mg UD PRN SL 11/26/17 18:45 12/26/17 18:44 Polyethylene (Miralax Powder Packet) 17 gm DAILY PRN PO 11/26/17 18:45 12/26/17 18:44 Miscellaneous Information (Pharmacist Discharge Med Rec Consult) 1 ea UD PRN N/A 11/26/17 18:45 12/26/17 18:44 Insulin Glargine (Lantus Solostar Pen) 18 units Q12 SC 11/26/17 21:00 12/26/17 20:59 11/27/17 08:02 9 UNITS Insulin Aspart (novoLOG ASPART) SLIDING SCALE If C... ACHS SC 11/26/17 21:00 12/26/17 20:59 11/27/17 13:10 5 UNITS Glucose (Glucose 40% Gel) 15-30 GRAMS 15 GRAMS... UD PRN PO 11/26/17 19:15 12/26/17 19:14 Glucose (Glucose Chew Tab) 4-8 Tablets 4 Tabl... UD PRN PO 11/26/17 19:15 12/26/17 19:14 Dextrose (Dextrose 50% 50ML Syringe) 25-50ML 25ML FOR ... UD PRN IV 11/26/17 19:15 12/26/17 19:14 Glucagon (Glucagon Inj) 1 mg UD PRN SQ 11/26/17 19:15 12/26/17 19:14 Carbohydrates (Carbohydrates For Hypoglycemia) 15-30 GRAMS 15 grams if BSG 54-69... UD PRN PO 11/26/17 19:15 12/26/17 19:14 Atorvastatin Calcium (Lipitor Tab) 80 mg DAILY PO 11/27/17 09:00 12/27/17 08:59 11/27/17 09:07 80 MG Cholecalciferol (Vitamin D Tab) 1,000 inter.unit DAILY PO 11/27/17 09:00 12/27/17 08:59 11/27/17 09:01 1,000 INTER.UNIT Folic Acid (Folvite Tab) 1 mg DAILY PO 11/27/17 09:00 12/27/17 08:59 11/27/17 09:08 1 MG Metoprolol Succinate (Toprol Xl Tab) 100 mg DAILY PO 11/27/17 09:00 12/27/17 08:59 11/27/17 09:07 100 MG Multivitamins (Multivitamin Tab) 1 tab DAILY PO 11/27/17 09:00 12/27/17 08:59 11/27/17 09:01 1 TAB Potassium Chloride (Klor-Con Tab) 20 meq BID PO 11/26/17 21:00 12/26/17 20:59 11/27/17 09:08 20 MEQ Thiamine HCl (Vitamin B-1 Tab) 100 mg DAILY PO 11/27/17 09:00 12/27/17 08:59 11/27/17 09:01 100 MG Ampicillin Sodium/ Sulbactam Sodium 3000 mg/Sodium Chloride 108 ml @ 200 mls/hr Q6H IV 11/26/17 22:00 12/06/17 21:59 11/27/17 13:13 200 MLS/HR Clotrimazole (Lotrimin 1% Crm) 1 appln BID EXT 11/27/17 09:00 12/10/17 20:00 11/27/17 09:12 1 APPLN Physical Exam Vital Signs (Past 24 Hrs): Date Time Temp Pulse Resp B/P (MAP) Pulse Ox O2 Delivery O2 Flow Rate FiO2 11/27/17 11:36 36.3 94 20 117/86 (96) 99 Room Air 11/27/17 07:34 36.8 91 20 116/80 (92) 97 Room Air 11/27/17 04:23 36.8 98 18 104/71 (82) 91 Room Air 11/27/17 00:02 37.0 88 18 105/72 (83) 95 Room Air 11/26/17 20:15 36.5 90 16 129/88 22 Room Air 11/26/17 19:29 88 20 105/70 94 11/26/17 18:26 91 18 126/88 96 Room Air 11/26/17 17:52 82 11/26/17 17:27 90 12 118/90 95 Room Air 11/26/17 16:39 93 20 112/71 94 Room Air Physical Exam: Constitutional: appearance nourished, disheveled Ears, Nose, Mouth and Throat: mucous membranes moist, no injection and skin normal, eyes normal Cardiovascular: systolic murmur Respiratory: course breath sounds Musculoskeletal: no peripheral edema and good distal pulses Skin: no stigmata of neurocutaneous disease noted and normal and intact Eyes: extraocular muscles intact (EOMI) and pupils equal, round and reactive to light (PERRL) NEUROLOGIC EXAMINATION: Mental status: Alert and interactive, thinks he is at [facility], knows 2018/president Jennifer Oriented to person Speech fluent with no evidence of aphasia Cranial Nerves smile eye brow raise symmetric Reflexes: Deep tendon reflexes were symmetrical and graded 2/5. unable to check plantar reflexes due to surgery on left foot Sensory: intact to light touch, decreased to vibration Coordination: finger to nose no bi pass Gait/Stance: Posture lying in bed Motor: Negative for pronator drift of out stretched arms with eyes closed. 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 5/5 hip flex 5/5 bilaterally Laboratory Results Past 24 Hours: 11/27/17 07:07 Red Blood Count 4.27, Mean Corpuscular Volume 88.1, Mean Corpuscular Hemoglobin 29.5, Mean Corpuscular Hemoglobin Concent 33.5, Mean Platelet Volume 10.3, Neutrophils (%) (Auto) 76.6, Lymphocytes (%) (Auto) 16.6, Monocytes (%) (Auto) 5.2, Eosinophils (%) (Auto) 1.1, Basophils (%) (Auto) 0.3, Neutrophils # (Auto) 8.89, Lymphocytes # (Auto) 1.93, Monocytes # (Auto) 0.60, Eosinophils # (Auto) 0.13, Basophils # (Auto) 0.03 11/27/17 07:07 Test 11/26/17 19:50 11/26/17 22:02 11/27/17 07:07 11/27/17 07:22 Urine Color YELLOW Urine Appearance CLEAR (CLEAR) Urine pH 7.5 (4.5-7.5) Urine Specific Maple 1.028 (1.000-1.030) Urine Protein 2+ (NEG) Urine Glucose (UA) TRACE (NEG) Urine Ketones NEG (NEG) Urine Occult Blood 3+ (NEG) Urine Nitrite NEG (NEG) Urine Bilirubin NEG (NEG) Urine Urobilinogen NEG (NEG) Urine Leukocyte Esterase NEG (NEG) Urine WBC (Auto) 1-5 /hpf (0-5) Urine RBC (Auto) >30 /hpf (0-4) Urine Hyaline Casts (Auto) 1-5 /lpf (0-5) Urine Epithelial Cells (Auto) 10-20 /lpf (0-5) Urine Bacteria (Auto) NEG (NEG) Lactic Acid Level 1.4 mmol/L (0.4-2.0) White Blood Count 11.60 K/uL (4.8-10.8) Red Blood Count 4.27 M/uL (4.7-6.1) Hemoglobin 12.6 g/dL (14.0-18.0) Hematocrit 37.6 % (42-52) Mean Corpuscular Volume 88.1 fL (80-100) Mean Corpuscular Hemoglobin 29.5 pg (25-34) Mean Corpuscular Hemoglobin Concent 33.5 g/dl (32-36) Platelet Count 236 K/uL (130-400) Mean Platelet Volume 10.3 fL (7.4-10.4) Neutrophils (%) (Auto) 76.6 % Lymphocytes (%) (Auto) 16.6 % Monocytes (%) (Auto) 5.2 % Eosinophils (%) (Auto) 1.1 % Basophils (%) (Auto) 0.3 % Neutrophils # (Auto) 8.89 K/uL (1.4-6.5) Lymphocytes # (Auto) 1.93 K/uL (1.2-3.4) Monocytes # (Auto) 0.60 K/uL (0.11-0.59) Eosinophils # (Auto) 0.13 K/uL (0-0.5) Basophils # (Auto) 0.03 K/uL (0-0.2) RDW Standard Deviation 43.3 fL (36.4-46.3) RDW Coefficient of Variation 13.8 % (11.5-14.5) Immature Granulocyte % (Auto) 0.2 % Immature Granulocyte # (Auto) 0.02 K/uL (0.00-0.02) Prothrombin Time 18.0 SECONDS (9.0-12.0) Prothromb Time International Ratio 1.7 (0.9-1.1) Anion Gap 7.0 mmol/L (3-11) Est Creatinine Clear Calc Drug Dose 75.4 ml/min Estimated GFR () 79.5 Estimated GFR (Non- 68.6 BUN/Creatinine Ratio 11.2 (10-20) Calcium Level 7.9 mg/dl (8.5-10.1) Magnesium Level 1.9 mg/dl (1.8-2.4) Total Bilirubin 0.6 mg/dl (0.2-1) Direct Bilirubin 0.2 mg/dl (0-0.2) Aspartate Amino Transf (AST/SGOT) 57 U/L (15-37) Alanine Aminotransferase (ALT/SGPT) 210 U/L (12-78) Alkaline Phosphatase 166 U/L (45-117) Total Protein 6.4 gm/dl (6.4-8.2) Albumin 2.0 gm/dl (3.4-5.0) Globulin 4.4 gm/dl (2.5-4.0) Albumin/Globulin Ratio 0.5 (0.9-2) Triglycerides Level 119 mg/dl (0-150) Cholesterol Level 113 mg/dl (0-200) HDL Cholesterol 23 mg/dl LDL Cholesterol, Calculated 66 mg/dl VLDL Cholesterol, Calculated 24 mg/dl Cholesterol/HDL Ratio 4.9 Bedside Glucose 80 mg/dl (70-99) Date/Time Source Procedure Growth Status 11/26/17 22:30 Nasal MRSA DNA Surveillance Screen - Final Specimen Negative for MRSA by DNA Probe Complete Imaging MRI without- . Technically limited study secondary to motion artifact 4 cm acute/subacute infarct within the right occipital lobe Probable 8 mm acute/ subacute infarct in the right frontal lobe CT head- Mild evolution of the acute to subacute infarct of the right occipital lobe measuring up to 4.0 cm with smaller ill-defined acute to subacute 1.0 cm infarct of the right frontal lobe with slightly increased amount of cytotoxic edema. No definite intracranial hemorrhage, significant mass effect or midline shift. carotid doppler- No evidence of hemodynamically significant carotid stenosis. Impression 67 year old male with extensive PMH new acute subacute embolic events in 2 disruptions Plan 1. PT/OT/speech for discharge needs 2. optimize coumadin dosing- INR 2.0-3.0 3. DM, DL, HTN optimize- LDL <70 4. embolic stroke -optimize INR no aspirin at this time 5. CT repeated with no active bleed 6. MRI with right frontal and occipital lobe ischemia 7. cardiology -for any further medication adjustments or work up follow up neurology 2-[address] Leo Lebron or Marissa Barroso PAC schedule I have seen and discussed above patient with Dr Leo Lebron, neurology I have seen this man reviewd the history and the images and agree that there have been two presumptively embolic events in the right frontqal and right occipital lobes whose symptoms are minimal and evidence for which on exam is sparse he has had paf and while now apparently in sr he need to get his inr controlled and consistently in the range There is no clear evidence for an alternate source of emboli or intrinsic small vessel events despite his risk factors and see no role for asa or plavix at this point He will likley need to go back to [facility] once his current medical conditions are better controlled and we will sign off for now and sandeep be happy to revisit if things change Leo Lebron MD
--- NOTE | 2017-11-27 16:10 | Cardiology Consultation ---
Cardiology Consultation Date of Consultation: Nov 27, 2017 History of Present Illness Bobby Kwon is a 67 year old male seen in cardiology consutlation per the request of Michael Fuchs PA-C for cardiac management of elevated troponin in the setting of recent acute illness. Bobby is well known to the undersigned, as I have followed him on an inpatient and outpatient basisis in the past. The patient recently been seen in urgent cardiology consultation in the emergency department by Dr. Valadez in the rn home care hours of 11/14/2017 when he presented to [facility] with a syncopal episode and was discovered by his brother to be unconscious. At that time he was found to have atrial fibrillation with rapid ventricular response with significant lateral ST segment elevation along with concerns of significant left foot infection in DKA. The patient was transferred to [facility] where he underwent complex surgical debridement of was felt to be a necrotizing fasciitis of the left fifth toe and foot. He was followed by Cardiology during that visit was felt to have had an apical/ lateral myocardial infarction, with findings of new cardiomyopathy and severe reduction in the left ventricular ejection fraction in the range of 24%. It was felt that he was not a candidate for acute cardiac catheterization at that time due to his illness, foot ongoing outpatient follow-up was recommended by the cardiology team with plans to revisit his cardiomyopathy and perhaps the need for cardiac catheterization as he improved from his noncardiac life- threatening illness. The patient was recovering at rehabilitation when he was transferred back to [facility] overnight last night due to concerns of bleeding from his left foot surgical site as well as from a subcutaneous Lovenox injection site on his abdomen. Past Medical/Surgical History Problem List: Medical Problems: (1) CB (acute kidney injury) (2) Alcohol abuse (3) Altered mental status (4) Atrial fibrillation (5) Atrial fibrillation with RVR (6) CAD (coronary artery disease) (7) CKD (chronic kidney disease) stage 3, GFR 30-59 ml/min (8) Decubitus ulcer (9) Diabetes mellitus type 2 in obese (10) DKA (diabetic ketoacidoses) (11) Dyslipidemia (12) Gangrene (13) H/O CHF (14) HTN (hypertension) (15) Hyperglycemia (16) Myocardial infarction (17) Obesity (18) RBBB (19) ST segment elevation (20) Toe osteomyelitis, right Surgical Problems: (1) H/O pericardiectomy (2) History of total knee arthroplasty (3) Hx of foot surgery (4) S/P CABG x 4 Social History Problems: (1) Pancreatitis History Past Medical History: 1. Coronary artery disease. 2. Ischemic cardiomyopathy, EF 35-45%, recently declined to LVEF 24% 11/2017 3. Medication noncompliance. 4. Diabetes. 5. Paroxysmal atrial fibrillation. 6. Chronic right bundle branch block. 7. Chronic kidney disease. 8. Hypertension. 9. Dyslipidemia. 10. Anemia. 11. History of obesity. Past Surgical History: 1. Coronary artery bypass grafting surgery x4 in 2011 with a BRINK to the LAD, vein graft to the posterior lateral, vein graft to the diagonal, and vein graft to OM with concomitant extensive pericardiectomy. 2. PCI to the LAD with a bare-metal stent in 2008. 3. Knee surgery. 4. Soft tumor excision. 5. Colonoscopy. 6. Circumcision. 7. Upper endoscopy. 8. Right foot amputation at the metatarsophalangeal joint. 9. 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 A total of 10 systems reviewed and were otherwise negative. Allergies Coded Allergies: JET Inhibitors (Verified Allergy, Unknown, 04/10/17) Penicillins (Verified Allergy, Unknown, RASH A CHILD recent tolerated Augmentin, 11/26/17) Lisinopril (Verified Adverse Reaction, Mild, RASH, 07/31/17) Medications Reported Home Medications Medications Dose Route/Sig Max Daily Dose Days Date Category Dose Instructions Augmentin 875-125 mg (Amoxicillin & Pot Clavulanate) 1 Tab Tab 875 Mg PO BID 11/26/17 Reported Finished 10/26/17 Oxycodone HCl 5 Mg Tab 1 Tab PO Q4 PRN 11/26/17 Reported Diabeta (Glyburide) 5 Mg Tab 2 Tab PO DAILY 90 11/26/17 Reported Coumadin (Warfarin Sod) 5 Mg Tab 7.5 Mg PO DAILY 7/26/18 Reported Toprol-Xl (Metoprolol Succinate) 100 Mg Tabcr 100 Mg PO DAILY 11/26/17 Reported Multivitamin (Multiple Vitamin) 1 Tab Tab 1 Tab PO DAILY 90 11/26/17 Reported Silvadene (Silver Sulfadiazine) 1 % Cre 1 Appln TOP DAILY 7 11/26/17 Reported right foot Slow-Mag Tab (Magnesium Chloride) 64 Mg Tabcr 64 Mg PO DAILY 11/26/17 Reported Lovenox (Enoxaparin) 100 Mg/Ml Inj 1 Ml SC BID 11/26/17 Reported Cozaar (Losartan Potassium) 50 Mg Tab 50 Mg PO DAILY 04/10/17 Reported Lasix (Furosemide) 40 Mg Tab 40 Mg PO DAILY 04/10/17 Reported Aspirin Chewable (Aspirin) 81 Mg Chew 81 Mg PO DAILY 04/10/17 Reported Vitamin D3 (Cholecalciferol) 1,000 Unit Tab 1 Tab PO DAILY 04/10/17 Reported Novolog Flexpen (Insulin Aspart) 100 Units/Ml Inj 1 Units SQ UD 02/19/17 Reported Sliding scale Lantus (Insulin Glargine) 100 Unit/Ml Inj 35 Units SC HS 12/01/16 Reported Vitamin B-1 (Thiamine HCl) 100 Mg Tab 100 Mg PO DAILY 01/26/16 Reported Folvite (Folic Acid) 1 Mg Tab 1 Mg PO DAILY 01/26/16 Reported Lipitor (Atorvastatin Calcium) 80 Mg Tab 80 Mg PO DAILY 01/26/16 Reported Vitamin C (Ascorbic Acid) 250 Mg Chw 250 Mg PO BID 08/22/15 Reported Klor-Con (Potassium Chloride) 20 Meq Tabcr 20 Meq PO BID 03/02/15 Reported Aldactone (Spironolactone) 25 Mg Tab 25 Mg PO DAILY 03/02/15 Reported Physical Exam Vital Signs (Last 8hrs): Last 8 Hrs Date Time Temp Pulse Resp B/P (MAP) Pulse Ox O2 Delivery O2 Flow Rate FiO2 11/27/17 15:12 Room Air 11/27/17 11:36 36.3 94 20 117/86 (96) 99 Room Air General Appearance: Alert and Oriented x3. No acute distress, chronically ill in appearance Head: Normocephalic Atraumatic. Eyes: PERRLA, EOMI, conjunctiva and sclera clear Neck: Supple. No carotid bruits noted. No JVD. No HJD. Respiratory: Breath sounds clear to auscultation bilaterally. No w/r/r. Cardiovascular: Reg rate and rhythm. /6 systolic murmur Abdomen: Normal bowel sounds, soft nontender. no abdominal bruits. Extremities: No significant edema, status post right sided toe amputations, the left surgical site was inspected, bleeding subsided, granulation tissue noted over the dorsal aspect of the left foot Neuro: No focal deficits. Psychiatric: Normal affect. Data Last 24 Hours Test 11/26/17 19:50 11/26/17 21:27 11/26/17 22:02 11/27/17 07:07 Urine Color YELLOW Urine Appearance CLEAR Urine pH 7.5 Urine Specific [place] 1.028 Urine Protein 2+ Urine Glucose (UA) TRACE Urine Ketones NEG Urine Occult Blood 3+ Urine Nitrite NEG Urine Bilirubin NEG Urine Urobilinogen NEG Urine Leukocyte Esterase NEG Urine WBC (Auto) 1-5 /hpf Urine RBC (Auto) >30 /hpf Urine Hyaline Casts (Auto) 1-5 /lpf Urine Epithelial Cells (Auto) 10-20 /lpf Urine Bacteria (Auto) NEG Bedside Glucose 168 mg/dl Hemoglobin 14.7 g/dL 12.6 g/dL Hematocrit 42.7 % 37.6 % Lactic Acid Level 1.4 mmol/L White Blood Count 11.60 K/uL Red Blood Count 4.27 M/uL Mean Corpuscular Volume 88.1 fL Mean Corpuscular Hemoglobin 29.5 pg Mean Corpuscular Hemoglobin Concent 33.5 g/dl Platelet Count 236 K/uL Mean Platelet Volume 10.3 fL Neutrophils (%) (Auto) 76.6 % Lymphocytes (%) (Auto) 16.6 % Monocytes (%) (Auto) 5.2 % Eosinophils (%) (Auto) 1.1 % Basophils (%) (Auto) 0.3 % Neutrophils # (Auto) 8.89 K/uL Lymphocytes # (Auto) 1.93 K/uL Monocytes # (Auto) 0.60 K/uL Eosinophils # (Auto) 0.13 K/uL Basophils # (Auto) 0.03 K/uL RDW Standard Deviation 43.3 fL RDW Coefficient of Variation 13.8 % Immature Granulocyte % (Auto) 0.2 % Immature Granulocyte # (Auto) 0.02 K/uL Prothrombin Time 18.0 SECONDS Prothromb Time International Ratio 1.7 Sodium Level 139 mmol/L Potassium Level 3.0 mmol/L Chloride Level 99 mmol/L Carbon Dioxide Level 33 mmol/L Anion Gap 7.0 mmol/L Blood Urea Nitrogen 13 mg/dl Creatinine 1.12 mg/dl Est Creatinine Clear Calc Drug Dose 75.4 ml/min Estimated GFR () 79.5 Estimated GFR (Non- 68.6 BUN/Creatinine Ratio 11.2 Random Glucose 79 mg/dl Calcium Level 7.9 mg/dl Magnesium Level 1.9 mg/dl Total Bilirubin 0.6 mg/dl Direct Bilirubin 0.2 mg/dl Aspartate Amino Transf (AST/SGOT) 57 U/L Alanine Aminotransferase (ALT/SGPT) 210 U/L Alkaline Phosphatase 166 U/L Total Protein 6.4 gm/dl Albumin 2.0 gm/dl Globulin 4.4 gm/dl Albumin/Globulin Ratio 0.5 Triglycerides Level 119 mg/dl Cholesterol Level 113 mg/dl HDL Cholesterol 23 mg/dl LDL Cholesterol, Calculated 66 mg/dl VLDL Cholesterol, Calculated 24 mg/dl Cholesterol/HDL Ratio 4.9 Test 11/27/17 07:22 Bedside Glucose 80 mg/dl EKG tracings performed on presentation 11/26/2017 and again the morning of 11/27 reveals sinus rhythm with right bundle branch block. Compared to previous tracings from 11/14, the previously noted inferolateral ST elevation has resolved. Findings of an age undetermined anterolateral infarction pattern are present. Summary of transthoracic echocardiogram performed at [facility] dated 11/16/2017: The qualitative LV ejection fraction is 20-24% (severely reduced). There is diffuse hypokinesis to akinesis. The right ventricle is inadequately visualized. The right ventricular systolic function is reduced as assessed by tricuspid annular plane systolic excursion (TAPSE< 1.7 cm). Visually, there is decreased leaflet excursion and a peak aortic valve velocity of ~3 m/s. Moderate to severe aortic stenosis is suspected. Severe LV dysfunction makes differentiating severe from pseudostenosis challenging. The aortic root and proximal ascending aorta are borderline enlarged. Dilated IVC with reduced collapsability with sniff indicates an elevated right atrial pressure of 15mmHg. MRI 11/27/2017 . Technically limited study secondary to motion artifact 4 cm acute/subacute infarct within the right occipital lobe Probable 8 mm acute/ subacute infarct in the right frontal lobe CT head- Mild evolution of the acute to subacute infarct of the right occipital lobe measuring up to 4.0 cm with smaller ill-defined acute to subacute 1.0 cm infarct of the right frontal lobe with slightly increased amount of cytotoxic edema. No definite intracranial hemorrhage, significant mass effect or midline shift. carotid doppler- No evidence of hemodynamically significant carotid stenosis. Assessment & Plan Impression: 67-year-old male 1. Bleeding from recent left foot surgery site and abdominal Lovenox injection site 2. Recent debridement of the left fifth toe adjacent structures as described above in the setting of concern for osteomyelitis and necrotizing fasciitis, diabetic foot wound 3. Recent anterolateral infarction in the setting of acute sepsis illness 4. Compensated ischemic cardiomyopathy 5. MRI events of new 4 centimeter acute/subacute infarct within the right occipital lobe probably 8 millimeter acute/sub acute infarct within the right frontal lobe in the setting of paroxysmal atrial fibrillation severe LV systolic dysfunction 6. Amanda to aortic stenosis versus moderate to severe aortic stenosis. Discussion/recommendations: Despite his multitude of medical problems, Bobby is actually doing quite well. Although there were concerns about his mentation when he presented overnight last night, he is awake inappropriate during my discussion with him in room 219 today. He recognize me and was able to call me by name "Dr. Archibald" He was aware that he was in the hospital in [place]. Given his atrial fibrillation he had been receiving bridge therapy with Lovenox postoperatively along with Coumadin. Would appear he had a rapid increase in his INR which had been below goal just several days ago, and was 3.4 on admission along with administration of Lovenox, and he had bleeding from his left foot surgical site and the Lovenox administration site. Lovenox is since been discontinued and his INR was reversed with the administration of vitamin K and is now in the range of 1.7. He has been found to have two areas of subacute stroke , consistent with cardioembolic stroke. I was in the room when his left foot operative site was examined by orthopedics. The bleeding has now ceased, and clean granulation tissue was noted. At present since his bleeding has subsided, I would recommend remission Coumadin without Lovenox bridging. Agree with Neurology recommendation hold off on aspirin. I do not think we need another echocardiogram at this time as he recently had one at [facility] as outlined above. He had a minor troponin I elevation of 1.5. Without sheryl angina. He had a recent large infarction. His high sensitivity troponin T as followed at [facility] had peaked at 4811 ng/L on 11/17/17. At present we will trend his troponins, but his EKG is actually improved compared to 2 weeks ago. Continue monitoring for moderate to severe aortic valve stenosis versus pseudo aortic valve stenosis to left ventricular systolic dysfunction. At present, I think we just need to be vigilant about maintaining adequate infection control to prevent endocarditis. Is note the patient did have a post CABG infectious pericarditis at the time of his initial bypass surgery.
--- NOTE | 2017-11-27 17:51 | CONSULTATION REPORT ---
DATE OF CONSULTATION: 11/27/2017 REASON FOR CONSULTATION: Open surgical wound, left foot. HISTORY OF PRESENT ILLNESS: Bobby Kwon is a 67-year-old male who underwent an open amputation at [facility]. This is of his left fifth toe. The patient had multiple issues including change in mental status, was probably was a result of an embolic stroke. He also has atrial fibrillation with rapid ventricular response, diabetic ketoacidosis, and apparent hypoxic episodes with a STEMI. He was finally discharged to [facility] just 3 days prior to his admission here. He has a terrible heart rate between 20% and 24% ejection fraction with probable [id number] aortic stenosis. The patient had an abscess of his left foot which probably led to much of his problems. He was supposed to get daily dressing changes with half strength Dakin's moistened gauze and Silvadene to his right foot. The patient had a change in mental status while at [facility] and was admitted yesterday here to [facility]. I have been asked to comment on his left foot. The patient has a history of a right transmetatarsal amputation, a long period of nonhealing and still has a darkened eschar over the first metatarsal head. In addition he suffers from diabetes, coronary artery disease, and hypertension. PAST MEDICAL HISTORY: See above. PAST SURGICAL HISTORY: 1. Right transmetatarsal amputation. 2. Coronary artery bypass grafting. MEDICATIONS: See chart. ALLERGIES: PENICILLINS, LISINOPRIL. 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 He was in the [employer] for a period of time. He lives with his brother. He does not smoke cigarettes. He has been a drinker in the past, but states he has not had any alcohol in a couple weeks. REVIEW OF SYSTEMS: The patient has some mental status changes, been evaluated by neurology and it was felt that he may well have suffered a stroke. He is a very poor historian. He denies chest pain now. He denies palpitations. He states he does have a headache. PHYSICAL EXAMINATION: GENERAL: This is a disheveled appearing man who is unkempt. He appears much older than stated age of 67. HEENT: Extraocular movements are intact. Pupils appear to be equally round and reactive. Sclerae are quite pale. His mucous membranes are moist. He has no leukoplakia. NECK: Supple. I do not detect carotid bruits or neck vein distention. He has a regular rate and rhythm of his heart currently with a pansystolic murmur. This is soft. LUNGS: He has some upper airway rhonchi. Does not really have much in the way of wheezing, is moving air fairly well. A well-healed sternotomy incision with no click. ABDOMEN: A bit protuberant, soft, nontender, with no evident studies. EXTREMITIES: On evaluation of lower extremities, he has a well-healed transmetatarsal amputation site on the right except for approximately 1.2 x 2.1 cm darkened eschar which is dry over the first metatarsal head. I have difficulty palpating pulses, but his feet are warm and well perfused. On the right, I can palpate posterior tibialis pulse. He has a wound on the dorsal aspect of his left foot which includes left fifth toe and goes down to the lateral border. The tendons on top of the metatarsals are exposed. This surgical excision looks very clean. NEUROLOGIC: Other than the fact that he has pretty dense neuropathy and appears a bit slow to respond. He has no obvious focal deficits. SURGICAL HISTORY: Open wound status post open left 5th toe amputation. Dr. Bowers has been involved in this case; I would defer any other surgical management to him. However, the wound is fairly clean. I would like to put a silver alginate on this to be changed every day for the next few days. We will keep an eye on him. We will be glad to follow this patient up at the wound center. JESSICA
--- NOTE | 2017-11-27 18:35 | Progress Note ---
Internal Med Progress Note Date of Service: Nov 27, 2017. Provider Documentation: SUBJECTIVE: The patient was seen and examined in telemetry unit Pt is 67 y/o M with PMH DM II, paroxysmal atrial fibrillation, CAD S/P CABG, ischemic cardiomyopathy EF: 20-24%, PVD, hx necrotizing fascitis of RLE with amputation in 2016, presented to ER from [facility] with complaint of bleeding from left foot surgical site and from abdomen location of Lovenox injection She denies to have any symptoms during my examination She did not have any confusion or any other distress no apparent distress at rest OBJECTIVE: Vital Signs-as noted below Exam: General-no distress at rest Eyes-normal ENT-normal Neck-supple Lungs-decreased breath sounds both sites with minimal crackles at the bases Heart-regular Abdomen-benign, soft nontender, Extremities-has chronic skin changes and is status post a number of toes amputation on either side The right foot is bandaged Neuro-alert awake and oriented 3, Lab data as noted below. ASSESSMENT & PLAN: Pt is 67 y/o M with PMH DM II, paroxysmal atrial fibrillation, CAD S/P CABG, ischemic cardiomyopathy EF: 20-24%, PVD, hx necrotizing fascitis of RLE with amputation in 2016, presented to ER from [facility] with complaint of bleeding from left foot surgical site and from abdomen location of Lovenox injection. Patient with recent hospitalization at [facility] for I&D of L forefoot with partial 5th toe resection by Dr Dean for osteomyelitis, necrotizing fascitis with culture of proteus. discharged on Augmentin and finished on 11/25/17. Also had A. fib RVR, DKA, possible and STEMI, hypoxic respiratory failure and was discharged from there to [facility] on 11/23/17. BLEEDING LEFT FOOT PREVIOUS SURGICAL SITE Borderline high INR Patient was started on Coumadin has been receiving Lovenox until INR therapeutic. Today in ER INR: 3.4 and no drop in Hb Vitamin K po given. -INR in am 1.7 -pressure dressing -monitor H&H-no drop in Hb -No overt bleeding and Coumadin can be restarted HYPOTENSION Pt arrived to ER and BP was 85/61 up to 112/71 after 1L NSS. Hgb: 14. Pt denies dizziness, syncope, CP, SOB. -will hold on further IVF at this time with pt's hx CHF -monitor closely -hold losartan, lasix, spironolactone for now, reevaluate volume status and BP in am -Restart BP medication when appropriate WOUND TO LEFT FOOT/WOUND RIGHT FOOT Pt at [facility] for I&D of L forefoot with partial 5th toe resection by Dr Dean for osteomyelitis, necrotizing fascitis with culture of proteus on 11/15/17. Was d/c on Augmentin and finished on 11/25/17. Pt had He was d/c with daily dressing changes to LLE with 1/2 strength Dakin's moistened gauze and silvadene daily to R foot ulcer. Instructions for 4inche jet wrap from toe to ankle and 6inch JET wrap from ankle to knee on BLE and flat [facility] shoes with planned wound care surgeon f/u in 2 weeks. -In ER pt afebrile, no leukocytosis. lactic acid: 2.1. was given 1L NSS -continue silvadene to right foot ulcer daily -Unasyn for now -wound consult -appreciate input -ortho consult -appreciate Input STROKE-Subacute /Acute Pt denies any falls, CASTILLO, vision changes, extremity weakness/paresthesias. it was noted on exam in ER that pt was not oriented and somewhat confused and unsure of his baseline. CT head: Focal hypodense area within the right occipital lobe which measures 3.2 cm. This favors a subacute infarct. There is a small amount of linear hyperdensity at this location which raises the possibility of hemorrhagic transformation. Hx echo 11/16/17: EF: 20-24%, diffuse hypokinesis to akinesis. Right ventricular systolic function is reduced. Moderate to severe aortic stenosis suspected. -lipids in AM -MRI without contrast::1. Technically limited study secondary to motion artifact 2. 4 cm acute/subacute infarct within the right occipital lobe 3. Probable 8 mm acute/subacute infarct in the right frontal lobe -U/S carotids : No evidence of hemodynamically significant carotid stenosis -PT/OT consult -continue statin -holding ASA for now -neurology consult - appreciate Input -Repeat CT head ::Mild evolution of the acute to subacute infarct of the right occipital lobe measuring up to 4.0 cm with smaller ill-defined acute to subacute 1.0 cm infarct of the right frontal lobe with slightly increased amount of cytotoxic edema. No definite intracranial hemorrhage, significant mass effect or midline shift. The above report was generated using voice recognition software. It may contain grammatical, syntax or spelling errors. ELEVATED TROPONIN Hx CAD S/P CABG RECENT POSSIBLE AND STEMI ISCHEMIC CARDIOMYOPATHY 11/14/17 troponin: 30, patient was transferred to [facility]. No heparin treatment at that time. Had echo 11/16/17: EF: 20-24%, diffuse hypokinesis to akinesis. Right ventricular systolic function is reduced. Moderate to severe aortic stenosis suspected. Cardiac cath and AICD were deferred during hospitalization. he was discharged with Cardizem discontinued and was changed to metoprolol. -In ER today troponin: 1.5. Patient denies any CP, SOB, palpitations, dizziness. Troponin may still be elevated from previous -Continue metoprolol with holding parameters -Holding aspirin at this time -Cardiology consult-appreciate INPUT -Stable as per Cardiac issues -will restart Coumadin and other cardiac Medication CHRONIC SYSTOLIC HEART FAILURE Patient does not appear fluid overloaded at this time. Initially was hypotensive in the ER and was given 1L NSS -I&O and daily weight -Monitor closely -Holding Lasix, spironolactone at this time. Reevaluate volume status in morning PROLONGED QTC QTc: 590 -repeat EKG in am -avoid QTc prolonging agents Electrolytes abnormalities Supplement and recheck ELEVATED LIVER ENZYMES ALT increased from previous -repeat liver functions in am HISTORY OF PAROXYSMAL ATRIAL FIBRILLATION ON COUMADIN Current sinus rhythm. -holding coumadin currently with pt's bleeding wound, INR of 3.4. Vit K 5mg po was given. -monitor INR DM II A1c: 11.1 on 11/15/17 -hold glyburide -BSG AC HS -basal bolus insulin per protocol CKD stage III RENAL INSUFFICIENCY Cr: 1.58. Was 1.5 upon d/c [facility] -monitor renal functions -avoid nephrotoxic agents when possible HISTORY OF ETOH ABUSE Last drink approximately 2 weeks ago per pt, patient has been hospitalized since 11/14/17 and discharged to [facility] -Continue folate and thiamine DVT Prophylaxis -SCD Admit tele Full Code as per discussion with pt Follows with Dr Dionicio [facility] for routine care Vital Signs: Date Time Temp Pulse Resp B/P (MAP) Pulse Ox O2 Delivery O2 Flow Rate FiO2 11/27/17 15:53 36.5 73 20 91/63 (72) 94 Room Air 11/27/17 15:12 Room Air 11/27/17 11:36 36.3 94 20 117/86 (96) 99 Room Air 11/27/17 07:34 36.8 91 20 116/80 (92) 97 Room Air 11/27/17 04:23 36.8 98 18 104/71 (82) 91 Room Air 11/27/17 00:02 37.0 88 18 105/72 (83) 95 Room Air 11/26/17 20:15 36.5 90 16 129/88 22 Room Air 11/26/17 19:29 88 20 105/70 94 11/26/17 18:26 91 18 126/88 96 Room Air Lab Results: Results Past 24 Hours Test 11/26/17 19:50 11/26/17 21:27 11/26/17 22:02 11/27/17 07:07 Range/Units Urine Color YELLOW Urine Appearance CLEAR CLEAR Urine pH 7.5 4.5-7.5 Urine Specific [place] 1.028 1.000-1.030 Urine Protein 2+ NEG Urine Glucose (UA) TRACE NEG Urine Ketones NEG NEG Urine Occult Blood 3+ NEG Urine Nitrite NEG NEG Urine Bilirubin NEG NEG Urine Urobilinogen NEG NEG Urine Leukocyte Esterase NEG NEG Urine WBC (Auto) 1-5 0-5 /hpf Urine RBC (Auto) >30 0-4 /hpf Urine Hyaline Casts (Auto) 1-5 0-5 /lpf Urine Epithelial Cells (Auto) 10-20 0-5 /lpf Urine Bacteria (Auto) NEG NEG Bedside Glucose 168 70-99 mg/dl Hemoglobin 14.7 12.6 14.0-18.0 g/dL Hematocrit 42.7 37.6 42-52 % Lactic Acid Level 1.4 0.4-2.0 mmol/L White Blood Count 11.60 4.8-10.8 K/uL Red Blood Count 4.27 4.7-6.1 M/uL Mean Corpuscular Volume 88.1 80-100 fL Mean Corpuscular Hemoglobin 29.5 25-34 pg Mean Corpuscular Hemoglobin Concent 33.5 32-36 g/dl Platelet Count 236 130-400 K/uL Mean Platelet Volume 10.3 7.4-10.4 fL Neutrophils (%) (Auto) 76.6 % Lymphocytes (%) (Auto) 16.6 % Monocytes (%) (Auto) 5.2 % Eosinophils (%) (Auto) 1.1 % Basophils (%) (Auto) 0.3 % Neutrophils # (Auto) 8.89 1.4-6.5 K/uL Lymphocytes # (Auto) 1.93 1.2-3.4 K/uL Monocytes # (Auto) 0.60 0.11-0.59 K/uL Eosinophils # (Auto) 0.13 0-0.5 K/uL Basophils # (Auto) 0.03 0-0.2 K/uL RDW Standard Deviation 43.3 36.4-46.3 fL RDW Coefficient of Variation 13.8 11.5-14.5 % Immature Granulocyte % (Auto) 0.2 % Immature Granulocyte # (Auto) 0.02 0.00-0.02 K/uL Prothrombin Time 18.0 9.0-12.0 SECONDS Prothromb Time International Ratio 1.7 0.9-1.1 Sodium Level 139 136-145 mmol/L Potassium Level 3.0 3.5-5.1 mmol/L Chloride Level 99 98-107 mmol/L Carbon Dioxide Level 33 21-32 mmol/L Anion Gap 7.0 3-11 mmol/L Blood Urea Nitrogen 13 7-18 mg/dl Creatinine 1.12 0.60-1.40 mg/dl Est Creatinine Clear Calc Drug Dose 75.4 ml/min Estimated GFR () 79.5 Estimated GFR (Non- 68.6 BUN/Creatinine Ratio 11.2 10-20 Random Glucose 79 70-99 mg/dl Calcium Level 7.9 8.5-10.1 mg/dl Magnesium Level 1.9 1.8-2.4 mg/dl Total Bilirubin 0.6 0.2-1 mg/dl Direct Bilirubin 0.2 0-0.2 mg/dl Aspartate Amino Transf (AST/SGOT) 57 15-37 U/L Alanine Aminotransferase (ALT/SGPT) 210 12-78 U/L Alkaline Phosphatase 166 45-117 U/L Total Protein 6.4 6.4-8.2 gm/dl Albumin 2.0 3.4-5.0 gm/dl Globulin 4.4 2.5-4.0 gm/dl Albumin/Globulin Ratio 0.5 0.9-2 Triglycerides Level 119 0-150 mg/dl Cholesterol Level 113 0-200 mg/dl HDL Cholesterol 23 mg/dl LDL Cholesterol, Calculated 66 mg/dl VLDL Cholesterol, Calculated 24 mg/dl Cholesterol/HDL Ratio 4.9 Test 11/27/17 07:22 11/27/17 11:36 11/27/17 16:29 Range/Units Bedside Glucose 80 124 170 70-99 mg/dl Microbiology Results 11/26/17 Blood Culture, Received Pending 11/26/17 Blood Culture, Received Pending 11/26/17 MRSA DNA Surveillance Screen - Final, Complete Specimen Negative for MRSA by DNA Probe
[2017-11-27] MEDS ORDERED: INSULIN ASPART 100 UNITS/ML 3 ML PEN SQ SCH (18:45)
[2017-11-27] MEDS ORDERED: WARFARIN SOD 7.5 MG TAB PO ONE (19:15)
--- NOTE | 2017-11-27 20:57 | ORTHOPEDIC CONSULTATION ---
DATE OF CONSULTATION: 11/27/2017 HISTORY OF PRESENT ILLNESS: This is a 67-year-old gentleman seen at the request of Dr. Cunha and Dionicio Emmanuel. The patient presented for multiple medical comorbidities and general decline. He had previous care by Dr. Dean for left foot necrotizing fasciitis with osteomyelitis and had prior surgery. He had a wound care management and surgical management planned; however, again he had worsening decline and was admitted to the hospital at [facility]. Recent H/O osteomyelitis, necrotizing fasciitis with a culture-positive proteus infection, left foot. Discharged on Augmentin which was finished on 11/25/2017. He was doing daily dressing changes, left lower extremity with half-strength Dakin's moistened gauze and Silvadene daily to the right foot ulcer. He is supposed to have Mark wraps on bilateral feet with [facility] shoes. The patient was ultimately admitted to the hospital and placed on IV antibiotics and orthopedics was consulted at this time. PAST MEDICAL HISTORY: Ischemic cardiomyopathy, atrial fibrillation, diabetes type 2, peripheral vascular disease, history of necrotizing fasciitis right lower extremity with an amputation in 2017, AFib with RVR. PAST SURGICAL HISTORY: Bilateral feet with multiple debridements and amputations. ALLERGIES: MARK INHIBITORS, PENICILLIN, LISINOPRIL. MEDICATIONS: Please note the extensive list in the medical record. SOCIAL HISTORY: Denies tobacco use, history of alcohol use. No alcohol for 2 weeks. No drug use. He is single. He lives with his brother. He is disabled and retired. PHYSICAL EXAMINATION: GENERAL: This is a 67-year-old gentleman in his hospital bed. He appears older than his stated age. He is a poor historian. Answers questions overall appropriately. EXTREMITIES: Examination of bilateral feet demonstrates dressings in bilateral feet, left foot with status post fifth toe amputation with a delayed healing wound. He has exposed fascia and tendon. There appears to be some area of the fifth metatarsal, which appears to be also partially exposed. Dressing is moist and stable. No foul odor. Atrophic wound. Multiple incisions left foot with prior surgery. Pedal pulses are poor. Feet are warm. Examination of the right foot demonstrates dorsal ulceration over the great toe, appears to be well cared for with clean margins. There is no exposed bone. No obvious abscess. Pedal pulses are poor. Feet are warm. Scant hair growth. Laboratory and radiographs reviewed. IMPRESSION: Status post debridement, left foot for osteomyelitis and necrotizing fasciitis. Atrophic wound with delayed healing. Right foot ulceration over the great toe region. No evidence of active infection. RECOMMENDATION: Continue supportive care with dressing changes bilateral feet daily. Follow up with Dr. Dean with his care plan and after discharge from the hospital, limit weightbearing bilateral lower extremities, use Darco shoes as recommended. Follow up p.[email or web address] LOPEZ
[2017-11-27] MEDS ORDERED: INSULIN GLARGINE SOLOSTAR 100 UNITS/ML 3 ML PEN SC SCH ×2 (21:00)
[2017-11-28] VITALS (7 sets, daily range): BP systolic 100–125; BP diastolic 70–83; PULSE 97–107; TEMP 36.3–36.9; O2SAT 92–100
[2017-11-28 01:57] LABS: BASO % 0.2 %; BASO ABS # 0.03 K/uL (0-0.2); EOS ABS # 0.13 K/uL (0-0.5); HEMATOCRIT 35.6 % (42-52); IG# 0.02 K/uL (0.00-0.02); LYMPH % 14.4 %; LYMPH ABS # 1.84 K/uL (1.2-3.4); MEAN CELL VOLUME 88.6 fL (80-100); MEAN CORPUSCULAR HEMOGLOBIN 29.9 pg (25-34); MEAN CORPUSCULAR HGB CONC 33.7 g/dl (32-36); MEAN PLATELET VOLUME 9.9 fL (7.4-10.4); MONO % 5.2 %; MONO ABS # 0.67 K/uL (0.11-0.59); NEUT ABS # 10.09 K/uL (1.4-6.5); PLATELET COUNT 255 K/uL (130-400); RED CELL DISTRIBUTION WIDTH CV 13.8 % (11.5-14.5); RED CELL DISTRIBUTION WIDTH SD 43.8 fL (36.4-46.3); WHITE BLOOD COUNT 12.78 K/uL (4.8-10.8)
[2017-11-28 02:06] LABS: INR 1.6 (0.9-1.1)
[2017-11-28 02:22] LABS: CREATININE 1.38 mg/dl (0.60-1.40)
[2017-11-28 02:23] LABS: CALCIUM 7.7 mg/dl (8.5-10.1); POTASSIUM 3.7 mmol/L (3.5-5.1)
[2017-11-28] MEDS: AMPICILLIN/SULBACTAM SOD INJ 3,000 MG in SODIUM CHLORIDE 0.9% 100ML 100 ML IV SCH ×4 (04:07→21:09)
[2017-11-28] MEDS: ATORVASTATIN 20 MG TAB PO SCH (09:02)
[2017-11-28] MEDS: CHOLECALCIFEROL 1000 INTER.UNIT TAB PO SCH (09:02)
[2017-11-28] MEDS: THIAMINE HCL 100 MG TAB PO SCH (09:03)
[2017-11-28] MEDS: MULTIVITAMIN TAB PO SCH (09:03)
[2017-11-28] MEDS: METOPROLOL SUCC 50MG EXT REL TAB PO SCH (09:03)
[2017-11-28] MEDS: LOSARTAN POTASSIUM 50 MG TAB PO SCH (09:03)
[2017-11-28] MEDS: ASPIRIN 81 MG CHEW PO SCH (09:04)
[2017-11-28] MEDS: CLOTRIMAZOLE 1% CR 15 GM TUBE EXT SCH ×2 (09:05→19:45)
[2017-11-28] MEDS: MAGNESIUM CHLORIDE 64MG DELAYED REL TAB PO SCH (09:05)
[2017-11-28] MEDS: POTASSIUM CHLORIDE 20 MEQ TABCR PO SCH ×2 (09:05→19:46)
[2017-11-28] MEDS: INSULIN ASPART 100 UNITS/ML 3 ML PEN SC SCH ×4 (09:16→20:29)
--- NOTE | 2017-11-28 14:22 | Cardiology Follow-Up ---
Subjective General Date of Service: Nov 28, 2017. Chief Complaint: follow up cardiomyopathy, PAF, stroke Pt evaluation today including: conversation w/ patient, physical exam History of Present Illness The patient is a 67 year old male seen in follow-up. Patient is comfortable in bed. He had a bath and a shave and is looking much improved overall. He is awake and conversant. Telemetry reveals stable sinus rhythm at 95 bpm without prolonged episodes of atrial fibrillation. INR is 1.6. Patient's Coumadin was resumed on 11/27/17. Allergies Coded Allergies: JET Inhibitors (Verified Allergy, Unknown, 04/10/17) Penicillins (Verified Allergy, Unknown, RASH A CHILD recent tolerated Augmentin, 11/26/17) Lisinopril (Verified Adverse Reaction, Mild, RASH, 07/31/17) Social History Smoking Status: Never Smoker Hx Tobacco Use In Past Year?: No Hx Alcohol Use - Type And Amou: No (Past history of use.) Hx Substance Use - Type And Am: No Problem List Medical Problems: (1) Chest wall contusion Status: Acute (2) Elevated troponin Status: Acute (3) Hypotension Status: Acute (4) Lactic acidemia Status: Acute (5) Post-op bleeding Status: Acute (6) Right foot infection Status: Acute (7) Wound of foot Status: Acute Social History Problems: (1) DKA (diabetic ketoacidoses) Status: Acute Physical Exam Vital Signs Last Vital Signs Documentation Date Time Temp Pulse Resp B/P (MAP) Pulse Ox O2 Delivery O2 Flow Rate FiO2 11/28/17 11:05 Room Air 11/28/17 11:03 36.3 97 20 103/83 (90) 95 Physical Exam Constitutional: Level of Distress: NAD Ambulation: in wheelchair Neck: supple Lungs: Auscultation: no wheezing, no rales/crackles, no rhonchi Cardiovascular: Heart Auscultation: RRR, no murmurs, no rubs, no gallops Abdomen: Bowel Sounds: normal Inspection & Palpation: non-distended Extremities: no edema Neurologic: Gait & Station: pertinent finding (No focal deficits) Assessment and Plan Assessment and Plan Impression: 67-year-old male 1. Bleeding from recent left foot surgery site and abdominal Lovenox injection site -Resolved, hemoglobin stable 2. Recent debridement of the left fifth toe adjacent structures as described above in the setting of concern for osteomyelitis and necrotizing fasciitis, diabetic foot wound 3. Recent anterolateral infarction in the setting of acute sepsis illness 4. Compensated ischemic cardiomyopathy 5. Presumed cardio embolic stroke of new 4 centimeter acute/subacute infarct within the right occipital lobe probably 8 millimeter acute/sub acute infarct within the right frontal lobe in the setting of paroxysmal atrial fibrillation severe LV systolic dysfunction 6. Pseudo-aortic stenosis in the setting of LV systolic dysfunction versus moderate to severe aortic stenosis. Plan: Volume status is stable. Patient has had recent presumed cardio embolic stroke as well as bleeding problems, therefore recommend resuming Coumadin without bridge therapy. Continue conservative therapy for his cardiac treatment. Laboratory Results Last 24 Hours Test 11/27/17 16:29 11/27/17 20:15 11/27/17 20:23 11/28/17 01:46 Bedside Glucose 170 mg/dl 208 mg/dl Troponin I 0.927 ng/ml 1.010 ng/ml White Blood Count 12.78 K/uL Red Blood Count 4.02 M/uL Hemoglobin 12.0 g/dL Hematocrit 35.6 % Mean Corpuscular Volume 88.6 fL Mean Corpuscular Hemoglobin 29.9 pg Mean Corpuscular Hemoglobin Concent 33.7 g/dl Platelet Count 255 K/uL Mean Platelet Volume 9.9 fL Neutrophils (%) (Auto) 79.0 % Lymphocytes (%) (Auto) 14.4 % Monocytes (%) (Auto) 5.2 % Eosinophils (%) (Auto) 1.0 % Basophils (%) (Auto) 0.2 % Neutrophils # (Auto) 10.09 K/uL Lymphocytes # (Auto) 1.84 K/uL Monocytes # (Auto) 0.67 K/uL Eosinophils # (Auto) 0.13 K/uL Basophils # (Auto) 0.03 K/uL RDW Standard Deviation 43.8 fL RDW Coefficient of Variation 13.8 % Immature Granulocyte % (Auto) 0.2 % Immature Granulocyte # (Auto) 0.02 K/uL Prothrombin Time 16.5 SECONDS Prothromb Time International Ratio 1.6 Sodium Level 137 mmol/L Potassium Level 3.7 mmol/L Chloride Level 101 mmol/L Carbon Dioxide Level 31 mmol/L Anion Gap 5.0 mmol/L Blood Urea Nitrogen 14 mg/dl Creatinine 1.38 mg/dl Est Creatinine Clear Calc Drug Dose 61.2 ml/min Estimated GFR () 61.7 Estimated GFR (Non- 53.3 BUN/Creatinine Ratio 10.5 Random Glucose 149 mg/dl Calcium Level 7.7 mg/dl Test 11/28/17 07:17 11/28/17 11:34 Bedside Glucose 138 mg/dl 227 mg/dl
[2017-11-28] MEDS ORDERED: WARFARIN SOD 7.5 MG TAB PO SCH (16:00)
--- NOTE | 2017-11-28 19:04 | Progress Note ---
Internal Med Progress Note Date of Service: Nov 28, 2017. Provider Documentation: SUBJECTIVE: The patient was seen and examined in telemetry unit Pt is 67 y/o M with PMH DM II, paroxysmal atrial fibrillation, CAD S/P CABG, ischemic cardiomyopathy EF: 20-24%, PVD, hx necrotizing fascitis of RLE with amputation in 2016, presented to ER from [facility] with complaint of bleeding from left foot surgical site and from abdomen location of Lovenox injection She denies to have any symptoms during my examination She did not have any confusion or any other distress no apparent distress at rest 11/28: Denies any symptoms today No pain in feet, no chest pain, palpitation or shortness of breath Denies any fever, chills or riders OBJECTIVE: Vital Signs-as noted below Exam: General-no distress at rest Eyes-normal ENT-normal Neck-supple Lungs-decreased breath sounds both sites with minimal crackles at the bases Heart-regular Abdomen-benign, soft nontender, Has extensive bruising involving right lower quadrant and groin area No evidence of active bleeding Extremities-has chronic skin changes and is status post a number of toes amputation on either side The right foot is bandaged Neuro-alert awake and oriented 3, Lab data as noted below. ASSESSMENT & PLAN: Pt is 67 y/o M with PMH DM II, paroxysmal atrial fibrillation, CAD S/P CABG, ischemic cardiomyopathy EF: 20-24%, PVD, hx necrotizing fascitis of RLE with amputation in 2016, presented to ER from [facility] with complaint of bleeding from left foot surgical site and from abdomen location of Lovenox injection. Patient with recent hospitalization at [facility] [place] for I&D of L forefoot with partial 5th toe resection by Dr Dean for osteomyelitis, necrotizing fascitis with culture of proteus. discharged on Augmentin and finished on 11/25/17. Also had A. fib RVR, DKA, possible and STEMI, hypoxic respiratory failure and was discharged from there to [facility] on 11/23/17. BLEEDING LEFT FOOT PREVIOUS SURGICAL SITE Borderline high INR Patient was started on Coumadin has been receiving Lovenox until INR therapeutic. Today in ER INR: 3.4 and no drop in Hb Vitamin K po given. -INR in am 1.7 on 11/27 -pressure dressing -monitor H&H-no drop in Hb -No overt bleeding and Coumadin was restarted 11/27/17 -Remains free from bleeding HYPOTENSION Pt arrived to ER and BP was 85/61 up to 112/71 after 1L NSS. Hgb: 14. Pt denies dizziness, syncope, CP, SOB. -will hold on further IVF at this time with pt's hx CHF -hold losartan, lasix, spironolactone for now, reevaluate volume status and BP in am -BP medications have been restarted -Blood pressures remain lower side of normal WOUND TO LEFT FOOT/WOUND RIGHT FOOT Pt at [facility] [place] for I&D of L forefoot with partial 5th toe resection by Dr Dena for osteomyelitis, necrotizing fascitis with culture of proteus on 11/15/17. Was d/c on Augmentin and finished on 11/25/17. Pt had He was d/c with daily dressing changes to LLE with 1/2 strength Dakin's moistened gauze and silvadene daily to R foot ulcer. Instructions for 4inche jet wrap from toe to ankle and 6inch JET wrap from ankle to knee on BLE and flat [facility] shoes with planned wound care surgeon f/u in 2 weeks. -In ER pt afebrile, no leukocytosis. lactic acid: 2.1. was given 1L NSS -continue silvadene to right foot ulcer daily -Unasyn for now and continue -wound consult -appreciate input -ortho consult -appreciate Input ; healing well no further surgery STROKE-Subacute /Acute Pt denies any falls, CASTILLO, vision changes, extremity weakness/paresthesias. it was noted on exam in ER that pt was not oriented and somewhat confused and unsure of his baseline. CT head: Focal hypodense area within the right occipital lobe which measures 3.2 cm. This favors a subacute infarct. There is a small amount of linear hyperdensity at this location which raises the possibility of hemorrhagic transformation. Hx echo 11/16/17: EF: 20-24%, diffuse hypokinesis to akinesis. Right ventricular systolic function is reduced. Moderate to severe aortic stenosis suspected. -lipids in AM-unremarkable -MRI without contrast::1. Technically limited study secondary to motion artifact 2. 4 cm acute/subacute infarct within the right occipital lobe 3. Probable 8 mm acute/subacute infarct in the right frontal lobe -U/S carotids : No evidence of hemodynamically significant carotid stenosis -PT/OT consult -continue statin -neurology consult - appreciate Input -Repeat CT head ::Mild evolution of the acute to subacute infarct of the right occipital lobe measuring up to 4.0 cm with smaller ill-defined acute to subacute 1.0 cm infarct of the right frontal lobe with slightly increased amount of cytotoxic edema. No definite intracranial hemorrhage, significant mass effect or midline shift. ELEVATED TROPONIN Hx CAD S/P CABG RECENT POSSIBLE AND STEMI ISCHEMIC CARDIOMYOPATHY 11/14/17 troponin: 30, patient was transferred to [facility]. No heparin treatment at that time. Had echo 11/16/17: EF: 20-24%, diffuse hypokinesis to akinesis. Right ventricular systolic function is reduced. Moderate to severe aortic stenosis suspected. Cardiac cath and AICD were deferred during hospitalization. he was discharged with Cardizem discontinued and was changed to metoprolol. -In ER today troponin: 1.5. Patient denies any CP, SOB, palpitations, dizziness. Troponin may still be elevated from previous -Continue metoprolol with holding parameters -Holding aspirin at this time -Cardiology consult-appreciate INPUT -Stable as per Cardiac issues -will restart Coumadin and other cardiac Medication CHRONIC SYSTOLIC HEART FAILURE Patient does not appear fluid overloaded at this time. Initially was hypotensive in the ER and was given 1L NSS -I&O and daily weight -Monitor closely -Holding Lasix, spironolactone at this time. -Lasix and his prolactin are still on hold PROLONGED QTC QTc: 590 -repeat EKG in am -avoid QTc prolonging agents Electrolytes abnormalities Supplement and recheck ELEVATED LIVER ENZYMES ALT increased from previous -repeat liver functions in am HISTORY OF PAROXYSMAL ATRIAL FIBRILLATION ON COUMADIN Current sinus rhythm. Coumadin restarted-monitor INR DM II A1c: 11.1 on 11/15/17 -hold glyburide -BSG AC HS -basal bolus insulin per protocol CKD stage III RENAL INSUFFICIENCY Cr: 1.58. Was 1.5 upon d/c [facility] [place] -monitor renal functions -avoid nephrotoxic agents when possible HISTORY OF ETOH ABUSE Last drink approximately 2 weeks ago per pt, patient has been hospitalized since 11/14/17 and discharged to [facility] -Continue folate and thiamine DVT Prophylaxis -SCD Disposition Likely to go back to [facility] on Thursday Vital Signs: Date Time Temp Pulse Resp B/P (MAP) Pulse Ox O2 Delivery O2 Flow Rate FiO2 11/28/17 14:54 36.6 100 18 106/73 (84) 100 Nasal Cannula 11/28/17 11:05 Room Air 11/28/17 11:03 36.3 97 20 103/83 (90) 95 Room Air 11/28/17 06:43 36.6 101 18 100/71 (81) 92 Room Air 11/28/17 03:05 36.9 104 16 103/70 (81) 92 Room Air 11/27/17 23:02 37.2 106 18 109/73 (85) 93 Room Air 11/27/17 22:32 96 Room Air Lab Results: Results Past 24 Hours Test 11/27/17 20:15 11/27/17 20:23 11/28/17 01:46 11/28/17 07:17 Range/Units Troponin I 0.927 1.010 0-0.045 ng/ml Bedside Glucose 208 138 70-99 mg/dl White Blood Count 12.78 4.8-10.8 K/uL Red Blood Count 4.02 4.7-6.1 M/uL Hemoglobin 12.0 14.0-18.0 g/dL Hematocrit 35.6 42-52 % Mean Corpuscular Volume 88.6 80-100 fL Mean Corpuscular Hemoglobin 29.9 25-34 pg Mean Corpuscular Hemoglobin Concent 33.7 32-36 g/dl Platelet Count 255 130-400 K/uL Mean Platelet Volume 9.9 7.4-10.4 fL Neutrophils (%) (Auto) 79.0 % Lymphocytes (%) (Auto) 14.4 % Monocytes (%) (Auto) 5.2 % Eosinophils (%) (Auto) 1.0 % Basophils (%) (Auto) 0.2 % Neutrophils # (Auto) 10.09 1.4-6.5 K/uL Lymphocytes # (Auto) 1.84 1.2-3.4 K/uL Monocytes # (Auto) 0.67 0.11-0.59 K/uL Eosinophils # (Auto) 0.13 0-0.5 K/uL Basophils # (Auto) 0.03 0-0.2 K/uL RDW Standard Deviation 43.8 36.4-46.3 fL RDW Coefficient of Variation 13.8 11.5-14.5 % Immature Granulocyte % (Auto) 0.2 % Immature Granulocyte # (Auto) 0.02 0.00-0.02 K/uL Prothrombin Time 16.5 9.0-12.0 SECONDS Prothromb Time International Ratio 1.6 0.9-1.1 Sodium Level 137 136-145 mmol/L Potassium Level 3.7 3.5-5.1 mmol/L Chloride Level 101 98-107 mmol/L Carbon Dioxide Level 31 21-32 mmol/L Anion Gap 5.0 3-11 mmol/L Blood Urea Nitrogen 14 7-18 mg/dl Creatinine 1.38 0.60-1.40 mg/dl Est Creatinine Clear Calc Drug Dose 61.2 ml/min Estimated GFR () 61.7 Estimated GFR (Non- 53.3 BUN/Creatinine Ratio 10.5 10-20 Random Glucose 149 70-99 mg/dl Calcium Level 7.7 8.5-10.1 mg/dl Test 11/28/17 11:34 11/28/17 15:52 Range/Units Bedside Glucose 227 132 70-99 mg/dl
[2017-11-28] MEDS ORDERED: NURSING VERBAL MED ORDER ONE (19:45)
[2017-11-28] MEDS: INSULIN GLARGINE SOLOSTAR 100 UNITS/ML 3 ML PEN SC SCH (20:30)
[2017-11-29 03:31] VITALS: BP 105/72; PULSE 103; TEMP 36.9; O2SAT 93
[2017-11-29] MEDS: AMPICILLIN/SULBACTAM SOD INJ 3,000 MG in SODIUM CHLORIDE 0.9% 100ML 100 ML IV SCH ×4 (04:04→21:48)
[2017-11-29 06:05] LABS: BASO % 0.4 %; BASO ABS # 0.04 K/uL (0-0.2); EOS % 2.2 %; EOS ABS # 0.24 K/uL (0-0.5); HEMATOCRIT 33.9 % (42-52); HEMOGLOBIN 11.2 g/dL (14.0-18.0); IG# 0.02 K/uL (0.00-0.02); LYMPH % 14.4 %; LYMPH ABS # 1.57 K/uL (1.2-3.4); MEAN CELL VOLUME 89.7 fL (80-100); MEAN CORPUSCULAR HEMOGLOBIN 29.6 pg (25-34); MEAN PLATELET VOLUME 10.2 fL (7.4-10.4); MONO % 4.7 %; MONO ABS # 0.51 K/uL (0.11-0.59); NEUT % 78.1 %; NEUT ABS # 8.49 K/uL (1.4-6.5); PLATELET COUNT 261 K/uL (130-400); RED CELL DISTRIBUTION WIDTH CV 13.9 % (11.5-14.5); RED CELL DISTRIBUTION WIDTH SD 44.9 fL (36.4-46.3); WHITE BLOOD COUNT 10.87 K/uL (4.8-10.8)
[2017-11-29 06:18] LABS: INR 2.5 (0.9-1.1)
[2017-11-29 06:28] LABS: CALCIUM 7.8 mg/dl (8.5-10.1); CREATININE 1.37 mg/dl (0.60-1.40); PHOSPHORUS 2.6 mg/dl (2.5-4.9); POTASSIUM 4.2 mmol/L (3.5-5.1)
[2017-11-29 06:57] VITALS: BP 104/75; PULSE 107; TEMP 37.1; O2SAT 94
[2017-11-29] MEDS: POTASSIUM CHLORIDE 20 MEQ TABCR PO SCH ×2 (08:34→19:28)
[2017-11-29] MEDS: MAGNESIUM CHLORIDE 64MG DELAYED REL TAB PO SCH (08:35)
[2017-11-29] MEDS: ATORVASTATIN 20 MG TAB PO SCH (08:35)
[2017-11-29] MEDS: CHOLECALCIFEROL 1000 INTER.UNIT TAB PO SCH (08:35)
[2017-11-29] MEDS: LOSARTAN POTASSIUM 50 MG TAB PO SCH (08:35)
[2017-11-29] MEDS: MULTIVITAMIN TAB PO SCH (08:36)
[2017-11-29] MEDS: THIAMINE HCL 100 MG TAB PO SCH (08:36)
[2017-11-29] MEDS: METOPROLOL SUCC 50MG EXT REL TAB PO SCH (08:36)
[2017-11-29] MEDS: CLOTRIMAZOLE 1% CR 15 GM TUBE EXT SCH ×2 (08:36→19:29)
[2017-11-29] MEDS: INSULIN ASPART 100 UNITS/ML 3 ML PEN SC SCH ×4 (08:49→20:25)
[2017-11-29] MEDS: MICONAZOLE NITRATE POWDER 43 GM EXT PRN (08:56)
--- NOTE | 2017-11-29 09:50 | Progress Note ---
Medicine Progress Note Date & Time of Visit: Nov 29, 2017 at 09:40 . Subjective CC: Follow-up visit for multiple problems. HPI: Patient is comfortable and does not have much to offer. No fever. Nursing notes increased drainage on left foot bandage. No further bleeding from wound. Denies headache or focal neuro symptoms. ROS: General- no fever, no chills Resp- no cough; no shortness of breath Cardiac- no chest pain, no edema GI- staff reports soft stools without melena or hematochezia; no nausea, no vomiting - incontinent of urine; no dysuria . Objective Last 8 Hrs Date Time Temp Pulse Resp B/P (MAP) Pulse Ox O2 Delivery O2 Flow Rate FiO2 11/29/17 09:22 Room Air 11/29/17 06:57 37.1 107 18 104/75 (85) 94 Room Air 11/29/17 03:31 36.9 103 18 105/72 (83) 93 Room Air Physical Exam: General- lying in bed, no distress Lungs- clear to auscultation; no respiratory distress Cardiovascular- irregularly irregular; II/ sys murmur LSB; no gallop appreciated; + JVD; no pretibial edema Abdomen- + bowel sounds, soft, nontender Extremities- no cyanosis; no calf tenderness; s/p amputation left 5th toe; large wound dorsum left foot with exposed tendons and purulent drainage; s/p transmet amputation right foot; right foot ulcer without erythema or drainage Neuro- alert Skin- warm & dry . Laboratory Results: Last 24 Hours Test 11/28/17 11:34 11/28/17 15:52 11/28/17 20:26 11/29/17 05:37 Bedside Glucose 227 mg/dl 132 mg/dl 184 mg/dl White Blood Count 10.87 K/uL Red Blood Count 3.78 M/uL Hemoglobin 11.2 g/dL Hematocrit 33.9 % Mean Corpuscular Volume 89.7 fL Mean Corpuscular Hemoglobin 29.6 pg Mean Corpuscular Hemoglobin Concent 33.0 g/dl Platelet Count 261 K/uL Mean Platelet Volume 10.2 fL Neutrophils (%) (Auto) 78.1 % Lymphocytes (%) (Auto) 14.4 % Monocytes (%) (Auto) 4.7 % Eosinophils (%) (Auto) 2.2 % Basophils (%) (Auto) 0.4 % Neutrophils # (Auto) 8.49 K/uL Lymphocytes # (Auto) 1.57 K/uL Monocytes # (Auto) 0.51 K/uL Eosinophils # (Auto) 0.24 K/uL Basophils # (Auto) 0.04 K/uL RDW Standard Deviation 44.9 fL RDW Coefficient of Variation 13.9 % Immature Granulocyte % (Auto) 0.2 % Immature Granulocyte # (Auto) 0.02 K/uL Prothrombin Time 25.6 SECONDS Prothromb Time International Ratio 2.5 Sodium Level 138 mmol/L Potassium Level 4.2 mmol/L Chloride Level 104 mmol/L Carbon Dioxide Level 26 mmol/L Anion Gap 8.0 mmol/L Blood Urea Nitrogen 15 mg/dl Creatinine 1.37 mg/dl Est Creatinine Clear Calc Drug Dose 61.9 ml/min Estimated GFR () 62.3 Estimated GFR (Non- 53.7 BUN/Creatinine Ratio 11.2 Random Glucose 149 mg/dl Calcium Level 7.8 mg/dl Phosphorus Level 2.6 mg/dl Magnesium Level 2.0 mg/dl Chemistry Specimen Hemolysis Test 11/29/17 07:17 Bedside Glucose 149 mg/dl Assessment & Plan ISCHEMIC STROKES MRI demonstrated 4 cm acute / subacute infarct in right occipital lobe and 8 mm acute / subacute infarct in right frontal lobe. Neuro consulted. Probable cardioembolic strokes from underlying AF. PT / OT as tolerated. Continue anticoagulation with warfarin. PAROXYSMAL ATRIAL FIBRILLATION / FLUTTER Cardiology consulted. Receiving metoprolol and amiodarone. Continue anticoagulation with warfarin. CORONARY ARTERY DISEASE No anginal symptoms. Holding aspirin due to large ischemic stroke with risk for hemorrhagic transformation. Continue metoprolol and atorvastatin. CHRONIC SYSTOLIC CHF History of left ventricular systolic heart failure with LVEF Underlying ischemic heart disease. Compensated. Continue metoprolol succinate and losartan. LEFT FOOT INFECTION Increased drainage. Check C&S. Continue IV amp/sulbactam. DM TYPE 2 Continue insulin per protocol. HEMATURIA Occurred when receiving warfarin + enoxaparin. CT demonstrated bladder wall thickening. Check urine cytology. Should have cystoscopy when medical status permits. VTE PROPHYLAXIS On warfarin with therapeutic INR. DISPOSITION To be determined. . Current Inpatient Medications: Current Inpatient Medications Medications (Trade) Dose Ordered Sig/Estee Route Start Time Stop Time Status Last Admin Dose Admin Ioversol (Optiray 320) 111 ml UD PRN IV 11/26/17 15:30 11/30/17 15:29 Acetaminophen (Tylenol Tab) 650 mg Q4H PRN PO 11/26/17 18:45 12/26/17 18:44 Nitroglycerin (Nitrostat Tab) 0.4 mg UD PRN SL 11/26/17 18:45 12/26/17 18:44 Polyethylene (Miralax Powder Packet) 17 gm DAILY PRN PO 11/26/17 18:45 12/26/17 18:44 Miscellaneous Information (Pharmacist Discharge Med Rec Consult) 1 ea UD PRN N/A 11/26/17 18:45 12/26/17 18:44 Insulin Aspart (novoLOG ASPART) SLIDING SCALE If C... ACHS SC 11/26/17 21:00 12/26/17 20:59 11/29/17 08:49 5 UNITS Glucose (Glucose 40% Gel) 15-30 GRAMS 15 GRAMS... UD PRN PO 11/26/17 19:15 12/26/17 19:14 Glucose (Glucose Chew Tab) 4-8 Tablets 4 Tabl... UD PRN PO 11/26/17 19:15 12/26/17 19:14 Dextrose (Dextrose 50% 50ML Syringe) 25-50ML 25ML FOR ... UD PRN IV 11/26/17 19:15 12/26/17 19:14 Glucagon (Glucagon Inj) 1 mg UD PRN SQ 11/26/17 19:15 12/26/17 19:14 Carbohydrates (Carbohydrates For Hypoglycemia) 15-30 GRAMS 15 grams if BSG 54-69... UD PRN PO 11/26/17 19:15 12/26/17 19:14 Atorvastatin Calcium (Lipitor Tab) 80 mg DAILY PO 11/27/17 09:00 12/27/17 08:59 11/29/17 08:35 80 MG Cholecalciferol (Vitamin D Tab) 1,000 inter.unit DAILY PO 11/27/17 09:00 12/27/17 08:59 11/29/17 08:35 1,000 INTER.UNIT Folic Acid (Folvite Tab) 1 mg DAILY PO 11/27/17 09:00 12/27/17 08:59 11/29/17 08:35 1 MG Metoprolol Succinate (Toprol Xl Tab) 100 mg DAILY PO 11/27/17 09:00 12/27/17 08:59 11/29/17 08:36 100 MG Multivitamins (Multivitamin Tab) 1 tab DAILY PO 11/27/17 09:00 12/27/17 08:59 11/29/17 08:36 1 TAB Potassium Chloride (Klor-Con Tab) 20 meq BID PO 11/26/17 21:00 12/26/17 20:59 11/29/17 08:34 20 MEQ Thiamine HCl (Vitamin B-1 Tab) 100 mg DAILY PO 11/27/17 09:00 12/27/17 08:59 11/29/17 08:36 100 MG Ampicillin Sodium/ Sulbactam Sodium 3000 mg/Sodium Chloride 108 ml @ 200 mls/hr Q6H IV 11/26/17 22:00 12/06/17 21:59 11/29/17 09:02 200 MLS/HR Clotrimazole (Lotrimin 1% Crm) 1 appln BID EXT 11/27/17 09:00 12/10/17 20:00 11/29/17 08:36 1 APPLN Aspirin (Aspirin Chew) 81 mg DAILY PO 11/28/17 09:00 12/28/17 08:59 Future Hold 11/28/17 09:04 81 MG Glyburide (MICRONase TAB) 10 mg DAILY PO 11/28/17 09:00 12/28/17 08:59 11/29/17 08:37 10 MG Losartan Potassium (coZAAR TAB) 50 mg DAILY PO 11/28/17 09:00 12/28/17 08:59 11/29/17 08:35 50 MG Magnesium Chloride (Slow-Mag Tab) 64 mg DAILY PO 11/28/17 09:00 12/28/17 08:59 11/29/17 08:35 64 MG Warfarin Sodium (Coumadin Tab) 7.5 mg DAILY@1600 PO 11/28/17 16:00 12/28/17 15:59 11/28/17 17:07 7.5 MG Insulin Glargine (Lantus Solostar Pen) 35 units HS SC 11/28/17 21:00 12/28/17 20:59 11/28/17 20:30 35 UNITS Miconazole Nitrate (Desenex Powder) 1 appln UD PRN EXT 11/28/17 20:00 12/28/17 19:59 11/29/17 08:56 1 APPLN
[2017-11-29] MEDS: ACETAMINOPHEN 325 MG TAB PO PRN (10:17)
[2017-11-29 10:46] VITALS: BP 122/82; PULSE 101; TEMP 36.5; O2SAT 93
[2017-11-29] MEDS ORDERED: AMIODARONE 200 MG TAB PO ONE (12:58)
--- NOTE | 2017-11-29 13:07 | Cardiology Follow-Up ---
Subjective General Date of Service: Nov 29, 2017. Chief Complaint: follow up cardiomyopathy, PAF, stroke Pt evaluation today including: conversation w/ patient, physical exam History of Present Illness The patient is a 67 year old male seen in cardiology follow-up. He notes pain in his left foot procedure site today that had not been an issue yesterday. Telemetry reveals transient recurrence of his previous tachycardia with regular R to R interval tachycardia at rate of 130 bpm, by telemetry appearance appears to be atrial flutter or perhaps an SVT. The morphology is similar to the presenting tachycardia that he had just over 2 weeks ago when he was seen on an urgent basis by Dr. Valadez of our practice. Allergies Coded Allergies: JET Inhibitors (Verified Allergy, Unknown, 04/10/17) Penicillins (Verified Allergy, Unknown, RASH A CHILD recent tolerated Augmentin, 11/26/17) Lisinopril (Verified Adverse Reaction, Mild, RASH, 07/31/17) Social History Smoking Status: Never Smoker Hx Tobacco Use In Past Year?: No Hx Alcohol Use - Type And Amou: No (Past history of use.) Hx Substance Use - Type And Am: No Problem List Medical Problems: (1) Chest wall contusion Status: Acute (2) Elevated troponin Status: Acute (3) Hypotension Status: Acute (4) Lactic acidemia Status: Acute (5) Post-op bleeding Status: Acute (6) Right foot infection Status: Acute (7) Wound of foot Status: Acute Social History Problems: (1) DKA (diabetic ketoacidoses) Status: Acute Physical Exam Vital Signs Last Vital Signs Documentation Date Time Temp Pulse Resp B/P (MAP) Pulse Ox O2 Delivery O2 Flow Rate FiO2 11/29/17 10:46 36.5 101 24 122/82 (95) 93 Room Air Physical Exam Constitutional: Level of Distress: NAD Ambulation: in wheelchair Neck: supple Lungs: Auscultation: no wheezing, no rales/crackles, no rhonchi Cardiovascular: Heart Auscultation: RRR, no murmurs, no rubs, no gallops Abdomen: Bowel Sounds: normal Inspection & Palpation: non-distended Extremities: no edema Neurologic: Gait & Station: pertinent finding (No focal deficits) Assessment and Plan Assessment and Plan Impression: 67-year-old male 1. Bleeding from recent left foot surgery site and abdominal Lovenox injection site -Resolved, hemoglobin stable 2. Recent debridement of the left fifth toe adjacent structures as described above in the setting of concern for osteomyelitis and necrotizing fasciitis, diabetic foot wound 3. Recent anterolateral infarction in the setting of acute sepsis illness 4. Compensated ischemic cardiomyopathy 5. Presumed cardio embolic stroke of new 4 centimeter acute/subacute infarct within the right occipital lobe probably 8 millimeter acute/sub acute infarct within the right frontal lobe in the setting of paroxysmal atrial fibrillation severe LV systolic dysfunction 6. Pseudo-aortic stenosis in the setting of LV systolic dysfunction versus moderate to severe aortic stenosis. 7. History of paroxysmal atrial fibrillation, with telemetry findings suggestive atrial flutter versus paroxysmal supraventricular tachycardia Plan: Continue current dose of metoprolol succinate. Start amiodarone 200 mg twice daily for further arrhythmia suppression as I do not think he will tolerate additional tachycardia in the long-term due to his LV systolic dysfunction and aortic valve stenosis and I think a rhythm control strategy is indicated. His transaminases were mildly elevated earlier this hospital stay and therefore hepatic function panel has been requested given start of amiodarone. Will update TSH tomorrow. Reduce atorvastatin dose from 80 to 40 mg given start of amiodarone. Reduce warfarin dose due to start of amiodarone. Repeat INR in am. Laboratory Results Last 24 Hours Test 11/28/17 15:52 11/28/17 20:26 11/29/17 05:37 11/29/17 07:17 Bedside Glucose 132 mg/dl 184 mg/dl 149 mg/dl White Blood Count 10.87 K/uL Red Blood Count 3.78 M/uL Hemoglobin 11.2 g/dL Hematocrit 33.9 % Mean Corpuscular Volume 89.7 fL Mean Corpuscular Hemoglobin 29.6 pg Mean Corpuscular Hemoglobin Concent 33.0 g/dl Platelet Count 261 K/uL Mean Platelet Volume 10.2 fL Neutrophils (%) (Auto) 78.1 % Lymphocytes (%) (Auto) 14.4 % Monocytes (%) (Auto) 4.7 % Eosinophils (%) (Auto) 2.2 % Basophils (%) (Auto) 0.4 % Neutrophils # (Auto) 8.49 K/uL Lymphocytes # (Auto) 1.57 K/uL Monocytes # (Auto) 0.51 K/uL Eosinophils # (Auto) 0.24 K/uL Basophils # (Auto) 0.04 K/uL RDW Standard Deviation 44.9 fL RDW Coefficient of Variation 13.9 % Immature Granulocyte % (Auto) 0.2 % Immature Granulocyte # (Auto) 0.02 K/uL Prothrombin Time 25.6 SECONDS Prothromb Time International Ratio 2.5 Sodium Level 138 mmol/L Potassium Level 4.2 mmol/L Chloride Level 104 mmol/L Carbon Dioxide Level 26 mmol/L Anion Gap 8.0 mmol/L Blood Urea Nitrogen 15 mg/dl Creatinine 1.37 mg/dl Est Creatinine Clear Calc Drug Dose 61.9 ml/min Estimated GFR () 62.3 Estimated GFR (Non- 53.7 BUN/Creatinine Ratio 11.2 Random Glucose 149 mg/dl Calcium Level 7.8 mg/dl Phosphorus Level 2.6 mg/dl Magnesium Level 2.0 mg/dl Chemistry Specimen Hemolysis Test 11/29/17 12:58
[2017-11-29] MEDS: OXYCODONE HCL IR 5 MG TAB (IMMEDIATE RELEASE) PO PRN (13:41)
[2017-11-29 13:52] LABS: ALBUMIN 1.9 gm/dl (3.4-5.0); TOTAL PROTEIN 6.8 gm/dl (6.4-8.2)
[2017-11-29 15:15] VITALS: BP 104/74; PULSE 94; TEMP 36.7; O2SAT 95
[2017-11-29] MEDS ORDERED: WARFARIN SOD 3 MG TAB PO SCH (16:00)
[2017-11-29 19:37] VITALS: BP 105/75; PULSE 89; TEMP 36.6; O2SAT 97
[2017-11-29] MEDS: INSULIN GLARGINE SOLOSTAR 100 UNITS/ML 3 ML PEN SC SCH (20:25)
[2017-11-30] VITALS (7 sets, daily range): BP systolic 84–144; BP diastolic 59–91; PULSE 84–111; TEMP 36.3–36.8; O2SAT 93–97
[2017-11-30] MEDS: AMPICILLIN/SULBACTAM SOD INJ 3,000 MG in SODIUM CHLORIDE 0.9% 100ML 100 ML IV SCH ×4 (03:57→21:21)
[2017-11-30 06:17] LABS: HEMATOCRIT 35.6 % (42-52); HEMOGLOBIN 11.7 g/dL (14.0-18.0); MEAN CELL VOLUME 90.6 fL (80-100); MEAN CORPUSCULAR HEMOGLOBIN 29.8 pg (25-34); MEAN CORPUSCULAR HGB CONC 32.9 g/dl (32-36); MEAN PLATELET VOLUME 10.4 fL (7.4-10.4); PLATELET COUNT 302 K/uL (130-400); RED CELL DISTRIBUTION WIDTH CV 14.1 % (11.5-14.5); WHITE BLOOD COUNT 9.99 K/uL (4.8-10.8)
[2017-11-30 06:43] LABS: INR 3.8 (0.9-1.1)
[2017-11-30 07:01] LABS: CALCIUM 8.4 mg/dl (8.5-10.1); CREATININE 1.54 mg/dl (0.60-1.40); POTASSIUM 4.2 mmol/L (3.5-5.1)
[2017-11-30] MEDS: CLOTRIMAZOLE 1% CR 15 GM TUBE EXT SCH ×2 (09:30→21:17)
[2017-11-30] MEDS: CHOLECALCIFEROL 1000 INTER.UNIT TAB PO SCH (09:50)
[2017-11-30] MEDS: POTASSIUM CHLORIDE 20 MEQ TABCR PO SCH ×2 (09:51→21:16)
[2017-11-30] MEDS: METOPROLOL SUCC 50MG EXT REL TAB PO SCH (09:51)
[2017-11-30] MEDS: THIAMINE HCL 100 MG TAB PO SCH (09:51)
[2017-11-30] MEDS: LOSARTAN POTASSIUM 50 MG TAB PO SCH (09:51)
[2017-11-30] MEDS: ATORVASTATIN 40 MG TAB PO SCH (09:52)
[2017-11-30] MEDS: MULTIVITAMIN TAB PO SCH (09:52)
[2017-11-30] MEDS: MAGNESIUM CHLORIDE 64MG DELAYED REL TAB PO SCH (09:52)
[2017-11-30] MEDS: AMIODARONE 200 MG TAB PO SCH ×2 (09:53→21:16)
[2017-11-30] MEDS: INSULIN ASPART 100 UNITS/ML 3 ML PEN SC SCH ×4 (09:56→21:15)
--- NOTE | 2017-11-30 13:35 | Cardiology Follow-Up ---
Subjective General Date of Service: Nov 30, 2017. Chief Complaint: follow up cardiomyopathy, PAF, stroke Pt evaluation today including: conversation w/ patient, physical exam History of Present Illness The patient is a 67 year old male seen in cardiology follow up. Patient is sitting up out of bed in the chair eating his lunch time meal and is feeling well. He felt poorly yesterday but his pain is better controlled today. Telemetry reveals sinus tachycardia in the range of 100 bpm with eating. Allergies Coded Allergies: JET Inhibitors (Verified Allergy, Unknown, 04/10/17) Penicillins (Verified Allergy, Unknown, RASH A CHILD recent tolerated Augmentin, 11/26/17) Lisinopril (Verified Adverse Reaction, Mild, RASH, 07/31/17) Social History Smoking Status: Never Smoker Hx Tobacco Use In Past Year?: No Hx Alcohol Use - Type And Amou: No (Past history of use.) Hx Substance Use - Type And Am: No Problem List Medical Problems: (1) Chest wall contusion Status: Acute (2) Elevated troponin Status: Acute (3) Hypotension Status: Acute (4) Lactic acidemia Status: Acute (5) Post-op bleeding Status: Acute (6) Right foot infection Status: Acute (7) Wound of foot Status: Acute Social History Problems: (1) DKA (diabetic ketoacidoses) Status: Acute Physical Exam Vital Signs Last Vital Signs Documentation Date Time Temp Pulse Resp B/P (MAP) Pulse Ox O2 Delivery O2 Flow Rate FiO2 11/30/17 11:52 36.7 100 22 112/80 (91) 96 Room Air Physical Exam Constitutional: Level of Distress: NAD Ambulation: in wheelchair Neck: supple Lungs: Auscultation: no wheezing, no rales/crackles, no rhonchi Cardiovascular: Heart Auscultation: RRR, no murmurs, no rubs, no gallops Abdomen: Bowel Sounds: normal Inspection & Palpation: non-distended Extremities: no edema Neurologic: Gait & Station: pertinent finding (No focal deficits) Assessment and Plan Assessment and Plan Last Resulted 11/30/17 05:43 Last Resulted 11/30/17 05:43 Past 24 Hours Test 11/30/17 05:43 Range/Units Prothromb Time International Ratio 3.8 H 0.9-1.1 Prothrombin Time 38.8 H 9.0-12.0 SECONDS Impression: 67-year-old male 1. Bleeding from recent left foot surgery site and abdominal Lovenox injection site -Resolved, hemoglobin stable 2. Recent debridement of the left fifth toe adjacent structures as described above in the setting of concern for osteomyelitis and necrotizing fasciitis, diabetic foot wound 3. Recent anterolateral infarction in the setting of acute sepsis illness 4. Compensated ischemic cardiomyopathy 5. Presumed cardio embolic stroke of new 4 centimeter acute/subacute infarct within the right occipital lobe probably 8 millimeter acute/sub acute infarct within the right frontal lobe in the setting of paroxysmal atrial fibrillation severe LV systolic dysfunction 6. Pseudo-aortic stenosis in the setting of LV systolic dysfunction versus moderate to severe aortic stenosis. 7. History of paroxysmal atrial fibrillation, with telemetry findings suggestive atrial flutter versus paroxysmal supraventricular tachycardia Plan: Continue metoprolol succinate and amiodarone for rate/rhythm control given findings of PAF, atrial flutter versus paroxysmal supraventricular tachycardia. Since initiating amiodarone, INR is trended up to 3.8. Hold Coumadin today. Coumadin dose had already been reduced as of yesterday. Repeat INR tomorrow. Laboratory Results Last 24 Hours Test 11/29/17 16:12 11/29/17 20:20 11/30/17 05:43 11/30/17 07:22 Bedside Glucose 280 mg/dl 229 mg/dl 97 mg/dl White Blood Count 9.99 K/uL Red Blood Count 3.93 M/uL Hemoglobin 11.7 g/dL Hematocrit 35.6 % Mean Corpuscular Volume 90.6 fL Mean Corpuscular Hemoglobin 29.8 pg Mean Corpuscular Hemoglobin Concent 32.9 g/dl RDW Standard Deviation 46.0 fL RDW Coefficient of Variation 14.1 % Platelet Count 302 K/uL Mean Platelet Volume 10.4 fL Prothrombin Time 38.8 SECONDS Prothromb Time International Ratio 3.8 Sodium Level 138 mmol/L Potassium Level 4.2 mmol/L Chloride Level 101 mmol/L Carbon Dioxide Level 29 mmol/L Anion Gap 8.0 mmol/L Blood Urea Nitrogen 21 mg/dl Creatinine 1.54 mg/dl Est Creatinine Clear Calc Drug Dose 55.9 ml/min Estimated GFR () 54.1 Estimated GFR (Non- 46.7 BUN/Creatinine Ratio 13.4 Random Glucose 94 mg/dl Calcium Level 8.4 mg/dl Thyroid Stimulating Hormone (TSH) 2.050 uIu/ml Test 11/30/17 11:15 Bedside Glucose 163 mg/dl
[2017-11-30] MEDS: INSULIN GLARGINE SOLOSTAR 100 UNITS/ML 3 ML PEN SC SCH (21:15)
--- NOTE | 2017-11-30 21:18 | Progress Note ---
Medicine Progress Note Date & Time of Visit: Nov 30, 2017 at 19:00 . Subjective CC: Follow-up visit for multiple problems. HPI: No new complaints. No fever. Denies headache or focal neuro symptoms. ROS: General- no fever, no chills Resp- no cough; no shortness of breath Cardiac- no chest pain, no edema GI- no nausea, no vomiting; no diarrhea - no dysuria . Objective Last 8 Hrs Date Time Temp Pulse Resp B/P (MAP) Pulse Ox O2 Delivery O2 Flow Rate FiO2 11/30/17 19:22 36.4 93 19 84/59 (67) 94 Room Air 11/30/17 16:00 97 Room Air 11/30/17 15:15 36.6 84 20 104/74 (84) 97 Room Air Physical Exam: General- lying in bed, no distress Lungs- clear to auscultation; no respiratory distress Cardiovascular- irregularly irregular; II/ systolic murmur LSB; no gallop appreciated; + JVD; no pretibial edema Abdomen- + bowel sounds, soft, nontender Extremities- no cyanosis; no calf tenderness; left foot bandaged Neuro- alert Skin- warm & dry . Laboratory Results: Last 24 Hours Test 11/30/17 05:43 11/30/17 07:22 11/30/17 11:15 11/30/17 16:26 White Blood Count 9.99 K/uL Red Blood Count 3.93 M/uL Hemoglobin 11.7 g/dL Hematocrit 35.6 % Mean Corpuscular Volume 90.6 fL Mean Corpuscular Hemoglobin 29.8 pg Mean Corpuscular Hemoglobin Concent 32.9 g/dl RDW Standard Deviation 46.0 fL RDW Coefficient of Variation 14.1 % Platelet Count 302 K/uL Mean Platelet Volume 10.4 fL Prothrombin Time 38.8 SECONDS Prothromb Time International Ratio 3.8 Sodium Level 138 mmol/L Potassium Level 4.2 mmol/L Chloride Level 101 mmol/L Carbon Dioxide Level 29 mmol/L Anion Gap 8.0 mmol/L Blood Urea Nitrogen 21 mg/dl Creatinine 1.54 mg/dl Est Creatinine Clear Calc Drug Dose 55.9 ml/min Estimated GFR () 54.1 Estimated GFR (Non- 46.7 BUN/Creatinine Ratio 13.4 Random Glucose 94 mg/dl Calcium Level 8.4 mg/dl Thyroid Stimulating Hormone (TSH) 2.050 uIu/ml Bedside Glucose 97 mg/dl 163 mg/dl 161 mg/dl Test 11/30/17 21:07 Bedside Glucose 122 mg/dl Assessment & Plan ISCHEMIC STROKES MRI demonstrated 4 cm acute / subacute infarct in right occipital lobe and 8 mm acute / subacute infarct in right frontal lobe. Neuro consulted. Probable cardioembolic strokes from underlying AF. PT / OT as tolerated. Continue anticoagulation with warfarin. PAROXYSMAL ATRIAL FIBRILLATION / FLUTTER Cardiology consulted. Receiving metoprolol and amiodarone. Continue anticoagulation with warfarin. CORONARY ARTERY DISEASE No anginal symptoms. Holding aspirin due to large ischemic stroke with risk for hemorrhagic transformation. Continue metoprolol and atorvastatin. CHRONIC SYSTOLIC CHF History of left ventricular systolic heart failure with LVEF Underlying ischemic heart disease. Compensated. Continue metoprolol succinate and losartan. LEFT FOOT INFECTION Wound Care and Ortho consulted. Increased drainage. C&S pending. Local care. Continue IV amp/sulbactam. DM TYPE 2 FBS today = 97. Continue insulin per protocol. HEMATURIA Occurred when receiving warfarin + enoxaparin. CT demonstrated bladder wall thickening. Check urine cytology. Should have cystoscopy when medical status permits. VTE PROPHYLAXIS On warfarin with therapeutic INR. DISPOSITION Anticipated return to [facility] for inpatient rehab. Primary Care follow-up with Dr. Emmanuel at [facility]. . Current Inpatient Medications: Current Inpatient Medications Medications (Trade) Dose Ordered Sig/Estee Route Start Time Stop Time Status Last Admin Dose Admin Acetaminophen (Tylenol Tab) 650 mg Q4H PRN PO 11/26/17 18:45 12/26/17 18:44 11/29/17 10:17 650 MG Nitroglycerin (Nitrostat Tab) 0.4 mg UD PRN SL 11/26/17 18:45 12/26/17 18:44 Polyethylene (Miralax Powder Packet) 17 gm DAILY PRN PO 11/26/17 18:45 12/26/17 18:44 Miscellaneous Information (Pharmacist Discharge Med Rec Consult) 1 ea UD PRN N/A 11/26/17 18:45 12/26/17 18:44 Insulin Aspart (novoLOG ASPART) SLIDING SCALE If C... ACHS SC 11/26/17 21:00 12/26/17 20:59 11/30/17 17:13 8 UNITS Glucose (Glucose 40% Gel) 15-30 GRAMS 15 GRAMS... UD PRN PO 11/26/17 19:15 12/26/17 19:14 Glucose (Glucose Chew Tab) 4-8 Tablets 4 Tabl... UD PRN PO 11/26/17 19:15 12/26/17 19:14 Dextrose (Dextrose 50% 50ML Syringe) 25-50ML 25ML FOR ... UD PRN IV 11/26/17 19:15 12/26/17 19:14 Glucagon (Glucagon Inj) 1 mg UD PRN SQ 11/26/17 19:15 12/26/17 19:14 Carbohydrates (Carbohydrates For Hypoglycemia) 15-30 GRAMS 15 grams if BSG 54-69... UD PRN PO 11/26/17 19:15 12/26/17 19:14 Cholecalciferol (Vitamin D Tab) 1,000 inter.unit DAILY PO 11/27/17 09:00 12/27/17 08:59 11/30/17 09:50 1,000 INTER.UNIT Folic Acid (Folvite Tab) 1 mg DAILY PO 11/27/17 09:00 12/27/17 08:59 11/30/17 09:53 1 MG Metoprolol Succinate (Toprol Xl Tab) 100 mg DAILY PO 11/27/17 09:00 12/27/17 08:59 11/30/17 09:51 100 MG Multivitamins (Multivitamin Tab) 1 tab DAILY PO 11/27/17 09:00 12/27/17 08:59 11/30/17 09:52 1 TAB Potassium Chloride (Klor-Con Tab) 20 meq BID PO 11/26/17 21:00 12/26/17 20:59 11/30/17 09:51 20 MEQ Thiamine HCl (Vitamin B-1 Tab) 100 mg DAILY PO 11/27/17 09:00 12/27/17 08:59 11/30/17 09:51 100 MG Ampicillin Sodium/ Sulbactam Sodium 3000 mg/Sodium Chloride 108 ml @ 200 mls/hr Q6H IV 11/26/17 22:00 12/06/17 21:59 11/30/17 15:51 200 MLS/HR Clotrimazole (Lotrimin 1% Crm) 1 appln BID EXT 11/27/17 09:00 12/10/17 20:00 11/30/17 09:30 1 APPLN Aspirin (Aspirin Chew) 81 mg DAILY PO 11/28/17 09:00 12/28/17 08:59 Future Hold 11/28/17 09:04 81 MG Glyburide (MICRONase TAB) 10 mg DAILY PO 11/28/17 09:00 12/28/17 08:59 11/30/17 09:52 10 MG Losartan Potassium (coZAAR TAB) 50 mg DAILY PO 11/28/17 09:00 12/28/17 08:59 11/30/17 09:51 50 MG Magnesium Chloride (Slow-Mag Tab) 64 mg DAILY PO 11/28/17 09:00 12/28/17 08:59 11/30/17 09:52 64 MG Insulin Glargine (Lantus Solostar Pen) 35 units HS SC 11/28/17 21:00 12/28/17 20:59 11/29/17 20:25 35 UNITS Miconazole Nitrate (Desenex Powder) 1 appln UD PRN EXT 11/28/17 20:00 12/28/17 19:59 11/29/17 08:56 1 APPLN Oxycodone HCl (Roxicodone Immediate Rel Tab) 5 mg Q6H PRN PO 11/29/17 12:30 12/13/17 12:29 11/29/17 13:41 5 MG Amiodarone HCl (Cordarone Tab) 200 mg BID PO 11/30/17 09:00 12/30/17 08:59 11/30/17 09:53 200 MG Warfarin Sodium (Coumadin Tab) 3 mg DAILY@16 PO 11/29/17 16:00 12/29/17 15:59 Future Hold 11/29/17 16:24 3 MG Atorvastatin Calcium (Lipitor Tab) 40 mg QAM PO 11/30/17 09:00 12/30/17 08:59 11/30/17 09:52 40 MG
[2017-12-01] VITALS (8 sets, daily range): BP systolic 94–120; BP diastolic 64–85; PULSE 91–116; TEMP 36.6–36.9; O2SAT 91–100; BMI 34.9
[2017-12-01] MEDS: AMPICILLIN/SULBACTAM SOD INJ 3,000 MG in SODIUM CHLORIDE 0.9% 100ML 100 ML IV SCH ×4 (05:38→21:23)
[2017-12-01 06:36] LABS: INR 2.6 (0.9-1.1)
[2017-12-01 07:25] LABS: HEMATOCRIT 36.3 % (42-52); HEMOGLOBIN 12.1 g/dL (14.0-18.0); MEAN CELL VOLUME 89.9 fL (80-100); MEAN CORPUSCULAR HGB CONC 33.3 g/dl (32-36); MEAN PLATELET VOLUME 9.9 fL (7.4-10.4); PLATELET COUNT 378 K/uL (130-400); RED CELL DISTRIBUTION WIDTH CV 14.4 % (11.5-14.5); RED CELL DISTRIBUTION WIDTH SD 46.5 fL (36.4-46.3); WHITE BLOOD COUNT 9.85 K/uL (4.8-10.8)
[2017-12-01 07:46] LABS: CALCIUM 8.3 mg/dl (8.5-10.1); CREATININE 1.58 mg/dl (0.60-1.40)
[2017-12-01] MEDS: ATORVASTATIN 40 MG TAB PO SCH (08:30)
[2017-12-01] MEDS: MAGNESIUM CHLORIDE 64MG DELAYED REL TAB PO SCH (08:31)
[2017-12-01] MEDS: POTASSIUM CHLORIDE 20 MEQ TABCR PO SCH ×2 (08:31→20:22)
[2017-12-01] MEDS: LOSARTAN POTASSIUM 50 MG TAB PO SCH (08:31)
[2017-12-01] MEDS: CHOLECALCIFEROL 1000 INTER.UNIT TAB PO SCH (08:31)
[2017-12-01] MEDS: AMIODARONE 200 MG TAB PO SCH ×2 (08:31→20:19)
[2017-12-01] MEDS: MULTIVITAMIN TAB PO SCH (08:32)
[2017-12-01] MEDS: METOPROLOL SUCC 50MG EXT REL TAB PO SCH (08:32)
[2017-12-01] MEDS: THIAMINE HCL 100 MG TAB PO SCH (08:32)
[2017-12-01] MEDS: CLOTRIMAZOLE 1% CR 15 GM TUBE EXT SCH ×2 (08:36→20:18)
[2017-12-01] MEDS: INSULIN ASPART 100 UNITS/ML 3 ML PEN SC SCH ×4 (08:40→20:54)
[2017-12-01 09:03] LABS: HEMOGLOBIN A1C 10.7 % (4.5-5.6)
--- NOTE | 2017-12-01 11:35 | Progress Note ---
Progress Note Date of Service Dec 01, 2017. Progress Note ID Consult Dictated #[id number] A/P: 1. left foot wound -Continue abx, can change to augmentin x 14 more days -Will plan to follow in wound center post d/c -Thank you
--- NOTE | 2017-12-01 11:37 | DIAGNOSTIC IMAGING REPORT ---
CHEST ONE VIEW PORTABLE CLINICAL HISTORY: hypoxia COMPARISON STUDY: 11/26/2017 FINDINGS: There are postsurgical changes of a midline sternotomy. The heart is enlarged. There is mild pulmonary vascular congestion. There is basilar atelectatic change. Trace pleural effusions are suspected.[ IMPRESSION: Cardiomegaly, mild pulmonary vascular congestion, and basilar atelectasis. Electronically signed by: Stanley Salas M.D. 12/01/2017 11:35 AM Dictated Date/Time: 12/01/2017 11:35 AM
[2017-12-01] MEDS ORDERED: FUROSEMIDE INJ 80 MG in SYRINGE 0 ML IV ONE (12:00)
[2017-12-01] MEDS ORDERED: POTASSIUM CHLORIDE 20 MEQ TABCR PO ONE (12:00)
--- NOTE | 2017-12-01 12:11 | INFECT. DISEASE CONSULTATION ---
DATE OF CONSULTATION: 12/01/2017 INFECTIOUS DISEASE CONSULT HISTORY OF PRESENT ILLNESS: This is a 67-year-old gentleman who was admitted from [facility] secondary to bleeding from a recent left foot wound. Per the H and P, he was initially admitted to the hospital on 11/14/2017 and was found to have rapid AFib, DKA, possible ST elevated ID and a gangrenous left foot wound. He was subsequently transferred to [facility] where he underwent a left forefoot I and D and a partial fifth toe resection for suspected osteomyelitis. He was also found per the H and P to have necrotizing fasciitis and had cultures that grew proteus. He was treated with IV antibiotics and subsequently discharged to [facility] from [facility] on Augmentin, which he completed on the . He states that he tolerated antibiotics well. He was noted to have some bleeding and was subsequently admitted to the hospital. He was seen by the wound care center. A culture was obtained on the and grew a coag negative staph only with no sensitivities. No additional micro is available. He does have a wound culture from the right foot which had proteus and E. coli previously but no left foot cultures are available. His blood cultures were obtained in the ER and are negative today. He has been afebrile since admission. He was placed on Unasyn and he remains on this. He is tolerating antibiotics well. He had a mild leukocytosis on admission which has resolved. He denies any pain in the foot. He states he is able to bear weight. He denies any additional bleeding. He does have plans to follow up with the wound center post-discharge from the hospital. He currently denies any chest pain, cough, shortness of breath, nausea, vomiting, diarrhea or abdominal pain. His remaining review of systems is reviewed and unremarkable except for as noted. FAMILY HISTORY: Noncontributory. 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 PAST SURGICAL HISTORY: As above. SOCIAL HISTORY: Negative for tobacco use or drug use. He has a history of alcohol use but has not recently had any alcohol secondary to admission to [facility]. ALLERGIES: INCLUDE JET INHIBITORS, PENICILLIN; however, he is tolerating Augmentin well and lisinopril. CURRENT MEDICATIONS: Coumadin, amiodarone, Lipitor, oxycodone, Lantus, Desenex powder, glyburide, Cozaar, magnesium, vitamin D, folic acid, Toprol-XL, multivitamins, Unasyn, Tylenol, MiraLax. PHYSICAL EXAMINATION: VITAL SIGNS: He is afebrile, pulse 95, respiratory rate 20, blood pressure 104/74, oxygen saturation is 99% on room air. GENERAL: He is awake, alert and oriented x3. He is in no acute distress. HEENT: Mucous membranes are moist. Extraocular muscles are intact. HEART: Without murmur. LUNGS: Clear bilaterally. ABDOMEN: Soft, nontender, nondistended. EXTREMITIES: There is no lower extremity edema. Examination of the left foot reveals dressing to be clean, dry and intact. There is no erythema, drainage or tenderness noted. LABORATORY STUDIES: CBC today, white blood cell count 9.8, hemoglobin 12.1, platelets 378. Chemistry panel: Sodium 137, potassium 4.0, chloride 103, bicarbonate 24, BUN 23, creatinine 1.5, glucose 98. UA is negative. Wound culture from the is growing coag negative staph. This is in a rare quantity and no sensitivities are pending. Blood cultures from the are negative. Chest x-ray in the ER was negative for pulmonary edema and consolidation. ASSESSMENT AND PLAN: Left foot wound. At this time, he can be continued on Augmentin. I would give minimal of 14 additional days. He does have plans to follow in the wound care center post-discharge and certainly can follow with infectious diseases at that time as well. Thank you for this consultation.
[2017-12-01] MEDS: OXYCODONE HCL IR 5 MG TAB (IMMEDIATE RELEASE) PO PRN (14:18)
--- NOTE | 2017-12-01 15:33 | Cardiology Follow-Up ---
Subjective General Date of Service: Dec 01, 2017. Chief Complaint: follow up cardiomyopathy, PAF, stroke Pt evaluation today including: conversation w/ patient, physical exam History of Present Illness The patient is a 67 year old male seen in cardiology follow-up. He is comfortable now he received a dose of Lasix approximately 3 hours ago. His INR is at goal at 2.6. Telemetry reveals stable sinus rhythm at around 99 bpm. Allergies Coded Allergies: JET Inhibitors (Verified Allergy, Unknown, 04/10/17) Penicillins (Verified Allergy, Unknown, RASH A CHILD recent tolerated Augmentin, 11/26/17) Lisinopril (Verified Adverse Reaction, Mild, RASH, 07/31/17) Social History Smoking Status: Never Smoker Hx Tobacco Use In Past Year?: No Hx Alcohol Use - Type And Amou: No (Past history of use.) Hx Substance Use - Type And Am: No Problem List Medical Problems: (1) Chest wall contusion Status: Acute (2) Elevated troponin Status: Acute (3) Hypotension Status: Acute (4) Lactic acidemia Status: Acute (5) Post-op bleeding Status: Acute (6) Right foot infection Status: Acute (7) Wound of foot Status: Acute Social History Problems: (1) DKA (diabetic ketoacidoses) Status: Acute Physical Exam Vital Signs Last Vital Signs Documentation Date Time Temp Pulse Resp B/P (MAP) Pulse Ox O2 Delivery O2 Flow Rate FiO2 12/01/17 10:49 36.7 95 20 104/74 (84) 99 Nasal Cannula 2.0 Physical Exam Constitutional: Level of Distress: NAD Ambulation: in wheelchair Neck: supple Lungs: Auscultation: no wheezing, no rales/crackles, no rhonchi Cardiovascular: Heart Auscultation: RRR, no murmurs, no rubs, no gallops Abdomen: Bowel Sounds: normal Inspection & Palpation: non-distended Extremities: no edema Neurologic: Gait & Station: pertinent finding (No focal deficits) Assessment and Plan Assessment and Plan Impression: 67-year-old male 1. Bleeding from recent left foot surgery site and abdominal Lovenox injection site -Resolved, hemoglobin stable 2. Recent debridement of the left fifth toe adjacent structures as described above in the setting of concern for osteomyelitis and necrotizing fasciitis, diabetic foot wound 3. Recent anterolateral infarction in the setting of acute sepsis illness 4. Compensated ischemic cardiomyopathy 5. Presumed cardio embolic stroke of new 4 centimeter acute/subacute infarct within the right occipital lobe probably 8 millimeter acute/sub acute infarct within the right frontal lobe in the setting of paroxysmal atrial fibrillation severe LV systolic dysfunction 6. Pseudo-aortic stenosis in the setting of LV systolic dysfunction versus moderate to severe aortic stenosis. 7. History of paroxysmal atrial fibrillation, with telemetry findings suggestive atrial flutter versus paroxysmal supraventricular tachycardia Plan: INR is 2.6 today. Will resume Coumadin at a lower dose 2 mg daily as already ordered by Dr. Leonardo. Infectious disease input noted and appreciated. Patient doing well after dose of furosemide today. Looking ahead, will likely need daily diuretic in the future. Laboratory Results Last 24 Hours Test 11/30/17 16:26 11/30/17 21:07 12/01/17 05:44 12/01/17 07:04 Bedside Glucose 161 mg/dl 122 mg/dl Prothrombin Time 26.5 SECONDS Prothromb Time International Ratio 2.6 White Blood Count 9.85 K/uL Red Blood Count 4.04 M/uL Hemoglobin 12.1 g/dL Hematocrit 36.3 % Mean Corpuscular Volume 89.9 fL Mean Corpuscular Hemoglobin 30.0 pg Mean Corpuscular Hemoglobin Concent 33.3 g/dl RDW Standard Deviation 46.5 fL RDW Coefficient of Variation 14.4 % Platelet Count 378 K/uL Mean Platelet Volume 9.9 fL Sodium Level 137 mmol/L Potassium Level 4.0 mmol/L Chloride Level 103 mmol/L Carbon Dioxide Level 24 mmol/L Anion Gap 10.0 mmol/L Blood Urea Nitrogen 23 mg/dl Creatinine 1.58 mg/dl Est Creatinine Clear Calc Drug Dose 54.5 ml/min Estimated GFR () 52.4 Estimated GFR (Non- 45.2 BUN/Creatinine Ratio 14.6 Random Glucose 62 mg/dl Estimated Average Glucose 260 mg/dl Hemoglobin A1c 10.7 % Calcium Level 8.3 mg/dl Test 12/01/17 07:22 12/01/17 10:57 Bedside Glucose 70 mg/dl 98 mg/dl
[2017-12-01] MEDS: WARFARIN SOD 2 MG TAB PO SCH (16:42)
--- NOTE | 2017-12-01 20:01 | Progress Note ---
Medicine Progress Note Date & Time of Visit: Dec 01, 2017 at 14:00 . Subjective CC: Follow-up visit for multiple problems. HPI: No new complaints. No fever. Denies foot pain. SOB today. No cough. No chest pain. Denies headache or focal neuro symptoms. ROS: General- no fever, no chills Resp- as noted above in HPI Cardiac- as noted above in HPI GI- no nausea, no vomiting; no diarrhea - no dysuria . Objective Last 8 Hrs Date Time Temp Pulse Resp B/P (MAP) Pulse Ox O2 Delivery O2 Flow Rate FiO2 12/01/17 19:01 36.8 91 20 104/71 (82) 100 Nasal Cannula 2.0 12/01/17 15:30 36.6 92 18 94/64 (74) 99 Nasal Cannula 2.0 Physical Exam: General- sitting in chair, no distress Lungs- bibasilar rales; no respiratory distress Cardiovascular- irregularly irregular; II/ systolic murmur LSB; no gallop appreciated; + JVD; no pretibial edema Abdomen- + bowel sounds, soft, nontender Extremities- no cyanosis; no calf tenderness; left foot bandaged Neuro- alert Skin- warm & dry . Laboratory Results: Last 24 Hours Test 11/30/17 21:07 12/01/17 05:44 12/01/17 07:04 12/01/17 07:22 Bedside Glucose 122 mg/dl 70 mg/dl Prothrombin Time 26.5 SECONDS Prothromb Time International Ratio 2.6 White Blood Count 9.85 K/uL Red Blood Count 4.04 M/uL Hemoglobin 12.1 g/dL Hematocrit 36.3 % Mean Corpuscular Volume 89.9 fL Mean Corpuscular Hemoglobin 30.0 pg Mean Corpuscular Hemoglobin Concent 33.3 g/dl RDW Standard Deviation 46.5 fL RDW Coefficient of Variation 14.4 % Platelet Count 378 K/uL Mean Platelet Volume 9.9 fL Sodium Level 137 mmol/L Potassium Level 4.0 mmol/L Chloride Level 103 mmol/L Carbon Dioxide Level 24 mmol/L Anion Gap 10.0 mmol/L Blood Urea Nitrogen 23 mg/dl Creatinine 1.58 mg/dl Est Creatinine Clear Calc Drug Dose 54.5 ml/min Estimated GFR () 52.4 Estimated GFR (Non- 45.2 BUN/Creatinine Ratio 14.6 Random Glucose 62 mg/dl Estimated Average Glucose 260 mg/dl Hemoglobin A1c 10.7 % Calcium Level 8.3 mg/dl Test 12/01/17 10:57 12/01/17 16:06 Bedside Glucose 98 mg/dl 119 mg/dl Assessment & Plan ISCHEMIC STROKES MRI demonstrated 4 cm acute / subacute infarct in right occipital lobe and 8 mm acute / subacute infarct in right frontal lobe. Neuro consulted. Probable cardioembolic strokes from underlying AF. PT / OT as tolerated. Continue anticoagulation with warfarin. PAROXYSMAL ATRIAL FIBRILLATION / FLUTTER Cardiology consulted. Receiving metoprolol and amiodarone. Continue anticoagulation with warfarin. CORONARY ARTERY DISEASE No anginal symptoms. Holding aspirin due to large ischemic stroke with risk for hemorrhagic transformation. Continue metoprolol and atorvastatin. CHRONIC SYSTOLIC CHF History of left ventricular systolic heart failure with LVEF 40-45% in 2016. Underlying ischemic heart disease. SOB today. Chest x-ray showed CHF. Acute on chronic left ventricular systolic heart failure. IV furosemide today. Continue metoprolol succinate and losartan. LEFT FOOT INFECTION Wound Care and Ortho consulted. Increased drainage. C&S growing few coag neg Staph. Local care. Continue IV amp/sulbactam. DM TYPE 2 FBS today = 70. Continue insulin per protocol. HEMATURIA Occurred when receiving warfarin + enoxaparin. CT demonstrated bladder wall thickening. Urine cytology negative for malignancy. Should have cystoscopy when medical status permits. VTE PROPHYLAXIS On warfarin with therapeutic INR. DISPOSITION Anticipated return to [facility] for inpatient rehab. Primary Care follow-up with Dr. Emmanuel at [facility]. . Current Inpatient Medications: Current Inpatient Medications Medications (Trade) Dose Ordered Sig/Estee Route Start Time Stop Time Status Last Admin Dose Admin Acetaminophen (Tylenol Tab) 650 mg Q4H PRN PO 11/26/17 18:45 12/26/17 18:44 11/29/17 10:17 650 MG Nitroglycerin (Nitrostat Tab) 0.4 mg UD PRN SL 11/26/17 18:45 12/26/17 18:44 Polyethylene (Miralax Powder Packet) 17 gm DAILY PRN PO 11/26/17 18:45 12/26/17 18:44 Miscellaneous Information (Pharmacist Discharge Med Rec Consult) 1 ea UD PRN N/A 11/26/17 18:45 12/26/17 18:44 Insulin Aspart (novoLOG ASPART) SLIDING SCALE If C... ACHS SC 11/26/17 21:00 12/26/17 20:59 12/01/17 17:51 7 UNITS Glucose (Glucose 40% Gel) 15-30 GRAMS 15 GRAMS... UD PRN PO 11/26/17 19:15 12/26/17 19:14 Glucose (Glucose Chew Tab) 4-8 Tablets 4 Tabl... UD PRN PO 11/26/17 19:15 12/26/17 19:14 Dextrose (Dextrose 50% 50ML Syringe) 25-50ML 25ML FOR ... UD PRN IV 11/26/17 19:15 12/26/17 19:14 Glucagon (Glucagon Inj) 1 mg UD PRN SQ 11/26/17 19:15 12/26/17 19:14 Carbohydrates (Carbohydrates For Hypoglycemia) 15-30 GRAMS 15 grams if BSG 54-69... UD PRN PO 11/26/17 19:15 12/26/17 19:14 Cholecalciferol (Vitamin D Tab) 1,000 inter.unit DAILY PO 11/27/17 09:00 12/27/17 08:59 12/01/17 08:31 1,000 INTER.UNIT Folic Acid (Folvite Tab) 1 mg DAILY PO 11/27/17 09:00 12/27/17 08:59 12/01/17 08:31 1 MG Metoprolol Succinate (Toprol Xl Tab) 100 mg DAILY PO 11/27/17 09:00 12/27/17 08:59 12/01/17 08:32 100 MG Multivitamins (Multivitamin Tab) 1 tab DAILY PO 11/27/17 09:00 12/27/17 08:59 12/01/17 08:32 1 TAB Potassium Chloride (Klor-Con Tab) 20 meq BID PO 11/26/17 21:00 12/26/17 20:59 12/01/17 08:31 20 MEQ Thiamine HCl (Vitamin B-1 Tab) 100 mg DAILY PO 11/27/17 09:00 12/27/17 08:59 12/01/17 08:32 100 MG Ampicillin Sodium/ Sulbactam Sodium 3000 mg/Sodium Chloride 108 ml @ 200 mls/hr Q6H IV 11/26/17 22:00 12/06/17 21:59 12/01/17 16:55 200 MLS/HR Clotrimazole (Lotrimin 1% Crm) 1 appln BID EXT 11/27/17 09:00 12/10/17 20:00 12/01/17 08:36 1 APPLN Aspirin (Aspirin Chew) 81 mg DAILY PO 11/28/17 09:00 12/28/17 08:59 Future Hold 11/28/17 09:04 81 MG Glyburide (MICRONase TAB) 10 mg DAILY PO 11/28/17 09:00 12/28/17 08:59 12/01/17 08:31 10 MG Losartan Potassium (coZAAR TAB) 50 mg DAILY PO 11/28/17 09:00 12/28/17 08:59 12/01/17 08:31 50 MG Magnesium Chloride (Slow-Mag Tab) 64 mg DAILY PO 11/28/17 09:00 12/28/17 08:59 12/01/17 08:31 64 MG Insulin Glargine (Lantus Solostar Pen) 35 units HS SC 11/28/17 21:00 12/28/17 20:59 11/30/17 21:15 35 UNITS Miconazole Nitrate (Desenex Powder) 1 appln UD PRN EXT 11/28/17 20:00 12/28/17 19:59 11/29/17 08:56 1 APPLN Oxycodone HCl (Roxicodone Immediate Rel Tab) 5 mg Q6H PRN PO 11/29/17 12:30 12/13/17 12:29 12/01/17 14:18 5 MG Amiodarone HCl (Cordarone Tab) 200 mg BID PO 11/30/17 09:00 12/30/17 08:59 12/01/17 08:31 200 MG Atorvastatin Calcium (Lipitor Tab) 40 mg QAM PO 11/30/17 09:00 12/30/17 08:59 12/01/17 08:30 40 MG Warfarin Sodium (Coumadin Tab) 2 mg DAILY@16 PO 12/01/17 16:00 12/31/17 15:59 12/01/17 16:42 2 MG Furosemide (Lasix Tab) 40 mg QAM PO 12/02/17 09:00 01/01/18 08:59
[2017-12-01] MEDS: INSULIN GLARGINE SOLOSTAR 100 UNITS/ML 3 ML PEN SC SCH (20:55)
[2017-12-02] VITALS (8 sets, daily range): BP systolic 91–129; BP diastolic 62–84; PULSE 82–94; TEMP 36.4–36.7; O2SAT 91–96
[2017-12-02] MEDS: AMPICILLIN/SULBACTAM SOD INJ 3,000 MG in SODIUM CHLORIDE 0.9% 100ML 100 ML IV SCH ×2 (04:09→09:53)
[2017-12-02] MEDS: INSULIN ASPART 100 UNITS/ML 3 ML PEN SC SCH ×4 (07:00→20:17)
[2017-12-02 07:30] LABS: INR 2.7 (0.9-1.1)
--- NOTE | 2017-12-02 07:30 | DIAGNOSTIC IMAGING REPORT ---
CHEST ONE VIEW PORTABLE CLINICAL HISTORY: CHF dyspnea COMPARISON STUDY: 12/01/2017 FINDINGS: Mildly progressive components of congestive heart failure. Moderate cardiomegaly. Increased prominence of pulmonary vasculature. IMPRESSION: Congestive heart failure mildly progressive from the prior study. The above report was generated using voice recognition software. It may contain grammatical, syntax or spelling errors. Electronically signed by: Ever Jovel M.D. 12/02/2017 7:28 AM Dictated Date/Time: 12/02/2017 7:28 AM
[2017-12-02] MEDS: THIAMINE HCL 100 MG TAB PO SCH (07:39)
[2017-12-02] MEDS: ATORVASTATIN 40 MG TAB PO SCH (07:39)
[2017-12-02] MEDS: AMIODARONE 200 MG TAB PO SCH ×2 (07:39→20:11)
[2017-12-02] MEDS: MAGNESIUM CHLORIDE 64MG DELAYED REL TAB PO SCH (07:39)
[2017-12-02] MEDS: CHOLECALCIFEROL 1000 INTER.UNIT TAB PO SCH (07:39)
[2017-12-02] MEDS: MULTIVITAMIN TAB PO SCH (07:39)
[2017-12-02] MEDS: POTASSIUM CHLORIDE 20 MEQ TABCR PO SCH ×2 (07:40→20:10)
[2017-12-02] MEDS: LOSARTAN POTASSIUM 50 MG TAB PO SCH (07:41)
[2017-12-02] MEDS: METOPROLOL SUCC 50MG EXT REL TAB PO SCH (07:41)
[2017-12-02] MEDS: CLOTRIMAZOLE 1% CR 15 GM TUBE EXT SCH ×2 (07:44→20:09)
[2017-12-02 07:55] LABS: CALCIUM 8.2 mg/dl (8.5-10.1); CREATININE 2.05 mg/dl (0.60-1.40); POTASSIUM 4.6 mmol/L (3.5-5.1)
[2017-12-02] MEDS ORDERED: FUROSEMIDE INJ 80 MG in SYRINGE 0 ML IV ONE (08:30)
[2017-12-02] MEDS ORDERED: FUROSEMIDE 40 MG TAB PO SCH (09:00)
--- NOTE | 2017-12-02 14:39 | Cardiology Follow-Up ---
Subjective General Date of Service: Dec 02, 2017. Chief Complaint: follow up cardiomyopathy, PAF, stroke Pt evaluation today including: conversation w/ patient, physical exam History of Present Illness The patient is a 67 year old male patient more tired today compared to 2 days ago. Telemetry reveals stable sinus rhythm with first-degree AV block in the range of 84 bpm. Heart rate trend has improved today. He is worsening lower extremity edema. He had absolutely no pretibial edema when I had initially assessed him at the time of my initial consultation. Chest x-ray reveals interstitial edema. He denies subjective shortness of breath. He received 40 mg of oral furosemide this morning Allergies Coded Allergies: JET Inhibitors (Verified Allergy, Unknown, 04/10/17) Penicillins (Verified Allergy, Unknown, RASH A CHILD recent tolerated Augmentin, 11/26/17) Lisinopril (Verified Adverse Reaction, Mild, RASH, 07/31/17) Social History Smoking Status: Never Smoker Hx Tobacco Use In Past Year?: No Hx Alcohol Use - Type And Amou: No (Past history of use.) Hx Substance Use - Type And Am: No Problem List Medical Problems: (1) Chest wall contusion Status: Acute (2) Elevated troponin Status: Acute (3) Hypotension Status: Acute (4) Lactic acidemia Status: Acute (5) Post-op bleeding Status: Acute (6) Right foot infection Status: Acute (7) Wound of foot Status: Acute Social History Problems: (1) DKA (diabetic ketoacidoses) Status: Acute Physical Exam Vital Signs Last Vital Signs Documentation Date Time Temp Pulse Resp B/P (MAP) Pulse Ox O2 Delivery O2 Flow Rate FiO2 12/02/17 12:39 36.5 84 16 91/62 (72) 94 Room Air 12/02/17 08:00 2.0 Physical Exam Constitutional: Level of Distress: NAD Ambulation: in wheelchair Neck: supple Lungs: Auscultation: no wheezing, no rales/crackles, no rhonchi Cardiovascular: Heart Auscultation: RRR, no murmurs, no rubs, no gallops Abdomen: Bowel Sounds: normal Inspection & Palpation: non-distended Extremities: pertinent finding (2+ lower extremity) Neurologic: Gait & Station: pertinent finding (No focal deficits) Assessment and Plan Assessment and Plan Impression: 67-year-old male 1. Volume overload, acute on chronic systolic heart failure, ischemic cardia myopathy 2. Moderate to severe aortic valve stenosis 3. Recent resection for necrotizing fasciitis of left fifth toe/foot 4. History of paroxysmal atrial fibrillation, paroxysmal supraventricular tachycardia versus atrial flutter, currently sinus rhythm, amiodarone initiated several days ago 5. Coagulopathy, improved Plan: INR is 2.7 today. Continue same dose of Coumadin Proceed with furosemide 40 mg plus IV albumin. Creatinine is trended up to 2, but he also appears volume overloaded. His serum albumin level is low. Repeat INR and chemistry panel tomorrow prior to redosing diuretic. Laboratory Results Last 24 Hours Test 12/01/17 16:06 12/01/17 20:37 12/02/17 06:49 12/02/17 07:30 Bedside Glucose 119 mg/dl 143 mg/dl 75 mg/dl Prothrombin Time 28.1 SECONDS Prothromb Time International Ratio 2.7 Sodium Level 136 mmol/L Potassium Level 4.6 mmol/L Chloride Level 104 mmol/L Carbon Dioxide Level 22 mmol/L Anion Gap 10.0 mmol/L Blood Urea Nitrogen 35 mg/dl Creatinine 2.05 mg/dl Est Creatinine Clear Calc Drug Dose 42.6 ml/min Estimated GFR () 38.3 Estimated GFR (Non- 33.0 BUN/Creatinine Ratio 17.2 Random Glucose 75 mg/dl Calcium Level 8.2 mg/dl Test 12/02/17 11:34 Bedside Glucose 97 mg/dl
[2017-12-02] MEDS ORDERED: ALBUMIN 25% 50 ML with FUROSEMIDE INJ 40 MG IV ONE ×2 (15:00)
--- NOTE | 2017-12-02 15:16 | Progress Note ---
Subjective Date of Service: Dec 02, 2017. Subjective Pt evaluation today including: conversation w/ patient, physical exam, chart review, lab review pt seen in followup, transitioned to Augmentin, tolerating well. no f/c. no abd pain, no n/v/d. oob to chair on my exam. no bleeding dressing intact. all remaining ros reviewed and are negative. Problem List Medical Problems: (1) Chest wall contusion Status: Acute (2) Elevated troponin Status: Acute (3) Hypotension Status: Acute (4) Lactic acidemia Status: Acute (5) Post-op bleeding Status: Acute (6) Right foot infection Status: Acute (7) Wound of foot Status: Acute Social History Problems: (1) DKA (diabetic ketoacidoses) Status: Acute Objective Vital Signs Date Time Temp Pulse Resp B/P (MAP) Pulse Ox O2 Delivery O2 Flow Rate FiO2 12/02/17 12:39 36.5 84 16 91/62 (72) 94 Room Air 12/02/17 08:00 91 Room Air 2.0 12/02/17 07:54 36.7 93 18 112/83 (93) 91 Room Air 12/02/17 03:43 36.4 94 22 110/78 (89) 95 Room Air 12/01/17 22:56 36.6 92 18 100/71 (81) 95 Room Air 12/01/17 20:00 100 Nasal Cannula 2.0 12/01/17 19:01 36.8 91 20 104/71 (82) 100 Nasal Cannula 2.0 12/01/17 15:30 36.6 92 18 94/64 (74) 99 Nasal Cannula 2.0 Physical Exam General Appearance: WD/WN, no apparent distress Eyes: normal inspection, EOMI Neck: supple Respiratory/Chest: lungs clear, normal breath sounds, no respiratory distress Cardiovascular: regular rate, rhythm, no edema Abdomen: soft Extremities: non-tender, no pedal edema Neurologic/Psychiatric: alert, oriented x 3 Skin: normal color Comments: dressing c/d/i Laboratory Results Item Value Date Time Blood Culture - Final Complete 11/26/172204 Blood NO GROWTH Blood Culture - Final Complete 11/26/172202 Blood NO GROWTH Gram Stain - Final Resulted 11/29/17 0950 Ulcer Foot Left Gram Stain - Final Resulted 11/29/17 0950 Ulcer Foot Left Last 24 Hours Test 12/01/17 16:06 12/01/17 20:37 12/02/17 06:49 12/02/17 07:30 Bedside Glucose 119 mg/dl 143 mg/dl 75 mg/dl Prothrombin Time 28.1 SECONDS Prothromb Time International Ratio 2.7 Sodium Level 136 mmol/L Potassium Level 4.6 mmol/L Chloride Level 104 mmol/L Carbon Dioxide Level 22 mmol/L Anion Gap 10.0 mmol/L Blood Urea Nitrogen 35 mg/dl Creatinine 2.05 mg/dl Est Creatinine Clear Calc Drug Dose 42.6 ml/min Estimated GFR () 38.3 Estimated GFR (Non- 33.0 BUN/Creatinine Ratio 17.2 Random Glucose 75 mg/dl Calcium Level 8.2 mg/dl Test 12/02/17 11:34 Bedside Glucose 97 mg/dl Assessment and Plan (1) Wound of foot Assessment & Plan: continue po augmentin x 14 days.
[2017-12-02] MEDS: WARFARIN SOD 2 MG TAB PO SCH (16:33)
[2017-12-02] MEDS: AMOXICILLIN/CLAVULANATE TAB 875 MG TAB PO SCH (16:34)
[2017-12-02] MEDS ORDERED: PROCHLORPERAZINE INJ 5 MG in SYRINGE 4 ML IV PRN (19:45)
[2017-12-02] MEDS: INSULIN GLARGINE SOLOSTAR 100 UNITS/ML 3 ML PEN SC SCH (20:16)
--- NOTE | 2017-12-02 21:44 | Progress Note ---
Medicine Progress Note Date & Time of Visit: Dec 02, 2017 . Subjective CC: Follow-up visit for multiple problems. HPI: No new complaints. No fever. Denies foot pain. No cough or SOB. No chest pain. ROS: General- no fever, no chills Resp- as noted above in HPI Cardiac- as noted above in HPI GI- no nausea, no vomiting; no diarrhea - urinary urgency, no dysuria . Objective Last 8 Hrs Date Time Temp Pulse Resp B/P (MAP) Pulse Ox O2 Delivery O2 Flow Rate FiO2 12/02/17 19:49 36.6 82 20 100/64 (76) 91 Nasal Cannula 2.0 12/02/17 15:28 36.4 84 17 129/84 (99) 95 Room Air Physical Exam: General- lying in bed, no distress Lungs- few bibasilar rales; no respiratory distress Cardiovascular- irregularly irregular; II/ systolic murmur LSB; no gallop appreciated; + JVD; 1+ pretibial edema Abdomen- + bowel sounds, soft, nontender Extremities- no cyanosis; no calf tenderness; left foot bandaged Neuro- alert Skin- warm & dry . Laboratory Results: Last 24 Hours Test 12/02/17 06:49 12/02/17 07:30 12/02/17 11:34 12/02/17 16:28 Prothrombin Time 28.1 SECONDS Prothromb Time International Ratio 2.7 Sodium Level 136 mmol/L Potassium Level 4.6 mmol/L Chloride Level 104 mmol/L Carbon Dioxide Level 22 mmol/L Anion Gap 10.0 mmol/L Blood Urea Nitrogen 35 mg/dl Creatinine 2.05 mg/dl Est Creatinine Clear Calc Drug Dose 42.6 ml/min Estimated GFR () 38.3 Estimated GFR (Non- 33.0 BUN/Creatinine Ratio 17.2 Random Glucose 75 mg/dl Calcium Level 8.2 mg/dl Bedside Glucose 75 mg/dl 97 mg/dl 66 mg/dl Test 12/02/17 16:29 12/02/17 19:54 Bedside Glucose 64 mg/dl 204 mg/dl Assessment & Plan ISCHEMIC STROKES MRI demonstrated 4 cm acute / subacute infarct in right occipital lobe and 8 mm acute / subacute infarct in right frontal lobe. Neuro consulted. Probable cardioembolic strokes from underlying AF. PT / OT as tolerated. Continue anticoagulation with warfarin. INR today = 2.7. PAROXYSMAL ATRIAL FIBRILLATION / FLUTTER Cardiology consulted. Receiving metoprolol and amiodarone. Continue anticoagulation with warfarin. CORONARY ARTERY DISEASE No anginal symptoms. Holding aspirin due to large ischemic stroke with risk for hemorrhagic transformation. Continue metoprolol and atorvastatin. CHRONIC SYSTOLIC CHF History of left ventricular systolic heart failure with LVEF 40-45% in 2016. Underlying ischemic heart disease. Chest x-rays yesterday and today showed CHF. Acute on chronic left ventricular systolic heart failure. Titrate diuretics. Continue metoprolol succinate and losartan. CKD Creatinine today = 2.05. Follow. HEMATURIA Occurred when receiving warfarin + enoxaparin. CT demonstrated bladder wall thickening. Urine cytology negative for malignancy. Should have cystoscopy when medical status permits. DM TYPE 2 FBS today = 75. Continue insulin per protocol. LEFT FOOT INFECTION Wound Care and Ortho consulted. Increased drainage. C&S growing few coag neg Staph. Local care. Transitioned from IV amp/sulbactam to oral therapy with amoxicillin / clavulanic acid. VTE PROPHYLAXIS On warfarin with therapeutic INR. DISPOSITION Anticipated return to [facility] for inpatient rehab. Primary Care follow-up with Dr. Emmanuel at [facility]. . Current Inpatient Medications: Current Inpatient Medications Medications (Trade) Dose Ordered Sig/Estee Route Start Time Stop Time Status Last Admin Dose Admin Acetaminophen (Tylenol Tab) 650 mg Q4H PRN PO 11/26/17 18:45 12/26/17 18:44 11/29/17 10:17 650 MG Nitroglycerin (Nitrostat Tab) 0.4 mg UD PRN SL 11/26/17 18:45 12/26/17 18:44 Polyethylene (Miralax Powder Packet) 17 gm DAILY PRN PO 11/26/17 18:45 12/26/17 18:44 Insulin Aspart (novoLOG ASPART) SLIDING SCALE If C... ACHS SC 11/26/17 21:00 12/26/17 20:59 12/02/17 20:17 3 UNITS Glucose (Glucose 40% Gel) 15-30 GRAMS 15 GRAMS... UD PRN PO 11/26/17 19:15 12/26/17 19:14 Glucose (Glucose Chew Tab) 4-8 Tablets 4 Tabl... UD PRN PO 11/26/17 19:15 12/26/17 19:14 Dextrose (Dextrose 50% 50ML Syringe) 25-50ML 25ML FOR ... UD PRN IV 11/26/17 19:15 12/26/17 19:14 Glucagon (Glucagon Inj) 1 mg UD PRN SQ 11/26/17 19:15 12/26/17 19:14 Carbohydrates (Carbohydrates For Hypoglycemia) 15-30 GRAMS 15 grams if BSG 54-69... UD PRN PO 11/26/17 19:15 12/26/17 19:14 Cholecalciferol (Vitamin D Tab) 1,000 inter.unit DAILY PO 11/27/17 09:00 12/27/17 08:59 12/02/17 07:39 1,000 INTER.UNIT Folic Acid (Folvite Tab) 1 mg DAILY PO 11/27/17 09:00 12/27/17 08:59 12/02/17 07:41 1 MG Metoprolol Succinate (Toprol Xl Tab) 100 mg DAILY PO 11/27/17 09:00 12/27/17 08:59 12/02/17 07:41 100 MG Multivitamins (Multivitamin Tab) 1 tab DAILY PO 11/27/17 09:00 12/27/17 08:59 12/02/17 07:39 1 TAB Potassium Chloride (Klor-Con Tab) 20 meq BID PO 11/26/17 21:00 12/26/17 20:59 12/02/17 20:10 20 MEQ Thiamine HCl (Vitamin B-1 Tab) 100 mg DAILY PO 11/27/17 09:00 12/27/17 08:59 12/02/17 07:39 100 MG Clotrimazole (Lotrimin 1% Crm) 1 appln BID EXT 11/27/17 09:00 12/10/17 20:00 12/02/17 20:09 1 APPLN Aspirin (Aspirin Chew) 81 mg DAILY PO 11/28/17 09:00 12/28/17 08:59 Future hold 11/28/17 09:04 81 MG Glyburide (MICRONase TAB) 10 mg DAILY PO 11/28/17 09:00 12/28/17 08:59 12/02/17 07:40 10 MG Losartan Potassium (coZAAR TAB) 50 mg DAILY PO 11/28/17 09:00 12/28/17 08:59 12/02/17 07:41 50 MG Magnesium Chloride (Slow-Mag Tab) 64 mg DAILY PO 11/28/17 09:00 12/28/17 08:59 12/02/17 07:39 64 MG Insulin Glargine (Lantus Solostar Pen) 35 units HS SC 11/28/17 21:00 12/28/17 20:59 12/02/17 20:16 35 UNITS Miconazole Nitrate (Desenex Powder) 1 appln UD PRN EXT 11/28/17 20:00 12/28/17 19:59 11/29/17 08:56 1 APPLN Oxycodone HCl (Roxicodone Immediate Rel Tab) 5 mg Q6H PRN PO 11/29/17 12:30 12/13/17 12:29 12/01/17 14:18 5 MG Amiodarone HCl (Cordarone Tab) 200 mg BID PO 11/30/17 09:00 12/30/17 08:59 12/02/17 20:11 200 MG Atorvastatin Calcium (Lipitor Tab) 40 mg QAM PO 11/30/17 09:00 12/30/17 08:59 12/02/17 07:39 40 MG Warfarin Sodium (Coumadin Tab) 2 mg DAILY@16 PO 12/01/17 16:00 12/31/17 15:59 12/02/17 16:33 2 MG Amoxicillin/ Clavulanate Potassium (Augmentin Tab) 875 mg BIDM PO 12/02/17 16:45 12/12/17 16:44 12/02/17 16:34 875 MG Prochlorperazine Edisylate 5 mg/ Syringe 5 ml @ 5 mls/min Q6H PRN IV 12/02/17 19:45 01/01/18 19:44
[2017-12-03] VITALS (8 sets, daily range): BP systolic 88–138; BP diastolic 65–93; PULSE 67–90; TEMP 36.4–36.9; O2SAT 91–99; BMI 36.0
[2017-12-03] MEDS: INSULIN ASPART 100 UNITS/ML 3 ML PEN SC SCH ×4 (07:00→21:00)
[2017-12-03 07:01] LABS: INR 2.8 (0.9-1.1)
[2017-12-03 07:23] LABS: CALCIUM 8.3 mg/dl (8.5-10.1); CREATININE 2.28 mg/dl (0.60-1.40); POTASSIUM 4.1 mmol/L (3.5-5.1)
[2017-12-03] MEDS: LOSARTAN POTASSIUM 50 MG TAB PO SCH (07:36)
[2017-12-03] MEDS: ATORVASTATIN 40 MG TAB PO SCH (07:36)
[2017-12-03] MEDS: METOPROLOL SUCC 50MG EXT REL TAB PO SCH (07:37)
[2017-12-03] MEDS: MAGNESIUM CHLORIDE 64MG DELAYED REL TAB PO SCH (07:37)
[2017-12-03] MEDS: MULTIVITAMIN TAB PO SCH (07:37)
[2017-12-03] MEDS: AMIODARONE 200 MG TAB PO SCH ×2 (07:37→21:33)
[2017-12-03] MEDS: THIAMINE HCL 100 MG TAB PO SCH (07:37)
[2017-12-03] MEDS: CHOLECALCIFEROL 1000 INTER.UNIT TAB PO SCH (07:38)
[2017-12-03] MEDS: AMOXICILLIN/CLAVULANATE TAB 875 MG TAB PO SCH ×2 (07:38→16:40)
[2017-12-03] MEDS: CLOTRIMAZOLE 1% CR 15 GM TUBE EXT SCH ×2 (07:38→21:37)
[2017-12-03] MEDS: ASPIRIN 81 MG CHEW PO SCH (07:40)
[2017-12-03] MEDS: POTASSIUM CHLORIDE 20 MEQ TABCR PO SCH ×2 (07:42→21:34)
[2017-12-03] MEDS: CARBOHYDRATES FOR HYPOGLYCEMIA PO PRN (10:58)
--- NOTE | 2017-12-03 12:06 | Cardiology Follow-Up ---
Subjective General Date of Service: Dec 03, 2017. Chief Complaint: follow up cardiomyopathy, PAF, stroke Pt evaluation today including: conversation w/ patient, physical exam History of Present Illness The patient is a 67 year old male seen in follow up. Pt feeling tired today. Recently had episode of hypotension in the chair and moving him back to bed. EKG requested. Allergies Coded Allergies: JET Inhibitors (Verified Allergy, Unknown, 04/10/17) Penicillins (Verified Allergy, Unknown, RASH A CHILD recent tolerated Augmentin, 11/26/17) Lisinopril (Verified Adverse Reaction, Mild, RASH, 07/31/17) Social History Smoking Status: Never Smoker Hx Tobacco Use In Past Year?: No Hx Alcohol Use - Type And Amou: No (Past history of use.) Hx Substance Use - Type And Am: No Problem List Medical Problems: (1) Chest wall contusion Status: Acute (2) Elevated troponin Status: Acute (3) Hypotension Status: Acute (4) Lactic acidemia Status: Acute (5) Post-op bleeding Status: Acute (6) Right foot infection Status: Acute (7) Wound of foot Status: Acute Social History Problems: (1) DKA (diabetic ketoacidoses) Status: Acute Physical Exam Vital Signs Last Vital Signs Documentation Date Time Temp Pulse Resp B/P (MAP) Pulse Ox O2 Delivery O2 Flow Rate FiO2 12/03/17 11:49 36.4 75 18 94/69 (77) 99 Nasal Cannula 2.0 Physical Exam Constitutional: Level of Distress: NAD Ambulation: in wheelchair Neck: supple Lungs: Auscultation: no wheezing, no rales/crackles, no rhonchi Cardiovascular: Heart Auscultation: RRR, no murmurs, no rubs, no gallops Abdomen: Bowel Sounds: normal Inspection & Palpation: non-distended Extremities: pertinent finding (2+ lower extremity) Neurologic: Gait & Station: pertinent finding (No focal deficits) Assessment and Plan Assessment and Plan Creatinine of 1.58 --> 2.05 -->2.28 mg/dl Impression: 67-year-old male 1. Volume overload, acute on chronic systolic heart failure, ischemic cardiomyopathy 2. Moderate to severe aortic valve stenosis 3. Recent resection for necrotizing fasciitis of left fifth toe/foot 4. History of paroxysmal atrial fibrillation, paroxysmal supraventricular tachycardia versus atrial flutter, currently sinus rhythm, amiodarone initiated several days ago 5. Coagulopathy, improved Plan: INR is 2.8 today. Continue same dose of Coumadin Received furosemide and albumin yesterday, with no significant improvement in his lower extremity edema, however her creatinine has trended up and blood pressure is trended down. Hold off on further diuretics at present. May be intravascularly volume depleted. I plan to follow-up on his EKG that was just requested by Dr. Leonardo. Laboratory Results Last 24 Hours Test 12/02/17 16:28 12/02/17 16:29 12/02/17 19:54 12/03/17 06:19 Bedside Glucose 66 mg/dl 64 mg/dl 204 mg/dl Prothrombin Time 28.8 SECONDS Prothromb Time International Ratio 2.8 Sodium Level 135 mmol/L Potassium Level 4.1 mmol/L Chloride Level 103 mmol/L Carbon Dioxide Level 21 mmol/L Anion Gap 11.0 mmol/L Blood Urea Nitrogen 37 mg/dl Creatinine 2.28 mg/dl Est Creatinine Clear Calc Drug Dose 38.4 ml/min Estimated GFR () 33.6 Estimated GFR (Non- 29.0 BUN/Creatinine Ratio 16.4 Random Glucose 56 mg/dl Calcium Level 8.3 mg/dl Test 12/03/17 07:29 12/03/17 07:30 12/03/17 11:06 Bedside Glucose 57 mg/dl 61 mg/dl 94 mg/dl
--- NOTE | 2017-12-03 14:51 | Progress Note ---
Subjective Date of Service: Dec 03, 2017. Subjective afebrile. tolerating abx. no new labs. blood cultures negative and final, no new micro. Problem List Medical Problems: (1) Chest wall contusion Status: Acute (2) Elevated troponin Status: Acute (3) Hypotension Status: Acute (4) Lactic acidemia Status: Acute (5) Post-op bleeding Status: Acute (6) Right foot infection Status: Acute (7) Wound of foot Status: Acute Social History Problems: (1) DKA (diabetic ketoacidoses) Status: Acute Objective Vital Signs Date Time Temp Pulse Resp B/P (MAP) Pulse Ox O2 Delivery O2 Flow Rate FiO2 12/03/17 12:50 101/72 (82) 96 Nasal Cannula 2.0 12/03/17 12:50 72 88/68 (75) 96 12/03/17 11:49 36.4 75 18 94/69 (77) 99 Nasal Cannula 2.0 12/03/17 11:47 78 22 97/70 (79) 98 Room Air 104/74 (84) 12/03/17 08:00 91 Nasal Cannula 2.0 12/03/17 07:41 36.9 90 18 138/93 (108) 94 Nasal Cannula 12/03/17 04:02 36.7 87 18 94/73 (80) 98 Nasal Cannula 2.0 12/02/17 23:09 36.7 84 18 102/72 (82) 92 Room Air 12/02/17 20:00 96 Nasal Cannula 2.0 12/02/17 19:49 36.6 82 20 100/64 (76) 91 Nasal Cannula 2.0 12/02/17 15:28 36.4 84 17 129/84 (99) 95 Room Air Laboratory Results Item Value Date Time Blood Culture - Final Complete 11/26/172204 Blood NO GROWTH Blood Culture - Final Complete 11/26/172202 Blood NO GROWTH Last 24 Hours Test 12/02/17 16:28 12/02/17 16:29 12/02/17 19:54 12/03/17 06:19 Bedside Glucose 66 mg/dl 64 mg/dl 204 mg/dl Prothrombin Time 28.8 SECONDS Prothromb Time International Ratio 2.8 Sodium Level 135 mmol/L Potassium Level 4.1 mmol/L Chloride Level 103 mmol/L Carbon Dioxide Level 21 mmol/L Anion Gap 11.0 mmol/L Blood Urea Nitrogen 37 mg/dl Creatinine 2.28 mg/dl Est Creatinine Clear Calc Drug Dose 38.4 ml/min Estimated GFR () 33.6 Estimated GFR (Non- 29.0 BUN/Creatinine Ratio 16.4 Random Glucose 56 mg/dl Calcium Level 8.3 mg/dl Test 12/03/17 07:29 12/03/17 07:30 12/03/17 11:06 Bedside Glucose 57 mg/dl 61 mg/dl 94 mg/dl Assessment and Plan (1) Wound of foot Assessment & Plan: continue po augmentin x 14 days.
[2017-12-03] MEDS: WARFARIN SOD 2 MG TAB PO SCH (16:40)
[2017-12-03] MEDS: INSULIN GLARGINE SOLOSTAR 100 UNITS/ML 3 ML PEN SC SCH (21:39)
--- NOTE | 2017-12-03 23:42 | Progress Note ---
Medicine Progress Note Date & Time of Visit: Dec 03, 2017 at 13:20 . Subjective CC: Follow-up visit for multiple problems. HPI: Episode of weakness and diaphoresis this morning while sitting in chair. BP at the time was low. Placed back in bed and felt better. No chest pain. No cough. Experiencing orthopnea. Persistent dependent edema. No fever. Denies foot pain. ROS: General- no fever, no chills Resp- as noted above in HPI Cardiac- as noted above in HPI GI- no nausea, no vomiting; no diarrhea - urinary urgency, no dysuria . Objective Last 8 Hrs Date Time Temp Pulse Resp B/P (MAP) Pulse Ox O2 Delivery O2 Flow Rate FiO2 12/03/17 20:00 Room Air 12/03/17 19:20 36.8 77 18 93/65 (74) 93 Room Air Physical Exam: General- lying in bed, no distress Lungs- bibasilar rales; no respiratory distress Cardiovascular- irregularly irregular; II/ systolic murmur LSB; no gallop appreciated; + JVD; 2+ pretibial edema Abdomen- + bowel sounds, soft, nontender Extremities- no cyanosis; no calf tenderness; left foot wound clean, less drainage, no surrounding erythema Neuro- alert Skin- warm & dry . Laboratory Results: Last 24 Hours Test 12/03/17 06:19 12/03/17 07:29 12/03/17 07:30 12/03/17 11:06 Prothrombin Time 28.8 SECONDS Prothromb Time International Ratio 2.8 Sodium Level 135 mmol/L Potassium Level 4.1 mmol/L Chloride Level 103 mmol/L Carbon Dioxide Level 21 mmol/L Anion Gap 11.0 mmol/L Blood Urea Nitrogen 37 mg/dl Creatinine 2.28 mg/dl Est Creatinine Clear Calc Drug Dose 38.4 ml/min Estimated GFR () 33.6 Estimated GFR (Non- 29.0 BUN/Creatinine Ratio 16.4 Random Glucose 56 mg/dl Calcium Level 8.3 mg/dl Bedside Glucose 57 mg/dl 61 mg/dl 94 mg/dl Test 12/03/17 16:28 12/03/17 20:35 Bedside Glucose 129 mg/dl 91 mg/dl Assessment & Plan ISCHEMIC STROKES MRI demonstrated 4 cm acute / subacute infarct in right occipital lobe and 8 mm acute / subacute infarct in right frontal lobe. Neuro consulted. Probable cardioembolic strokes from underlying AF. PT / OT as tolerated. Continue anticoagulation with warfarin. INR today = 2.8. PAROXYSMAL ATRIAL FIBRILLATION / FLUTTER Cardiology consulted. Receiving metoprolol and amiodarone. Continue anticoagulation with warfarin. CORONARY ARTERY DISEASE No anginal symptoms. Holding aspirin due to large ischemic stroke with risk for hemorrhagic transformation. Continue metoprolol and atorvastatin. CHRONIC SYSTOLIC CHF History of left ventricular systolic heart failure with LVEF 40-45% in 2016. Underlying ischemic heart disease. Chest x-rays have demonstrated CHF. Acute on chronic left ventricular systolic heart failure. Diuretics as tolerated, but need to watch for orthostasis and worsening renal function. Continue metoprolol succinate and losartan. CKD Creatinine today = 2.28. Follow. HEMATURIA Occurred when receiving warfarin + enoxaparin. CT demonstrated bladder wall thickening. Urine cytology negative for malignancy. Should have cystoscopy when medical status permits. DM TYPE 2 Not well-controlled. Hgb A1C = 10.7. Lantus / NovoLog per protocol FBS today = 57. Lantus dose decreased. HS snack. LEFT FOOT INFECTION Wound Care and Ortho consulted. Increased drainage. C&S growing few coag neg Staph. Local care. Transitioned from IV amp/sulbactam to oral therapy with amoxicillin / clavulanic acid. VTE PROPHYLAXIS On warfarin with therapeutic INR. DISPOSITION Anticipated return to [facility] for inpatient rehab. Primary Care follow-up with Dr. Emmanuel at [facility]. . Current Inpatient Medications: Current Inpatient Medications Medications (Trade) Dose Ordered Sig/Estee Route Start Time Stop Time Status Last Admin Dose Admin Acetaminophen (Tylenol Tab) 650 mg Q4H PRN PO 11/26/17 18:45 12/26/17 18:44 11/29/17 10:17 650 MG Nitroglycerin (Nitrostat Tab) 0.4 mg UD PRN SL 11/26/17 18:45 12/26/17 18:44 Polyethylene (Miralax Powder Packet) 17 gm DAILY PRN PO 11/26/17 18:45 12/26/17 18:44 Insulin Aspart (novoLOG ASPART) SLIDING SCALE If C... ACHS SC 11/26/17 21:00 12/26/17 20:59 12/02/17 20:17 3 UNITS Glucose (Glucose 40% Gel) 15-30 GRAMS 15 GRAMS... UD PRN PO 11/26/17 19:15 12/26/17 19:14 Glucose (Glucose Chew Tab) 4-8 Tablets 4 Tabl... UD PRN PO 11/26/17 19:15 12/26/17 19:14 Dextrose (Dextrose 50% 50ML Syringe) 25-50ML 25ML FOR ... UD PRN IV 11/26/17 19:15 12/26/17 19:14 Glucagon (Glucagon Inj) 1 mg UD PRN SQ 11/26/17 19:15 12/26/17 19:14 Carbohydrates (Carbohydrates For Hypoglycemia) 15-30 GRAMS 15 grams if BSG 54-69... UD PRN PO 11/26/17 19:15 12/26/17 19:14 12/03/17 10:58 15 GM Cholecalciferol (Vitamin D Tab) 1,000 inter.unit DAILY PO 11/27/17 09:00 12/27/17 08:59 12/03/17 07:38 1,000 INTER.UNIT Folic Acid (Folvite Tab) 1 mg DAILY PO 11/27/17 09:00 12/27/17 08:59 12/03/17 07:37 1 MG Metoprolol Succinate (Toprol Xl Tab) 100 mg DAILY PO 11/27/17 09:00 12/27/17 08:59 12/03/17 07:37 100 MG Multivitamins (Multivitamin Tab) 1 tab DAILY PO 11/27/17 09:00 12/27/17 08:59 12/03/17 07:37 1 TAB Potassium Chloride (Klor-Con Tab) 20 meq BID PO 11/26/17 21:00 12/26/17 20:59 12/03/17 21:34 20 MEQ Thiamine HCl (Vitamin B-1 Tab) 100 mg DAILY PO 11/27/17 09:00 12/27/17 08:59 12/03/17 07:37 100 MG Clotrimazole (Lotrimin 1% Crm) 1 appln BID EXT 11/27/17 09:00 12/10/17 20:00 12/03/17 21:37 1 APPLN Aspirin (Aspirin Chew) 81 mg DAILY PO 11/28/17 09:00 12/28/17 08:59 Future hold 12/03/17 07:40 81 MG Glyburide (MICRONase TAB) 10 mg DAILY PO 11/28/17 09:00 12/28/17 08:59 12/03/17 07:41 10 MG Losartan Potassium (coZAAR TAB) 50 mg DAILY PO 11/28/17 09:00 12/28/17 08:59 12/03/17 07:36 50 MG Magnesium Chloride (Slow-Mag Tab) 64 mg DAILY PO 11/28/17 09:00 12/28/17 08:59 12/03/17 07:37 64 MG Miconazole Nitrate (Desenex Powder) 1 appln UD PRN EXT 11/28/17 20:00 12/28/17 19:59 11/29/17 08:56 1 APPLN Oxycodone HCl (Roxicodone Immediate Rel Tab) 5 mg Q6H PRN PO 11/29/17 12:30 12/13/17 12:29 12/01/17 14:18 5 MG Amiodarone HCl (Cordarone Tab) 200 mg BID PO 11/30/17 09:00 12/30/17 08:59 12/03/17 21:33 200 MG Atorvastatin Calcium (Lipitor Tab) 40 mg QAM PO 11/30/17 09:00 12/30/17 08:59 12/03/17 07:36 40 MG Warfarin Sodium (Coumadin Tab) 2 mg DAILY@16 PO 12/01/17 16:00 12/31/17 15:59 12/03/17 16:40 2 MG Amoxicillin/ Clavulanate Potassium (Augmentin Tab) 875 mg BIDM PO 12/02/17 16:45 12/12/17 16:44 12/03/17 16:40 875 MG Prochlorperazine Edisylate 5 mg/ Syringe 5 ml @ 5 mls/min Q6H PRN IV 12/02/17 19:45 01/01/18 19:44 Insulin Glargine (Lantus Solostar Pen) 24 units HS SC 12/03/17 21:00 12/28/17 20:59 12/03/17 21:39 24 UNITS
[2017-12-04] VITALS (9 sets, daily range): BP systolic 87–127; BP diastolic 54–87; PULSE 73–85; TEMP 36–36.9; O2SAT 94–100; Ht 172.7 cm; Wt 88.7 kg
[2017-12-04] MEDS: INSULIN ASPART 100 UNITS/ML 3 ML PEN SC SCH ×4 (07:00→20:46)
[2017-12-04] MEDS: CARBOHYDRATES FOR HYPOGLYCEMIA PO PRN ×2 (07:43→16:39)
[2017-12-04] MEDS: AMOXICILLIN/CLAVULANATE TAB 875 MG TAB PO SCH ×2 (07:49→17:20)
[2017-12-04] MEDS: ATORVASTATIN 40 MG TAB PO SCH (07:50)
[2017-12-04] MEDS: MAGNESIUM CHLORIDE 64MG DELAYED REL TAB PO SCH (07:50)
[2017-12-04] MEDS: CHOLECALCIFEROL 1000 INTER.UNIT TAB PO SCH (07:50)
[2017-12-04] MEDS: AMIODARONE 200 MG TAB PO SCH ×2 (07:50→20:45)
[2017-12-04] MEDS: POTASSIUM CHLORIDE 20 MEQ TABCR PO SCH ×2 (07:50→20:46)
[2017-12-04] MEDS: LOSARTAN POTASSIUM 50 MG TAB PO SCH (07:50)
[2017-12-04] MEDS: THIAMINE HCL 100 MG TAB PO SCH (07:51)
[2017-12-04] MEDS: METOPROLOL SUCC 50MG EXT REL TAB PO SCH (07:51)
[2017-12-04] MEDS: MULTIVITAMIN TAB PO SCH (07:51)
[2017-12-04] MEDS: MICONAZOLE NITRATE POWDER 43 GM EXT PRN (07:52)
[2017-12-04] MEDS: GLUCOSE 40% GEL 15 GM TUBE PO PRN ×2 (07:58→08:31)
[2017-12-04 08:08] LABS: HEMATOCRIT 38.7 % (42-52); HEMOGLOBIN 12.6 g/dL (14.0-18.0); MEAN CELL VOLUME 89.8 fL (80-100); MEAN CORPUSCULAR HEMOGLOBIN 29.2 pg (25-34); MEAN CORPUSCULAR HGB CONC 32.6 g/dl (32-36); MEAN PLATELET VOLUME 10.1 fL (7.4-10.4); PLATELET COUNT 471 K/uL (130-400); RED CELL DISTRIBUTION WIDTH CV 15.4 % (11.5-14.5); RED CELL DISTRIBUTION WIDTH SD 48.7 fL (36.4-46.3); WHITE BLOOD COUNT 9.52 K/uL (4.8-10.8)
[2017-12-04 08:15] LABS: INR 2.5 (0.9-1.1)
[2017-12-04] MEDS: ASPIRIN 81 MG CHEW PO SCH (08:35)
[2017-12-04] MEDS: CLOTRIMAZOLE 1% CR 15 GM TUBE EXT SCH ×2 (08:36→20:45)
[2017-12-04 08:43] LABS: ALBUMIN 2.5 gm/dl (3.4-5.0); CALCIUM 8.9 mg/dl (8.5-10.1); CREATININE 2.25 mg/dl (0.60-1.40); POTASSIUM 4.5 mmol/L (3.5-5.1); TOTAL PROTEIN 7.6 gm/dl (6.4-8.2)
--- NOTE | 2017-12-04 09:44 | Cardiology Follow-Up ---
Subjective General Date of Service: Dec 04, 2017. Chief Complaint: follow up cardiomyopathy, PAF, stroke Pt evaluation today including: conversation w/ patient, physical exam History of Present Illness The patient is a 67 year old male seen in follow up. Patient denies significant SOB, however, conversation dyspnea present. BP has trended toward improvement from the low readings yesterday, with SBP in 120's on most recent 3 readings. Allergies Coded Allergies: JET Inhibitors (Verified Allergy, Unknown, 04/10/17) Penicillins (Verified Allergy, Unknown, RASH A CHILD recent tolerated Augmentin, 11/26/17) Lisinopril (Verified Adverse Reaction, Mild, RASH, 07/31/17) Social History Smoking Status: Never Smoker Hx Tobacco Use In Past Year?: No Hx Alcohol Use - Type And Amou: No (Past history of use.) Hx Substance Use - Type And Am: No Problem List Medical Problems: (1) Chest wall contusion Status: Acute (2) Elevated troponin Status: Acute (3) Hypotension Status: Acute (4) Lactic acidemia Status: Acute (5) Post-op bleeding Status: Acute (6) Right foot infection Status: Acute (7) Wound of foot Status: Acute Social History Problems: (1) DKA (diabetic ketoacidoses) Status: Acute Physical Exam Vital Signs Last Vital Signs Documentation Date Time Temp Pulse Resp B/P (MAP) Pulse Ox O2 Delivery O2 Flow Rate FiO2 12/04/17 07:44 36.6 75 18 127/79 (95) 96 Room Air 12/03/17 15:15 1.5 Physical Exam Constitutional: Level of Distress: NAD Ambulation: in wheelchair Neck: supple Lungs: Auscultation: no rales/crackles, no rhonchi, pertinent finding (decreased bs at bases) Cardiovascular: Heart Auscultation: RRR, no murmurs, no rubs, no gallops Abdomen: Bowel Sounds: normal Inspection & Palpation: non-distended Extremities: gangrene (2-3+ pedal and LE edema), pertinent finding (2+ lower extremity) Neurologic: Gait & Station: pertinent finding (No focal deficits) Assessment and Plan Assessment and Plan Creatinine of 1.58 --> 2.05 -->2.28 --> 2.25 mg/dl Last Resulted 12/04/17 07:45 Last Resulted 12/04/17 07:45 Past 24 Hours Test 12/04/17 07:45 Range/Units Prothromb Time International Ratio 2.5 H 0.9-1.1 Prothrombin Time 25.6 H 9.0-12.0 SECONDS Impression: 67-year-old male 1. Volume overload, acute on chronic systolic heart failure, ischemic cardiomyopathy 2. Moderate to severe aortic valve stenosis 3. Recent resection for necrotizing fasciitis of left fifth toe/foot 4. History of paroxysmal atrial fibrillation, paroxysmal supraventricular tachycardia versus atrial flutter, currently sinus rhythm, amiodarone initiated several days ago 5. Coagulopathy, improved Plan: INR is 2.5 today. Continue same dose of Coumadin EKG yesterday without acute changes, age undetermined lateral infarct pattern. Proceed with furosemide plus albumin. Total body volume overloaded based on edema, however, proceeding with caution due to low bp yesterday, possible intravascular depletion. Laboratory Results Last 24 Hours Test 12/03/17 11:06 12/03/17 16:28 12/03/17 20:35 12/04/17 07:37 Bedside Glucose 94 mg/dl 129 mg/dl 91 mg/dl 54 mg/dl Test 12/04/17 07:38 12/04/17 07:45 12/04/17 07:54 12/04/17 08:10 Bedside Glucose 51 mg/dl 54 mg/dl 62 mg/dl White Blood Count 9.52 K/uL Red Blood Count 4.31 M/uL Hemoglobin 12.6 g/dL Hematocrit 38.7 % Mean Corpuscular Volume 89.8 fL Mean Corpuscular Hemoglobin 29.2 pg Mean Corpuscular Hemoglobin Concent 32.6 g/dl RDW Standard Deviation 48.7 fL RDW Coefficient of Variation 15.4 % Platelet Count 471 K/uL Mean Platelet Volume 10.1 fL Prothrombin Time 25.6 SECONDS Prothromb Time International Ratio 2.5 Sodium Level 134 mmol/L Potassium Level 4.5 mmol/L Chloride Level 103 mmol/L Carbon Dioxide Level 22 mmol/L Anion Gap 10.0 mmol/L Blood Urea Nitrogen 40 mg/dl Creatinine 2.25 mg/dl Est Creatinine Clear Calc Drug Dose 39.0 ml/min Estimated GFR () 34.2 Estimated GFR (Non- 29.5 BUN/Creatinine Ratio 18.0 Random Glucose 46 mg/dl Calcium Level 8.9 mg/dl Total Bilirubin 0.5 mg/dl Aspartate Amino Transf (AST/SGOT) 44 U/L Alanine Aminotransferase (ALT/SGPT) 91 U/L Alkaline Phosphatase 268 U/L Total Protein 7.6 gm/dl Albumin 2.5 gm/dl Globulin 5.1 gm/dl Albumin/Globulin Ratio 0.5 Test 12/04/17 08:11 12/04/17 08:34 Bedside Glucose 63 mg/dl 86 mg/dl
[2017-12-04] MEDS ORDERED: ALBUMIN 25% 50 ML with FUROSEMIDE INJ 40 MG IV ONE ×2 (09:45)
[2017-12-04] MEDS: ACETAMINOPHEN 325 MG TAB PO PRN (13:06)
[2017-12-04] MEDS: OXYCODONE HCL IR 5 MG TAB (IMMEDIATE RELEASE) PO PRN (14:03)
[2017-12-04] MEDS: WARFARIN SOD 2 MG TAB PO SCH (16:41)
[2017-12-04] MEDS: INSULIN GLARGINE SOLOSTAR 100 UNITS/ML 3 ML PEN SC SCH (20:51)
--- NOTE | 2017-12-04 21:40 | Progress Note ---
Medicine Progress Note Date & Time of Visit: Dec 04, 2017 at 09:50 . Subjective CC: Follow-up visit for multiple problems. HPI: Hypoglycemic this morning. [place]lin[place] better by time of my assessment. No chest pain. No cough. Persistent dependent edema. No fever. Denies foot pain. ROS: General- no fever, no chills Resp- as noted above in HPI Cardiac- as noted above in HPI GI- no nausea, no vomiting; no diarrhea - urinary urgency, no dysuria . Objective Last 8 Hrs Date Time Temp Pulse Resp B/P (MAP) Pulse Ox O2 Delivery O2 Flow Rate FiO2 12/04/17 19:45 36.5 82 20 102/71 (81) 94 Room Air 12/04/17 16:00 98 Room Air 12/04/17 15:38 36.6 77 18 101/68 (79) 98 Room Air 12/04/17 15:21 36.6 75 22 122/71 (88) 97 Room Air Physical Exam: General- lying in bed, no distress Lungs- bibasilar rales; no respiratory distress Cardiovascular- irregularly irregular; II/ systolic murmur LSB; no gallop appreciated; + JVD; 2-3+ pretibial edema Abdomen- + bowel sounds, soft, nontender Extremities- no cyanosis; no calf tenderness; s/p transmetatarsal amputation right foot; left foot bandaged Neuro- alert Skin- warm & dry . Laboratory Results: Last 24 Hours Test 12/04/17 07:37 12/04/17 07:38 12/04/17 07:45 12/04/17 07:54 Bedside Glucose 54 mg/dl 51 mg/dl 54 mg/dl White Blood Count 9.52 K/uL Red Blood Count 4.31 M/uL Hemoglobin 12.6 g/dL Hematocrit 38.7 % Mean Corpuscular Volume 89.8 fL Mean Corpuscular Hemoglobin 29.2 pg Mean Corpuscular Hemoglobin Concent 32.6 g/dl RDW Standard Deviation 48.7 fL RDW Coefficient of Variation 15.4 % Platelet Count 471 K/uL Mean Platelet Volume 10.1 fL Prothrombin Time 25.6 SECONDS Prothromb Time International Ratio 2.5 Sodium Level 134 mmol/L Potassium Level 4.5 mmol/L Chloride Level 103 mmol/L Carbon Dioxide Level 22 mmol/L Anion Gap 10.0 mmol/L Blood Urea Nitrogen 40 mg/dl Creatinine 2.25 mg/dl Est Creatinine Clear Calc Drug Dose 39.0 ml/min Estimated GFR () 34.2 Estimated GFR (Non- 29.5 BUN/Creatinine Ratio 18.0 Random Glucose 46 mg/dl Calcium Level 8.9 mg/dl Total Bilirubin 0.5 mg/dl Aspartate Amino Transf (AST/SGOT) 44 U/L Alanine Aminotransferase (ALT/SGPT) 91 U/L Alkaline Phosphatase 268 U/L Total Protein 7.6 gm/dl Albumin 2.5 gm/dl Globulin 5.1 gm/dl Albumin/Globulin Ratio 0.5 Test 12/04/17 08:10 12/04/17 08:11 12/04/17 08:34 12/04/17 11:18 Bedside Glucose 62 mg/dl 63 mg/dl 86 mg/dl 110 mg/dl Test 12/04/17 16:35 12/04/17 16:36 12/04/17 16:54 12/04/17 20:41 Bedside Glucose 60 mg/dl 63 mg/dl 139 mg/dl 103 mg/dl Assessment & Plan ISCHEMIC STROKES MRI demonstrated 4 cm acute / subacute infarct in right occipital lobe and 8 mm acute / subacute infarct in right frontal lobe. Neuro consulted. Probable cardioembolic strokes from underlying AF. PT / OT as tolerated. Continue anticoagulation with warfarin. INR today = 2.5. PAROXYSMAL ATRIAL FIBRILLATION / FLUTTER Cardiology consulted. Receiving metoprolol and amiodarone. Continue anticoagulation with warfarin. CORONARY ARTERY DISEASE No anginal symptoms. Holding aspirin due to large ischemic stroke with risk for hemorrhagic transformation. Continue metoprolol and atorvastatin. CHRONIC SYSTOLIC CHF History of left ventricular systolic heart failure with LVEF 40-45% in 2016. Underlying ischemic heart disease. Chest x-rays have demonstrated CHF. Acute on chronic left ventricular systolic heart failure. Diuretics as tolerated, but need to watch for orthostasis and worsening renal function. Continue metoprolol succinate and losartan. CKD Creatinine today = 2.25. Follow. HEMATURIA Occurred when receiving warfarin + enoxaparin. CT demonstrated bladder wall thickening. Urine cytology negative for malignancy. Should have cystoscopy when medical status permits. DM TYPE 2 Not well-controlled. Hgb A1C = 10.7. Lantus / NovoLog per protocol FBS today = 53. Lantus dose decreased. Glyburide discontinued. HS snack. LEFT FOOT INFECTION Wound Care and Ortho consulted. Increased drainage. C&S growing few coag neg Staph. Local care. Transitioned from IV amp/sulbactam to oral therapy with amoxicillin / clavulanic acid. VTE PROPHYLAXIS On warfarin with therapeutic INR. DISPOSITION Anticipated return to [facility] for inpatient rehab when medically stable. Primary Care follow-up with Dr. Emmanuel at [facility]. . Current Inpatient Medications: Current Inpatient Medications Medications (Trade) Dose Ordered Sig/Estee Route Start Time Stop Time Status Last Admin Dose Admin Acetaminophen (Tylenol Tab) 650 mg Q4H PRN PO 11/26/17 18:45 12/26/17 18:44 12/04/17 13:06 650 MG Nitroglycerin (Nitrostat Tab) 0.4 mg UD PRN SL 11/26/17 18:45 12/26/17 18:44 Polyethylene (Miralax Powder Packet) 17 gm DAILY PRN PO 11/26/17 18:45 12/26/17 18:44 Insulin Aspart (novoLOG ASPART) SLIDING SCALE If C... ACHS SC 11/26/17 21:00 12/26/17 20:59 12/04/17 17:21 7 UNITS Glucose (Glucose 40% Gel) 15-30 GRAMS 15 GRAMS... UD PRN PO 11/26/17 19:15 12/26/17 19:14 12/04/17 08:31 15 GM Glucose (Glucose Chew Tab) 4-8 Tablets 4 Tabl... UD PRN PO 11/26/17 19:15 12/26/17 19:14 Dextrose (Dextrose 50% 50ML Syringe) 25-50ML 25ML FOR ... UD PRN IV 11/26/17 19:15 12/26/17 19:14 Glucagon (Glucagon Inj) 1 mg UD PRN SQ 11/26/17 19:15 12/26/17 19:14 Carbohydrates (Carbohydrates For Hypoglycemia) 15-30 GRAMS 15 grams if BSG 54-69... UD PRN PO 11/26/17 19:15 12/26/17 19:14 12/04/17 16:39 15 GM Cholecalciferol (Vitamin D Tab) 1,000 inter.unit DAILY PO 11/27/17 09:00 12/27/17 08:59 12/04/17 07:50 1,000 INTER.UNIT Folic Acid (Folvite Tab) 1 mg DAILY PO 11/27/17 09:00 12/27/17 08:59 12/04/17 07:49 1 MG Metoprolol Succinate (Toprol Xl Tab) 100 mg DAILY PO 11/27/17 09:00 12/27/17 08:59 12/04/17 07:51 100 MG Multivitamins (Multivitamin Tab) 1 tab DAILY PO 11/27/17 09:00 12/27/17 08:59 12/04/17 07:51 1 TAB Potassium Chloride (Klor-Con Tab) 20 meq BID PO 11/26/17 21:00 12/26/17 20:59 12/04/17 20:46 20 MEQ Thiamine HCl (Vitamin B-1 Tab) 100 mg DAILY PO 11/27/17 09:00 12/27/17 08:59 12/04/17 07:51 100 MG Clotrimazole (Lotrimin 1% Crm) 1 appln BID EXT 11/27/17 09:00 12/10/17 20:00 12/04/17 20:45 1 APPLN Aspirin (Aspirin Chew) 81 mg DAILY PO 11/28/17 09:00 12/28/17 08:59 Future hold 12/04/17 08:35 81 MG Losartan Potassium (coZAAR TAB) 50 mg DAILY PO 11/28/17 09:00 12/28/17 08:59 12/04/17 07:50 50 MG Magnesium Chloride (Slow-Mag Tab) 64 mg DAILY PO 11/28/17 09:00 12/28/17 08:59 12/04/17 07:50 64 MG Miconazole Nitrate (Desenex Powder) 1 appln UD PRN EXT 11/28/17 20:00 12/28/17 19:59 12/04/17 07:52 1 APPLN Oxycodone HCl (Roxicodone Immediate Rel Tab) 5 mg Q6H PRN PO 11/29/17 12:30 12/13/17 12:29 12/04/17 14:03 5 MG Amiodarone HCl (Cordarone Tab) 200 mg BID PO 11/30/17 09:00 12/30/17 08:59 12/04/17 20:45 200 MG Atorvastatin Calcium (Lipitor Tab) 40 mg QAM PO 11/30/17 09:00 12/30/17 08:59 12/04/17 07:50 40 MG Warfarin Sodium (Coumadin Tab) 2 mg DAILY@16 PO 12/01/17 16:00 12/31/17 15:59 12/04/17 16:41 2 MG Amoxicillin/ Clavulanate Potassium (Augmentin Tab) 875 mg BIDM PO 12/02/17 16:45 12/12/17 16:44 12/04/17 17:20 875 MG Prochlorperazine Edisylate 5 mg/ Syringe 5 ml @ 5 mls/min Q6H PRN IV 12/02/17 19:45 01/01/18 19:44 Insulin Glargine (Lantus Solostar Pen) 24 units HS SC 12/03/17 21:00 12/28/17 20:59 12/04/17 20:51 24 UNITS
[2017-12-05] VITALS (8 sets, daily range): BP systolic 99–120; BP diastolic 70–83; PULSE 72–86; TEMP 36.3–36.9; O2SAT 93–100
[2017-12-05] MEDS: OXYCODONE HCL IR 5 MG TAB (IMMEDIATE RELEASE) PO PRN (04:23)
[2017-12-05 06:19] LABS: INR 2.5 (0.9-1.1)
[2017-12-05 06:29] LABS: CALCIUM 8.6 mg/dl (8.5-10.1); CREATININE 2.19 mg/dl (0.60-1.40); POTASSIUM 4.8 mmol/L (3.5-5.1)
[2017-12-05] MEDS: CARBOHYDRATES FOR HYPOGLYCEMIA PO PRN (07:20)
[2017-12-05] MEDS: INSULIN ASPART 100 UNITS/ML 3 ML PEN SC SCH ×4 (07:31→21:00)
[2017-12-05] MEDS: ASPIRIN 81 MG CHEW PO SCH (07:33)
[2017-12-05] MEDS: AMIODARONE 200 MG TAB PO SCH ×2 (07:33→22:17)
[2017-12-05] MEDS: ATORVASTATIN 40 MG TAB PO SCH (07:33)
[2017-12-05] MEDS: CHOLECALCIFEROL 1000 INTER.UNIT TAB PO SCH (07:34)
[2017-12-05] MEDS: METOPROLOL SUCC 50MG EXT REL TAB PO SCH (07:34)
[2017-12-05] MEDS: THIAMINE HCL 100 MG TAB PO SCH (07:35)
[2017-12-05] MEDS: POTASSIUM CHLORIDE 20 MEQ TABCR PO SCH ×2 (07:35→22:17)
[2017-12-05] MEDS: MULTIVITAMIN TAB PO SCH (07:35)
[2017-12-05] MEDS: MAGNESIUM CHLORIDE 64MG DELAYED REL TAB PO SCH (07:36)
[2017-12-05] MEDS: LOSARTAN POTASSIUM 50 MG TAB PO SCH (07:36)
[2017-12-05] MEDS: AMOXICILLIN/CLAVULANATE TAB 875 MG TAB PO SCH ×2 (07:37→15:58)
[2017-12-05] MEDS: CLOTRIMAZOLE 1% CR 15 GM TUBE EXT SCH ×2 (07:37→21:00)
[2017-12-05] MEDS: FUROSEMIDE 10 MG/ML 10 ML VIAL ONE ×2 (10:42→10:43)
[2017-12-05] MEDS ORDERED: FUROSEMIDE INJ 80 MG in SYRINGE 0 ML IV ONE (10:45)
--- NOTE | 2017-12-05 12:01 | Cardiology Follow-Up ---
Subjective General Date of Service: Dec 05, 2017. Chief Complaint: follow up cardiomyopathy, PAF, stroke Pt evaluation today including: conversation w/ patient, physical exam, chart review, lab review, review of studies, conversation w/ principal consultant, review of inpatient medication list History of Present Illness The patient is a 67 year old male seen in follow-up. Poor historian. Denies chest pain or shortness of breath. Significant lower extremity edema noted. Patient does not recall feeling short of breath this morning. Offers no complaints. Allergies Coded Allergies: JET Inhibitors (Verified Allergy, Unknown, 04/10/17) Penicillins (Verified Allergy, Unknown, RASH A CHILD recent tolerated Augmentin, 11/26/17) Lisinopril (Verified Adverse Reaction, Mild, RASH, 07/31/17) Social History Smoking Status: Never Smoker Hx Tobacco Use In Past Year?: No Hx Alcohol Use - Type And Amou: No (Past history of use.) Hx Substance Use - Type And Am: No Problem List Medical Problems: (1) Chest wall contusion Status: Acute (2) Elevated troponin Status: Acute (3) Hypotension Status: Acute (4) Lactic acidemia Status: Acute (5) Post-op bleeding Status: Acute (6) Right foot infection Status: Acute (7) Wound of foot Status: Acute Social History Problems: (1) DKA (diabetic ketoacidoses) Status: Acute Review of Systems Respiratory: + shortness of breath, + dyspnea on exertion, No cough, No wheezing, No dyspnea at rest, No hemoptysis Cardiac: + edema, No chest pain, No orthopnea, No PND, No claudication, No palpitations Physical Exam Vital Signs Last Vital Signs Documentation Date Time Temp Pulse Resp B/P (MAP) Pulse Ox O2 Delivery O2 Flow Rate FiO2 12/05/17 10:42 78 108/73 (85) 12/05/17 10:21 36.3 20 93 Nasal Cannula 2.0 Physical Exam Constitutional: Level of Distress: NAD Ambulation: in wheelchair Head: normocephalic ENMT: normal ENT inspection Neck: supple Lungs: Auscultation: no rales/crackles, no rhonchi, pertinent finding (decreased bs at bases) Cardiovascular: Heart Auscultation: RRR, no murmurs, no rubs, no gallops Abdomen: Bowel Sounds: normal Inspection & Palpation: non-distended Extremities: gangrene (2-3+ pedal and LE edema), pertinent finding (2+ lower extremity) Neurologic: Gait & Station: pertinent finding (No focal deficits) Assessment and Plan Assessment and Plan Final impression: 1. Acute on chronic decompensated systolic heart failure with underlying ischemic cardiomyopathy and cardio renal syndrome. -Creatinine mildly improved today 2. Moderate to severe aortic valve stenosis 3. Presumed cardioembolic CVA with 4 centimeter acute/subacute infarct within the right occipital lobe probably 8 millimeter acute/sub acute infarct within the right frontal lobe. 4. Recent resection for necrotizing fasciitis of left fifth toe/foot 5. Paroxysmal atrial dysrhythmias including atrial fibrillation, supraventricular tachycardia versus atrial flutter. Currently sinus rhythm with recent initiation of amiodarone. -INR therapeutic Plan: Patient received 80 mg intravenous Lasix this a.m. for acute respiratory insufficiency. Clinically improved. He will likely require daily diuretic therapy to improve volume status. Monitor fluid balance, electrolytes, renal function closely. Blood pressure appears adequate today. Recommend sodium restriction as well as fluid restriction (<1500cc/day). Continue current cardiovascular medications including metoprolol, amiodarone, and Coumadin dosing for a goal INR of 2.0-3.0. Antibiotics as per infectious disease recommendations. Laboratory Results Last 24 Hours Test 12/04/17 16:35 12/04/17 16:36 12/04/17 16:54 12/04/17 20:41 Bedside Glucose 60 mg/dl 63 mg/dl 139 mg/dl 103 mg/dl Test 12/05/17 05:57 12/05/17 07:20 12/05/17 07:38 12/05/17 07:53 Prothrombin Time 25.6 SECONDS Prothromb Time International Ratio 2.5 Sodium Level 134 mmol/L Potassium Level 4.8 mmol/L Chloride Level 103 mmol/L Carbon Dioxide Level 22 mmol/L Anion Gap 8.0 mmol/L Blood Urea Nitrogen 42 mg/dl Creatinine 2.19 mg/dl Est Creatinine Clear Calc Drug Dose 40.0 ml/min Estimated GFR () 35.3 Estimated GFR (Non- 30.5 BUN/Creatinine Ratio 19.3 Random Glucose 61 mg/dl Calcium Level 8.6 mg/dl Bedside Glucose 65 mg/dl 65 mg/dl 76 mg/dl
[2017-12-05] MEDS: WARFARIN SOD 2 MG TAB PO SCH (15:59)
--- NOTE | 2017-12-05 21:11 | Progress Note ---
Medicine Progress Note Date & Time of Visit: Dec 05, 2017 at 10:55 . Subjective CC: Follow-up visit for multiple problems. HPI: Hypoglycemic again this morning. More SOB. No cough. No chest pain. Persistent dependent edema. No fever. Denies foot pain. ROS: General- no fever, no chills Resp- as noted above in HPI Cardiac- as noted above in HPI GI- no nausea, no vomiting; no diarrhea - no dysuria . Objective Last 8 Hrs Date Time Temp Pulse Resp B/P (MAP) Pulse Ox O2 Delivery O2 Flow Rate FiO2 12/05/17 19:17 36.4 75 22 103/71 (82) 96 Room Air 12/05/17 15:21 36.4 76 20 120/82 (95) 96 Room Air Physical Exam: General- sitting on side of bed, no acute distress Lungs- bibasilar rales; no respiratory distress Cardiovascular- irregularly irregular; II/ systolic murmur LSB; no gallop appreciated; + JVD; 2-3+ pretibial edema Abdomen- + bowel sounds, soft, nontender Extremities- no cyanosis; no calf tenderness; left foot bandaged Neuro- alert Skin- warm & dry . Laboratory Results: Last 24 Hours Test 12/05/17 05:57 12/05/17 07:20 12/05/17 07:38 12/05/17 07:53 Prothrombin Time 25.6 SECONDS Prothromb Time International Ratio 2.5 Sodium Level 134 mmol/L Potassium Level 4.8 mmol/L Chloride Level 103 mmol/L Carbon Dioxide Level 22 mmol/L Anion Gap 8.0 mmol/L Blood Urea Nitrogen 42 mg/dl Creatinine 2.19 mg/dl Est Creatinine Clear Calc Drug Dose 40.0 ml/min Estimated GFR () 35.3 Estimated GFR (Non- 30.5 BUN/Creatinine Ratio 19.3 Random Glucose 61 mg/dl Calcium Level 8.6 mg/dl Bedside Glucose 65 mg/dl 65 mg/dl 76 mg/dl Test 12/05/17 11:13 12/05/17 16:22 12/05/17 20:32 Bedside Glucose 108 mg/dl 126 mg/dl 123 mg/dl Assessment & Plan ISCHEMIC STROKES MRI demonstrated 4 cm acute / subacute infarct in right occipital lobe and 8 mm acute / subacute infarct in right frontal lobe. Neuro consulted. Probable cardioembolic strokes from underlying AF. PT / OT as tolerated. Continue anticoagulation with warfarin. INR today = 2.5. Check f/u CT around 8 and resume ASA if not hemorrhage. PAROXYSMAL ATRIAL FIBRILLATION / FLUTTER Cardiology consulted. Receiving metoprolol and amiodarone. Continue anticoagulation with warfarin. CORONARY ARTERY DISEASE No anginal symptoms. Holding aspirin due to large ischemic stroke with risk for hemorrhagic transformation. Check f/u CT around 8 and resume ASA if not hemorrhage. Continue metoprolol and atorvastatin. CHRONIC SYSTOLIC CHF History of left ventricular systolic heart failure with LVEF 40-45% in 2016. Underlying ischemic heart disease. Chest x-rays have demonstrated CHF. Acute on chronic left ventricular systolic heart failure. Diuretics as tolerated, but need to watch for orthostasis and worsening renal function. Furosemide 80 mg IV given this morning; determine daily dosing per labs and clinical assessment. Continue metoprolol succinate and losartan. CKD Creatinine today = 2.19. Follow. HEMATURIA Occurred when receiving warfarin + enoxaparin. CT demonstrated bladder wall thickening. Urine cytology negative for malignancy. Should have cystoscopy when medical status permits. DM TYPE 2 Not well-controlled. Hgb A1C = 10.7. Lantus / NovoLog per protocol FBS today = 65. Lantus dose decreased. Glyburide discontinued. HS snack. LEFT FOOT INFECTION Wound Care and Ortho consulted. Increased drainage. C&S growing few coag neg Staph. Local care. Transitioned from IV amp/sulbactam to oral therapy with amoxicillin / clavulanic acid. VTE PROPHYLAXIS On warfarin with therapeutic INR. DISPOSITION Anticipated return to [facility] for inpatient rehab when medically stable. Primary Care follow-up with Dr. Emmanuel at [facility]. . Current Inpatient Medications: Current Inpatient Medications Medications (Trade) Dose Ordered Sig/Estee Route Start Time Stop Time Status Last Admin Dose Admin Acetaminophen (Tylenol Tab) 650 mg Q4H PRN PO 11/26/17 18:45 12/26/17 18:44 12/04/17 13:06 650 MG Nitroglycerin (Nitrostat Tab) 0.4 mg UD PRN SL 11/26/17 18:45 12/26/17 18:44 Polyethylene (Miralax Powder Packet) 17 gm DAILY PRN PO 11/26/17 18:45 12/26/17 18:44 Insulin Aspart (novoLOG ASPART) SLIDING SCALE If C... ACHS SC 11/26/17 21:00 12/26/17 20:59 12/05/17 17:11 8 UNITS Glucose (Glucose 40% Gel) 15-30 GRAMS 15 GRAMS... UD PRN PO 11/26/17 19:15 12/26/17 19:14 12/04/17 08:31 15 GM Glucose (Glucose Chew Tab) 4-8 Tablets 4 Tabl... UD PRN PO 11/26/17 19:15 12/26/17 19:14 Dextrose (Dextrose 50% 50ML Syringe) 25-50ML 25ML FOR ... UD PRN IV 11/26/17 19:15 12/26/17 19:14 Glucagon (Glucagon Inj) 1 mg UD PRN SQ 11/26/17 19:15 12/26/17 19:14 Carbohydrates (Carbohydrates For Hypoglycemia) 15-30 GRAMS 15 grams if BSG 54-69... UD PRN PO 11/26/17 19:15 12/26/17 19:14 12/05/17 07:20 15 GM Cholecalciferol (Vitamin D Tab) 1,000 inter.unit DAILY PO 11/27/17 09:00 12/27/17 08:59 12/05/17 07:34 1,000 INTER.UNIT Folic Acid (Folvite Tab) 1 mg DAILY PO 11/27/17 09:00 12/27/17 08:59 12/05/17 07:36 1 MG Metoprolol Succinate (Toprol Xl Tab) 100 mg DAILY PO 11/27/17 09:00 12/27/17 08:59 12/05/17 07:34 100 MG Multivitamins (Multivitamin Tab) 1 tab DAILY PO 11/27/17 09:00 12/27/17 08:59 12/05/17 07:35 1 TAB Potassium Chloride (Klor-Con Tab) 20 meq BID PO 11/26/17 21:00 12/26/17 20:59 12/05/17 07:35 20 MEQ Thiamine HCl (Vitamin B-1 Tab) 100 mg DAILY PO 11/27/17 09:00 12/27/17 08:59 12/05/17 07:35 100 MG Clotrimazole (Lotrimin 1% Crm) 1 appln BID EXT 11/27/17 09:00 12/10/17 20:00 12/05/17 07:37 1 APPLN Aspirin (Aspirin Chew) 81 mg DAILY PO 11/28/17 09:00 12/28/17 08:59 Future hold 12/05/17 07:33 81 MG Losartan Potassium (coZAAR TAB) 50 mg DAILY PO 11/28/17 09:00 12/28/17 08:59 12/05/17 07:36 50 MG Magnesium Chloride (Slow-Mag Tab) 64 mg DAILY PO 11/28/17 09:00 12/28/17 08:59 12/05/17 07:36 64 MG Miconazole Nitrate (Desenex Powder) 1 appln UD PRN EXT 11/28/17 20:00 12/28/17 19:59 12/04/17 07:52 1 APPLN Oxycodone HCl (Roxicodone Immediate Rel Tab) 5 mg Q6H PRN PO 11/29/17 12:30 12/13/17 12:29 12/05/17 04:23 5 MG Amiodarone HCl (Cordarone Tab) 200 mg BID PO 11/30/17 09:00 12/30/17 08:59 12/05/17 07:33 200 MG Atorvastatin Calcium (Lipitor Tab) 40 mg QAM PO 11/30/17 09:00 12/30/17 08:59 12/05/17 07:33 40 MG Warfarin Sodium (Coumadin Tab) 2 mg DAILY@16 PO 12/01/17 16:00 12/31/17 15:59 12/05/17 15:59 2 MG Amoxicillin/ Clavulanate Potassium (Augmentin Tab) 875 mg BIDM PO 12/02/17 16:45 12/12/17 16:44 12/05/17 15:58 875 MG Prochlorperazine Edisylate 5 mg/ Syringe 5 ml @ 5 mls/min Q6H PRN IV 12/02/17 19:45 01/01/18 19:44 Insulin Glargine (Lantus Solostar Pen) 24 units HS SC 12/03/17 21:00 12/28/17 20:59 12/04/17 20:51 24 UNITS
[2017-12-05] MEDS ORDERED: INSULIN GLARGINE SOLOSTAR 100 UNITS/ML 3 ML PEN SC ONE (21:45)
[2017-12-06] VITALS (7 sets, daily range): BP systolic 105–130; BP diastolic 68–83; PULSE 74–98; TEMP 36.5–37.1; O2SAT 92–97
[2017-12-06 06:38] LABS: INR 2.2 (0.9-1.1)
[2017-12-06 07:03] LABS: CALCIUM 9.2 mg/dl (8.5-10.1); CREATININE 2.12 mg/dl (0.60-1.40); POTASSIUM 4.6 mmol/L (3.5-5.1)
[2017-12-06] MEDS: INSULIN ASPART 100 UNITS/ML 3 ML PEN SC SCH ×4 (08:49→21:20)
[2017-12-06] MEDS: CLOTRIMAZOLE 1% CR 15 GM TUBE EXT SCH ×2 (08:50→21:17)
[2017-12-06] MEDS: AMOXICILLIN/CLAVULANATE TAB 875 MG TAB PO SCH ×2 (08:59→15:08)
[2017-12-06] MEDS: AMIODARONE 200 MG TAB PO SCH ×2 (08:59→21:17)
[2017-12-06] MEDS: METOPROLOL SUCC 50MG EXT REL TAB PO SCH (09:00)
[2017-12-06] MEDS: LOSARTAN POTASSIUM 50 MG TAB PO SCH (09:00)
[2017-12-06] MEDS: CHOLECALCIFEROL 1000 INTER.UNIT TAB PO SCH (09:00)
[2017-12-06] MEDS: ATORVASTATIN 40 MG TAB PO SCH (09:00)
[2017-12-06] MEDS: THIAMINE HCL 100 MG TAB PO SCH (09:01)
[2017-12-06] MEDS: MULTIVITAMIN TAB PO SCH (09:01)
[2017-12-06] MEDS: POTASSIUM CHLORIDE 20 MEQ TABCR PO SCH ×2 (09:02→21:16)
[2017-12-06] MEDS: MAGNESIUM CHLORIDE 64MG DELAYED REL TAB PO SCH (09:02)
[2017-12-06] MEDS: ASPIRIN 81 MG CHEW PO SCH (09:05)
--- NOTE | 2017-12-06 10:47 | Cardiology Follow-Up ---
Subjective General Date of Service: Dec 06, 2017. Chief Complaint: follow up cardiomyopathy, PAF, stroke Pt evaluation today including: conversation w/ patient, physical exam, chart review, lab review, review of studies, review of inpatient medication list History of Present Illness The patient is a 67 year old male seen in follow-up. Denies chest pain or shortness of breath. Somewhat uncooperative. Lower extremity edema unchanged. Denies shortness of breath. No orthopnea or paroxysmal nocturnal dyspnea. Diuresed approximately 600 cc yesterday with 1 dose of intravenous Lasix. Creatinine has trended downward slightly. Telemetry demonstrates sinus rhythm. Allergies Coded Allergies: JET Inhibitors (Verified Allergy, Unknown, 04/10/17) Penicillins (Verified Allergy, Unknown, RASH A CHILD recent tolerated Augmentin, 11/26/17) Lisinopril (Verified Adverse Reaction, Mild, RASH, 07/31/17) Social History Smoking Status: Never Smoker Hx Tobacco Use In Past Year?: No Hx Alcohol Use - Type And Amou: No (Past history of use.) Hx Substance Use - Type And Am: No Problem List Medical Problems: (1) Chest wall contusion Status: Acute (2) Elevated troponin Status: Acute (3) Hypotension Status: Acute (4) Lactic acidemia Status: Acute (5) Post-op bleeding Status: Acute (6) Right foot infection Status: Acute (7) Wound of foot Status: Acute Social History Problems: (1) DKA (diabetic ketoacidoses) Status: Acute Review of Systems Respiratory: + dyspnea on exertion, No cough, No sputum, No wheezing, No shortness of breath, No dyspnea at rest, No hemoptysis Cardiac: + edema, No chest pain, No orthopnea, No PND, No claudication, No palpitations Physical Exam Vital Signs Last Vital Signs Documentation Date Time Temp Pulse Resp B/P (MAP) Pulse Ox O2 Delivery O2 Flow Rate FiO2 12/06/17 08:00 Room Air 12/06/17 07:26 36.9 76 20 105/68 (80) 97 12/05/17 10:21 2.0 Physical Exam Constitutional: Level of Distress: NAD Ambulation: in wheelchair Head: normocephalic ENMT: normal ENT inspection Neck: supple Lungs: Auscultation: no rales/crackles, no rhonchi, pertinent finding (decreased bs at bases) Cardiovascular: Heart Auscultation: RRR, no murmurs, no rubs, no gallops Abdomen: Bowel Sounds: normal Inspection & Palpation: non-distended Extremities: gangrene (2-3+ pedal and LE edema), pertinent finding (2+ lower extremity) Neurologic: Gait & Station: pertinent finding (No focal deficits) Assessment and Plan Assessment and Plan Final impression: 1. Acute on chronic decompensated systolic heart failure with underlying ischemic cardiomyopathy and cardio renal syndrome. -Patient received 80 mg intravenous Lasix yesterday with approximately 600 cc diuresis. Creatinine continues to trend downward slightly per 2. Moderate to severe aortic valve stenosis 3. Presumed cardioembolic CVA with 4 centimeter acute/subacute infarct within the right occipital lobe probably 8 millimeter acute/sub acute infarct within the right frontal lobe. 4. Recent resection for necrotizing fasciitis of left fifth toe/foot 5. Paroxysmal atrial dysrhythmias including atrial fibrillation, supraventricular tachycardia versus atrial flutter. Currently sinus rhythm with recent initiation of amiodarone. -INR therapeutic Plan: We will give 80 mg of intravenous Lasix this a.m. Repeat basic metabolic panel tomorrow. If creatinine continues to improve will begin a standing dose of Lasix to improve volume status. Monitor fluid balance, electrolytes, renal function closely. Blood pressure appears adequate today. Recommend sodium restriction as well as fluid restriction (<1500cc/day). Continue current cardiovascular medications including metoprolol, amiodarone, and Coumadin dosing for a goal INR of 2.0-3.0. Antibiotics as per infectious disease recommendations. Laboratory Results Last 24 Hours Test 12/05/17 11:13 12/05/17 16:22 12/05/17 20:32 12/06/17 05:23 Bedside Glucose 108 mg/dl 126 mg/dl 123 mg/dl 78 mg/dl Test 12/06/17 05:43 12/06/17 07:36 Prothrombin Time 22.5 SECONDS Prothromb Time International Ratio 2.2 Sodium Level 134 mmol/L Potassium Level 4.6 mmol/L Chloride Level 100 mmol/L Carbon Dioxide Level 24 mmol/L Anion Gap 10.0 mmol/L Blood Urea Nitrogen 39 mg/dl Creatinine 2.12 mg/dl Est Creatinine Clear Calc Drug Dose 41.6 ml/min Estimated GFR () 36.7 Estimated GFR (Non- 31.7 BUN/Creatinine Ratio 18.4 Random Glucose 74 mg/dl Calcium Level 9.2 mg/dl Bedside Glucose 97 mg/dl
[2017-12-06] MEDS: WARFARIN SOD 2 MG TAB PO SCH (15:08)
--- NOTE | 2017-12-06 20:13 | Progress Note ---
Medicine Progress Note Date & Time of Visit: Dec 06, 2017 at 15:40 . Subjective CC: Follow-up visit for multiple problems. HPI: Better today. Less SOB. No cough. No chest pain. Persistent dependent edema. No fever. No foot pain. ROS: General- no fever, no chills Resp- as noted above in HPI Cardiac- as noted above in HPI GI- no nausea, no vomiting; no diarrhea - no dysuria . Objective Last 8 Hrs Date Time Temp Pulse Resp B/P (MAP) Pulse Ox O2 Delivery O2 Flow Rate FiO2 12/06/17 19:11 37.1 76 18 130/83 (99) 93 12/06/17 15:13 37.0 98 18 129/83 (98) 92 Physical Exam: General- sitting on side of bed, no acute distress Lungs- bibasilar rales; no respiratory distress Cardiovascular- irregularly irregular; II/ systolic murmur LSB; no gallop appreciated; + JVD; 2-3+ pretibial edema Abdomen- + bowel sounds, soft, nontender Extremities- no cyanosis; no calf tenderness; left foot bandaged Neuro- alert Skin- warm & dry . Laboratory Results: Last 24 Hours Test 12/05/17 20:32 12/06/17 05:23 12/06/17 05:43 12/06/17 07:36 Bedside Glucose 123 mg/dl 78 mg/dl 97 mg/dl Prothrombin Time 22.5 SECONDS Prothromb Time International Ratio 2.2 Sodium Level 134 mmol/L Potassium Level 4.6 mmol/L Chloride Level 100 mmol/L Carbon Dioxide Level 24 mmol/L Anion Gap 10.0 mmol/L Blood Urea Nitrogen 39 mg/dl Creatinine 2.12 mg/dl Est Creatinine Clear Calc Drug Dose 41.6 ml/min Estimated GFR () 36.7 Estimated GFR (Non- 31.7 BUN/Creatinine Ratio 18.4 Random Glucose 74 mg/dl Calcium Level 9.2 mg/dl Test 12/06/17 10:49 12/06/17 16:39 Bedside Glucose 90 mg/dl 156 mg/dl Assessment & Plan ISCHEMIC STROKES MRI demonstrated 4 cm acute / subacute infarct in right occipital lobe and 8 mm acute / subacute infarct in right frontal lobe. Neuro consulted. Probable cardioembolic strokes from underlying AF. PT / OT as tolerated. Continue anticoagulation with warfarin. INR today = 2.2. Check f/u CT around 8 and resume ASA if no hemorrhage. PAROXYSMAL ATRIAL FIBRILLATION / FLUTTER Cardiology consulted. Receiving metoprolol and amiodarone. Continue anticoagulation with warfarin. CORONARY ARTERY DISEASE No anginal symptoms. Holding aspirin due to large ischemic stroke with risk for hemorrhagic transformation. Check f/u CT around 8 and resume ASA if not hemorrhage. Continue metoprolol and atorvastatin. CHRONIC SYSTOLIC CHF History of left ventricular systolic heart failure with LVEF 40-45% in 2016. Underlying ischemic heart disease. Chest x-rays have demonstrated CHF. Acute on chronic left ventricular systolic heart failure. Diuretics as tolerated, but need to watch for orthostasis and worsening renal function. Furosemide 80 mg IV given 12/05; determine daily dosing per labs and clinical assessment. Continue metoprolol succinate and losartan. CKD Creatinine today = 2.12. Follow. HEMATURIA Occurred when receiving warfarin + enoxaparin. CT demonstrated bladder wall thickening. Urine cytology negative for malignancy. Should have cystoscopy when medical status permits. DM TYPE 2 Not well-controlled. Hgb A1C = 10.7. Lantus / NovoLog per protocol FBS today = 97. LEFT FOOT INFECTION Wound Care and Ortho consulted. C&S growing few coag neg Staph. Continue local care. Transitioned from IV amp/sulbactam to oral therapy with amoxicillin / clavulanic acid. VTE PROPHYLAXIS On warfarin with therapeutic INR. DISPOSITION Anticipated return to [facility] for inpatient rehab when medically stable. Primary Care follow-up with Dr. Emmanuel [facility]. . Current Inpatient Medications: Current Inpatient Medications Medications (Trade) Dose Ordered Sig/[facility] Route Start Time Stop Time Status Last Admin Dose Admin Acetaminophen (Tylenol Tab) 650 mg Q4H PRN PO 11/26/17 18:45 12/26/17 18:44 12/04/17 13:06 650 MG Nitroglycerin (Nitrostat Tab) 0.4 mg UD PRN SL 11/26/17 18:45 12/26/17 18:44 Polyethylene (Miralax Powder Packet) 17 gm DAILY PRN PO 11/26/17 18:45 12/26/17 18:44 Insulin Aspart (novoLOG ASPART) SLIDING SCALE If C... ACHS SC 11/26/17 21:00 12/26/17 20:59 12/06/17 17:03 3 UNITS Glucose (Glucose 40% Gel) 15-30 GRAMS 15 GRAMS... UD PRN PO 11/26/17 19:15 12/26/17 19:14 12/04/17 08:31 15 GM Glucose (Glucose Chew Tab) 4-8 Tablets 4 Tabl... UD PRN PO 11/26/17 19:15 12/26/17 19:14 Dextrose (Dextrose 50% 50ML Syringe) 25-50ML 25ML FOR ... UD PRN IV 11/26/17 19:15 12/26/17 19:14 Glucagon (Glucagon Inj) 1 mg UD PRN SQ 11/26/17 19:15 12/26/17 19:14 Carbohydrates (Carbohydrates For Hypoglycemia) 15-30 GRAMS 15 grams if BSG 54-69... UD PRN PO 11/26/17 19:15 12/26/17 19:14 12/05/17 07:20 15 GM Cholecalciferol (Vitamin D Tab) 1,000 inter.unit DAILY PO 11/27/17 09:00 12/27/17 08:59 12/06/17 09:00 1,000 INTER.UNIT Folic Acid (Folvite Tab) 1 mg DAILY PO 11/27/17 09:00 12/27/17 08:59 12/06/17 09:01 1 MG Metoprolol Succinate (Toprol Xl Tab) 100 mg DAILY PO 11/27/17 09:00 12/27/17 08:59 12/06/17 09:00 100 MG Multivitamins (Multivitamin Tab) 1 tab DAILY PO 11/27/17 09:00 12/27/17 08:59 12/06/17 09:01 1 TAB Potassium Chloride (Klor-Con Tab) 20 meq BID PO 11/26/17 21:00 12/26/17 20:59 12/06/17 09:02 20 MEQ Thiamine HCl (Vitamin B-1 Tab) 100 mg DAILY PO 11/27/17 09:00 12/27/17 08:59 12/06/17 09:01 100 MG Clotrimazole (Lotrimin 1% Crm) 1 appln BID EXT 11/27/17 09:00 12/10/17 20:00 12/05/17 21:00 1 APPLN Aspirin (Aspirin Chew) 81 mg DAILY PO 11/28/17 09:00 12/28/17 08:59 Future hold 12/06/17 09:05 81 MG Losartan Potassium (coZAAR TAB) 50 mg DAILY PO 11/28/17 09:00 12/28/17 08:59 Future Hold 12/06/17 09:00 50 MG Magnesium Chloride (Slow-Mag Tab) 64 mg DAILY PO 11/28/17 09:00 12/28/17 08:59 12/06/17 09:02 64 MG Miconazole Nitrate (Desenex Powder) 1 appln UD PRN EXT 11/28/17 20:00 12/28/17 19:59 12/04/17 07:52 1 APPLN Oxycodone HCl (Roxicodone Immediate Rel Tab) 5 mg Q6H PRN PO 11/29/17 12:30 12/13/17 12:29 12/05/17 04:23 5 MG Amiodarone HCl (Cordarone Tab) 200 mg BID PO 11/30/17 09:00 12/30/17 08:59 12/06/17 08:59 200 MG Atorvastatin Calcium (Lipitor Tab) 40 mg QAM PO 11/30/17 09:00 12/30/17 08:59 12/06/17 09:00 40 MG Warfarin Sodium (Coumadin Tab) 2 mg DAILY@16 PO 12/01/17 16:00 12/31/17 15:59 12/06/17 15:08 2 MG Amoxicillin/ Clavulanate Potassium (Augmentin Tab) 875 mg BIDM PO 12/02/17 16:45 12/12/17 16:44 12/06/17 15:08 875 MG Prochlorperazine Edisylate 5 mg/ Syringe 5 ml @ 5 mls/min Q6H PRN IV 12/02/17 19:45 01/01/18 19:44 Insulin Glargine (Lantus Solostar Pen) 16 units HS SC 12/06/17 21:00 01/05/18 20:59
[2017-12-06] MEDS: INSULIN GLARGINE SOLOSTAR 100 UNITS/ML 3 ML PEN SC SCH (21:21)
[2017-12-07] VITALS (7 sets, daily range): BP systolic 109–124; BP diastolic 76–85; PULSE 70–83; TEMP 36.4–36.7; O2SAT 92–98
[2017-12-07 07:23] LABS: INR 1.9 (0.9-1.1)
[2017-12-07] MEDS: MAGNESIUM CHLORIDE 64MG DELAYED REL TAB PO SCH (07:31)
[2017-12-07] MEDS: ATORVASTATIN 40 MG TAB PO SCH (07:32)
[2017-12-07] MEDS: AMIODARONE 200 MG TAB PO SCH ×2 (07:32→20:49)
[2017-12-07] MEDS: THIAMINE HCL 100 MG TAB PO SCH (07:32)
[2017-12-07] MEDS: MULTIVITAMIN TAB PO SCH (07:32)
[2017-12-07] MEDS: CHOLECALCIFEROL 1000 INTER.UNIT TAB PO SCH (07:32)
[2017-12-07] MEDS: METOPROLOL SUCC 50MG EXT REL TAB PO SCH (07:32)
[2017-12-07] MEDS: POTASSIUM CHLORIDE 20 MEQ TABCR PO SCH ×2 (07:33→20:49)
[2017-12-07] MEDS: CLOTRIMAZOLE 1% CR 15 GM TUBE EXT SCH ×2 (07:33→20:48)
[2017-12-07] MEDS: AMOXICILLIN/CLAVULANATE TAB 875 MG TAB PO SCH ×2 (07:33→16:49)
[2017-12-07] MEDS: ASPIRIN 81 MG CHEW PO SCH (07:35)
[2017-12-07] MEDS: INSULIN ASPART 100 UNITS/ML 3 ML PEN SC SCH ×4 (07:39→20:55)
[2017-12-07 10:48] LABS: CALCIUM 9.2 mg/dl (8.5-10.1); CREATININE 1.92 mg/dl (0.60-1.40); POTASSIUM 4.6 mmol/L (3.5-5.1)
--- NOTE | 2017-12-07 10:55 | DIAGNOSTIC IMAGING REPORT ---
CT SCAN OF THE BRAIN WITHOUT IV CONTRAST CLINICAL HISTORY: Follow-up stroke. MRI of the brain dated 11/26/2017. COMPARISON STUDY: CT scans of the brain dated 11/27/2017 and 02/07/2017. TECHNIQUE: Unenhanced axial CT scan of the brain is performed from the vertex to the skull base. A dose lowering technique was utilized adhering to the principles of ALARA. CT DOSE: 537.48 mGy.cm FINDINGS: Brain parenchyma: There is an evolving right occipital lobe infarct. This causes mild surrounding mass effect. A tiny evolving infarct is also seen in the right frontal lobe. No midline shift or hemorrhage is seen. There are age-related involutional changes noting mild subcortical and periventricular microangiopathic change. No additional findings are concerning for acute territorial ischemia by CT criteria. No extra-axial fluid collection is seen. Ventricles, sulci, cisterns: Prominent secondary to involutional change. Intracranial vasculature: There is atherosclerotic calcification of the cavernous carotid and vertebral arteries. Calvarium: Unremarkable. Sinuses and mastoids: The visualized paranasal sinuses are clear. The mastoid air cells are well pneumatized. Orbits: The bony orbits are grossly intact. There are bilateral ocular lens implants. IMPRESSION: 1. There is an evolving right occipital lobe infarct, similar in appearance to the 11/20/1717 examination. 2. A tiny evolving infarct is also seen in the right frontal lobe. 3. No hemorrhage is seen. No new foci of acute ischemia are suspected. Electronically signed by: Kit Delong M.D. 12/07/2017 10:54 AM Dictated Date/Time: 12/07/2017 10:49 AM
--- NOTE | 2017-12-07 11:10 | Progress Note ---
Medicine Progress Note Date & Time of Visit: Dec 07, 2017 at 11:08. Subjective seen sitting up in bedside chair comfortable, alert denies shortness of breath no new focal deficits no other symptoms Objective Last 8 Hrs Date Time Temp Pulse Resp B/P (MAP) Pulse Ox O2 Delivery O2 Flow Rate FiO2 12/07/17 08:00 Room Air 12/07/17 07:42 36.7 73 19 118/80 (93) 98 Room Air Physical Exam: General- oriented x 2, not in distress Head- atraumatic Eyes- anicteric ENT- oropharynx clear Neck- supple, no JVD Lungs- mild rales at the bases, no wheezing Heart- regular rhythm; no murmur, normal rate Abdomen- normal bowel sounds, soft, nontender Extremities- no pretibial edema, no calf tenderness Neuro- alert, oriented x 2 no gross focal deficits Skin- warm & dry Laboratory Results: Last 24 Hours Test 12/06/17 16:39 12/06/17 20:06 12/07/17 04:45 12/07/17 07:01 Bedside Glucose 156 mg/dl 215 mg/dl 130 mg/dl Prothrombin Time 19.6 SECONDS Prothromb Time International Ratio 1.9 Sodium Level 136 mmol/L Potassium Level 4.6 mmol/L Chloride Level 102 mmol/L Carbon Dioxide Level 25 mmol/L Anion Gap 9.0 mmol/L Blood Urea Nitrogen 32 mg/dl Creatinine 1.92 mg/dl Est Creatinine Clear Calc Drug Dose 46.0 ml/min Estimated GFR () 41.4 Estimated GFR (Non- 35.7 BUN/Creatinine Ratio 16.7 Random Glucose 123 mg/dl Calcium Level 9.2 mg/dl Test 12/07/17 07:30 Bedside Glucose 131 mg/dl Assessment & Plan ISCHEMIC STROKES Probable cardioembolic strokes from underlying AF. MRI demonstrated 4 cm acute / subacute infarct in right occipital lobe and 8 mm acute / subacute infarct in right frontal lobe. Neuro consulted. INR today = 1.9 - increase coumadin to 3mg po daily INR daily - repeat CT head: no hemorrhage continue usual ASA 81mg po daily PAROXYSMAL ATRIAL FIBRILLATION / FLUTTER Cardiology consulted. Receiving metoprolol and amiodarone. Continue anticoagulation with warfarin. CORONARY ARTERY DISEASE No anginal symptoms. Continue metoprolol and atorvastatin. Continue ASA CHRONIC SYSTOLIC CHF History of left ventricular systolic heart failure with LVEF 40-45% in 2016. Underlying ischemic heart disease. Chest x-rays have demonstrated CHF. Acute on chronic left ventricular systolic heart failure. Diuretics as tolerated, but need to watch for orthostasis and worsening renal function. Continue metoprolol succinate and losartan. - Crea 1.9 Lasix titration per Cardio CKD Creatinine today = 2.12--> 1.9 Follow. HEMATURIA Occurred when receiving warfarin + enoxaparin. CT demonstrated bladder wall thickening. Urine cytology negative for malignancy. Should have cystoscopy when medical status permits. DM TYPE 2 Not well-controlled. Hgb A1C = 10.7. Lantus / NovoLog per protocol FBS today = 97. LEFT FOOT INFECTION Wound Care and Ortho consulted. C&S growing few coag neg Staph. Continue local care. Transitioned from IV amp/sulbactam to oral therapy with amoxicillin / clavulanic acid. VTE PROPHYLAXIS On warfarin INR 1.9 DISPOSITION Anticipated return to [facility] for inpatient rehab when medically stable. Primary Care follow-up with Dr. Emmanuel at [facility]. Current Inpatient Medications: Current Inpatient Medications Medications (Trade) Dose Ordered Sig/Estee Route Start Time Stop Time Status Last Admin Dose Admin Acetaminophen (Tylenol Tab) 650 mg Q4H PRN PO 11/26/17 18:45 12/26/17 18:44 12/04/17 13:06 650 MG Nitroglycerin (Nitrostat Tab) 0.4 mg UD PRN SL 11/26/17 18:45 12/26/17 18:44 Polyethylene (Miralax Powder Packet) 17 gm DAILY PRN PO 11/26/17 18:45 12/26/17 18:44 Insulin Aspart (novoLOG ASPART) SLIDING SCALE If C... ACHS SC 11/26/17 21:00 12/26/17 20:59 12/07/17 07:39 4 UNITS Glucose (Glucose 40% Gel) 15-30 GRAMS 15 GRAMS... UD PRN PO 11/26/17 19:15 12/26/17 19:14 12/04/17 08:31 15 GM Glucose (Glucose Chew Tab) 4-8 Tablets 4 Tabl... UD PRN PO 11/26/17 19:15 12/26/17 19:14 Dextrose (Dextrose 50% 50ML Syringe) 25-50ML 25ML FOR ... UD PRN IV 11/26/17 19:15 12/26/17 19:14 Glucagon (Glucagon Inj) 1 mg UD PRN SQ 11/26/17 19:15 12/26/17 19:14 Carbohydrates (Carbohydrates For Hypoglycemia) 15-30 GRAMS 15 grams if BSG 54-69... UD PRN PO 11/26/17 19:15 12/26/17 19:14 12/05/17 07:20 15 GM Cholecalciferol (Vitamin D Tab) 1,000 inter.unit DAILY PO 11/27/17 09:00 12/27/17 08:59 12/07/17 07:32 1,000 INTER.UNIT Folic Acid (Folvite Tab) 1 mg DAILY PO 11/27/17 09:00 12/27/17 08:59 12/07/17 07:34 1 MG Metoprolol Succinate (Toprol Xl Tab) 100 mg DAILY PO 11/27/17 09:00 12/27/17 08:59 12/07/17 07:32 100 MG Multivitamins (Multivitamin Tab) 1 tab DAILY PO 11/27/17 09:00 12/27/17 08:59 12/07/17 07:32 1 TAB Potassium Chloride (Klor-Con Tab) 20 meq BID PO 11/26/17 21:00 12/26/17 20:59 12/07/17 07:33 20 MEQ Thiamine HCl (Vitamin B-1 Tab) 100 mg DAILY PO 11/27/17 09:00 12/27/17 08:59 12/07/17 07:32 100 MG Clotrimazole (Lotrimin 1% Crm) 1 appln BID EXT 11/27/17 09:00 12/10/17 20:00 12/07/17 07:33 1 APPLN Losartan Potassium (coZAAR TAB) 50 mg DAILY PO 11/28/17 09:00 12/28/17 08:59 Future Hold 12/06/17 09:00 50 MG Magnesium Chloride (Slow-Mag Tab) 64 mg DAILY PO 11/28/17 09:00 12/28/17 08:59 12/07/17 07:31 64 MG Miconazole Nitrate (Desenex Powder) 1 appln UD PRN EXT 11/28/17 20:00 12/28/17 19:59 12/04/17 07:52 1 APPLN Oxycodone HCl (Roxicodone Immediate Rel Tab) 5 mg Q6H PRN PO 11/29/17 12:30 12/13/17 12:29 12/05/17 04:23 5 MG Amiodarone HCl (Cordarone Tab) 200 mg BID PO 11/30/17 09:00 12/30/17 08:59 12/07/17 07:32 200 MG Atorvastatin Calcium (Lipitor Tab) 40 mg QAM PO 11/30/17 09:00 12/30/17 08:59 12/07/17 07:32 40 MG Amoxicillin/ Clavulanate Potassium (Augmentin Tab) 875 mg BIDM PO 12/02/17 16:45 12/12/17 16:44 12/07/17 07:33 875 MG Prochlorperazine Edisylate 5 mg/ Syringe 5 ml @ 5 mls/min Q6H PRN IV 12/02/17 19:45 01/01/18 19:44 Insulin Glargine (Lantus Solostar Pen) 16 units HS SC 12/06/17 21:00 01/05/18 20:59 12/06/17 21:21 16 UNITS Warfarin Sodium (Coumadin Tab) 3 mg DAILY@16 PO 12/07/17 16:00 12/31/17 15:59 Aspirin (Ecotrin Tab) 81 mg QAM PO 12/08/17 09:00 01/07/18 08:59 UNV
[2017-12-07] MEDS ORDERED: FUROSEMIDE INJ 80 MG in SYRINGE 0 ML IV ONE (12:00)
--- NOTE | 2017-12-07 12:17 | Cardiology Follow-Up ---
Subjective General Date of Service: Dec 07, 2017. Chief Complaint: follow up cardiomyopathy, PAF, stroke Pt evaluation today including: conversation w/ patient, physical exam, chart review, lab review, review of studies, review of inpatient medication list History of Present Illness The patient is a 67 year old male seen in follow-up. More alert today. Creatinine improving. Fluid balance negative approximately 1600 cc since yesterday. Patient denies shortness of breath or chest pain. Remains in sinus rhythm on telemetry. Offers no complaints at this time. Allergies Coded Allergies: JET Inhibitors (Verified Allergy, Unknown, 04/10/17) Penicillins (Verified Allergy, Unknown, RASH A CHILD recent tolerated Augmentin, 11/26/17) Lisinopril (Verified Adverse Reaction, Mild, RASH, 07/31/17) Social History Smoking Status: Never Smoker Hx Tobacco Use In Past Year?: No Hx Alcohol Use - Type And Amou: No (Past history of use.) Hx Substance Use - Type And Am: No Problem List Medical Problems: (1) Chest wall contusion Status: Acute (2) Elevated troponin Status: Acute (3) Hypotension Status: Acute (4) Lactic acidemia Status: Acute (5) Post-op bleeding Status: Acute (6) Right foot infection Status: Acute (7) Wound of foot Status: Acute Social History Problems: (1) DKA (diabetic ketoacidoses) Status: Acute Review of Systems Respiratory: + dyspnea on exertion, No cough, No sputum, No wheezing, No shortness of breath, No dyspnea at rest, No hemoptysis Cardiac: + edema, No chest pain, No orthopnea, No PND, No claudication, No palpitations Physical Exam Vital Signs Last Vital Signs Documentation Date Time Temp Pulse Resp B/P (MAP) Pulse Ox O2 Delivery O2 Flow Rate FiO2 12/07/17 11:40 36.7 70 20 110/77 (88) 97 Room Air 12/05/17 10:21 2.0 Physical Exam Constitutional: Level of Distress: NAD Ambulation: in wheelchair Head: normocephalic ENMT: normal ENT inspection Neck: supple Lungs: Auscultation: no rales/crackles, no rhonchi, pertinent finding (decreased bs at bases) Cardiovascular: Heart Auscultation: RRR, no murmurs, no rubs, no gallops Abdomen: Bowel Sounds: normal Inspection & Palpation: non-distended Extremities: gangrene (2-3+ pedal and LE edema), pertinent finding (2+ lower extremity) Neurologic: Gait & Station: pertinent finding (No focal deficits) Assessment and Plan Assessment and Plan Final impression: 1. Acute on chronic decompensated systolic heart failure with underlying ischemic cardiomyopathy and cardio renal syndrome. -Patient received 80 mg intravenous Lasix yesterday with approximately 1600 cc diuresis. Creatinine continues to trend downward. 2. Moderate to severe aortic valve stenosis 3. Presumed cardioembolic CVA with 4 centimeter acute/subacute infarct within the right occipital lobe probably 8 millimeter acute/sub acute infarct within the right frontal lobe. -INR subtherapeutic today 4. Recent resection for necrotizing fasciitis of left fifth toe/foot 5. Paroxysmal atrial dysrhythmias including atrial fibrillation, supraventricular tachycardia versus atrial flutter. Currently sinus rhythm with recent initiation of amiodarone. -INR therapeutic Plan: 80 mg intravenous Lasix today then daily. Repeat basic metabolic panel tomorrow. Monitor fluid balance, electrolytes, renal function closely. Recommend sodium restriction as well as fluid restriction (<1500cc/day). Continue current cardiovascular medications including metoprolol, amiodarone, and Coumadin dosing for a goal INR of 2.0-3.0. Increase Coumadin to 3 mg today. Repeat INR in a.m. Antibiotics as per infectious disease recommendations. Laboratory Results Last 24 Hours Test 12/06/17 16:39 12/06/17 20:06 12/07/17 04:45 12/07/17 07:01 Bedside Glucose 156 mg/dl 215 mg/dl 130 mg/dl Prothrombin Time 19.6 SECONDS Prothromb Time International Ratio 1.9 Sodium Level 136 mmol/L Potassium Level 4.6 mmol/L Chloride Level 102 mmol/L Carbon Dioxide Level 25 mmol/L Anion Gap 9.0 mmol/L Blood Urea Nitrogen 32 mg/dl Creatinine 1.92 mg/dl Est Creatinine Clear Calc Drug Dose 46.0 ml/min Estimated GFR () 41.4 Estimated GFR (Non- 35.7 BUN/Creatinine Ratio 16.7 Random Glucose 123 mg/dl Calcium Level 9.2 mg/dl Test 12/07/17 07:30 Bedside Glucose 131 mg/dl
[2017-12-07] MEDS ORDERED: WARFARIN SOD 3 MG TAB PO SCH (16:00)
[2017-12-07] MEDS: INSULIN GLARGINE SOLOSTAR 100 UNITS/ML 3 ML PEN SC SCH (20:56)
[2017-12-08] VITALS (7 sets, daily range): BP systolic 106–122; BP diastolic 75–86; PULSE 66–78; TEMP 36.4–37.3; O2SAT 92–97
[2017-12-08 06:05] LABS: INR 1.7 (0.9-1.1)
[2017-12-08 06:33] LABS: CALCIUM 8.7 mg/dl (8.5-10.1); CREATININE 1.75 mg/dl (0.60-1.40); POTASSIUM 4.1 mmol/L (3.5-5.1)
[2017-12-08] MEDS: FUROSEMIDE INJ 80 MG in SYRINGE 0 ML IV SCH (07:54)
[2017-12-08] MEDS: AMIODARONE 200 MG TAB PO SCH ×2 (07:55→22:14)
[2017-12-08] MEDS: CLOTRIMAZOLE 1% CR 15 GM TUBE EXT SCH ×2 (07:55→21:00)
[2017-12-08] MEDS: POTASSIUM CHLORIDE 20 MEQ TABCR PO SCH ×2 (07:55→22:15)
[2017-12-08] MEDS: CHOLECALCIFEROL 1000 INTER.UNIT TAB PO SCH (07:55)
[2017-12-08] MEDS: MULTIVITAMIN TAB PO SCH (07:55)
[2017-12-08] MEDS: ATORVASTATIN 40 MG TAB PO SCH (07:55)
[2017-12-08] MEDS: MAGNESIUM CHLORIDE 64MG DELAYED REL TAB PO SCH (07:56)
[2017-12-08] MEDS: METOPROLOL SUCC 50MG EXT REL TAB PO SCH (07:56)
[2017-12-08] MEDS: THIAMINE HCL 100 MG TAB PO SCH (07:56)
[2017-12-08] MEDS: ASPIRIN 81 MG ECTAB PO SCH (07:56)
[2017-12-08] MEDS: AMOXICILLIN/CLAVULANATE TAB 875 MG TAB PO SCH ×2 (07:56→16:24)
[2017-12-08] MEDS: INSULIN ASPART 100 UNITS/ML 3 ML PEN SC SCH ×4 (07:58→22:18)
--- NOTE | 2017-12-08 10:17 | Cardiology Follow-Up ---
Subjective General Date of Service: Dec 08, 2017. Chief Complaint: follow up cardiomyopathy, PAF, stroke Pt evaluation today including: conversation w/ patient, physical exam, chart review, lab review, review of studies, review of inpatient medication list History of Present Illness The patient is a 67 year old male seen in follow-up. No changes overnight. Diuresing with Lasix. Renal function improving. Offers no new complaints. Allergies Coded Allergies: JET Inhibitors (Verified Allergy, Unknown, 04/10/17) Penicillins (Verified Allergy, Unknown, RASH A CHILD recent tolerated Augmentin, 11/26/17) Lisinopril (Verified Adverse Reaction, Mild, RASH, 07/31/17) Social History Smoking Status: Never Smoker Hx Tobacco Use In Past Year?: No Hx Alcohol Use - Type And Amou: No (Past history of use.) Hx Substance Use - Type And Am: No Problem List Medical Problems: (1) Chest wall contusion Status: Acute (2) Elevated troponin Status: Acute (3) Hypotension Status: Acute (4) Lactic acidemia Status: Acute (5) Post-op bleeding Status: Acute (6) Right foot infection Status: Acute (7) Wound of foot Status: Acute Social History Problems: (1) DKA (diabetic ketoacidoses) Status: Acute Review of Systems Respiratory: + dyspnea on exertion, No cough, No sputum, No wheezing, No shortness of breath, No dyspnea at rest, No hemoptysis Cardiac: + edema, No chest pain, No orthopnea, No PND, No claudication, No palpitations Physical Exam Vital Signs Last Vital Signs Documentation Date Time Temp Pulse Resp B/P (MAP) Pulse Ox O2 Delivery O2 Flow Rate FiO2 12/08/17 08:58 Room Air 12/08/17 07:04 36.8 73 20 118/85 (96) 95 12/05/17 10:21 2.0 Physical Exam Constitutional: Level of Distress: NAD Ambulation: in wheelchair Head: normocephalic ENMT: normal ENT inspection Neck: supple Lungs: Auscultation: no rales/crackles, no rhonchi, pertinent finding (decreased bs at bases) Cardiovascular: Heart Auscultation: RRR, no murmurs, no rubs, no gallops Abdomen: Bowel Sounds: normal Inspection & Palpation: non-distended Extremities: gangrene (2-3+ pedal and LE edema), pertinent finding (2+ lower extremity) Neurologic: Gait & Station: pertinent finding (No focal deficits) Assessment and Plan Assessment and Plan Final impression: 1. Acute on chronic decompensated systolic heart failure with underlying ischemic cardiomyopathy and cardio renal syndrome. -Tolerating Lasix 80 mg daily. Losartan on hold. Blood pressure stable. Creatinine continues to trend downward. 2. Moderate to severe aortic valve stenosis 3. Presumed cardioembolic CVA with 4 centimeter acute/subacute infarct within the right occipital lobe probably 8 millimeter acute/sub acute infarct within the right frontal lobe. -INR subtherapeutic today 4. Recent resection for necrotizing fasciitis of left fifth toe/foot 5. Paroxysmal atrial dysrhythmias including atrial fibrillation, supraventricular tachycardia versus atrial flutter. Currently sinus rhythm with recent initiation of amiodarone. -INR therapeutic Plan: Continue Lasix 80 mg IV daily. Repeat basic metab Recommend sodium restriction as well as fluid restriction (<1500cc/day). Continue current cardiovascular medications including metoprolol, amiodarone, and Coumadin dosing for a goal INR of 2.0-3.0. Increase Coumadin to 5 mg today. Repeat INR in a.m. Antibiotics as per infectious disease recommendations. Laboratory Results Last 24 Hours Test 12/07/17 11:22 12/07/17 16:00 12/07/17 20:16 12/08/17 05:32 Bedside Glucose 166 mg/dl 134 mg/dl 164 mg/dl Prothrombin Time 17.9 SECONDS Prothromb Time International Ratio 1.7 Sodium Level 138 mmol/L Potassium Level 4.1 mmol/L Chloride Level 104 mmol/L Carbon Dioxide Level 26 mmol/L Anion Gap 9.0 mmol/L Blood Urea Nitrogen 29 mg/dl Creatinine 1.75 mg/dl Est Creatinine Clear Calc Drug Dose 50.5 ml/min Estimated GFR () 46.3 Estimated GFR (Non- 40.0 BUN/Creatinine Ratio 16.5 Random Glucose 112 mg/dl Calcium Level 8.7 mg/dl Test 12/08/17 06:52 12/08/17 07:36 Bedside Glucose 111 mg/dl 112 mg/dl
--- NOTE | 2017-12-08 12:12 | Progress Note ---
Medicine Progress Note Date & Time of Visit: Dec 08, 2017 at 12:12. Subjective Seen resting in bed, comfortable Denies shortness of breath, cough, chest pain, palpitations No new weakness or numbness or focal neurologic deficits No other symptoms Objective Last 8 Hrs Date Time Temp Pulse Resp B/P (MAP) Pulse Ox O2 Delivery O2 Flow Rate FiO2 12/08/17 08:58 Room Air 12/08/17 07:04 36.8 73 20 118/85 (96) 95 Room Air Physical Exam: General- oriented x 2, not in distress Head- atraumatic Eyes- anicteric Neck- supple, no JVD Lungs- mild rales at the bases, no wheezing Heart- regular rhythm; no murmur, normal rate Abdomen- normal bowel sounds, soft, nontender Extremities-grade 1-2 lower leg edema, no calf tenderness Neuro- alert, oriented x 2 no gross focal deficits Skin- warm & dry Laboratory Results: Last 24 Hours Test 12/07/17 16:00 12/07/17 20:16 12/08/17 05:32 12/08/17 06:52 Bedside Glucose 134 mg/dl 164 mg/dl 111 mg/dl Prothrombin Time 17.9 SECONDS Prothromb Time International Ratio 1.7 Sodium Level 138 mmol/L Potassium Level 4.1 mmol/L Chloride Level 104 mmol/L Carbon Dioxide Level 26 mmol/L Anion Gap 9.0 mmol/L Blood Urea Nitrogen 29 mg/dl Creatinine 1.75 mg/dl Est Creatinine Clear Calc Drug Dose 50.5 ml/min Estimated GFR () 46.3 Estimated GFR (Non- 40.0 BUN/Creatinine Ratio 16.5 Random Glucose 112 mg/dl Calcium Level 8.7 mg/dl Test 12/08/17 07:36 12/08/17 11:28 Bedside Glucose 112 mg/dl 123 mg/dl Assessment & Plan ISCHEMIC STROKES Probable cardioembolic strokes from underlying AF. MRI demonstrated 4 cm acute / subacute infarct in right occipital lobe and 8 mm acute / subacute infarct in right frontal lobe. Neuro consulted. INR today = 1.7 - increase coumadin to 5 mg mg po daily INR daily - repeat CT head: no hemorrhage continue usual ASA 81mg po daily PAROXYSMAL ATRIAL FIBRILLATION / FLUTTER Cardiology consulted. Receiving metoprolol and amiodarone. Continue anticoagulation with warfarin. CORONARY ARTERY DISEASE No anginal symptoms. Continue metoprolol and atorvastatin. Continue ASA CHRONIC SYSTOLIC CHF History of left ventricular systolic heart failure with LVEF 40-45% in 2016. Underlying ischemic heart disease. Chest x-rays have demonstrated CHF. Acute on chronic left ventricular systolic heart failure. Diuretics as tolerated, but need to watch for orthostasis and worsening renal function. Continue metoprolol succinate and losartan. -Receiving IV Lasix Lasix titration per Cardio CKD Creatinine today = 2.12--> 1.75 Follow. HEMATURIA Occurred when receiving warfarin + enoxaparin. CT demonstrated bladder wall thickening. Urine cytology negative for malignancy. Should have cystoscopy when medical status permits. DM TYPE 2 Not well-controlled. Hgb A1C = 10.7. Lantus / NovoLog per protocol FBS today = 97. LEFT FOOT INFECTION Wound Care and Ortho consulted. C&S growing few coag neg Staph. Continue local care. Transitioned from IV amp/sulbactam to oral therapy with amoxicillin / clavulanic acid. VTE PROPHYLAXIS On warfarin INR 1.7 DISPOSITION Anticipated return to [facility] for inpatient rehab when medically stable. Primary Care follow-up with Dr. Emmanuel at [facility]. Current Inpatient Medications: Current Inpatient Medications Medications (Trade) Dose Ordered Sig/Estee Route Start Time Stop Time Status Last Admin Dose Admin Acetaminophen (Tylenol Tab) 650 mg Q4H PRN PO 11/26/17 18:45 12/26/17 18:44 12/04/17 13:06 650 MG Nitroglycerin (Nitrostat Tab) 0.4 mg UD PRN SL 11/26/17 18:45 12/26/17 18:44 Polyethylene (Miralax Powder Packet) 17 gm DAILY PRN PO 11/26/17 18:45 12/26/17 18:44 Insulin Aspart (novoLOG ASPART) SLIDING SCALE If C... ACHS SC 11/26/17 21:00 12/26/17 20:59 12/08/17 12:11 7 UNITS Glucose (Glucose 40% Gel) 15-30 GRAMS 15 GRAMS... UD PRN PO 11/26/17 19:15 12/26/17 19:14 12/04/17 08:31 15 GM Glucose (Glucose Chew Tab) 4-8 Tablets 4 Tabl... UD PRN PO 11/26/17 19:15 8/25/18 19:14 Dextrose (Dextrose 50% 50ML Syringe) 25-50ML 25ML FOR ... UD PRN IV 11/26/17 19:15 12/26/17 19:14 Glucagon (Glucagon Inj) 1 mg UD PRN SQ 11/26/17 19:15 12/26/17 19:14 Carbohydrates (Carbohydrates For Hypoglycemia) 15-30 GRAMS 15 grams if BSG 54-69... UD PRN PO 11/26/17 19:15 12/26/17 19:14 12/05/17 07:20 15 GM Cholecalciferol (Vitamin D Tab) 1,000 inter.unit DAILY PO 11/27/17 09:00 12/27/17 08:59 12/08/17 07:55 1,000 INTER.UNIT Folic Acid (Folvite Tab) 1 mg DAILY PO 11/27/17 09:00 12/27/17 08:59 12/08/17 07:56 1 MG Metoprolol Succinate (Toprol Xl Tab) 100 mg DAILY PO 11/27/17 09:00 12/27/17 08:59 12/08/17 07:56 100 MG Multivitamins (Multivitamin Tab) 1 tab DAILY PO 11/27/17 09:00 12/27/17 08:59 12/08/17 07:55 1 TAB Potassium Chloride (Klor-Con Tab) 20 meq BID PO 11/26/17 21:00 12/26/17 20:59 12/08/17 07:55 20 MEQ Thiamine HCl (Vitamin B-1 Tab) 100 mg DAILY PO 11/27/17 09:00 12/27/17 08:59 12/08/17 07:56 100 MG Clotrimazole (Lotrimin 1% Crm) 1 appln BID EXT 11/27/17 09:00 12/10/17 20:00 12/08/17 07:55 1 APPLN Losartan Potassium (coZAAR TAB) 50 mg DAILY PO 11/28/17 09:00 12/28/17 08:59 Future Hold 12/06/17 09:00 50 MG Magnesium Chloride (Slow-Mag Tab) 64 mg DAILY PO 11/28/17 09:00 12/28/17 08:59 12/08/17 07:56 64 MG Miconazole Nitrate (Desenex Powder) 1 appln UD PRN EXT 11/28/17 20:00 8/27/18 19:59 12/04/17 07:52 1 APPLN Oxycodone HCl (Roxicodone Immediate Rel Tab) 5 mg Q6H PRN PO 11/29/17 12:30 12/13/17 12:29 12/05/17 04:23 5 MG Amiodarone HCl (Cordarone Tab) 200 mg BID PO 11/30/17 09:00 12/30/17 08:59 12/08/17 07:55 200 MG Atorvastatin Calcium (Lipitor Tab) 40 mg QAM PO 11/30/17 09:00 12/30/17 08:59 12/08/17 07:55 40 MG Amoxicillin/ Clavulanate Potassium (Augmentin Tab) 875 mg BIDM PO 12/02/17 16:45 12/12/17 16:44 12/08/17 07:56 875 MG Prochlorperazine Edisylate 5 mg/ Syringe 5 ml @ 5 mls/min Q6H PRN IV 12/02/17 19:45 01/01/18 19:44 Insulin Glargine (Lantus Solostar Pen) 16 units HS SC 12/06/17 21:00 01/05/18 20:59 12/07/17 20:56 16 UNITS Aspirin (Ecotrin Tab) 81 mg QAM PO 12/08/17 09:00 01/07/18 08:59 12/08/17 07:56 81 MG Furosemide 80 mg/ Syringe 8 ml @ 4 mls/min DAILY IV 12/08/17 09:00 01/07/18 08:59 12/08/17 07:54 4 MLS/MIN Warfarin Sodium (Coumadin Tab) 5 mg DAILY@16 PO 12/08/17 16:00 12/31/17 15:59
[2017-12-08] MEDS ORDERED: WARFARIN SOD 5 MG TAB PO SCH (16:00)
[2017-12-08] MEDS: INSULIN GLARGINE SOLOSTAR 100 UNITS/ML 3 ML PEN SC SCH (22:18)
[2017-12-09 04:10] VITALS: BP 115/77; PULSE 77; TEMP 37.2; O2SAT 94
[2017-12-09 07:13] LABS: INR 1.7 (0.9-1.1)
[2017-12-09 07:15] VITALS: BP 127/89; PULSE 82; TEMP 36.8; O2SAT 94
[2017-12-09 07:36] LABS: CALCIUM 8.6 mg/dl (8.5-10.1); CREATININE 1.66 mg/dl (0.60-1.40); POTASSIUM 3.7 mmol/L (3.5-5.1)
[2017-12-09] MEDS: FUROSEMIDE INJ 80 MG in SYRINGE 0 ML IV SCH ×2 (08:23→18:27)
[2017-12-09] MEDS: ATORVASTATIN 40 MG TAB PO SCH (08:24)
[2017-12-09] MEDS: CHOLECALCIFEROL 1000 INTER.UNIT TAB PO SCH (08:24)
[2017-12-09] MEDS: AMIODARONE 200 MG TAB PO SCH ×2 (08:24→20:24)
[2017-12-09] MEDS: THIAMINE HCL 100 MG TAB PO SCH (08:25)
[2017-12-09] MEDS: MAGNESIUM CHLORIDE 64MG DELAYED REL TAB PO SCH (08:25)
[2017-12-09] MEDS: AMOXICILLIN/CLAVULANATE TAB 875 MG TAB PO SCH ×2 (08:25→15:33)
[2017-12-09] MEDS: MULTIVITAMIN TAB PO SCH (08:25)
[2017-12-09] MEDS: METOPROLOL SUCC 50MG EXT REL TAB PO SCH (08:25)
[2017-12-09] MEDS: CLOTRIMAZOLE 1% CR 15 GM TUBE EXT SCH ×2 (08:27→20:23)
[2017-12-09] MEDS: ASPIRIN 81 MG ECTAB PO SCH (08:27)
[2017-12-09] MEDS: POTASSIUM CHLORIDE 20 MEQ TABCR PO SCH ×2 (08:27→20:23)
[2017-12-09] MEDS: INSULIN ASPART 100 UNITS/ML 3 ML PEN SC SCH ×4 (08:29→20:26)
--- NOTE | 2017-12-09 10:52 | Progress Note ---
Medicine Progress Note Date & Time of Visit: Dec 09, 2017 at 10:48. Subjective seen resting in bed, comfortable states he feels fine no chest pain, dyspnea, palpitations, dizziness no other symptoms Objective Last 8 Hrs Date Time Temp Pulse Resp B/P (MAP) Pulse Ox O2 Delivery O2 Flow Rate FiO2 12/09/17 07:15 36.8 82 18 127/89 (102) 94 Room Air 12/09/17 04:10 37.2 77 19 115/77 (90) 94 Room Air Physical Exam: General- oriented x 2, not in distress Eyes- anicteric Neck- no JVD Lungs- clear breath sounds bilaterally, no rales/wheezing Heart- regular rhythm; no murmur, normal rate Abdomen- normal bowel sounds, soft, nontender Extremities-grade 1-2 lower leg edema, no calf tenderness Neuro- alert, oriented x 2 no gross focal deficits Skin- warm & dry Laboratory Results: Last 24 Hours Test 12/08/17 11:28 12/08/17 16:31 12/08/17 20:08 12/09/17 06:45 Bedside Glucose 123 mg/dl 127 mg/dl 176 mg/dl Prothrombin Time 18.1 SECONDS Prothromb Time International Ratio 1.7 Sodium Level 137 mmol/L Potassium Level 3.7 mmol/L Chloride Level 103 mmol/L Carbon Dioxide Level 26 mmol/L Anion Gap 8.0 mmol/L Blood Urea Nitrogen 26 mg/dl Creatinine 1.66 mg/dl Est Creatinine Clear Calc Drug Dose 52.8 ml/min Estimated GFR () 49.4 Estimated GFR (Non- 42.6 BUN/Creatinine Ratio 15.5 Random Glucose 147 mg/dl Calcium Level 8.6 mg/dl Test 12/09/17 07:29 Bedside Glucose 158 mg/dl Assessment & Plan ISCHEMIC STROKES Probable cardioembolic strokes from underlying AF. MRI demonstrated 4 cm acute / subacute infarct in right occipital lobe and 8 mm acute / subacute infarct in right frontal lobe. Neuro consulted. INR today = 1.7 - increase coumadin to 7.5 mg mg po daily INR daily - repeat CT head: no hemorrhage continue usual ASA 81mg po daily PAROXYSMAL ATRIAL FIBRILLATION / FLUTTER Cardiology consulted. Receiving metoprolol and amiodarone. Continue anticoagulation with warfarin. CORONARY ARTERY DISEASE No anginal symptoms. Continue metoprolol and atorvastatin. Continue ASA. CHRONIC SYSTOLIC CHF History of left ventricular systolic heart failure with LVEF 40-45% in 2016. Underlying ischemic heart disease. Chest x-rays have demonstrated CHF. Acute on chronic left ventricular systolic heart failure. Diuretics as tolerated, but need to watch for orthostasis and worsening renal function. Continue metoprolol succinate and losartan. - Receiving IV Lasix still has significant lower leg edema appreciate cardio SVC recommendations CKD Creatinine today = 2.12--> 1.75--> 1.66 HEMATURIA Occurred when receiving warfarin + enoxaparin. CT demonstrated bladder wall thickening. Urine cytology negative for malignancy. Should have cystoscopy when medical status permits. DM TYPE 2 Not well-controlled. Hgb A1C = 10.7. Lantus / NovoLog per protocol FBS today = 97. LEFT FOOT INFECTION Wound Care and Ortho consulted. C&S growing few coag neg Staph. Continue local care. Transitioned from IV amp/sulbactam to oral therapy with amoxicillin / clavulanic acid. VTE PROPHYLAXIS On warfarin INR 1.7 DISPOSITION Anticipated return to [facility] for inpatient rehab when medically stable. Primary Care follow-up with Dr. Emmanuel at [facility]. Current Inpatient Medications: Current Inpatient Medications Medications (Trade) Dose Ordered Sig/Estee Route Start Time Stop Time Status Last Admin Dose Admin Acetaminophen (Tylenol Tab) 650 mg Q4H PRN PO 11/26/17 18:45 12/26/17 18:44 12/04/17 13:06 650 MG Nitroglycerin (Nitrostat Tab) 0.4 mg UD PRN SL 11/26/17 18:45 12/26/17 18:44 Polyethylene (Miralax Powder Packet) 17 gm DAILY PRN PO 11/26/17 18:45 12/26/17 18:44 Insulin Aspart (novoLOG ASPART) SLIDING SCALE If C... ACHS SC 11/26/17 21:00 12/26/17 20:59 12/09/17 08:29 6 UNITS Glucose (Glucose 40% Gel) 15-30 GRAMS 15 GRAMS... UD PRN PO 11/26/17 19:15 12/26/17 19:14 12/04/17 08:31 15 GM Glucose (Glucose Chew Tab) 4-8 Tablets 4 Tabl... UD PRN PO 11/26/17 19:15 12/26/17 19:14 Dextrose (Dextrose 50% 50ML Syringe) 25-50ML 25ML FOR ... UD PRN IV 11/26/17 19:15 12/26/17 19:14 Glucagon (Glucagon Inj) 1 mg UD PRN SQ 11/26/17 19:15 12/26/17 19:14 Carbohydrates (Carbohydrates For Hypoglycemia) 15-30 GRAMS 15 grams if BSG 54-69... UD PRN PO 11/26/17 19:15 12/26/17 19:14 12/05/17 07:20 15 GM Cholecalciferol (Vitamin D Tab) 1,000 inter.unit DAILY PO 11/27/17 09:00 12/27/17 08:59 12/09/17 08:24 1,000 INTER.UNIT Folic Acid (Folvite Tab) 1 mg DAILY PO 11/27/17 09:00 12/27/17 08:59 12/09/17 08:25 1 MG Metoprolol Succinate (Toprol Xl Tab) 100 mg DAILY PO 11/27/17 09:00 12/27/17 08:59 12/09/17 08:25 100 MG Multivitamins (Multivitamin Tab) 1 tab DAILY PO 11/27/17 09:00 12/27/17 08:59 12/09/17 08:25 1 TAB Potassium Chloride (Klor-Con Tab) 20 meq BID PO 11/26/17 21:00 12/26/17 20:59 12/09/17 08:27 20 MEQ Thiamine HCl (Vitamin B-1 Tab) 100 mg DAILY PO 11/27/17 09:00 12/27/17 08:59 12/09/17 08:25 100 MG Clotrimazole (Lotrimin 1% Crm) 1 appln BID EXT 11/27/17 09:00 12/10/17 20:00 12/09/17 08:27 1 APPLN Losartan Potassium (coZAAR TAB) 50 mg DAILY PO 11/28/17 09:00 12/28/17 08:59 Future Hold 12/06/17 09:00 50 MG Magnesium Chloride (Slow-Mag Tab) 64 mg DAILY PO 11/28/17 09:00 12/28/17 08:59 12/09/17 08:25 64 MG Miconazole Nitrate (Desenex Powder) 1 appln UD PRN EXT 11/28/17 20:00 12/28/17 19:59 12/04/17 07:52 1 APPLN Oxycodone HCl (Roxicodone Immediate Rel Tab) 5 mg Q6H PRN PO 11/29/17 12:30 12/13/17 12:29 12/05/17 04:23 5 MG Amiodarone HCl (Cordarone Tab) 200 mg BID PO 11/30/17 09:00 12/30/17 08:59 12/09/17 08:24 200 MG Atorvastatin Calcium (Lipitor Tab) 40 mg QAM PO 11/30/17 09:00 12/30/17 08:59 12/09/17 08:24 40 MG Amoxicillin/ Clavulanate Potassium (Augmentin Tab) 875 mg BIDM PO 12/02/17 16:45 12/12/17 16:44 12/09/17 08:25 875 MG Prochlorperazine Edisylate 5 mg/ Syringe 5 ml @ 5 mls/min Q6H PRN IV 12/02/17 19:45 01/01/18 19:44 Insulin Glargine (Lantus Solostar Pen) 16 units HS SC 12/06/17 21:00 01/05/18 20:59 12/08/17 22:18 16 UNITS Aspirin (Ecotrin Tab) 81 mg QAM PO 12/08/17 09:00 01/07/18 08:59 12/09/17 08:27 81 MG Furosemide 80 mg/ Syringe 8 ml @ 4 mls/min DAILY IV 12/08/17 09:00 01/07/18 08:59 12/09/17 08:23 4 MLS/MIN Warfarin Sodium (Coumadin Tab) 7.5 mg DAILY@16 PO 12/09/17 16:00 12/31/17 15:59
[2017-12-09 11:09] VITALS: BP 112/79; PULSE 70; TEMP 37; O2SAT 96
[2017-12-09 15:08] VITALS: BP 113/81; PULSE 71; TEMP 36.4; O2SAT 96
[2017-12-09] MEDS: WARFARIN SOD 7.5 MG TAB PO SCH (15:33)
--- NOTE | 2017-12-09 15:54 | Cardiology Follow-Up ---
Subjective General Date of Service: Dec 09, 2017. Chief Complaint: follow up cardiomyopathy, PAF, stroke Pt evaluation today including: conversation w/ patient, physical exam, chart review, lab review, review of studies, review of inpatient medication list History of Present Illness The patient is a 67 year old male seen in follow-up. Poor historian. Edema unchanged. Fluid balance negative approximately 2 L over the past 24 hours. Weight unchanged. Creatinine trending downward. Allergies Coded Allergies: JET Inhibitors (Verified Allergy, Unknown, 04/10/17) Penicillins (Verified Allergy, Unknown, RASH A CHILD recent tolerated Augmentin, 11/26/17) Lisinopril (Verified Adverse Reaction, Mild, RASH, 07/31/17) Social History Smoking Status: Never Smoker Hx Tobacco Use In Past Year?: No Hx Alcohol Use - Type And Amou: No (Past history of use.) Hx Substance Use - Type And Am: No Problem List Medical Problems: (1) Chest wall contusion Status: Acute (2) Elevated troponin Status: Acute (3) Hypotension Status: Acute (4) Lactic acidemia Status: Acute (5) Post-op bleeding Status: Acute (6) Right foot infection Status: Acute (7) Wound of foot Status: Acute Social History Problems: (1) DKA (diabetic ketoacidoses) Status: Acute Review of Systems Respiratory: No cough, No wheezing, No shortness of breath, No dyspnea at rest , No hemoptysis Cardiac: No chest pain, No orthopnea, No PND, No edema Physical Exam Vital Signs Last Vital Signs Documentation Date Time Temp Pulse Resp B/P (MAP) Pulse Ox O2 Delivery O2 Flow Rate FiO2 12/09/17 11:09 37.0 70 19 112/79 (90) 96 Room Air 12/05/17 10:21 2.0 Physical Exam Constitutional: Level of Distress: NAD Ambulation: in wheelchair Head: normocephalic ENMT: normal ENT inspection Neck: supple Lungs: Auscultation: no rales/crackles, no rhonchi, pertinent finding (decreased bs at bases) Cardiovascular: Heart Auscultation: RRR, no murmurs, no rubs, no gallops Abdomen: Bowel Sounds: normal Inspection & Palpation: non-distended Extremities: gangrene (2-3+ pedal and LE edema), pertinent finding (2+ lower extremity) Neurologic: Gait & Station: pertinent finding (No focal deficits) Assessment and Plan Assessment and Plan Final impression: 1. Acute on chronic decompensated systolic heart failure with underlying ischemic cardiomyopathy and cardio renal syndrome. -Tolerating Lasix 80 mg daily. Losartan on hold. Blood pressure stable. Creatinine continues to trend downward. 2. Moderate to severe aortic valve stenosis 3. Presumed cardioembolic CVA with 4 centimeter acute/subacute infarct within the right occipital lobe probably 8 millimeter acute/sub acute infarct within the right frontal lobe. 4. Recent resection for necrotizing fasciitis of left fifth toe/foot 5. Paroxysmal atrial dysrhythmias including atrial fibrillation, supraventricular tachycardia versus atrial flutter. Currently sinus rhythm with recent initiation of amiodarone. -INR subtherapeutic Plan: Titrate Lasix to 80 mg IV twice daily. Repeat basic metabolic panel in a.m. Recommend sodium restriction as well as fluid restriction (<1500cc/day). Continue current cardiovascular medications including metoprolol, amiodarone, and Coumadin dosing for a goal INR of 2.0-3.0. Increase Coumadin to 7.5 mg today. (Increased to 5 mg daily 12/08) repeat INR in a.m. Antibiotics as per infectious disease recommendations. Laboratory Results Last 24 Hours Test 12/08/17 16:31 12/08/17 20:08 12/09/17 06:45 12/09/17 07:29 Bedside Glucose 127 mg/dl 176 mg/dl 158 mg/dl Prothrombin Time 18.1 SECONDS Prothromb Time International Ratio 1.7 Sodium Level 137 mmol/L Potassium Level 3.7 mmol/L Chloride Level 103 mmol/L Carbon Dioxide Level 26 mmol/L Anion Gap 8.0 mmol/L Blood Urea Nitrogen 26 mg/dl Creatinine 1.66 mg/dl Est Creatinine Clear Calc Drug Dose 52.8 ml/min Estimated GFR () 49.4 Estimated GFR (Non- 42.6 BUN/Creatinine Ratio 15.5 Random Glucose 147 mg/dl Calcium Level 8.6 mg/dl Test 12/09/17 11:24 Bedside Glucose 158 mg/dl
[2017-12-09 19:47] VITALS: BP 112/77; PULSE 78; TEMP 36.5; O2SAT 93
[2017-12-09] MEDS: INSULIN GLARGINE SOLOSTAR 100 UNITS/ML 3 ML PEN SC SCH (20:25)
[2017-12-09 23:33] VITALS: BP 125/83; PULSE 76; TEMP 36.4; O2SAT 100
[2017-12-10 03:29] VITALS: BP 111/73; PULSE 81; TEMP 37.1; O2SAT 93
[2017-12-10 07:24] VITALS: BP 116/83; PULSE 82; TEMP 36.4; O2SAT 90
[2017-12-10] MEDS: CHOLECALCIFEROL 1000 INTER.UNIT TAB PO SCH (07:36)
[2017-12-10] MEDS: MAGNESIUM CHLORIDE 64MG DELAYED REL TAB PO SCH (07:36)
[2017-12-10] MEDS: FUROSEMIDE INJ 80 MG in SYRINGE 0 ML IV SCH ×2 (07:36→16:50)
[2017-12-10] MEDS: AMOXICILLIN/CLAVULANATE TAB 875 MG TAB PO SCH ×2 (07:37→15:19)
[2017-12-10] MEDS: THIAMINE HCL 100 MG TAB PO SCH (07:37)
[2017-12-10] MEDS: METOPROLOL SUCC 50MG EXT REL TAB PO SCH (07:37)
[2017-12-10] MEDS: MULTIVITAMIN TAB PO SCH (07:37)
[2017-12-10] MEDS: ASPIRIN 81 MG ECTAB PO SCH (07:37)
[2017-12-10] MEDS: POTASSIUM CHLORIDE 20 MEQ TABCR PO SCH ×2 (07:37→20:01)
[2017-12-10] MEDS: ATORVASTATIN 40 MG TAB PO SCH (07:37)
[2017-12-10] MEDS: CLOTRIMAZOLE 1% CR 15 GM TUBE EXT SCH (07:38)
[2017-12-10] MEDS: INSULIN ASPART 100 UNITS/ML 3 ML PEN SC SCH ×4 (07:43→20:03)
[2017-12-10] MEDS: AMIODARONE 200 MG TAB PO SCH ×2 (07:47→20:01)
[2017-12-10 08:33] LABS: INR 1.9 (0.9-1.1)
[2017-12-10 09:01] LABS: CALCIUM 8.5 mg/dl (8.5-10.1); CREATININE 1.56 mg/dl (0.60-1.40); POTASSIUM 3.5 mmol/L (3.5-5.1)
--- NOTE | 2017-12-10 09:47 | Cardiology Follow-Up ---
Subjective General Date of Service: Dec 10, 2017. Chief Complaint: follow up cardiomyopathy, PAF, stroke Pt evaluation today including: conversation w/ patient, physical exam, chart review, lab review, review of studies, review of inpatient medication list History of Present Illness The patient is a 67 year old male seen in follow-up. Edema improving today. Denies chest pain or shortness of breath. Creatinine trending downward. Offers no complaints. Allergies Coded Allergies: JET Inhibitors (Verified Allergy, Unknown, 04/10/17) Penicillins (Verified Allergy, Unknown, RASH A CHILD recent tolerated Augmentin, 11/26/17) Lisinopril (Verified Adverse Reaction, Mild, RASH, 07/31/17) Social History Smoking Status: Never Smoker Hx Tobacco Use In Past Year?: No Hx Alcohol Use - Type And Amou: No (Past history of use.) Hx Substance Use - Type And Am: No Problem List Medical Problems: (1) Chest wall contusion Status: Acute (2) Elevated troponin Status: Acute (3) Hypotension Status: Acute (4) Lactic acidemia Status: Acute (5) Post-op bleeding Status: Acute (6) Right foot infection Status: Acute (7) Wound of foot Status: Acute Social History Problems: (1) DKA (diabetic ketoacidoses) Status: Acute Review of Systems Respiratory: No cough, No sputum, No wheezing, No shortness of breath, No dyspnea on exertion, No dyspnea at rest, No hemoptysis Cardiac: No chest pain, No orthopnea, No PND, No edema, No claudication, No palpitations Physical Exam Vital Signs Last Vital Signs Documentation Date Time Temp Pulse Resp B/P (MAP) Pulse Ox O2 Delivery O2 Flow Rate FiO2 12/10/17 08:52 Room Air 12/10/17 07:24 36.4 82 18 116/83 (94) 90 12/05/17 10:21 2.0 Physical Exam Constitutional: Level of Distress: NAD Ambulation: in wheelchair Head: normocephalic ENMT: normal ENT inspection Neck: supple Lungs: Auscultation: no rales/crackles, no rhonchi, pertinent finding (decreased bs at bases) Cardiovascular: Heart Auscultation: RRR, no murmurs, no rubs, no gallops Abdomen: Bowel Sounds: normal Inspection & Palpation: non-distended Extremities: gangrene (2-3+ pedal and LE edema), pertinent finding (2+ lower extremity) Neurologic: Gait & Station: pertinent finding (No focal deficits) Assessment and Plan Assessment and Plan Final impression: 1. Acute on chronic decompensated systolic heart failure with underlying ischemic cardiomyopathy and cardio renal syndrome. -Lasix titrated to 80 mg twice daily. Losartan on hold. Blood pressure stable. Creatinine continues to trend downward. 2. Moderate to severe aortic valve stenosis 3. Presumed cardioembolic CVA with 4 centimeter acute/subacute infarct within the right occipital lobe probably 8 millimeter acute/sub acute infarct within the right frontal lobe. 4. Recent resection for necrotizing fasciitis of left fifth toe/foot 5. Paroxysmal atrial dysrhythmias including atrial fibrillation, supraventricular tachycardia versus atrial flutter. Currently sinus rhythm with recent initiation of amiodarone. -INR subtherapeutic, however, trending upward Plan: Continue Lasix to 80 mg IV twice daily. Repeat basic metabolic panel in a.m. Recommend sodium restriction as well as fluid restriction (<1500cc/day). Continue current cardiovascular medications including metoprolol, amiodarone, and Coumadin dosing for a goal INR of 2.0-3.0. Continue Coumadin to 7.5 mg today. (Increased to 5 mg daily 12/08, increased to 7.5mg daily 12/09) repeat INR in a.m. Antibiotics as per infectious disease recommendations. Laboratory Results Last 24 Hours Test 12/09/17 11:24 12/09/17 16:25 12/09/17 20:07 12/10/17 07:23 Bedside Glucose 158 mg/dl 148 mg/dl 285 mg/dl 128 mg/dl Test 12/10/17 08:16 Prothrombin Time 20.2 SECONDS Prothromb Time International Ratio 1.9 Sodium Level 136 mmol/L Potassium Level 3.5 mmol/L Chloride Level 101 mmol/L Carbon Dioxide Level 27 mmol/L Anion Gap 8.0 mmol/L Blood Urea Nitrogen 21 mg/dl Creatinine 1.56 mg/dl Est Creatinine Clear Calc Drug Dose 55.3 ml/min Estimated GFR () 53.2 Estimated GFR (Non- 45.9 BUN/Creatinine Ratio 13.7 Random Glucose 174 mg/dl Calcium Level 8.5 mg/dl
[2017-12-10 11:12] VITALS: BP 99/65; PULSE 74; TEMP 36.9; O2SAT 97
[2017-12-10] MEDS: WARFARIN SOD 7.5 MG TAB PO SCH (15:19)
[2017-12-10 16:10] VITALS: BP 107/77; PULSE 77; TEMP 36.4; O2SAT 95
--- NOTE | 2017-12-10 16:39 | Progress Note ---
Medicine Progress Note Date & Time of Visit: Dec 10, 2017 at 16:39. Subjective sitting up in chair comfortable no dyspnea no new neuro symptoms denies pain no other symptoms Objective Last 8 Hrs Date Time Temp Pulse Resp B/P (MAP) Pulse Ox O2 Delivery O2 Flow Rate FiO2 12/10/17 16:10 36.4 77 20 107/77 (87) 95 Room Air 12/10/17 16:00 Room Air 12/10/17 11:12 36.9 74 18 99/65 (76) 97 Room Air 12/10/17 08:52 Room Air Physical Exam: General- oriented x 2, not in distress Eyes- anicteric Neck- no JVD Lungs- clear breath sounds BL Heart- regular rhythm; no murmur, normal rate Abdomen- normal bowel sounds, soft, nontender Extremities-grade 1-2 lower leg edema, no calf tenderness Neuro- alert, oriented x 2 no gross focal deficits Skin- warm & dry Laboratory Results: Last 24 Hours Test 12/09/17 20:07 12/10/17 07:23 12/10/17 08:16 12/10/17 11:25 Bedside Glucose 285 mg/dl 128 mg/dl 158 mg/dl Prothrombin Time 20.2 SECONDS Prothromb Time International Ratio 1.9 Sodium Level 136 mmol/L Potassium Level 3.5 mmol/L Chloride Level 101 mmol/L Carbon Dioxide Level 27 mmol/L Anion Gap 8.0 mmol/L Blood Urea Nitrogen 21 mg/dl Creatinine 1.56 mg/dl Est Creatinine Clear Calc Drug Dose 55.3 ml/min Estimated GFR () 53.2 Estimated GFR (Non- 45.9 BUN/Creatinine Ratio 13.7 Random Glucose 174 mg/dl Calcium Level 8.5 mg/dl Assessment & Plan ISCHEMIC STROKES Probable cardioembolic strokes from underlying AF. MRI demonstrated 4 cm acute / subacute infarct in right occipital lobe and 8 mm acute / subacute infarct in right frontal lobe. Neuro consulted. INR today = 1.9 - coumadin to 7.5 mg mg po daily INR daily - repeat CT head: no hemorrhage continue usual ASA 81mg po daily PAROXYSMAL ATRIAL FIBRILLATION / FLUTTER Cardiology consulted. Receiving metoprolol and amiodarone. Continue anticoagulation with warfarin. CORONARY ARTERY DISEASE No anginal symptoms. Continue metoprolol and atorvastatin. Continue ASA. CHRONIC SYSTOLIC CHF History of left ventricular systolic heart failure with LVEF 40-45% in 2016. Underlying ischemic heart disease. Chest x-rays have demonstrated CHF. Acute on chronic left ventricular systolic heart failure. Diuretics as tolerated, but need to watch for orthostasis and worsening renal function. Continue metoprolol succinate and losartan. - Receiving IV Lasix 80 BID still has significant lower leg edema appreciate cardio SVC recommendations CKD Creatinine today = 2.12--> 1.75--> 1.66--> 1.56 HEMATURIA Occurred when receiving warfarin + enoxaparin. CT demonstrated bladder wall thickening. Urine cytology negative for malignancy. Should have cystoscopy when medical status permits. DM TYPE 2 Not well-controlled. Hgb A1C = 10.7. Lantus / NovoLog per protocol FBS today = 97. LEFT FOOT INFECTION Wound Care and Ortho consulted. C&S growing few coag neg Staph. Continue local care. Transitioned from IV amp/sulbactam to oral therapy with amoxicillin / clavulanic acid. VTE PROPHYLAXIS On warfarin INR 1.9 DISPOSITION Anticipated return to [facility] for inpatient rehab when medically stable. Primary Care follow-up with Dr. Emmanuel at [facility]. Current Inpatient Medications: Current Inpatient Medications Medications (Trade) Dose Ordered Sig/Estee Route Start Time Stop Time Status Last Admin Dose Admin Acetaminophen (Tylenol Tab) 650 mg Q4H PRN PO 11/26/17 18:45 12/26/17 18:44 12/04/17 13:06 650 MG Nitroglycerin (Nitrostat Tab) 0.4 mg UD PRN SL 11/26/17 18:45 12/26/17 18:44 Polyethylene (Miralax Powder Packet) 17 gm DAILY PRN PO 11/26/17 18:45 12/26/17 18:44 Insulin Aspart (novoLOG ASPART) SLIDING SCALE If C... ACHS SC 11/26/17 21:00 12/26/17 20:59 12/10/17 11:59 6 UNITS Glucose (Glucose 40% Gel) 15-30 GRAMS 15 GRAMS... UD PRN PO 11/26/17 19:15 12/26/17 19:14 12/04/17 08:31 15 GM Glucose (Glucose Chew Tab) 4-8 Tablets 4 Tabl... UD PRN PO 11/26/17 19:15 12/26/17 19:14 Dextrose (Dextrose 50% 50ML Syringe) 25-50ML 25ML FOR ... UD PRN IV 11/26/17 19:15 12/26/17 19:14 Glucagon (Glucagon Inj) 1 mg UD PRN SQ 11/26/17 19:15 12/26/17 19:14 Carbohydrates (Carbohydrates For Hypoglycemia) 15-30 GRAMS 15 grams if BSG 54-69... UD PRN PO 11/26/17 19:15 12/26/17 19:14 12/05/17 07:20 15 GM Cholecalciferol (Vitamin D Tab) 1,000 inter.unit DAILY PO 11/27/17 09:00 12/27/17 08:59 12/10/17 07:36 1,000 INTER.UNIT Folic Acid (Folvite Tab) 1 mg DAILY PO 11/27/17 09:00 12/27/17 08:59 12/10/17 07:38 1 MG Metoprolol Succinate (Toprol Xl Tab) 100 mg DAILY PO 11/27/17 09:00 12/27/17 08:59 12/10/17 07:37 100 MG Multivitamins (Multivitamin Tab) 1 tab DAILY PO 11/27/17 09:00 12/27/17 08:59 12/10/17 07:37 1 TAB Potassium Chloride (Klor-Con Tab) 20 meq BID PO 11/26/17 21:00 12/26/17 20:59 12/10/17 07:37 20 MEQ Thiamine HCl (Vitamin B-1 Tab) 100 mg DAILY PO 11/27/17 09:00 12/27/17 08:59 12/10/17 07:37 100 MG Clotrimazole (Lotrimin 1% Crm) 1 appln BID EXT 11/27/17 09:00 12/10/17 20:00 12/10/17 07:38 1 APPLN Losartan Potassium (coZAAR TAB) 50 mg DAILY PO 11/28/17 09:00 12/28/17 08:59 Future Hold 12/06/17 09:00 50 MG Magnesium Chloride (Slow-Mag Tab) 64 mg DAILY PO 11/28/17 09:00 12/28/17 08:59 12/10/17 07:36 64 MG Miconazole Nitrate (Desenex Powder) 1 appln UD PRN EXT 11/28/17 20:00 12/28/17 19:59 12/04/17 07:52 1 APPLN Oxycodone HCl (Roxicodone Immediate Rel Tab) 5 mg Q6H PRN PO 11/29/17 12:30 12/13/17 12:29 12/05/17 04:23 5 MG Amiodarone HCl (Cordarone Tab) 200 mg BID PO 11/30/17 09:00 12/30/17 08:59 12/10/17 07:47 200 MG Atorvastatin Calcium (Lipitor Tab) 40 mg QAM PO 11/30/17 09:00 12/30/17 08:59 12/10/17 07:37 40 MG Amoxicillin/ Clavulanate Potassium (Augmentin Tab) 875 mg BIDM PO 12/02/17 16:45 12/12/17 16:44 12/10/17 15:19 875 MG Prochlorperazine Edisylate 5 mg/ Syringe 5 ml @ 5 mls/min Q6H PRN IV 12/02/17 19:45 01/01/18 19:44 Insulin Glargine (Lantus Solostar Pen) 16 units HS SC 12/06/17 21:00 01/05/18 20:59 12/09/17 20:25 16 UNITS Aspirin (Ecotrin Tab) 81 mg QAM PO 12/08/17 09:00 01/07/18 08:59 12/10/17 07:37 81 MG Warfarin Sodium (Coumadin Tab) 7.5 mg DAILY@16 PO 12/09/17 16:00 12/31/17 15:59 12/10/17 15:19 7.5 MG Furosemide 80 mg/ Syringe 8 ml @ 4 mls/min BID17 IV 12/09/17 17:00 01/08/18 16:59 12/10/17 07:36 4 MLS/MIN
[2017-12-10 19:20] VITALS: BP 110/76; PULSE 74; TEMP 36.4; O2SAT 94
[2017-12-10] MEDS: INSULIN GLARGINE SOLOSTAR 100 UNITS/ML 3 ML PEN SC SCH (20:04)
[2017-12-10 23:29] VITALS: BP 106/68; PULSE 80; TEMP 36.5; O2SAT 96
[2017-12-11 03:48] VITALS: BP 113/77; PULSE 76; TEMP 36.9; O2SAT 91
[2017-12-11 06:21] LABS: INR 2.4 (0.9-1.1)
[2017-12-11 06:39] LABS: CALCIUM 8.1 mg/dl (8.5-10.1); CREATININE 1.65 mg/dl (0.60-1.40); POTASSIUM 3.3 mmol/L (3.5-5.1)
[2017-12-11 07:04] VITALS: BP 118/76; PULSE 76; TEMP 36.9; O2SAT 90
[2017-12-11] MEDS: AMOXICILLIN/CLAVULANATE TAB 875 MG TAB PO SCH ×2 (07:44→16:15)
[2017-12-11] MEDS: INSULIN ASPART 100 UNITS/ML 3 ML PEN SC SCH ×4 (07:49→20:47)
[2017-12-11] MEDS: CHOLECALCIFEROL 1000 INTER.UNIT TAB PO SCH (08:18)
[2017-12-11] MEDS: ATORVASTATIN 40 MG TAB PO SCH (08:18)
[2017-12-11] MEDS: AMIODARONE 200 MG TAB PO SCH ×2 (08:18→20:46)
[2017-12-11] MEDS: MULTIVITAMIN TAB PO SCH (08:19)
[2017-12-11] MEDS: FUROSEMIDE INJ 80 MG in SYRINGE 0 ML IV SCH ×2 (08:19→17:28)
[2017-12-11] MEDS: METOPROLOL SUCC 50MG EXT REL TAB PO SCH (08:19)
[2017-12-11] MEDS: THIAMINE HCL 100 MG TAB PO SCH (08:19)
[2017-12-11] MEDS: MAGNESIUM CHLORIDE 64MG DELAYED REL TAB PO SCH (08:20)
[2017-12-11] MEDS: ASPIRIN 81 MG ECTAB PO SCH (08:20)
[2017-12-11] MEDS: POTASSIUM CHLORIDE 20 MEQ TABCR PO SCH ×2 (08:20→20:46)
[2017-12-11] MEDS ORDERED: POTASSIUM CHLORIDE 20 MEQ TABCR PO ONE (09:30)
[2017-12-11 10:50] VITALS: BP 100/66; PULSE 68; TEMP 36.7; O2SAT 94
--- NOTE | 2017-12-11 13:41 | Cardiology Follow-Up ---
Subjective General Date of Service: Dec 11, 2017. Chief Complaint: follow up cardiomyopathy, PAF, stroke Pt evaluation today including: conversation w/ patient, physical exam, chart review, lab review, review of studies, review of inpatient medication list History of Present Illness The patient is a 67 year old male seen in follow-up. Edema slowly improving. Denies chest pain or shortness of breath. Remains in sinus rhythm on telemetry. Offers no complaints at this time. Allergies Coded Allergies: JET Inhibitors (Verified Allergy, Unknown, 04/10/17) Penicillins (Verified Allergy, Unknown, RASH A CHILD recent tolerated Augmentin, 11/26/17) Lisinopril (Verified Adverse Reaction, Mild, RASH, 07/31/17) Social History Smoking Status: Never Smoker Hx Tobacco Use In Past Year?: No Hx Alcohol Use - Type And Amou: No (Past history of use.) Hx Substance Use - Type And Am: No Problem List Medical Problems: (1) Chest wall contusion Status: Acute (2) Elevated troponin Status: Acute (3) Hypotension Status: Acute (4) Lactic acidemia Status: Acute (5) Post-op bleeding Status: Acute (6) Right foot infection Status: Acute (7) Wound of foot Status: Acute Social History Problems: (1) DKA (diabetic ketoacidoses) Status: Acute Review of Systems Respiratory: + dyspnea on exertion, No cough, No sputum, No wheezing, No shortness of breath, No dyspnea at rest, No hemoptysis Cardiac: + edema, No chest pain, No orthopnea, No PND, No claudication, No palpitations Physical Exam Vital Signs Last Vital Signs Documentation Date Time Temp Pulse Resp B/P (MAP) Pulse Ox O2 Delivery O2 Flow Rate FiO2 12/11/17 10:50 36.7 68 18 100/66 (77) 94 Room Air 12/05/17 10:21 2.0 Physical Exam Constitutional: Level of Distress: NAD Ambulation: in wheelchair Head: normocephalic ENMT: normal ENT inspection Neck: supple Lungs: Auscultation: no rales/crackles, no rhonchi, pertinent finding (decreased bs at bases) Cardiovascular: Heart Auscultation: RRR, no murmurs, no rubs, no gallops Abdomen: Bowel Sounds: normal Inspection & Palpation: non-distended Extremities: gangrene (2-3+ pedal and LE edema), pertinent finding (2+ lower extremity) Neurologic: Gait & Station: pertinent finding (No focal deficits) Assessment and Plan Assessment and Plan Final impression: 1. Acute on chronic decompensated systolic heart failure with underlying ischemic cardiomyopathy and cardio renal syndrome. -Edema/volume status improving with 80 mg intravenous Lasix twice daily. Mild increase in creatinine noted today. Losartan on hold with IV diuresis. Blood pressure stable. 2. Moderate to severe aortic valve stenosis 3. Presumed cardioembolic CVA with 4 centimeter acute/subacute infarct within the right occipital lobe probably 8 millimeter acute/sub acute infarct within the right frontal lobe. 4. Recent resection for necrotizing fasciitis of left fifth toe/foot 5. Paroxysmal atrial dysrhythmias including atrial fibrillation, supraventricular tachycardia versus atrial flutter. Currently sinus rhythm with recent initiation of amiodarone. -INR therapeutic Plan: Continue Lasix to 80 mg IV twice daily. Repeat basic metabolic panel in a.m. Recommend sodium restriction as well as fluid restriction (<1500cc/day). Continue current cardiovascular medications including metoprolol, amiodarone, and Coumadin dosing for a goal INR of 2.0-3.0. Continue Coumadin to 7.5 mg today. (Increased to 5 mg daily 12/08, increased to 7.5mg daily 12/09) repeat INR in a.m. Antibiotics as per infectious disease recommendations. Laboratory Results Last 24 Hours Test 12/10/17 16:16 12/10/17 19:56 12/11/17 05:43 12/11/17 07:27 Bedside Glucose 163 mg/dl 195 mg/dl 134 mg/dl Prothrombin Time 24.7 SECONDS Prothromb Time International Ratio 2.4 Sodium Level 135 mmol/L Potassium Level 3.3 mmol/L Chloride Level 100 mmol/L Carbon Dioxide Level 28 mmol/L Anion Gap 7.0 mmol/L Blood Urea Nitrogen 19 mg/dl Creatinine 1.65 mg/dl Est Creatinine Clear Calc Drug Dose 52.2 ml/min Estimated GFR () 49.7 Estimated GFR (Non- 42.9 BUN/Creatinine Ratio 11.6 Random Glucose 132 mg/dl Calcium Level 8.1 mg/dl Test 12/11/17 11:18 Bedside Glucose 133 mg/dl
[2017-12-11 15:58] VITALS: BP 107/74; PULSE 71; TEMP 36.5; O2SAT 97
[2017-12-11] MEDS ORDERED: WARFARIN SOD 5 MG TAB PO SCH (16:00)
--- NOTE | 2017-12-11 18:39 | Progress Note ---
Medicine Progress Note Date & Time of Visit: Dec 11, 2017 at 18:37. Subjective seen resting in bed, comfortable states he feels fine denies neuro symptoms denies chest pain, dyspnea no leg pain Objective Last 8 Hrs Date Time Temp Pulse Resp B/P (MAP) Pulse Ox O2 Delivery O2 Flow Rate FiO2 12/11/17 16:25 Room Air 12/11/17 15:58 36.5 71 17 107/74 (85) 97 Room Air 12/11/17 10:50 36.7 68 18 100/66 (77) 94 Room Air Physical Exam: General- oriented x 2, not in distress Eyes- anicteric Neck- no JVD Lungs- clear breath sounds , no rales BL Heart- regular rhythm; no murmur, normal rate Abdomen- normal bowel sounds, soft, nontender Extremities-grade 1-2 lower leg edema, no calf tenderness Neuro- alert, oriented x 2 no gross focal deficits Skin- warm & dry Laboratory Results: Last 24 Hours Test 12/10/17 19:56 12/11/17 05:43 12/11/17 07:27 12/11/17 11:18 Bedside Glucose 195 mg/dl 134 mg/dl 133 mg/dl Prothrombin Time 24.7 SECONDS Prothromb Time International Ratio 2.4 Sodium Level 135 mmol/L Potassium Level 3.3 mmol/L Chloride Level 100 mmol/L Carbon Dioxide Level 28 mmol/L Anion Gap 7.0 mmol/L Blood Urea Nitrogen 19 mg/dl Creatinine 1.65 mg/dl Est Creatinine Clear Calc Drug Dose 52.2 ml/min Estimated GFR () 49.7 Estimated GFR (Non- 42.9 BUN/Creatinine Ratio 11.6 Random Glucose 132 mg/dl Calcium Level 8.1 mg/dl Test 12/11/17 16:19 Bedside Glucose 202 mg/dl Assessment & Plan ISCHEMIC STROKES Probable cardioembolic strokes from underlying AF. MRI demonstrated 4 cm acute / subacute infarct in right occipital lobe and 8 mm acute / subacute infarct in right frontal lobe. Neuro consulted. INR today = 2.4 - coumadin5 mg po daily INR daily - repeat CT head: no hemorrhage continue usual ASA 81mg po daily PAROXYSMAL ATRIAL FIBRILLATION / FLUTTER Cardiology consulted. Receiving metoprolol and amiodarone. Continue anticoagulation with warfarin. CORONARY ARTERY DISEASE No anginal symptoms. Continue metoprolol and atorvastatin. Continue ASA. CHRONIC SYSTOLIC CHF History of left ventricular systolic heart failure with LVEF 40-45% in 2016. Underlying ischemic heart disease. Chest x-rays have demonstrated CHF. Acute on chronic left ventricular systolic heart failure. Diuretics as tolerated, but need to watch for orthostasis and worsening renal function. Continue metoprolol succinate and losartan. - Receiving IV Lasix 80 BID still has significant lower leg edema appreciate cardio SVC recommendations CKD Creatinine today = 2.12--> 1.75--> 1.66--> 1.56 HEMATURIA Occurred when receiving warfarin + enoxaparin. CT demonstrated bladder wall thickening. Urine cytology negative for malignancy. Should have cystoscopy when medical status permits. DM TYPE 2 Not well-controlled. Hgb A1C = 10.7. Lantus / NovoLog per protocol LEFT FOOT INFECTION Wound Care and Ortho consulted. C&S growing few coag neg Staph. Continue local care. Transitioned from IV amp/sulbactam to oral therapy with amoxicillin / clavulanic acid. VTE PROPHYLAXIS On warfarin INR 2.4 DISPOSITION Anticipated return to [facility] for inpatient rehab when medically stable. Primary Care follow-up with Dr. Emmanuel at [facility]. Current Inpatient Medications: Current Inpatient Medications Medications (Trade) Dose Ordered Sig/Estee Route Start Time Stop Time Status Last Admin Dose Admin Acetaminophen (Tylenol Tab) 650 mg Q4H PRN PO 11/26/17 18:45 12/26/17 18:44 12/04/17 13:06 650 MG Nitroglycerin (Nitrostat Tab) 0.4 mg UD PRN SL 11/26/17 18:45 12/26/17 18:44 Polyethylene (Miralax Powder Packet) 17 gm DAILY PRN PO 11/26/17 18:45 12/26/17 18:44 Insulin Aspart (novoLOG ASPART) SLIDING SCALE If C... ACHS SC 11/26/17 21:00 12/26/17 20:59 12/11/17 17:30 9 UNITS Glucose (Glucose 40% Gel) 15-30 GRAMS 15 GRAMS... UD PRN PO 11/26/17 19:15 12/26/17 19:14 12/04/17 08:31 15 GM Glucose (Glucose Chew Tab) 4-8 Tablets 4 Tabl... UD PRN PO 11/26/17 19:15 12/26/17 19:14 Dextrose (Dextrose 50% 50ML Syringe) 25-50ML 25ML FOR ... UD PRN IV 11/26/17 19:15 12/26/17 19:14 Glucagon (Glucagon Inj) 1 mg UD PRN SQ 11/26/17 19:15 12/26/17 19:14 Carbohydrates (Carbohydrates For Hypoglycemia) 15-30 GRAMS 15 grams if BSG 54-69... UD PRN PO 11/26/17 19:15 12/26/17 19:14 12/05/17 07:20 15 GM Cholecalciferol (Vitamin D Tab) 1,000 inter.unit DAILY PO 11/27/17 09:00 12/27/17 08:59 12/11/17 08:18 1,000 INTER.UNIT Folic Acid (Folvite Tab) 1 mg DAILY PO 11/27/17 09:00 12/27/17 08:59 12/11/17 08:19 1 MG Metoprolol Succinate (Toprol Xl Tab) 100 mg DAILY PO 11/27/17 09:00 12/27/17 08:59 12/11/17 08:19 100 MG Multivitamins (Multivitamin Tab) 1 tab DAILY PO 11/27/17 09:00 12/27/17 08:59 12/11/17 08:19 1 TAB Potassium Chloride (Klor-Con Tab) 20 meq BID PO 11/26/17 21:00 12/26/17 20:59 12/11/17 08:20 20 MEQ Thiamine HCl (Vitamin B-1 Tab) 100 mg DAILY PO 11/27/17 09:00 12/27/17 08:59 12/11/17 08:19 100 MG Losartan Potassium (coZAAR TAB) 50 mg DAILY PO 11/28/17 09:00 12/28/17 08:59 Future Hold 12/06/17 09:00 50 MG Magnesium Chloride (Slow-Mag Tab) 64 mg DAILY PO 11/28/17 09:00 12/28/17 08:59 12/11/17 08:20 64 MG Miconazole Nitrate (Desenex Powder) 1 appln UD PRN EXT 11/28/17 20:00 12/28/17 19:59 12/04/17 07:52 1 APPLN Oxycodone HCl (Roxicodone Immediate Rel Tab) 5 mg Q6H PRN PO 11/29/17 12:30 12/13/17 12:29 12/05/17 04:23 5 MG Amiodarone HCl (Cordarone Tab) 200 mg BID PO 11/30/17 09:00 12/30/17 08:59 12/11/17 08:18 200 MG Atorvastatin Calcium (Lipitor Tab) 40 mg QAM PO 11/30/17 09:00 12/30/17 08:59 12/11/17 08:18 40 MG Amoxicillin/ Clavulanate Potassium (Augmentin Tab) 875 mg BIDM PO 12/02/17 16:45 12/12/17 16:44 12/11/17 16:15 875 MG Prochlorperazine Edisylate 5 mg/ Syringe 5 ml @ 5 mls/min Q6H PRN IV 12/02/17 19:45 01/01/18 19:44 Insulin Glargine (Lantus Solostar Pen) 16 units HS SC 12/06/17 21:00 01/05/18 20:59 12/10/17 20:04 16 UNITS Aspirin (Ecotrin Tab) 81 mg QAM PO 12/08/17 09:00 01/07/18 08:59 12/11/17 08:20 81 MG Furosemide 80 mg/ Syringe 8 ml @ 4 mls/min BID17 IV 12/09/17 17:00 01/08/18 16:59 12/11/17 17:28 4 MLS/MIN Warfarin Sodium (Coumadin Tab) 5 mg DAILY@16 PO 12/11/17 16:00 12/31/17 15:59 12/11/17 16:15 5 MG
[2017-12-11 19:44] VITALS: BP 115/79; PULSE 72; TEMP 36.5; O2SAT 99
[2017-12-11] MEDS: INSULIN GLARGINE SOLOSTAR 100 UNITS/ML 3 ML PEN SC SCH (20:48)
[2017-12-11 23:20] VITALS: BP 99/67; PULSE 76; TEMP 37; O2SAT 94
[2017-12-12] VITALS (9 sets, daily range): BP systolic 88–124; BP diastolic 62–86; PULSE 71–80; TEMP 36.3–37; O2SAT 90–96
[2017-12-12 07:18] LABS: INR 3.4 (0.9-1.1)
[2017-12-12 07:35] LABS: CALCIUM 8.1 mg/dl (8.5-10.1); CREATININE 1.38 mg/dl (0.60-1.40); POTASSIUM 3.1 mmol/L (3.5-5.1)
[2017-12-12] MEDS: INSULIN ASPART 100 UNITS/ML 3 ML PEN SC SCH ×4 (08:18→21:00)
[2017-12-12] MEDS: METOPROLOL SUCC 50MG EXT REL TAB PO SCH (08:21)
[2017-12-12] MEDS: ATORVASTATIN 40 MG TAB PO SCH (08:21)
[2017-12-12] MEDS: CHOLECALCIFEROL 1000 INTER.UNIT TAB PO SCH (08:21)
[2017-12-12] MEDS: AMIODARONE 200 MG TAB PO SCH ×2 (08:21→21:27)
[2017-12-12] MEDS: ASPIRIN 81 MG ECTAB PO SCH (08:22)
[2017-12-12] MEDS: AMOXICILLIN/CLAVULANATE TAB 875 MG TAB PO SCH (08:22)
[2017-12-12] MEDS: MULTIVITAMIN TAB PO SCH (08:22)
[2017-12-12] MEDS: THIAMINE HCL 100 MG TAB PO SCH (08:22)
[2017-12-12] MEDS: FUROSEMIDE INJ 80 MG in SYRINGE 0 ML IV SCH ×2 (08:23→17:26)
[2017-12-12] MEDS: POTASSIUM CHLORIDE 20 MEQ TABCR PO SCH ×2 (10:06→21:27)
[2017-12-12] MEDS ORDERED: SPIRONOLACTONE 25 MG TAB PO ONE (11:30)
--- NOTE | 2017-12-12 11:36 | PROGRESS NOTE ---
DATE: 12/12/2017 Patient is seen and examined. Chart, medications, telemetry reviewed. SUBJECTIVE: Patient gradually has demonstrated improvement by his own description. Leg edema has improved. Sitting out of bed to chair. Notes no dizziness or lightheadedness. Notes no headache or discomfort. Telemetry reveals no tachyarrhythmias. OBJECTIVE: VITAL SIGNS: Heart rate is 80, blood pressure is 117/73. NECK: Thick. There is no distinct jugular venous distention. With moderate bowser. There are no carotid bruits. RESPIRATORY: Lungs reveal mildly diminished breath sounds, but no rhonchi, rales, or wheezes. CARDIOVASCULAR: Regular. There is no S3 gallop. ABDOMEN: Soft. EXTREMITIES: Reveal chronic 2+ lower extremity edema with left foot bandaged. LABORATORY DATA: Sodium is 139, potassium is 3.1, chloride is 101, bicarbonate is 30, BUN is 18, creatinine is 1.38. White cell count is 9.5, hemoglobin is 12.6. IMPRESSION/RECOMMENDATIONS: Patient is a complex 67-year-old male followed for issues as noted: 1. Acute on chronic decompensated systolic heart failure. Continue to receive IV furosemide. Patient prior to hospitalization was on spironolactone. Would resume spironolactone given hypokalemia and persistent heart failure though patient demonstrated significant improvement. 2. Moderate to severe aortic valve stenosis. 3. Paroxysmal atrial fibrillation, currently controlled, in sinus rhythm. Amiodarone 200 mg twice per day. We anticipate reducing this to 200 mg once per day on discharge. 4. Underlying ischemic heart disease, ischemic cardiomyopathy. 5. Atherosclerotic peripheral vascular disease, history of necrotizing fasciitis, left foot. PLAN: As outlined above. Patient may be transferred for monitoring. Stable to clinically improving.
--- NOTE | 2017-12-12 17:32 | Progress Note ---
Medicine Progress Note Date & Time of Visit: Dec 12, 2017 at 17:27. Subjective seen resting in bed, comfortable states he feels fine overall no new neuro symptoms no dyspnea no leg pain denies new complaints Objective Last 8 Hrs Date Time Temp Pulse Resp B/P (MAP) Pulse Ox O2 Delivery O2 Flow Rate FiO2 12/12/17 14:16 36.9 71 18 102/69 (80) 91 12/12/17 13:31 36.5 78 20 88/63 (71) 92 Room Air 12/12/17 11:24 36.5 73 20 106/72 (83) 94 Room Air Physical Exam: General- oriented x 2, not in distress Eyes- anicteric Neck- no JVD Lungs- clear breath sounds Heart- regular rhythm; no murmur, normal rate Abdomen- normal bowel sounds, soft, nontender Extremities-grade 1-2 lower leg edema, no calf tenderness left foot: deep open wound- healing, no signs of active infection Neuro- alert, oriented x 2 no gross focal deficits Skin- warm & dry Laboratory Results: Last 24 Hours Test 12/11/17 20:43 12/12/17 06:17 12/12/17 07:37 12/12/17 11:14 Bedside Glucose 207 mg/dl 123 mg/dl 227 mg/dl Prothrombin Time 34.5 SECONDS Prothromb Time International Ratio 3.4 Sodium Level 139 mmol/L Potassium Level 3.1 mmol/L Chloride Level 101 mmol/L Carbon Dioxide Level 30 mmol/L Anion Gap 7.0 mmol/L Blood Urea Nitrogen 18 mg/dl Creatinine 1.38 mg/dl Est Creatinine Clear Calc Drug Dose 57.8 ml/min Estimated GFR () 61.7 Estimated GFR (Non- 53.3 BUN/Creatinine Ratio 13.3 Random Glucose 107 mg/dl Calcium Level 8.1 mg/dl Magnesium Level 1.6 mg/dl Assessment & Plan ISCHEMIC STROKES Probable cardioembolic strokes from underlying AF. MRI demonstrated 4 cm acute / subacute infarct in right occipital lobe and 8 mm acute / subacute infarct in right frontal lobe. Neuro consulted. INR today = 3.4 - hold coumadin INR daily - repeat CT head: no hemorrhage continue usual ASA 81mg po daily PAROXYSMAL ATRIAL FIBRILLATION / FLUTTER Cardiology consulted. Receiving metoprolol and amiodarone. Continue anticoagulation with warfarin. CORONARY ARTERY DISEASE No anginal symptoms. Continue metoprolol and atorvastatin. Continue ASA. CHRONIC SYSTOLIC CHF History of left ventricular systolic heart failure with LVEF 40-45% in 2016. Underlying ischemic heart disease. Chest x-rays have demonstrated CHF. Acute on chronic left ventricular systolic heart failure. Diuretics as tolerated, but need to watch for orthostasis and worsening renal function. Continue metoprolol succinate and losartan. - Receiving IV Lasix 80 BID Aldactone 25mg po daily added lower leg edeme gradually improving appreciate cardio SVC recommendations CKD Creatinine today = 2.12--> 1.75--> 1.66--> 1.56--> 1.3 HEMATURIA Occurred when receiving warfarin + enoxaparin. CT demonstrated bladder wall thickening. Urine cytology negative for malignancy. Should have cystoscopy when medical status permits. DM TYPE 2 Not well-controlled. Hgb A1C = 10.7. Lantus / NovoLog per protocol LEFT FOOT INFECTION Wound Care and Ortho consulted. C&S growing few coag neg Staph. Continue local care. Transitioned from IV amp/sulbactam to oral therapy with amoxicillin / clavulanic acid. VTE PROPHYLAXIS INR 3.2 hold coumadin DISPOSITION Anticipated return to [facility] for inpatient rehab when medically stable. Primary Care follow-up with Dr. Emmanuel at [facility]. Current Inpatient Medications: Current Inpatient Medications Medications (Trade) Dose Ordered Sig/Estee Route Start Time Stop Time Status Last Admin Dose Admin Acetaminophen (Tylenol Tab) 650 mg Q4H PRN PO 11/26/17 18:45 12/26/17 18:44 12/04/17 13:06 650 MG Nitroglycerin (Nitrostat Tab) 0.4 mg UD PRN SL 11/26/17 18:45 12/26/17 18:44 Polyethylene (Miralax Powder Packet) 17 gm DAILY PRN PO 11/26/17 18:45 12/26/17 18:44 Insulin Aspart (novoLOG ASPART) SLIDING SCALE If C... ACHS SC 11/26/17 21:00 12/26/17 20:59 12/12/17 17:25 7 UNITS Glucose (Glucose 40% Gel) 15-30 GRAMS 15 GRAMS... UD PRN PO 11/26/17 19:15 12/26/17 19:14 12/04/17 08:31 15 GM Glucose (Glucose Chew Tab) 4-8 Tablets 4 Tabl... UD PRN PO 11/26/17 19:15 12/26/17 19:14 Dextrose (Dextrose 50% 50ML Syringe) 25-50ML 25ML FOR ... UD PRN IV 11/26/17 19:15 12/26/17 19:14 Glucagon (Glucagon Inj) 1 mg UD PRN SQ 11/26/17 19:15 12/26/17 19:14 Carbohydrates (Carbohydrates For Hypoglycemia) 15-30 GRAMS 15 grams if BSG 54-69... UD PRN PO 11/26/17 19:15 12/26/17 19:14 12/05/17 07:20 15 GM Cholecalciferol (Vitamin D Tab) 1,000 inter.unit DAILY PO 11/27/17 09:00 12/27/17 08:59 12/12/17 08:21 1,000 INTER.UNIT Folic Acid (Folvite Tab) 1 mg DAILY PO 11/27/17 09:00 12/27/17 08:59 12/12/17 08:23 1 MG Metoprolol Succinate (Toprol Xl Tab) 100 mg DAILY PO 11/27/17 09:00 12/27/17 08:59 12/12/17 08:21 100 MG Multivitamins (Multivitamin Tab) 1 tab DAILY PO 11/27/17 09:00 12/27/17 08:59 12/12/17 08:22 1 TAB Thiamine HCl (Vitamin B-1 Tab) 100 mg DAILY PO 11/27/17 09:00 12/27/17 08:59 12/12/17 08:22 100 MG Losartan Potassium (coZAAR TAB) 50 mg DAILY PO 11/28/17 09:00 12/28/17 08:59 Future Hold 12/06/17 09:00 50 MG Miconazole Nitrate (Desenex Powder) 1 appln UD PRN EXT 11/28/17 20:00 12/28/17 19:59 12/04/17 07:52 1 APPLN Oxycodone HCl (Roxicodone Immediate Rel Tab) 5 mg Q6H PRN PO 11/29/17 12:30 12/13/17 12:29 12/05/17 04:23 5 MG Amiodarone HCl (Cordarone Tab) 200 mg BID PO 11/30/17 09:00 12/30/17 08:59 12/12/17 08:21 200 MG Atorvastatin Calcium (Lipitor Tab) 40 mg QAM PO 11/30/17 09:00 12/30/17 08:59 12/12/17 08:21 40 MG Prochlorperazine Edisylate 5 mg/ Syringe 5 ml @ 5 mls/min Q6H PRN IV 12/02/17 19:45 01/01/18 19:44 Insulin Glargine (Lantus Solostar Pen) 16 units HS SC 12/06/17 21:00 01/05/18 20:59 12/11/17 20:48 16 UNITS Aspirin (Ecotrin Tab) 81 mg QAM PO 12/08/17 09:00 01/07/18 08:59 12/12/17 08:22 81 MG Furosemide 80 mg/ Syringe 8 ml @ 4 mls/min BID17 IV 12/09/17 17:00 01/08/18 16:59 12/12/17 17:26 4 MLS/MIN Potassium Chloride (Klor-Con Tab) 40 meq BID PO 12/12/17 09:00 01/11/18 08:59 12/12/17 10:06 40 MEQ Magnesium Chloride (Slow-Mag Tab) 64 mg BID PO 12/12/17 21:00 12/28/17 08:59 Spironolactone (Aldactone Tab) 25 mg QAM PO 12/13/17 09:00 01/12/18 08:59
[2017-12-12] MEDS: MAGNESIUM CHLORIDE 64MG DELAYED REL TAB PO SCH (21:27)
[2017-12-12] MEDS: INSULIN GLARGINE SOLOSTAR 100 UNITS/ML 3 ML PEN SC SCH (21:30)
[2017-12-13 07:00] LABS: INR 2.9 (0.9-1.1)
[2017-12-13 07:54] VITALS: BP 105/71; PULSE 78; TEMP 36.8; O2SAT 97
[2017-12-13 08:00] VITALS: O2SAT 97
[2017-12-13] MEDS: FUROSEMIDE INJ 80 MG in SYRINGE 0 ML IV SCH (08:23)
[2017-12-13] MEDS: METOPROLOL SUCC 50MG EXT REL TAB PO SCH (08:24)
[2017-12-13] MEDS: THIAMINE HCL 100 MG TAB PO SCH (08:24)
[2017-12-13] MEDS: AMIODARONE 200 MG TAB PO SCH ×2 (08:24→20:36)
[2017-12-13] MEDS: MULTIVITAMIN TAB PO SCH (08:24)
[2017-12-13] MEDS: CHOLECALCIFEROL 1000 INTER.UNIT TAB PO SCH (08:24)
[2017-12-13] MEDS: ATORVASTATIN 40 MG TAB PO SCH (08:25)
[2017-12-13] MEDS: ASPIRIN 81 MG ECTAB PO SCH (08:25)
[2017-12-13] MEDS: MAGNESIUM CHLORIDE 64MG DELAYED REL TAB PO SCH ×2 (08:25→20:36)
[2017-12-13] MEDS: POTASSIUM CHLORIDE 20 MEQ TABCR PO SCH ×2 (08:25→20:36)
[2017-12-13] MEDS: SPIRONOLACTONE 25 MG TAB PO SCH (08:26)
[2017-12-13] MEDS: INSULIN ASPART 100 UNITS/ML 3 ML PEN SC SCH ×4 (08:35→20:44)
[2017-12-13 11:43] LABS: CALCIUM 8.6 mg/dl (8.5-10.1); CREATININE 1.58 mg/dl (0.60-1.40); POTASSIUM 3.3 mmol/L (3.5-5.1)
--- NOTE | 2017-12-13 14:05 | Progress Note ---
Medicine Progress Note Date & Time of Visit: Dec 13, 2017 at 14:00. Subjective seen resting in chair alert, not in distress states he feels fine overall no leg pain denies dyspnea no other symptoms Objective Last 8 Hrs Date Time Temp Pulse Resp B/P (MAP) Pulse Ox O2 Delivery O2 Flow Rate FiO2 12/13/17 08:00 97 Room Air 2.0 12/13/17 07:54 36.8 78 20 105/71 (82) 97 Room Air Physical Exam: General- oriented x 2, not in distress Eyes- anicteric Neck- no JVD Lungs- clear breath sounds no crackles no wheezing Heart- regular rhythm; no murmur, normal rate Abdomen- normal bowel sounds, soft, nontender Extremities-grade 1-2 lower leg edema, no calf tenderness left foot: deep open wound-dressing in place Neuro- alert, oriented x 2 no gross focal deficits Skin- warm & dry Laboratory Results: Last 24 Hours Test 12/12/17 16:54 12/12/17 20:08 12/13/17 06:28 12/13/17 07:31 Bedside Glucose 125 mg/dl 148 mg/dl 126 mg/dl Prothrombin Time 29.5 SECONDS Prothromb Time International Ratio 2.9 Test 12/13/17 10:51 12/13/17 11:27 Sodium Level 137 mmol/L Potassium Level 3.3 mmol/L Chloride Level 98 mmol/L Carbon Dioxide Level 33 mmol/L Anion Gap 6.0 mmol/L Blood Urea Nitrogen 18 mg/dl Creatinine 1.58 mg/dl Est Creatinine Clear Calc Drug Dose 50.4 ml/min Estimated GFR () 52.4 Estimated GFR (Non- 45.2 BUN/Creatinine Ratio 11.4 Random Glucose 222 mg/dl Calcium Level 8.6 mg/dl Magnesium Level 1.7 mg/dl Bedside Glucose 265 mg/dl Assessment & Plan ISCHEMIC STROKES Probable cardioembolic strokes from underlying AF. MRI demonstrated 4 cm acute / subacute infarct in right occipital lobe and 8 mm acute / subacute infarct in right frontal lobe. Neuro consulted. - repeat CT head: no hemorrhage continue usual ASA 81mg po daily INR today = 2.9 hold coumadin INR daily PAROXYSMAL ATRIAL FIBRILLATION / FLUTTER Cardiology consulted. Receiving metoprolol and amiodarone. Continue anticoagulation with warfarin. CORONARY ARTERY DISEASE No anginal symptoms. Continue metoprolol and atorvastatin. Continue ASA. CHRONIC SYSTOLIC CHF History of left ventricular systolic heart failure with LVEF 40-45% in 2016. Underlying ischemic heart disease. Chest x-rays have demonstrated CHF. Acute on chronic left ventricular systolic heart failure. Diuretics as tolerated, but need to watch for orthostasis and worsening renal function. Continue metoprolol succinate and losartan. - Receiving IV Lasix 80 BID Aldactone 25mg po daily added lower leg edema further improving crea 1.58 reduce Lasix to 80mg IV daily appreciate cardio SVC recommendations CKD Creatinine today = 2.12--> 1.56--> 1.3-->1.58 reduce Lasix monitor HEMATURIA Occurred when receiving warfarin + enoxaparin. CT demonstrated bladder wall thickening. Urine cytology negative for malignancy. Should have cystoscopy when medical status permits. DM TYPE 2 Not well-controlled. Hgb A1C = 10.7. Lantus / NovoLog per protocol LEFT FOOT INFECTION Wound Care and Ortho consulted. C&S growing few coag neg Staph. Continue local care. Transitioned from IV amp/sulbactam to oral therapy with amoxicillin / clavulanic acid. VTE PROPHYLAXIS INR 2.9 hold coumadin DISPOSITION Anticipated return to [facility] for inpatient rehab when medically stable. Primary Care follow-up with Dr. Emmanuel at [facility]. Current Inpatient Medications: Current Inpatient Medications Medications (Trade) Dose Ordered Sig/Estee Route Start Time Stop Time Status Last Admin Dose Admin Acetaminophen (Tylenol Tab) 650 mg Q4H PRN PO 11/26/17 18:45 12/26/17 18:44 12/04/17 13:06 650 MG Nitroglycerin (Nitrostat Tab) 0.4 mg UD PRN SL 11/26/17 18:45 12/26/17 18:44 Polyethylene (Miralax Powder Packet) 17 gm DAILY PRN PO 11/26/17 18:45 12/26/17 18:44 Insulin Aspart (novoLOG ASPART) SLIDING SCALE If C... ACHS SC 11/26/17 21:00 12/26/17 20:59 12/13/17 12:18 16 UNITS Glucose (Glucose 40% Gel) 15-30 GRAMS 15 GRAMS... UD PRN PO 11/26/17 19:15 12/26/17 19:14 12/04/17 08:31 15 GM Glucose (Glucose Chew Tab) 4-8 Tablets 4 Tabl... UD PRN PO 11/26/17 19:15 12/26/17 19:14 Dextrose (Dextrose 50% 50ML Syringe) 25-50ML 25ML FOR ... UD PRN IV 11/26/17 19:15 12/26/17 19:14 Glucagon (Glucagon Inj) 1 mg UD PRN SQ 11/26/17 19:15 12/26/17 19:14 Carbohydrates (Carbohydrates For Hypoglycemia) 15-30 GRAMS 15 grams if BSG 54-69... UD PRN PO 11/26/17 19:15 12/26/17 19:14 12/05/17 07:20 15 GM Cholecalciferol (Vitamin D Tab) 1,000 inter.unit DAILY PO 11/27/17 09:00 12/27/17 08:59 12/13/17 08:24 1,000 INTER.UNIT Folic Acid (Folvite Tab) 1 mg DAILY PO 11/27/17 09:00 12/27/17 08:59 12/13/17 08:25 1 MG Metoprolol Succinate (Toprol Xl Tab) 100 mg DAILY PO 11/27/17 09:00 12/27/17 08:59 12/13/17 08:24 100 MG Multivitamins (Multivitamin Tab) 1 tab DAILY PO 11/27/17 09:00 12/27/17 08:59 12/13/17 08:24 1 TAB Thiamine HCl (Vitamin B-1 Tab) 100 mg DAILY PO 11/27/17 09:00 12/27/17 08:59 12/13/17 08:24 100 MG Losartan Potassium (coZAAR TAB) 50 mg DAILY PO 11/28/17 09:00 12/28/17 08:59 Future Hold 12/06/17 09:00 50 MG Miconazole Nitrate (Desenex Powder) 1 appln UD PRN EXT 11/28/17 20:00 12/28/17 19:59 12/04/17 07:52 1 APPLN Amiodarone HCl (Cordarone Tab) 200 mg BID PO 11/30/17 09:00 12/30/17 08:59 12/13/17 08:24 200 MG Atorvastatin Calcium (Lipitor Tab) 40 mg QAM PO 11/30/17 09:00 12/30/17 08:59 12/13/17 08:25 40 MG Prochlorperazine Edisylate 5 mg/ Syringe 5 ml @ 5 mls/min Q6H PRN IV 12/02/17 19:45 01/01/18 19:44 Aspirin (Ecotrin Tab) 81 mg QAM PO 12/08/17 09:00 01/07/18 08:59 12/13/17 08:25 81 MG Furosemide 80 mg/ Syringe 8 ml @ 4 mls/min BID17 IV 12/09/17 17:00 01/08/18 16:59 12/13/17 08:23 4 MLS/MIN Potassium Chloride (Klor-Con Tab) 40 meq BID PO 12/12/17 09:00 01/11/18 08:59 12/13/17 08:25 40 MEQ Magnesium Chloride (Slow-Mag Tab) 64 mg BID PO 12/12/17 21:00 12/28/17 08:59 12/13/17 08:25 64 MG Spironolactone (Aldactone Tab) 25 mg QAM PO 12/13/17 09:00 01/12/18 08:59 12/13/17 08:26 25 MG Insulin Glargine (Lantus Solostar Pen) 12 units HS SC 12/12/17 21:00 01/05/18 20:59 12/12/17 21:30 12 UNITS
[2017-12-13 14:16] VITALS: BP 99/64; PULSE 59; TEMP 36.4; O2SAT 95
[2017-12-13 16:00] VITALS: O2SAT 95
[2017-12-13] MEDS: INSULIN GLARGINE SOLOSTAR 100 UNITS/ML 3 ML PEN SC SCH (20:43)
[2017-12-13 21:00] VITALS: PULSE 78
[2017-12-13 22:53] VITALS: BP 114/80; PULSE 79; TEMP 36.4; O2SAT 98
[2017-12-14 07:25] VITALS: BP 95/62; PULSE 76; TEMP 36.8; O2SAT 96
[2017-12-14 07:27] LABS: INR 2.2 (0.9-1.1)
[2017-12-14 08:30] VITALS: BP 124/79; PULSE 87
[2017-12-14] MEDS: INSULIN ASPART 100 UNITS/ML 3 ML PEN SC SCH ×3 (08:33→17:06)
[2017-12-14] MEDS: SPIRONOLACTONE 25 MG TAB PO SCH (08:34)
[2017-12-14] MEDS: AMIODARONE 200 MG TAB PO SCH (08:35)
[2017-12-14] MEDS: ASPIRIN 81 MG ECTAB PO SCH (08:35)
[2017-12-14] MEDS: POTASSIUM CHLORIDE 20 MEQ TABCR PO SCH (08:36)
[2017-12-14] MEDS: MAGNESIUM CHLORIDE 64MG DELAYED REL TAB PO SCH (08:37)
[2017-12-14] MEDS: MULTIVITAMIN TAB PO SCH (08:37)
[2017-12-14] MEDS: ATORVASTATIN 40 MG TAB PO SCH (08:37)
[2017-12-14] MEDS: THIAMINE HCL 100 MG TAB PO SCH (08:40)
[2017-12-14] MEDS: METOPROLOL SUCC 50MG EXT REL TAB PO SCH (08:40)
[2017-12-14] MEDS: CHOLECALCIFEROL 1000 INTER.UNIT TAB PO SCH (08:40)
[2017-12-14] MEDS ORDERED: FUROSEMIDE INJ 80 MG in SYRINGE 0 ML IV SCH (09:00)
--- NOTE | 2017-12-14 12:51 | PROGRESS NOTE ---
DATE: 12/14/2017 CARDIOLOGY CONSULTATION The patient seen and examined. Chart, medications, telemetry reviewed. SUBJECTIVE: The patient feels well this morning. Notes no dizziness or lightheadedness. Lower extremity edema has improved. Notes no fevers or chills. Notes no leg pain or discomfort. OBJECTIVE: VITAL SIGNS: Heart rate is 80, blood pressure is 124/79. NECK: Thick, but no distinct jugular venous distention. LUNGS: Reveal good aeration to the bases. CARDIOVASCULAR: Regular. There is no S3 gallop. ABDOMEN: Soft. EXTREMITIES: Revealed reduced lower extremity edema, bandaged leg wounds. NEUROLOGIC: The patient is answering questions appropriately. LABORATORY DATA: INR is 2.2. IMPRESSION: A 67-year-old male with complex history, which includes paroxysmal atrial fibrillation, controlled in sinus with amiodarone therapy, acute on chronic decompensated heart failure improved, [id number] aortic stenosis, presumed embolic stroke. PLAN: IV furosemide has been discontinued. Will begin on oral furosemide to 80 mg daily. This may ultimately need to be titrated upward. Continue spironolactone at 25 mg per day. Congestive heart failure instructions will be given, given increased oral intake now with feeling better overall. Would recommend fluid restriction 0477-7611 mL per day.
--- NOTE | 2017-12-14 13:48 | Progress Note ---
Medicine Progress Note Date & Time of Visit: Dec 14, 2017 at 13:40. Subjective seen resting in bed, comfortable states he feels fine denies new complaints no other symptoms states he is ready and would like to be discharged today Objective Last 8 Hrs Date Time Temp Pulse Resp B/P (MAP) Pulse Ox O2 Delivery O2 Flow Rate FiO2 12/14/17 08:30 87 124/79 (94) 12/14/17 08:00 Room Air 12/14/17 07:25 36.8 76 18 95/62 (73) 96 Room Air Physical Exam: General- oriented x 2, not in distress Eyes- anicteric Neck- no JVD Lungs- clear breath sounds bilaterally Heart- regular rhythm; no murmur, normal rate Abdomen- normal bowel sounds, soft, nontender Extremities-grade 1 lower leg edema, no calf tenderness Left foot: deep open wound-dressing in place Neuro- alert, oriented x 2 no gross focal deficits Skin- warm & dry Laboratory Results: Last 24 Hours Test 12/13/17 16:40 12/13/17 20:00 12/14/17 06:48 12/14/17 07:32 Bedside Glucose 146 mg/dl 175 mg/dl 111 mg/dl Prothrombin Time 23.1 SECONDS Prothromb Time International Ratio 2.2 Test 12/14/17 11:35 Bedside Glucose 234 mg/dl Assessment & Plan ISCHEMIC STROKES Probable cardioembolic strokes from underlying AF. MRI demonstrated 4 cm acute / subacute infarct in right occipital lobe and 8 mm acute / subacute infarct in right frontal lobe. Neuro consulted Dr. Lebron - repeat CT head: no hemorrhage continue usual ASA 81mg po daily 12/14 INR today = 2.2 resume coumadin at 5mg po daily INR daily and titrate coumadin accordingly PAROXYSMAL ATRIAL FIBRILLATION / FLUTTER Cardiology consulted Dr. Archibald/Dora/Niels Receiving metoprolol and amiodarone. Continue anticoagulation with warfarin. CORONARY ARTERY DISEASE No anginal symptoms. Continue metoprolol and atorvastatin. Continue ASA. CHRONIC SYSTOLIC CHF History of left ventricular systolic heart failure with LVEF 40-45% in 2016. Underlying ischemic heart disease. Chest x-rays have demonstrated CHF. Acute on chronic left ventricular systolic heart failure. Diuretics as tolerated, but need to watch for orthostasis and worsening renal function. Continue metoprolol succinate and losartan. - Received IV Lasix 80 BID Aldactone 25mg po daily added diuresed well lower leg edema further improving crea 1.58 - d/c on: Lasix 80mg po daily Aldactone 25mg po daily fluid restriction 1800cc/day 2g Na diet monitor leg edema and titrate diuretics accordingly CKD Creatinine improved = 2.12-->1.58 monitor closely HEMATURIA Occurred when receiving warfarin + enoxaparin. CT demonstrated bladder wall thickening. Urine cytology negative for malignancy. Should have cystoscopy when medical status permits. DM TYPE 2 Not well-controlled. Hgb A1C = 10.7. Lantus / NovoLog per protocol LEFT FOOT INFECTION Wound Care and Ortho consulted. C&S growing few coag neg Staph. Continue local care. Transitioned from IV amp/sulbactam to oral therapy with amoxicillin / clavulanic acid needs 3 more days of Augmentin BID to complete 14 days therapy - follow up with [facility] in 3 -5 days DISPOSITION return to [facility] Primary Care follow-up with Dr. Emmanuel at [facility]. Follow up with [facility] ([facility]) in 1 week. Follow up with [facility] in 3- 5 days. Current Inpatient Medications: Current Inpatient Medications Medications (Trade) Dose Ordered Sig/Estee Route Start Time Stop Time Status Last Admin Dose Admin Acetaminophen (Tylenol Tab) 650 mg Q4H PRN PO 11/26/17 18:45 12/26/17 18:44 12/04/17 13:06 650 MG Nitroglycerin (Nitrostat Tab) 0.4 mg UD PRN SL 11/26/17 18:45 12/26/17 18:44 Polyethylene (Miralax Powder Packet) 17 gm DAILY PRN PO 11/26/17 18:45 12/26/17 18:44 Insulin Aspart (novoLOG ASPART) SLIDING SCALE If C... ACHS SC 11/26/17 21:00 12/26/17 20:59 12/14/17 12:38 10 UNITS Glucose (Glucose 40% Gel) 15-30 GRAMS 15 GRAMS... UD PRN PO 11/26/17 19:15 12/26/17 19:14 12/04/17 08:31 15 GM Glucose (Glucose Chew Tab) 4-8 Tablets 4 Tabl... UD PRN PO 11/26/17 19:15 12/26/17 19:14 Dextrose (Dextrose 50% 50ML Syringe) 25-50ML 25ML FOR ... UD PRN IV 11/26/17 19:15 12/26/17 19:14 Glucagon (Glucagon Inj) 1 mg UD PRN SQ 11/26/17 19:15 12/26/17 19:14 Carbohydrates (Carbohydrates For Hypoglycemia) 15-30 GRAMS 15 grams if BSG 54-69... UD PRN PO 11/26/17 19:15 12/26/17 19:14 12/05/17 07:20 15 GM Cholecalciferol (Vitamin D Tab) 1,000 inter.unit DAILY PO 11/27/17 09:00 12/27/17 08:59 12/14/17 08:40 1,000 INTER.UNIT Folic Acid (Folvite Tab) 1 mg DAILY PO 11/27/17 09:00 12/27/17 08:59 12/14/17 08:35 1 MG Metoprolol Succinate (Toprol Xl Tab) 100 mg DAILY PO 11/27/17 09:00 12/27/17 08:59 12/14/17 08:40 100 MG Multivitamins (Multivitamin Tab) 1 tab DAILY PO 11/27/17 09:00 12/27/17 08:59 12/14/17 08:37 1 TAB Thiamine HCl (Vitamin B-1 Tab) 100 mg DAILY PO 11/27/17 09:00 12/27/17 08:59 12/14/17 08:40 100 MG Losartan Potassium (coZAAR TAB) 50 mg DAILY PO 11/28/17 09:00 12/28/17 08:59 Future Hold 12/06/17 09:00 50 MG Miconazole Nitrate (Desenex Powder) 1 appln UD PRN EXT 11/28/17 20:00 12/28/17 19:59 12/04/17 07:52 1 APPLN Atorvastatin Calcium (Lipitor Tab) 40 mg QAM PO 11/30/17 09:00 12/30/17 08:59 12/14/17 08:37 40 MG Prochlorperazine Edisylate 5 mg/ Syringe 5 ml @ 5 mls/min Q6H PRN IV 12/02/17 19:45 01/01/18 19:44 Aspirin (Ecotrin Tab) 81 mg QAM PO 12/08/17 09:00 01/07/18 08:59 12/14/17 08:35 81 MG Potassium Chloride (Klor-Con Tab) 40 meq BID PO 12/12/17 09:00 01/11/18 08:59 12/14/17 08:36 40 MEQ Magnesium Chloride (Slow-Mag Tab) 64 mg BID PO 12/12/17 21:00 12/28/17 08:59 12/14/17 08:37 64 MG Spironolactone (Aldactone Tab) 25 mg QAM PO 12/13/17 09:00 01/12/18 08:59 12/14/17 08:34 25 MG Insulin Glargine (Lantus Solostar Pen) 12 units HS SC 12/12/17 21:00 01/05/18 20:59 12/13/17 20:43 12 UNITS Amiodarone HCl (Cordarone Tab) 200 mg QAM PO 12/15/17 09:00 12/30/17 08:59 Furosemide (Lasix Tab) 80 mg QAM PO 12/15/17 09:00 01/14/18 08:59 Warfarin Sodium (Coumadin Tab) 5 mg DAILY@16 PO 12/14/17 16:00 01/13/18 15:59
[2017-12-14] MEDS ORDERED: INSDGIPEN SC (13:57)
[2017-12-14] MEDS ORDERED: CMD5 PO (13:57)
[2017-12-14] MEDS ORDERED: MCRK20 PO (13:57)
[2017-12-14] MEDS ORDERED: AMOX875T PO (13:57)
[2017-12-14] MEDS ORDERED: LPT40 PO (13:57)
[2017-12-14] MEDS ORDERED: SLWMEC PO (13:57)
[2017-12-14] MEDS ORDERED: CRD200 PO (13:57)
[2017-12-14] MEDS ORDERED: LSX80 PO (13:57)
--- NOTE | 2017-12-14 14:08 | Discharge Instructions ---
Discharge Instructions Date of Service Dec 14, 2017. Admission Reason for Admission: Altered Mental Status,Post-Op Bleeding Discharge Discharge Diagnosis / Problem: ACUTE CVA, CONGESTIVE HEART FAILURE Discharge Goals Goal(s): Diagnostic testing, Therapeutic intervention Activity Recommendations Activity Level: Assistance Required Therapies: Physical Therapy, Occupational Therapy . Additional Information Patient informed of condition: Yes Advance Directives: No (UNKNOWN) DNR: No (PATIENT IS A FULL CODE) Level of Care: Acute Rehab Communicable Disease: No Prognosis: Improving Instructions / Follow-Up Instructions / Follow-Up PLEASE REFER TO ACCOMPANYING DISCHARGE SUMMARY FOR FURTHER DETAILS. MONITOR LEG EDEMA AND VOLUME STATUS CLOSELY. TITRATE DIURETICS ACCORDINGLY. CHECK INR DAILY AND TITRATE COUMADIN ACCORDINGLY. MONITOR CREA, K, MG CLOSELY. LANTUS REDUCED AND GLYBURIDE HELD, MONITOR BSGS. MONITOR LEFT FOOT WOUND. FOLLOW WOUND CARE SVC INSTRUCTIONS: TO RIGHT 1ST TOE AMPUTATION SITE- PAINT WITH BETADINE EVERY DAY ALLOW TO DRY. COVER WITH DRY GAUZE TO LEFT DORSAL FOOT- CLEAN WITH SALINE. FILL WOUND BED WITH XEROFORM. DO NOT ALLOW TO TOUCH GOOD SKIN. COVER WITH 4X4'S AND KERLIX. CHANGE EVERY DAY. FOLLOW UP WITH FOOD MIXER REPAIRER DR. OVERTON/LUI IN 1 WEEK. FOLLOW UP WITH [facility] IN 1 WEEK. FOLLOW UP WITH NEUROLOGY DR. BECKWITH IN 2 WEEKS. Current Hospital Diet Patient's current hospital diet: Diabetes Type 2 Diet, AHA Diet (Heart Healthy) Discharge Diet Recommended Diet: AHA Diet (Heart Healthy), Diabetes Type 2 Diet Fluid Restriction: 1800 ml (7 cups) Pending Studies Studies pending at discharge: yes List of pending studies: REFER TO INSTRUCTIONS ABOVE. Physician Orders On Transfer Special Precautions: PLEASE REFER TO ACCOMPANYING DISCHARGE SUMMARY FOR FURTHER DETAILS. MONITOR LEG EDEMA AND VOLUME STATUS CLOSELY. TITRATE DIURETICS ACCORDINGLY. CHECK INR DAILY AND TITRATE COUMADIN ACCORDINGLY. MONITOR CREA, K, MG CLOSELY. LANTUS REDUCED AND GLYBURIDE HELD, MONITOR BSGS. MONITOR LEFT FOOT WOUND. FOLLOW WOUND CARE SVC INSTRUCTIONS: TO RIGHT 1ST TOE AMPUTATION SITE- PAINT WITH BETADINE EVERY DAY ALLOW TO DRY. COVER WITH DRY GAUZE TO LEFT DORSAL FOOT- CLEAN WITH SALINE. FILL WOUND BED WITH XEROFORM. DO NOT ALLOW TO TOUCH GOOD SKIN. COVER WITH 4X4'S AND KERLIX. CHANGE EVERY DAY. FOLLOW UP WITH FOOD MIXER REPAIRER DR. OVERTON/LUI IN 1 WEEK. FOLLOW UP WITH [facility] IN 1 WEEK. FOLLOW UP WITH NEUROLOGY DR. BECKWITH IN 2 WEEKS. Laboratory Results Hemoglobin A1c Test 12/01/17 07:04 Range/Units Estimated Average Glucose 260 mg/dl Hemoglobin A1c 10.7 H 4.5-5.6 % Lipid Panel Test 11/27/17 07:07 Range/Units Triglycerides Level 119 0-150 mg/dl Cholesterol Level 113 0-200 mg/dl HDL Cholesterol 23 mg/dl Cholesterol/HDL Ratio 4.9 LDL Cholesterol, Calculated 66 mg/dl Medical Emergencies . Who to Call and When: Medical Emergencies: If at any time you feel your situation is an emergency, please call 911 immediately. . Non-Emergent Contact Non-Emergency issues call your: Primary Care Provider Call Non-Emergent contact if: you have a fever, your pain is not controlled, your pain is worsening, your pain is unusual for you, your pain is concerning you, wound has increased drainage, wound has increased redness, wound has increased pain, you have any medication questions . Past History Medical & Surgical History: (1) DKA (diabetic ketoacidoses) (2) Gangrene (3) Myocardial infarction (4) ST segment elevation (5) CB (acute kidney injury) (6) Atrial fibrillation with RVR (7) CAD (coronary artery disease) (8) CKD (chronic kidney disease) stage 3, GFR 30-59 ml/min (9) Diabetes mellitus type 2 in obese (10) Decubitus ulcer (11) HTN (hypertension) (12) Dyslipidemia (13) H/O CHF (14) Obesity (15) Hyperglycemia (16) Atrial fibrillation (17) RBBB (18) Alcohol abuse (19) Toe osteomyelitis, right (20) Hypokalemia (21) Hypotension (22) Elevated troponin (23) Lactic acidemia (24) Wound of foot (25) Altered mental status (26) Post-op bleeding (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 "Provider Documentation" section prepared by Ronak Hinojosa. . Core Measure Problem Core Measures: Stroke Stroke Core Measures Reason no t-PA for Stroke: Treatment not indicated Reason no antithrom by day 2: Treatment provided - N/A Reason no antithrom at D/C: Treatment provided - N/A Reason no statin at D/C: Treatment provided - N/A Reason no anticoag w/a fib: Treatment provided - N/A
--- NOTE | 2017-12-14 14:12 | Discharge Summary ---
Discharge Summary Date of Service Dec 14, 2017. Discharge Summary Admission Date: Nov 26, 2017 at 18:34 Discharge Date: Dec 14, 2017 Discharge Disposition: Rehab Principal Diagnosis: ISCHEMIC STROKES Probable cardioembolic strokes from underlying AF. Secondary Diagnoses/Problems: Please refer to hospital course below. Procedures: MRI OF THE BRAIN WITHOUT CONTRAST CLINICAL HISTORY: Cerebral infarct. Confusion. COMPARISON STUDY: Noncontrast head CT dated 11/26/2017 FINDINGS: Sagittal T1, axial diffusion, proton density and T2 weighted axial, coronal FLAIR, and axial T1-weighted images were acquired. The examination is limited from a technical standpoint. The patient was screaming and ultrasound of the head coil. Repeat images were not possible to acquire. No intra or extra-axial mass lesions are visualized There is a 4.2 cm focus of restricted water diffusion within the right occipital lobe consistent with infarct. Also evident is a 8 mm focus of restricted water diffusion within the right frontal lobe, likely representing a second infarct. Foci of increased signal in the temporal lobes peripherally on diffusion-weighted images are felt to be artifactual. There is mild particular dilatation likely secondary to volume loss. Proton density T2-weighted and FLAIR images reveal scattered foci of increased T2 signal within the white matter, likely on a small vessel basis. In addition there is increased T2 and FLAIR signal within the right occipital lobe consistent with acute/subacute infarct. There are no abnormal flow voids. IMPRESSION: 1. Technically limited study secondary to motion artifact 2. 4 cm acute/subacute infarct within the right occipital lobe 3. Probable 8 mm acute/subacute infarct in the right frontal lobe Electronically signed by: Stanley Salas M.D. 11/26/2017 9:22 PM ULTRASOUND OF THE CAROTID ARTERIES CLINICAL HISTORY: Stroke COMPARISON STUDY: None. TECHNIQUE: Real-time, grayscale, and color Doppler sonography of the carotid arteries was performed. Imaging reviewed in the transverse and longitudinal planes. NASCET criteria was utilized for stenosis calcification. FINDINGS: There is mild atherosclerotic plaque present . The peak systolic velocity within the right internal carotid artery is 53 cm/sec. The systolic velocity ratio of right internal to common carotid artery is 1.0. The peak systolic velocity within the left internal carotid artery is 42 cm/sec. The systolic velocity ratio left internal to common carotid artery is 0.7. Antegrade flow is seen in the vertebral arteries. The external carotid arteries are patent. IMPRESSION: No evidence of hemodynamically significant carotid stenosis. Electronically signed by: Stanley Salas M.D. 11/26/2017 8:[address] ABD/PELVIS IV CONTRAST ONLY CLINICAL HISTORY: Generalized abdominal pain and gastrointestinal bleeding COMPARISON STUDY: March 02, 2015 TECHNIQUE: Following the IV administration of 94 mL of Optiray-320, CT scan of the abdomen and pelvis was performed from the lung bases to the proximal femurs. Images are reviewed in the axial, sagittal, and coronal planes. IV contrast was administered without complication. A dose lowering technique was utilized adhering to the principles of ALARA. CT DOSE: 862.67 mGy.cm FINDINGS: Lower chest: The heart is enlarged. There are basilar opacities, likely atelectatic. There is a small right pleural effusion and trace left pleural effusion. Liver: The contrast-enhanced liver is normal in size, contour, and attenuation. There is no intrahepatic biliary ductal dilatation. The hepatic veins and portal veins are patent. Gallbladder: Cholelithiasis Spleen: Mildly enlarged measuring 14.4 cm Pancreas: Unremarkable. Adrenal glands: Unremarkable. Kidneys: There is a 6 mm left renal cyst. There is no hydronephrosis. Bowel: There are no transition zones to indicate bowel obstruction. The appendix appears normal. There is no acute diverticulitis. There is scattered stool present throughout the colon. Peritoneum: There is no intraperitoneal free air or abdominal ascites. Vasculature: The abdominal aorta is normal in course and caliber. Adenopathy: Common iliac lymph nodes remain at the upper limits of normal in size. Pelvic viscera: There is bladder wall thickening. There is small fat-containing left inguinal hernia. Skeletal structures: There is mild infiltration of the anterior abdominal wall fat. There are few scattered air bubbles present. While nonspecific the findings are likely related to prior injection sites. IMPRESSION: 1. No evidence of bowel obstruction. No evidence of free air 2. Normal appendix. No evidence of acute diverticulitis 3. Cholelithiasis 4. Cardiomegaly, small right pleural effusion, and trace left pleural effusion. Basilar opacities likely atelectatic. 5. Bladder wall thickening Electronically signed by: Stanley Salas M.D. 11/26/2017 4:26 PM Pending Studies/Follow-Up: PLEASE REFER TO HOSPITAL COURSE BELOW FOR FURTHER DETAILS. MONITOR LEG EDEMA AND VOLUME STATUS CLOSELY. TITRATE DIURETICS ACCORDINGLY. CHECK INR DAILY AND TITRATE COUMADIN ACCORDINGLY. MONITOR CREA, K, MG CLOSELY. LANTUS REDUCED AND GLYBURIDE HELD, MONITOR BSGS. MONITOR LEFT FOOT WOUND. FOLLOW WOUND CARE [facility] INSTRUCTIONS: TO RIGHT 1ST TOE AMPUTATION SITE- PAINT WITH BETADINE EVERY DAY ALLOW TO DRY. COVER WITH DRY GAUZE TO LEFT DORSAL FOOT- CLEAN WITH SALINE. FILL WOUND BED WITH XEROFORM. DO NOT ALLOW TO TOUCH GOOD SKIN. COVER WITH 4X4'S AND KERLIX. CHANGE EVERY DAY. FOLLOW UP WITH [employer]ER DR. OVERTON/NIELS IN 1 WEEK. FOLLOW UP WITH [facility] IN 1 WEEK. FOLLOW UP WITH NEUROLOGY DR. BECKWITH IN 2 WEEKS. Medication Reconciliation New Medications: Amiodarone HCl (Amiodarone HCl) 200 Mg Tab 200 MG PO QAM for 30 Days Atorvastatin (Lipitor) 40 Mg Tab 40 MG PO QAM for 30 Days Furosemide (Furosemide) 80 Mg Tab 80 MG PO QAM for 30 Days Insulin Glargine (Lantus Solostar) 100 Unit/Ml Inj 12 UNITS SC HS for 30 Days Magnesium Chloride (Slow-Mag Tab) 64 Mg Tabcr 64 MG PO BID for 30 Days Potassium Chloride (Klor-Con M20) 20 Meq Tabcr 40 MEQ PO BID for 30 Days Warfarin Sod (Coumadin) 5 Mg Tab 5 MG PO DAILY@16 for 30 Days Continued Medications: Amoxicillin & Pot Clavulanate (Augmentin 875-125 mg) 1 Tab Tab 875 MG PO BID for 3 Days (This prescription has been renewed) Finished 10/26/17 Ascorbic Acid (Vitamin C) 250 Mg Chw 250 MG PO BID Aspirin (Aspirin Chewable) 81 Mg Chew 81 MG PO DAILY, TAB Cholecalciferol (Vitamin D3) 1,000 Unit Tab 1 TAB PO DAILY, TAB Folic Acid (Folvite) 1 Mg Tab 1 MG PO DAILY, TAB Insulin Aspart (Novolog Flexpen) 100 Units/Ml Inj 1 UNITS SQ UD Sliding scale Losartan Potassium (Cozaar) 50 Mg Tab 50 MG PO DAILY, TAB Metoprolol Succ (Toprol Xl) (Toprol-Xl ) 100 Mg Tabcr 100 MG PO DAILY, TAB Multiple Vitamin (Multivitamin) 1 Tab Tab 1 TAB PO DAILY for 90 Days, #90 TAB 3 Refills Spironolactone (Aldactone) 25 Mg Tab 25 MG PO DAILY, TAB Thiamine Hcl (Vitamin B-1) 100 Mg Tab 100 MG PO DAILY, TAB Discontinued Medications: Atorvastatin (Lipitor) 80 Mg Tab 80 MG PO DAILY, TAB Enoxaparin (Lovenox) 100 Mg/Ml Inj 1 ML SC BID Furosemide (Lasix) 40 Mg Tab 40 MG PO DAILY, TAB Glyburide (Diabeta) 5 Mg Tab 2 TAB PO DAILY for 90 Days, #180 TAB 3 Refills Insulin Glargine (Lantus) 100 Unit/Ml Inj 35 UNITS SC HS, VIAL Magnesium Chloride (Slow-Mag Tab) 64 Mg Tabcr 64 MG PO DAILY, TAB Oxycodone HCl (Oxycodone HCl) 5 Mg Tab 1 TAB PO Q4 PRN for Pain Potassium Ext Rel (Klor-Con) 20 Meq Tabcr 20 MEQ PO BID, TAB Silver Sulfadiazine (Silvadene) 1 % Cre 1 APPLN TOP DAILY for 7 Days, #50 GM right foot Warfarin Sod (Coumadin) 5 Mg Tab 7.5 MG PO DAILY Admission Information HPI (per Admitting provider): Pt is 67 y/o M with PMH DM II, paroxysmal atrial fibrillation, CAD S/P CABG, ischemic cardiomyopathy EF: 20-24%, PVD, hx necrotizing fascitis of RLE with amputation in 2017, and others listed below presented to ER from [facility] with complaint of bleeding from left foot surgical site and from abdomen location of Lovenox injection. Patient is poor historian. Patient initially seen in ER 11/14/17 and was transferred to [facility] for left fifth toe gangrene, A. fib RVR, DKA, possible and STEMI, hypoxic respiratory failure and was discharged from there to [facility] on 11/23/17. Had echo 11/16/17: EF: 20-24%, diffuse hypokinesis to akinesis. Right ventricular systolic function is reduced. Moderate to severe aortic stenosis suspected. Cardiac cath and AICD were deferred during hospitalization. he was discharged with his Cardizem was changed to metoprolol. Pt had I&D of L forefoot with partial 5th toe resection by Dr Dean for osteomyelitis, necrotizing fascitis with culture of proteus. discharged on Augmentin and finished on 11/25/17. He was d/c with daily dressing changes to LLE with 1/2 strength Dakin's moistened gauze and silvadene daily to R foot ulcer. Instructions for 4inche jet wrap from toe to ankle and 6inch JET wrap from ankle to knee on BLE and flat [facility] shoes with planned wound care surgeon f/u in 2 weeks. He was taken off of metformin and Patient was started on Coumadin has been receiving Lovenox until INR therapeutic. Last INR reported was 1.58 on 11/24/17. Patient had Lovenox dose this morning and it is reported that since has had blood oozing from injection site. It is also reported that patient has had blood oozing from left foot from surgical site. When asked patient he is unsure when bleeding started. Patient is denying any complaints and is poor historian. Denies any current or recent headache however states "maybe going to get a headache, but I'm fine". He states he has been eating and drinking normally. he is unsure what his BSG have been running. He thinks he may have had some hematuria today, denies dysuria. Pt denies urinary or fecal incontinence however it is noted he is wearing incontinence brief. Pt is denying any pain to surgical site or pain any other location. Denies fever/chills, diaphoresis, N/V/D/C, melena, hematochezia. dizziness, syncope, vision changes, vision loss, neck pain, CP, SOB, orthopnea, palpitations, cough, sore throat, choking, otalgia, rhinorrhea, abdominal pain, paresthesias, extremity edema, extremity weakness, rashes, weight changes. Physical Exam (per Admitting): General Appearance: no apparent distress, + pertinent finding (appears older than stated age) Head: normocephalic, atraumatic Eyes: normal inspection, PERRL, EOMI, sclerae normal ENT: hearing grossly normal, pharynx normal, + pertinent finding (mucous membranes moist) Neck: supple, trachea midline Respiratory/Chest: lungs clear, normal breath sounds, no respiratory distress Cardiovascular: regular rate, rhythm, no murmur Abdomen/GI: normal bowel sounds, non tender, soft, + pertinent finding ( right lower abdomen with venous blood oozing from puncture site. +ecchymosis noted to lower abdomen) Extremities/Musculoskelatal: no calf tenderness, no pedal edema, + pertinent finding (right foot +ulcer, no bleeding. left foot +deep wound without purulent discharge, +venous bleeding. ) Neurologic/Psych: alert, + pertinent finding (Pt with flat affect. He is somewhat uncooperative. Pt alert to person, he is unsure where he is living, knows he is in the hospital now, unsure on date, knows year. (unsure of pt's baseline). strength bilateral upper and lower extremities equal) Skin: warm/dry, + pertinent finding (see above) Hospital Course ISCHEMIC STROKES Probable cardioembolic strokes from underlying AF. MRI demonstrated 4 cm acute / subacute infarct in right occipital lobe and 8 mm acute / subacute infarct in right frontal lobe. Neuro consulted Dr. Beckwith - repeat CT head: no hemorrhage continue usual ASA 81mg po daily 12/14 INR today = 2.2 resume coumadin at 5mg po daily INR daily and titrate coumadin accordingly PAROXYSMAL ATRIAL FIBRILLATION / FLUTTER Cardiology consulted Dr. Archibald/Dora/Niels Receiving metoprolol and amiodarone. Continue anticoagulation with warfarin. CORONARY ARTERY DISEASE No anginal symptoms. Continue metoprolol and atorvastatin. Continue ASA. CHRONIC SYSTOLIC CHF History of left ventricular systolic heart failure with LVEF 40-45% in 2016. Underlying ischemic heart disease. Chest x-rays have demonstrated CHF. Acute on chronic left ventricular systolic heart failure. Diuretics as tolerated, but need to watch for orthostasis and worsening renal function. Continue metoprolol succinate and losartan. - Received IV Lasix 80 BID Aldactone 25mg po daily added diuresed well - lower leg edema further improving crea 1.58 - d/c on: Lasix 80mg po daily Aldactone 25mg po daily fluid restriction 1800cc/day 2g Na diet monitor leg edema and titrate diuretics accordingly monitor crea, k and mg closely CKD Creatinine improved = 2.12-->1.58 monitor closely HEMATURIA Occurred when receiving warfarin + enoxaparin. CT demonstrated bladder wall thickening. Urine cytology negative for malignancy. Should have cystoscopy when medical status permits. DM TYPE 2 Not well-controlled. Hgb A1C = 10.7. Lantus reduced due to low BSGs in AM hold Glyburide continue Sliding Scale monitor BSGs LEFT FOOT INFECTION Wound Care and Ortho consulted. C&S growing few coag neg Staph. Continue local care. Transitioned from IV amp/sulbactam to oral therapy with amoxicillin / clavulanic acid - needs 3 more days of Augmentin BID to complete 14 days therapy - follow up with [facility] in 3 -5 days DISPOSITION return to [facility] follow-up with Dr. Emmanuel at [facility]. Follow up with [facility] ([facility]) in 1 week. Follow up with [facility] in 3- 5 days. Total time spent on discharge = 45 minutes This includes examination of the patient, discharge planning, medication reconciliation, and communication with other providers. Discharge Instructions Discharge Instructions Date of Service Dec 14, 2017. Admission Reason for Admission: Altered Mental Status,Post-Op Bleeding Discharge Discharge Diagnosis / Problem: ACUTE CVA, CONGESTIVE HEART FAILURE Discharge Goals Goal(s): Diagnostic testing, Therapeutic intervention Activity Recommendations Activity Level: Assistance Required Therapies: Physical Therapy, Occupational Therapy . Additional Information Patient informed of condition: Yes Advance Directives: No (UNKNOWN) DNR: No (PATIENT IS A FULL CODE) Level of Care: Acute Rehab Communicable Disease: No Prognosis: Improving Instructions / Follow-Up Instructions / Follow-Up PLEASE REFER TO ACCOMPANYING DISCHARGE SUMMARY FOR FURTHER DETAILS. MONITOR LEG EDEMA AND VOLUME STATUS CLOSELY. TITRATE DIURETICS ACCORDINGLY. CHECK INR DAILY AND TITRATE COUMADIN ACCORDINGLY. MONITOR CREA, K, MG CLOSELY. LANTUS REDUCED AND GLYBURIDE HELD, MONITOR BSGS. MONITOR LEFT FOOT WOUND. FOLLOW WOUND CARE [facility] INSTRUCTIONS: TO RIGHT 1ST TOE AMPUTATION SITE- PAINT WITH BETADINE EVERY DAY ALLOW TO DRY. COVER WITH DRY GAUZE TO LEFT DORSAL FOOT- CLEAN WITH SALINE. FILL WOUND BED WITH XEROFORM. DO NOT ALLOW TO TOUCH GOOD SKIN. COVER WITH 4X4'S AND KERLIX. CHANGE EVERY DAY. FOLLOW UP WITH [employer] DR. OVERTON/NIELS IN 1 WEEK. FOLLOW UP WITH [facility] IN 1 WEEK. FOLLOW UP WITH NEUROLOGY DR. BECKWITH IN 2 WEEKS. Current Hospital Diet Patient's current hospital diet: Diabetes Type 2 Diet, AHA Diet (Heart Healthy) Discharge Diet Recommended Diet: AHA Diet (Heart Healthy), Diabetes Type 2 Diet Fluid Restriction: 1800 ml (7 cups) Pending Studies Studies pending at discharge: yes List of pending studies: REFER TO INSTRUCTIONS ABOVE. Physician Orders On Transfer Special Precautions: PLEASE REFER TO ACCOMPANYING DISCHARGE SUMMARY FOR FURTHER DETAILS. MONITOR LEG EDEMA AND VOLUME STATUS CLOSELY. TITRATE DIURETICS ACCORDINGLY. CHECK INR DAILY AND TITRATE COUMADIN ACCORDINGLY. MONITOR CREA, K, MG CLOSELY. LANTUS REDUCED AND GLYBURIDE HELD, MONITOR BSGS. MONITOR LEFT FOOT WOUND. FOLLOW WOUND CARE [facility] INSTRUCTIONS: TO RIGHT 1ST TOE AMPUTATION SITE- PAINT WITH BETADINE EVERY DAY ALLOW TO DRY. COVER WITH DRY GAUZE TO LEFT DORSAL FOOT- CLEAN WITH SALINE. FILL WOUND BED WITH XEROFORM. DO NOT ALLOW TO TOUCH GOOD SKIN. COVER WITH 4X4'S AND KERLIX. CHANGE EVERY DAY. FOLLOW UP WITH [employer] DR. OVEROTN/NIELS IN 1 WEEK. FOLLOW UP WITH [facility] IN 1 WEEK. FOLLOW UP WITH NEUROLOGY DR. BECKWITH IN 2 WEEKS. Laboratory Results Hemoglobin A1c Test 12/01/17 07:04 Range/Units Estimated Average Glucose 260 mg/dl Hemoglobin A1c 10.7 H 4.5-5.6 % Lipid Panel Test 11/27/17 07:07 Range/Units Triglycerides Level 119 0-150 mg/dl Cholesterol Level 113 0-200 mg/dl HDL Cholesterol 23 mg/dl Cholesterol/HDL Ratio 4.9 LDL Cholesterol, Calculated 66 mg/dl
[2017-12-14 15:34] VITALS: BP 104/74; PULSE 75; TEMP 36.3; O2SAT 98
[2017-12-14] MEDS ORDERED: WARFARIN SOD 5 MG TAB PO SCH (16:00)
[2017-12-14 16:36] VITALS: BP 104/74; PULSE 75; TEMP 36.3; O2SAT 98
[2017-12-15] MEDS ORDERED: FUROSEMIDE 80 MG TAB PO SCH ×2 (09:00)
[2017-12-15] MEDS ORDERED: AMIODARONE 200 MG TAB PO SCH (09:00)
--- NOTE | 2017-12-21 06:20 | EDITING REQUIRED CODING QUERY ---
CODING QUERY To promote full compliance with coding requirements relating to patient care, provider participation is requested in all cases of inspector elevators uncertainty. Please assist us with the question(s) below: Coding Question(s): Patient admitted from [facility] with bleeding from abdomen and foot (patient had recent I&D). History of afib , on Lovenox and Coumandin anticoagulant RX's. Also noted bleeding from Lovenox injection site on abdomen. Supratherapeutic INR on admission. Please document, if known or suspected, the etiology of the bleeding. Thanks for your help! Elroy MITCHELL [facility] Physician's Response(s): Bleeding from Abdomen and Foot, secondary to supratherapeutic INR Principal Diagnosis: "_that condition established after study, to be chiefly responsible for occasioning the admission of the patient to the hospital for care." Co-Existing Principal Diagnosis: "_when two or more diagnoses equally meet the criteria for principal diagnosis as determined by the circumstances of admission, diagnostic work up, and/or therapy provided, and the Alphabetic Index, Tabular List, or another coding guideline does not provide sequencing direction, any one of the diagnoses may be sequenced first." "When the physician has documented what appears to be a current diagnosis in the body of the record, but has not included the diagnosis in the final diagnostic statement, the physician should be asked whether the diagnosis should be added." (Source Coding Clinic 2 QTR90. p3-4)
== END 2017-12-14 19:35 | DRG 919 ==
LOC: EDBD 13:28 → C.EDA 13:29 → C.2T 18:34 → ENRESERV 18:47 → C.2T 11-29 11:56 → ENRESERV 12-12 11:57 → C.MS2W 12-12 13:25
PROVIDERS: ADMIT Family Medicine; ATTEND Internal Medicine
DX: M96.830 Postprocedural hemorrhage of a musculoskeletal structure following a musculoskeletal system procedure (principal); I63.40 Cerebral infarction due to embolism of unspecified cerebral artery; D68.32 Hemorrhagic disorder due to extrinsic circulating anticoagulants; I21.29 ST elevation (STEMI) myocardial infarction involving other sites; I50.23 Acute on chronic systolic (congestive) heart failure; I48.92 Unspecified atrial flutter; I13.0 Hypertensive heart and chronic kidney disease with heart failure and stage 1 through stage 4 chronic kidney disease, or unspecified chronic kidney disease; T45.515A Adverse effect of anticoagulants, initial encounter; Z79.01 Long term (current) use of anticoagulants; I48.0 Paroxysmal atrial fibrillation; I25.10 Atherosclerotic heart disease of native coronary artery without angina pectoris; N18.3 Chronic kidney disease, stage 3 (moderate); Z98.890 Other specified postprocedural states; E11.21 Type 2 diabetes mellitus with diabetic nephropathy; Z95.1 Presence of aortocoronary bypass graft; T81.89XA Other complications of procedures, not elsewhere classified, initial encounter; Z82.49 Family history of ischemic heart disease and other diseases of the circulatory system; Z88.0 Allergy status to penicillin; I25.5 Ischemic cardiomyopathy; I95.9 Hypotension, unspecified; E83.42 Hypomagnesemia; F10.20 Alcohol dependence, uncomplicated; R31.9 Hematuria, unspecified; I35.0 Nonrheumatic aortic (valve) stenosis; E11.51 Type 2 diabetes mellitus with diabetic peripheral angiopathy without gangrene; Y83.8 Other surgical procedures as the cause of abnormal reaction of the patient, or of later complication, without mention of misadventure at the time of the procedure; Y92.199 Unspecified place in other specified residential institution as the place of occurrence of the external cause; Z89.422 Acquired absence of other left toe(s); Z88.8 Allergy status to other drugs, medicaments and biological substances; Z83.3 Family history of diabetes mellitus

== ENCOUNTER → 2017-12-28 | Outpatient (CLI) | payer OTHER ==
[~2017-12-28] MED LIST changes: +AMOX875T PO; -ATOR-26 PO; -CARV6.252 PO; +CMD5 PO; +CRD200 PO; -DILT-213 PO; -FURO40TA3 PO; -INSDGI SC; +INSDGIPEN SC; +LPT40 PO; +LSX80 PO; +MCRK20 PO; -METF1000 PO; +METO100T44 PO; +MULTTAB58 PO; -NVLG SC; -POTA-639 PO; +SLWMEC PO
[2017-12-28 09:46] LABS: HEMATOCRIT 38.1 % (42-52); HEMOGLOBIN 12.4 g/dL (14.0-18.0); MEAN CELL VOLUME 88.8 fL (80-100); MEAN CORPUSCULAR HEMOGLOBIN 28.9 pg (25-34); MEAN CORPUSCULAR HGB CONC 32.5 g/dl (32-36); PLATELET COUNT 259 K/uL (130-400); RED CELL DISTRIBUTION WIDTH CV 16.5 % (11.5-14.5); WHITE BLOOD COUNT 5.85 K/uL (4.8-10.8)
[2017-12-28 09:55] LABS: BLOOD UREA NITROGEN 28 mg/dl (7-18); CALCIUM 8.7 mg/dl (8.5-10.1); CARBON DIOXIDE 23 mmol/L (21-32); CREATININE 1.65 mg/dl (0.60-1.40); GLUCOSE 78 mg/dl (70-99); POTASSIUM 3.8 mmol/L (3.5-5.1); SODIUM 138 mmol/L (136-145)
== END ==
LOC: C.LABUPNIT 09:13
PROVIDERS: ATTEND Nurse Practitioner Family
DX: Z89.431 Acquired absence of right foot (principal); I50.9 Heart failure, unspecified